=== PATIENT | female | born 1935 | race Caucasian/White ===

== ENCOUNTER 2016-10-14 18:45 | Emergency (ER) | payer MEDICARE, OTHER ==
[~2016-10-14] VITALS: Ht 170.2 cm; Wt 78.7 kg
[~2016-10-14 18:45] MED LIST: /LANS30GR PO; /MOXI40TA; /OMEP10CA OR; ACET500C OR; ALLO300T PO; AMLO10TA PO; AMLO5TAB2 PO; ASPI1TAB PO; ASPI81TA63 PO; AVANDAMET; BACT800T OR; BACT800T5 PO; CALC1CAP31 PO; CARV12.5 PO; CIPRO500 PO; COLA100C2; COMBIVENT; CORE25TA; CORE6.25 PO; DRIS50002 PO; FERR1TAB8 PO; FLAGYL250 PO; FURO20TA2 PO; FURO40TA2 PO; GINK40TA3 PO; GINK60TA4 PO; GLIP1TAB11 PO; GLIP5TAB2 PO; GLUC500T PO; GLUC5TAB PO; GLUC5TAB3 OR; IRON28TA OR; IRON325T3 PO; LASI40TA PO; LISI10TA4 PO; LISI40TA OR; LISI5TAB PO; MAALSUS OR; MAGN500T2; METF500T PO; NEXI40CA PO; POTA10CA2 PO; PRED10TA2; PREVACID30 PO; SILV50CR TOP; SIMV20TA2 PO; TRAD5TAB PO; VITA100072 PO; VITA50TA12 OR; ZOCO20TA; ZOCO20TA PO; ZYLO300T4 PO
[2016-10-14] MEDS ORDERED: ACETAMINOPHEN 325 MG TAB PO ONE (19:15)
--- NOTE | 2016-10-14 19:28 | REP ---
Clinical: Trauma. Comparison: 11/14/2011 . Findings: Age-related atrophy and microvascular ischemic changes are appreciated. The ventricles and sulci are symmetric. Joya-white differentiation is maintained. There is no evidence for acute intracranial hemorrhage, mass/mass effect, pathology or infarction. No extra-axial fluid collection. Calvarium is intact. Paranasal sinuses and mastoid air cells are clear. Atherosclerotic changes to the internal carotid arteries noted. Impression: Age related atrophy and microvascular ischemic changes. No acute intracranial hemorrhage, infarction, or mass/mass effect. Signed by Carlos Tejada MD 10/14/2016 07:20 P
[2016-10-14] MEDS ORDERED: NORCO 5/325MG TABLET (BULK FOR ED) PO ONE (19:45)
[2016-10-14 19:53] VITALS: BP 184/86
--- NOTE | 2016-10-14 20:20 | REP ---
Clinical: Trauma. Technique: Frontal view of the chest with multiple views of the right hemithorax. Findings: Frontal view of the chest demonstrates chronic stable changes without acute cardiopulmonary process. Hiatal hernia suggested. Multiple views of the right hemithorax demonstrates no obvious acute rib fracture or pathology. Impression: No rib fracture identified. Signed by Carlos Tejada MD 10/14/2016 08:10 P
== END 2016-10-14 19:53 | disposition home or self-care (01) ==
LOC: M ED 18:45
DX: S00.83XA Contusion of other part of head, initial encounter (principal); S20.229A Contusion of unspecified back wall of thorax, initial encounter; W18.09XA Striking against other object with subsequent fall, initial encounter; Y92.019 Unspecified place in single-family (private) house as the place of occurrence of the external cause; Y93.01 Activity, walking, marching and hiking; Y99.8 Other external cause status; N18.9 Chronic kidney disease, unspecified; E11.22 Type 2 diabetes mellitus with diabetic chronic kidney disease; J44.9 Chronic obstructive pulmonary disease, unspecified; I12.9 Hypertensive chronic kidney disease with stage 1 through stage 4 chronic kidney disease, or unspecified chronic kidney disease; Z99.2 Dependence on renal dialysis; Z79.82 Long term (current) use of aspirin; Z79.899 Other long term (current) drug therapy; Z88.0 Allergy status to penicillin; Z88.8 Allergy status to other drugs, medicaments and biological substances; Z91.030 Bee allergy status

== ENCOUNTER → 2017-04-26 | Outpatient (REF) | payer MEDICARE, OTHER | LOC: M LAB REF 13:21 | DX: L03.116 Cellulitis of left lower limb (principal) | CPT/HCPCS: 87186 ==

== ENCOUNTER → 2017-06-20 | Outpatient (REF) | payer MEDICARE, OTHER ==
[2017-06-21 14:54] LABS: FERRITIN 87 NG/ML (8-252); IRON (FE) 66 UG/DL (50-170); PERCENT SATURATION 23.6 % (13.2-45.0); TOTAL IRON BINDING CAPACITY 280 UG/DL (250-450)
== END ==
LOC: M LAB REF 13:44
DX: D64.9 Anemia, unspecified (principal); N18.4 Chronic kidney disease, stage 4 (severe)
CPT/HCPCS: 83550

== ENCOUNTER → 2017-06-21 | Outpatient (CLI) | payer MEDICARE, OTHER | LOC: M RAD 08:41 | DX: N18.6 End stage renal disease (principal) | CPT/HCPCS: G0365 ==

== ENCOUNTER → 2017-08-08 | Outpatient (REF) | payer MEDICARE, OTHER | LOC: M LAB REF 15:41 | DX: L97.512 Non-pressure chronic ulcer of other part of right foot with fat layer exposed (principal) | CPT/HCPCS: 87102 ==

== ENCOUNTER → 2017-08-24 | Outpatient (CLI) | payer MEDICARE, OTHER | LOC: M EKG 10:41 | DX: Z01.818 Encounter for other preprocedural examination (principal); E11.9 Type 2 diabetes mellitus without complications; J44.9 Chronic obstructive pulmonary disease, unspecified; R94.31 Abnormal electrocardiogram [ECG] [EKG] | CPT/HCPCS: 93005 ==

== ENCOUNTER 2017-08-31 10:37 | Day surgery (SDC) | payer MEDICARE, OTHER ==
[2017-08-31] MEDS ORDERED: NS 1,000 ML IV (10:45)
[2017-08-31 11:26] LABS: POTASSIUM SERUM 3.7 MEQ/L (3.5-5.1)
[2017-08-31] MEDS ORDERED: LIDOCAINE 2% INJ 100 MG/5 ML SDV (FOR ANES.) As Ordered (11:45)
[2017-08-31] MEDS ORDERED: MIDAZOLAM INJ 2 MG/2 ML VIAL (J2250) As Ordered ×2 (11:45→14:44)
[2017-08-31] MEDS ORDERED: PROPOFOL 200 MG/20 ML VIAL As Ordered ×2 (11:45→14:52)
[2017-08-31] MEDS ORDERED: fentaNYL 100 MCG/2 ML INJECTION (J3010) As Ordered (11:45)
[2017-08-31] MEDS ORDERED: ONDANSETRON 4MG/2ML VIAL (J2405) As Ordered (11:45)
[2017-08-31 12:26] LABS: BEDSIDE GLUCOSE 131 MG/DL (83-110)
[2017-08-31] MEDS: CARVedilol 6.25 MG TAB PO (12:30)
[2017-08-31] MEDS: BUPIVACAINE HCL 0.5% 10 ML VIAL As Ordered (13:35)
[2017-08-31] MEDS: LIDOCAINE 1% MDV 20ML VIAL As Ordered (13:35)
[2017-08-31] MEDS: HEPARIN SOD (PORCINE) 5000 UNITS/ML VIAL As Ordered (13:35)
[2017-08-31] MEDS ORDERED: PHENYLephrine HCL 500 MCG/5 ML (100MCG/ML) SYRINGE (J2370) As Ordered ×2 (13:51→15:15)
[2017-08-31] MEDS ORDERED: KETAMINE HCL 200 MG/20 ML VIAL As Ordered (14:44)
== END 2017-08-31 15:05 | disposition home or self-care (01) ==
LOC: M SDC 10:37
DX: E11.22 Type 2 diabetes mellitus with diabetic chronic kidney disease (principal); N18.9 Chronic kidney disease, unspecified; I12.9 Hypertensive chronic kidney disease with stage 1 through stage 4 chronic kidney disease, or unspecified chronic kidney disease; L97.529 Non-pressure chronic ulcer of other part of left foot with unspecified severity; E78.00 Pure hypercholesterolemia, unspecified; J44.9 Chronic obstructive pulmonary disease, unspecified; M79.89 Other specified soft tissue disorders; Z99.81 Dependence on supplemental oxygen
CPT/HCPCS: 36821

== ENCOUNTER 2017-09-18 09:34 | Inpatient (IN) | payer MEDICARE, OTHER ==
[2017-09-18] MEDS: NS 1,000 ML IV (11:26)
[2017-09-18 11:38] LABS: BASO % 0.3 % (0.0-1.0); EOS # 0.1 10^3/uL (0.0-0.50); EOS % 0.9 % (0.0-3.0); HEMATOCRIT 29.7 % (36.0-47.0); HEMOGLOBIN 9.7 g/dl (12.0-15.5); IMMATURE GRANULOCYTE % 0.5 % (0-3.0); LYMPH # 1.2 10^3/uL (1.5-4.5); LYMPH % 10.9 % (24.0-44.0); MEAN CORPUSCULAR HEMOGLOBIN 30.8 pg (27.0-33.0); MEAN CORPUSCULAR HGB CONC 32.7 g/dl (32.0-36.5); MEAN CORPUSCULAR VOLUME 94.3 fl (80.0-96.0); MONO # 0.6 10^3/uL (0.0-0.8); MONO % 5.3 % (0.0-5.0); NEUTROPHILS # 8.9 10^3/uL (1.8-7.7); NEUTROPHILS % 82.1 % (36.0-66.0); PLATELET COUNT, AUTOMATED 272 10^3/uL (150-450); RED BLOOD COUNT 3.15 10^6/uL (4.00-5.40); RED CELL DISTRIBUTION WIDTH 13.7 % (11.5-14.5); WHITE BLOOD COUNT 10.8 10^3/uL (4.0-10.0)
[2017-09-18 12:14] LABS: ALBUMIN 3.4 GM/DL (3.2-5.2); ALBUMIN/GLOBULIN RATIO 0.92 (1.00-1.93); ALKALINE PHOSPHATASE 51 U/L (45-117); ALT/SGPT 11 U/L (12-78); ANION GAP 8 MEQ/L (8-16); AST/SGOT 5 U/L (7-37); BILIRUBIN,DIRECT 0.2 MG/DL (0.0-0.2); BILIRUBIN,TOTAL 0.4 MG/DL (0.2-1.0); BLOOD UREA NITROGEN 37 MG/DL (7-18); CALCIUM LEVEL 8.6 MG/DL (8.8-10.2); CARBON DIOXIDE LEVEL 31 MEQ/L (21-32); CHLORIDE LEVEL 98 MEQ/L (98-107); CK-MB VALUE MASS < 1.0 NG/ML (<3.6); CPK CREATINE PHOSPHOKINASE 32 U/L (26-192); CREATININE FOR GFR 2.26 MG/DL (0.55-1.30); GLOMERULAR FILTRATION RATE 21.9 (>32); GLUCOSE, FASTING 182 MG/DL (70-100); MB/CK RELATIVE INDEX 3.12 (< OR =4); NT-PRO BNP 4765 PG/ML (<450); POTASSIUM SERUM 3.5 MEQ/L (3.5-5.1); SODIUM LEVEL 137 MEQ/L (136-145); THYROXINE (T4) 10.5 UG/DL (4.5-12.0); TOTAL PROTEIN 7.1 GM/DL (6.4-8.2); TROPONIN I < 0.02 NG/ML (< 0.10)
[2017-09-18] MEDS: FUROSEMIDE 40 MG/4 ML VIAL (J1940) IV ×3 (14:11→23:43)
[2017-09-18] MEDS ORDERED: LEVALBUTEROL 1.25 MG/0.5 ML CONCENTRATE NEB INH ×2 (15:30→16:00)
[2017-09-18] MEDS: HEPARIN SOD (PORCINE) 5000 UNITS/ML VIAL SC ×2 (15:54→20:54)
[2017-09-18] MEDS: CARVedilol 12.5 MG TAB PO ×2 (15:55→20:55)
[2017-09-18] MEDS ORDERED: DEXTROSE 50% 50 ML SYRINGE IV (16:00)
[2017-09-18] MEDS ORDERED: GLUCOSE 4 GM CHEW TABLET PO (16:00)
[2017-09-18] MEDS ORDERED: GLUCAGON FOR INJ 1 MG VIAL (J1610) SC (16:00)
[2017-09-18] MEDS: LEVALBUTEROL 1.25 MG/0.5 ML CONCENTRATE NEB NEB (16:43)
[2017-09-18] MEDS: HumaLOG INSULIN (NovoLOG) PER UNIT SC ×2 (17:30→21:06)
[2017-09-18 17:48] LABS: BEDSIDE GLUCOSE 151 MG/DL (83-110)
[2017-09-18 18:47] LABS: CK-MB VALUE MASS < 1.0 NG/ML (<3.6); CPK CREATINE PHOSPHOKINASE 41 U/L (26-192); MB/CK RELATIVE INDEX 2.43 (< OR =4); TROPONIN I < 0.02 NG/ML (< 0.10)
[2017-09-18] MEDS: LEVALBUTEROL 1.25 MG/0.5 ML CONCENTRATE NEB INH ×2 (20:24→23:53)
[2017-09-18] MEDS: SIMVASTATIN 20 MG TAB PO (20:54)
[2017-09-18] MEDS ORDERED: CARVedilol 12.5 MG TAB PO (21:00)
[2017-09-18 21:09] LABS: BEDSIDE GLUCOSE 233 MG/DL (83-110)
[2017-09-19] MEDS: LEVALBUTEROL 1.25 MG/0.5 ML CONCENTRATE NEB INH ×5 (03:49→19:56)
[2017-09-19] MEDS: HEPARIN SOD (PORCINE) 5000 UNITS/ML VIAL SC ×3 (05:13→21:49)
[2017-09-19 05:47] LABS: HEMOGLOBIN 9.8 g/dl (12.0-15.5); MEAN CORPUSCULAR HEMOGLOBIN 30.6 pg (27.0-33.0); MEAN CORPUSCULAR HGB CONC 32.7 g/dl (32.0-36.5); MEAN CORPUSCULAR VOLUME 93.8 fl (80.0-96.0); PLATELET COUNT, AUTOMATED 266 10^3/uL (150-450); RED CELL DISTRIBUTION WIDTH 13.7 % (11.5-14.5); WHITE BLOOD COUNT 10.2 10^3/uL (4.0-10.0)
[2017-09-19 06:08] LABS: ANION GAP 7 MEQ/L (8-16); BLOOD UREA NITROGEN 37 MG/DL (7-18); CALCIUM LEVEL 8.9 MG/DL (8.8-10.2); CARBON DIOXIDE LEVEL 31 MEQ/L (21-32); CHLORIDE LEVEL 100 MEQ/L (98-107); CK-MB VALUE MASS < 1.0 NG/ML (<3.6); CPK CREATINE PHOSPHOKINASE 48 U/L (26-192); CREATININE FOR GFR 2.19 MG/DL (0.55-1.30); GLOMERULAR FILTRATION RATE 22.8 (>32); GLUCOSE, FASTING 132 MG/DL (70-100); MB/CK RELATIVE INDEX 2.08 (< OR =4); POTASSIUM SERUM 3.3 MEQ/L (3.5-5.1); SODIUM LEVEL 138 MEQ/L (136-145); TROPONIN I < 0.02 NG/ML (< 0.10)
[2017-09-19] MEDS: FERROUS SULFATE 325MG TAB PO (08:09)
[2017-09-19] MEDS: HumaLOG INSULIN (NovoLOG) PER UNIT SC ×4 (08:09→21:40)
[2017-09-19] MEDS: CYANOCOBALAMIN 500 MCG TAB PO (08:10)
[2017-09-19] MEDS: ALLOPURINOL 300 MG TAB PO (08:10)
[2017-09-19] MEDS: PANTOPRAZOLE 40MG TAB (PROTONIX) PO (08:10)
[2017-09-19] MEDS: CALCITRIOL 0.25 MCG CAP (S0169) PO (08:10)
[2017-09-19] MEDS: ASPIRIN 81 MG ENTERIC TAB PO (08:12)
[2017-09-19] MEDS: CARVedilol 12.5 MG TAB PO ×2 (08:12→19:36)
[2017-09-19] MEDS ORDERED: PILL CRUSHER/CUTTER 1 EACH XX (08:15)
[2017-09-19] MEDS: POTASSIUM CHLORIDE 10 MEQ SR TABLET PO (10:42)
[2017-09-19 11:38] LABS: BEDSIDE GLUCOSE 186 MG/DL (83-110)
[2017-09-19] MEDS: FUROSEMIDE 40 MG/4 ML VIAL (J1940) IV ×2 (11:58→23:33)
[2017-09-19 16:54] LABS: BEDSIDE GLUCOSE 94 MG/DL (83-110)
[2017-09-19] MEDS: SIMVASTATIN 20 MG TAB PO (19:36)
[2017-09-19 21:23] LABS: BEDSIDE GLUCOSE 138 MG/DL (83-110)
[2017-09-20] MEDS: LEVALBUTEROL 1.25 MG/0.5 ML CONCENTRATE NEB INH ×2 (00:50→09:04)
[2017-09-20 05:20] LABS: HEMATOCRIT 28.5 % (36.0-47.0); HEMOGLOBIN 9.3 g/dl (12.0-15.5); MEAN CORPUSCULAR HEMOGLOBIN 30.7 pg (27.0-33.0); MEAN CORPUSCULAR HGB CONC 32.6 g/dl (32.0-36.5); MEAN CORPUSCULAR VOLUME 94.1 fl (80.0-96.0); PLATELET COUNT, AUTOMATED 247 10^3/uL (150-450); RED BLOOD COUNT 3.03 10^6/uL (4.00-5.40); RED CELL DISTRIBUTION WIDTH 13.8 % (11.5-14.5); WHITE BLOOD COUNT 9.9 10^3/uL (4.0-10.0)
[2017-09-20 05:37] LABS: ANION GAP 10 MEQ/L (8-16); BLOOD UREA NITROGEN 40 MG/DL (7-18); CALCIUM LEVEL 8.9 MG/DL (8.8-10.2); CARBON DIOXIDE LEVEL 28 MEQ/L (21-32); CHLORIDE LEVEL 99 MEQ/L (98-107); CREATININE FOR GFR 2.42 MG/DL (0.55-1.30); GLOMERULAR FILTRATION RATE 20.3 (>32); GLUCOSE, FASTING 138 MG/DL (70-100); POTASSIUM SERUM 3.5 MEQ/L (3.5-5.1); SODIUM LEVEL 137 MEQ/L (136-145)
[2017-09-20] MEDS: HEPARIN SOD (PORCINE) 5000 UNITS/ML VIAL SC (05:59)
[2017-09-20] MEDS: CALCITRIOL 0.25 MCG CAP (S0169) PO (07:51)
[2017-09-20] MEDS: PANTOPRAZOLE 40MG TAB (PROTONIX) PO (07:51)
[2017-09-20] MEDS: ALLOPURINOL 300 MG TAB PO (07:51)
[2017-09-20] MEDS: CYANOCOBALAMIN 500 MCG TAB PO (07:51)
[2017-09-20] MEDS: HumaLOG INSULIN (NovoLOG) PER UNIT SC (07:51)
[2017-09-20] MEDS: ASPIRIN 81 MG ENTERIC TAB PO (07:52)
[2017-09-20] MEDS: FERROUS SULFATE 325MG TAB PO (07:52)
[2017-09-20] MEDS: CARVedilol 12.5 MG TAB PO (07:52)
== END 2017-09-20 10:25 | disposition home or self-care (01) | DRG 291 ==
LOC: M ED 09:34 → M ED INP 14:25 → M PCU 17:24
DX: I13.0 Hypertensive heart and chronic kidney disease with heart failure and stage 1 through stage 4 chronic kidney disease, or unspecified chronic kidney disease (principal); I50.33 Acute on chronic diastolic (congestive) heart failure; N18.4 Chronic kidney disease, stage 4 (severe); J96.11 Chronic respiratory failure with hypoxia; N25.81 Secondary hyperparathyroidism of renal origin; N17.9 Acute kidney failure, unspecified; E11.9 Type 2 diabetes mellitus without complications; E78.4 Other hyperlipidemia; K21.9 Gastro-esophageal reflux disease without esophagitis; J44.9 Chronic obstructive pulmonary disease, unspecified; K44.9 Diaphragmatic hernia without obstruction or gangrene; Z79.899 Other long term (current) drug therapy; Z79.82 Long term (current) use of aspirin; Z88.0 Allergy status to penicillin; Z91.038 Other insect allergy status; M10.9 Gout, unspecified; E55.9 Vitamin D deficiency, unspecified; D63.1 Anemia in chronic kidney disease; E87.6 Hypokalemia

== ENCOUNTER → 2017-10-06 | Outpatient (REF) | payer MEDICARE, OTHER ==
[2017-10-06 18:36] LABS: FERRITIN 88 NG/ML (8-252); IRON (FE) 53 UG/DL (50-170); PERCENT SATURATION 19.6 % (13.2-45.0); TOTAL IRON BINDING CAPACITY 270 UG/DL (250-450)
== END ==
LOC: M LAB REF 16:50
DX: D64.9 Anemia, unspecified (principal)
CPT/HCPCS: 83550

== ENCOUNTER 2017-10-17 18:59 | Inpatient (IN) | payer MEDICARE, OTHER ==
[2017-10-17 21:49] LABS: BASO # 0.1 10^3/uL (0.0-0.2); BASO % 0.4 % (0.0-1.0); EOS # 0.3 10^3/uL (0.0-0.50); HEMATOCRIT 32.5 % (36.0-47.0); HEMOGLOBIN 10.6 g/dl (12.0-15.5); IMMATURE GRANULOCYTE % 0.4 % (0-3.0); LYMPH # 1.1 10^3/uL (1.5-4.5); LYMPH % 7.7 % (24.0-44.0); MEAN CORPUSCULAR HEMOGLOBIN 30.7 pg (27.0-33.0); MEAN CORPUSCULAR HGB CONC 32.6 g/dl (32.0-36.5); MEAN CORPUSCULAR VOLUME 94.2 fl (80.0-96.0); MONO # 0.5 10^3/uL (0.0-0.8); MONO % 3.7 % (0.0-5.0); NEUTROPHILS # 12.7 10^3/uL (1.8-7.7); NEUTROPHILS % 85.8 % (36.0-66.0); PLATELET COUNT, AUTOMATED 288 10^3/uL (150-450); RED BLOOD COUNT 3.45 10^6/uL (4.00-5.40); RED CELL DISTRIBUTION WIDTH 14.6 % (11.5-14.5); WHITE BLOOD COUNT 14.8 10^3/uL (4.0-10.0)
[2017-10-17 21:50] LABS: VENOUS BASE EXCESS 0.9 (-2.0-2.0); VENOUS HCO3 27.1 MEQ/L (23.0-27.0); VENOUS O2 SATURATION 68.4 % (60.0-80.0); VENOUS PARTIAL PRESSURE CO2 50.4 mmHg (38.0-50.0); VENOUS PARTIAL PRESSURE O2 37.3 mmHg (30.0-50.0); VENOUS PH 7.348 UNITS (7.330-7.430); VENOUS STANDARD HCO3 24.7 MEQ/L; VENOUS TOTAL CO2 28.6 MEQ/L (24.0-28.0)
[2017-10-17 22:13] LABS: LACTIC ACID SEPSIS PROTOCOL 0.9 MMOL/L (0.4-2.0)
[2017-10-17 22:15] LABS: ALBUMIN 3.7 GM/DL (3.2-5.2); ALBUMIN/GLOBULIN RATIO 0.97 (1.00-1.93); ALKALINE PHOSPHATASE 59 U/L (45-117); ALT/SGPT 18 U/L (12-78); ANION GAP 11 MEQ/L (8-16); AST/SGOT 12 U/L (7-37); BILIRUBIN,DIRECT 0.1 MG/DL (0.0-0.2); BILIRUBIN,TOTAL 0.4 MG/DL (0.2-1.0); BLOOD UREA NITROGEN 31 MG/DL (7-18); CALCIUM LEVEL 8.5 MG/DL (8.8-10.2); CARBON DIOXIDE LEVEL 28 MEQ/L (21-32); CHLORIDE LEVEL 96 MEQ/L (98-107); CPK CREATINE PHOSPHOKINASE 32 U/L (26-192); CREATININE FOR GFR 2.05 MG/DL (0.55-1.30); GLOMERULAR FILTRATION RATE 24.6 (>32); GLUCOSE, FASTING 212 MG/DL (70-100); POTASSIUM SERUM 3.6 MEQ/L (3.5-5.1); SODIUM LEVEL 135 MEQ/L (136-145); TOTAL PROTEIN 7.5 GM/DL (6.4-8.2); TROPONIN I 0.04 NG/ML (< 0.10)
[2017-10-17 22:21] LABS: CK-MB VALUE MASS < 1.0 NG/ML (<3.6); MB/CK RELATIVE INDEX 3.12 (< OR =4); NT-PRO BNP 3178 PG/ML (<450)
[2017-10-17] MEDS: FUROSEMIDE 40 MG/4 ML VIAL (J1940) IV (22:45)
[2017-10-18] MEDS ORDERED: GLUCOSE 4 GM CHEW TABLET PO (01:15)
[2017-10-18] MEDS ORDERED: GLUCAGON FOR INJ 1 MG VIAL (J1610) SC (01:15)
[2017-10-18] MEDS ORDERED: DEXTROSE 50% 50 ML SYRINGE IV (01:15)
[2017-10-18] MEDS: ASPIRIN 81 MG CHEW TABLET PO (02:54)
[2017-10-18 05:45] LABS: BEDSIDE GLUCOSE 204 MG/DL (83-110)
[2017-10-18] MEDS: HEPARIN SOD (PORCINE) 5000 UNITS/ML VIAL SQ ×3 (06:24→21:18)
[2017-10-18 06:27] LABS: NT-PRO BNP 7022 PG/ML (<450)
[2017-10-18 07:56] LABS: BASO # 0.1 10^3/uL (0.0-0.2); BASO % 0.5 % (0.0-1.0); EOS # 0.2 10^3/uL (0.0-0.50); EOS % 1.7 % (0.0-3.0); HEMATOCRIT 30.6 % (36.0-47.0); HEMOGLOBIN 10.2 g/dl (12.0-15.5); IMMATURE GRANULOCYTE % 0.4 % (0-3.0); LYMPH # 1.6 10^3/uL (1.5-4.5); LYMPH % 11.7 % (24.0-44.0); MEAN CORPUSCULAR HEMOGLOBIN 31.1 pg (27.0-33.0); MEAN CORPUSCULAR HGB CONC 33.3 g/dl (32.0-36.5); MEAN CORPUSCULAR VOLUME 93.3 fl (80.0-96.0); MONO # 0.6 10^3/uL (0.0-0.8); MONO % 4.7 % (0.0-5.0); NEUTROPHILS # 10.8 10^3/uL (1.8-7.7); PLATELET COUNT, AUTOMATED 308 10^3/uL (150-450); RED BLOOD COUNT 3.28 10^6/uL (4.00-5.40); RED CELL DISTRIBUTION WIDTH 14.6 % (11.5-14.5); WHITE BLOOD COUNT 13.3 10^3/uL (4.0-10.0)
[2017-10-18 08:08] LABS: ALBUMIN 3.3 GM/DL (3.2-5.2); ALBUMIN/GLOBULIN RATIO 0.83 (1.00-1.93); ALKALINE PHOSPHATASE 52 U/L (45-117); ALT/SGPT 15 U/L (12-78); ANION GAP 12 MEQ/L (8-16); AST/SGOT 13 U/L (7-37); BILIRUBIN,TOTAL 0.4 MG/DL (0.2-1.0); BLOOD UREA NITROGEN 30 MG/DL (7-18); CALCIUM LEVEL 8.5 MG/DL (8.8-10.2); CARBON DIOXIDE LEVEL 26 MEQ/L (21-32); CHLORIDE LEVEL 99 MEQ/L (98-107); CREATININE FOR GFR 1.98 MG/DL (0.55-1.30); GLOMERULAR FILTRATION RATE 25.6 (>32); GLUCOSE, FASTING 207 MG/DL (70-100); MAGNESIUM LEVEL 1.8 MG/DL (1.8-2.4); POTASSIUM SERUM 3.5 MEQ/L (3.5-5.1); SODIUM LEVEL 137 MEQ/L (136-145); TOTAL PROTEIN 7.3 GM/DL (6.4-8.2)
[2017-10-18] MEDS: SILVER SULFADIAZINE 1% CR 50 GM JAR TOP ×2 (09:00→21:18)
[2017-10-18] MEDS: FERROUS SULFATE 325MG TAB PO (09:36)
[2017-10-18] MEDS: OMEPRAZOLE 20 MG CAP PO (09:36)
[2017-10-18] MEDS: CYANOCOBALAMIN 500 MCG TAB PO (09:37)
[2017-10-18] MEDS: CARVedilol 12.5 MG TAB PO ×2 (09:38→21:17)
[2017-10-18] MEDS: SPIRONOLACTONE 25 MG TAB PO (09:38)
[2017-10-18] MEDS: ALLOPURINOL 300 MG TAB PO (09:38)
[2017-10-18] MEDS: CALCITRIOL 0.25 MCG CAP (S0169) PO (09:39)
[2017-10-18] MEDS: FUROSEMIDE 40 MG/4 ML VIAL (J1940) IV ×2 (09:39→21:22)
[2017-10-18] MEDS: HumaLOG INSULIN (NovoLOG) PER UNIT SC ×4 (09:40→20:41)
[2017-10-18 11:15] LABS: BEDSIDE GLUCOSE 140 MG/DL (83-110)
[2017-10-18 16:52] LABS: BEDSIDE GLUCOSE 211 MG/DL (83-110)
[2017-10-18 20:17] LABS: BEDSIDE GLUCOSE 102 MG/DL (83-110)
[2017-10-18] MEDS: SIMVASTATIN 20 MG TAB PO (21:18)
[2017-10-19] MEDS: HEPARIN SOD (PORCINE) 5000 UNITS/ML VIAL SQ (05:09)
[2017-10-19 05:52] LABS: BASO # 0.1 10^3/uL (0.0-0.2); BASO % 0.4 % (0.0-1.0); EOS # 0.3 10^3/uL (0.0-0.50); EOS % 2.6 % (0.0-3.0); HEMATOCRIT 29.6 % (36.0-47.0); HEMOGLOBIN 9.9 g/dl (12.0-15.5); IMMATURE GRANULOCYTE % 0.6 % (0-3.0); LYMPH # 1.7 10^3/uL (1.5-4.5); MEAN CORPUSCULAR HEMOGLOBIN 31.2 pg (27.0-33.0); MEAN CORPUSCULAR HGB CONC 33.4 g/dl (32.0-36.5); MEAN CORPUSCULAR VOLUME 93.4 fl (80.0-96.0); MONO # 0.6 10^3/uL (0.0-0.8); MONO % 5.6 % (0.0-5.0); NEUTROPHILS # 8.5 10^3/uL (1.8-7.7); NEUTROPHILS % 75.8 % (36.0-66.0); PLATELET COUNT, AUTOMATED 270 10^3/uL (150-450); RED BLOOD COUNT 3.17 10^6/uL (4.00-5.40); RED CELL DISTRIBUTION WIDTH 14.7 % (11.5-14.5); WHITE BLOOD COUNT 11.2 10^3/uL (4.0-10.0)
[2017-10-19 06:23] LABS: ALBUMIN 3.3 GM/DL (3.2-5.2); ALBUMIN/GLOBULIN RATIO 0.87 (1.00-1.93); ALKALINE PHOSPHATASE 46 U/L (45-117); ALT/SGPT 15 U/L (12-78); ANION GAP 12 MEQ/L (8-16); AST/SGOT 12 U/L (7-37); BILIRUBIN,TOTAL 0.4 MG/DL (0.2-1.0); BLOOD UREA NITROGEN 29 MG/DL (7-18); CALCIUM LEVEL 9.3 MG/DL (8.8-10.2); CARBON DIOXIDE LEVEL 29 MEQ/L (21-32); CHLORIDE LEVEL 96 MEQ/L (98-107); CREATININE FOR GFR 2.06 MG/DL (0.55-1.30); GLOMERULAR FILTRATION RATE 24.4 (>32); GLUCOSE, FASTING 187 MG/DL (70-100); MAGNESIUM LEVEL 2.1 MG/DL (1.8-2.4); POTASSIUM SERUM 3.3 MEQ/L (3.5-5.1); SODIUM LEVEL 137 MEQ/L (136-145); TOTAL PROTEIN 7.1 GM/DL (6.4-8.2)
[2017-10-19] MEDS: SILVER SULFADIAZINE 1% CR 50 GM JAR TOP (09:00)
[2017-10-19] MEDS: HumaLOG INSULIN (NovoLOG) PER UNIT SC (09:06)
[2017-10-19] MEDS: OMEPRAZOLE 20 MG CAP PO (09:07)
[2017-10-19] MEDS: POTASSIUM CHLORIDE 10 MEQ SR TABLET PO (09:07)
[2017-10-19] MEDS: ALLOPURINOL 300 MG TAB PO (09:07)
[2017-10-19] MEDS: FUROSEMIDE 40 MG TAB PO (09:08)
[2017-10-19] MEDS: SPIRONOLACTONE 25 MG TAB PO (09:08)
[2017-10-19] MEDS: CYANOCOBALAMIN 500 MCG TAB PO (09:08)
[2017-10-19] MEDS: FERROUS SULFATE 325MG TAB PO (09:08)
[2017-10-19] MEDS: CALCITRIOL 0.25 MCG CAP (S0169) PO (09:08)
[2017-10-19] MEDS: CARVedilol 12.5 MG TAB PO (09:09)
== END 2017-10-19 10:52 | disposition home or self-care (01) | DRG 291 ==
LOC: M ED INP 10-18 01:13 → M MSPAV 10-18 02:17 → M ED 18:59
DX: I13.0 Hypertensive heart and chronic kidney disease with heart failure and stage 1 through stage 4 chronic kidney disease, or unspecified chronic kidney disease (principal); I50.33 Acute on chronic diastolic (congestive) heart failure; N18.4 Chronic kidney disease, stage 4 (severe); J44.9 Chronic obstructive pulmonary disease, unspecified; E78.5 Hyperlipidemia, unspecified; E11.9 Type 2 diabetes mellitus without complications; I34.0 Nonrheumatic mitral (valve) insufficiency; I27.20 Pulmonary hypertension, unspecified; Z79.82 Long term (current) use of aspirin; Z79.899 Other long term (current) drug therapy; Z91.038 Other insect allergy status; Z91.040 Latex allergy status; Z88.0 Allergy status to penicillin; K21.9 Gastro-esophageal reflux disease without esophagitis; D63.8 Anemia in other chronic diseases classified elsewhere; Z87.891 Personal history of nicotine dependence

== ENCOUNTER 2017-11-25 07:48 | Inpatient (IN) | payer MEDICARE, OTHER ==
[2017-11-25 08:28] LABS: BASO # 0.1 10^3/uL (0.0-0.2); BASO % 0.5 % (0.0-1.0); EOS # 0.3 10^3/uL (0.0-0.50); HEMATOCRIT 32.2 % (36.0-47.0); HEMOGLOBIN 10.6 g/dl (12.0-15.5); IMMATURE GRANULOCYTE % 0.6 % (0-3.0); LYMPH # 1.1 10^3/uL (1.5-4.5); LYMPH % 8.1 % (24.0-44.0); MEAN CORPUSCULAR HEMOGLOBIN 30.7 pg (27.0-33.0); MEAN CORPUSCULAR HGB CONC 32.9 g/dl (32.0-36.5); MEAN CORPUSCULAR VOLUME 93.3 fl (80.0-96.0); MONO # 0.5 10^3/uL (0.0-0.8); MONO % 3.8 % (0.0-5.0); NEUTROPHILS # 11.4 10^3/uL (1.8-7.7); PLATELET COUNT, AUTOMATED 289 10^3/uL (150-450); RED BLOOD COUNT 3.45 10^6/uL (4.00-5.40); RED CELL DISTRIBUTION WIDTH 14.5 % (11.5-14.5); WHITE BLOOD COUNT 13.4 10^3/uL (4.0-10.0)
[2017-11-25 08:34] LABS: VENOUS BASE EXCESS 3.6 (-2.0-2.0); VENOUS HCO3 30.3 MEQ/L (23.0-27.0); VENOUS PARTIAL PRESSURE O2 41.8 mmHg (30.0-50.0); VENOUS PH 7.351 UNITS (7.330-7.430); VENOUS STANDARD HCO3 27.2 MEQ/L
[2017-11-25] MEDS: methylPREDNISolone INJ 125 MG/2 ML VIAL (J2930) IV ×2 (08:43→20:48)
[2017-11-25 08:44] LABS: INR 1.01; PROTHROMBIN TIME 13.4 SECONDS (12.1-14.4)
[2017-11-25] MEDS: IPRATROPIUM 0.5MG/ALBUTEROL 2.5MG INH SOL UD 3ML (DUONEB)(J7620) NEB ×2 (08:47→09:00)
[2017-11-25 08:56] LABS: LACTIC ACID SEPSIS PROTOCOL 0.9 MMOL/L (0.4-2.0)
[2017-11-25 08:58] LABS: ALBUMIN 3.6 GM/DL (3.2-5.2); ALBUMIN/GLOBULIN RATIO 1.03 (1.00-1.93); ALKALINE PHOSPHATASE 52 U/L (45-117); ALT/SGPT 19 U/L (12-78); ANION GAP 8 MEQ/L (8-16); AST/SGOT 11 U/L (7-37); BILIRUBIN,DIRECT 0.1 MG/DL (0.0-0.2); BILIRUBIN,TOTAL 0.5 MG/DL (0.2-1.0); BLOOD UREA NITROGEN 35 MG/DL (7-18); CALCIUM LEVEL 8.7 MG/DL (8.8-10.2); CARBON DIOXIDE LEVEL 30 MEQ/L (21-32); CHLORIDE LEVEL 93 MEQ/L (98-107); CPK CREATINE PHOSPHOKINASE 41 U/L (26-192); CREATININE FOR GFR 2.28 MG/DL (0.55-1.30); GLOMERULAR FILTRATION RATE 21.7 (>32); GLUCOSE, FASTING 212 MG/DL (70-100); POTASSIUM SERUM 3.9 MEQ/L (3.5-5.1); SODIUM LEVEL 131 MEQ/L (136-145); TOTAL PROTEIN 7.1 GM/DL (6.4-8.2); TROPONIN I 0.02 NG/ML (< 0.10)
[2017-11-25 09:03] LABS: CK-MB VALUE MASS 1.2 NG/ML (<3.6); MB/CK RELATIVE INDEX 2.92 (< OR =4); NT-PRO BNP 3671 PG/ML (<450)
[2017-11-25] MEDS ORDERED: SILVER SULFADIAZINE 1% CR 50 GM JAR TOP (11:45)
[2017-11-25] MEDS: FUROSEMIDE 40 MG/4 ML VIAL (J1940) IV (11:45)
[2017-11-25] MEDS: AZITHROMYCIN INJ 500 MG, VIAL MATE ADAPTER 1 EACH in D5W 250 ML IV (13:40)
[2017-11-25] MEDS: glipiZIDE XL 5 MG TABCR PO (17:22)
[2017-11-25] MEDS: FUROSEMIDE 40 MG TAB PO (17:22)
[2017-11-25] MEDS: SIMVASTATIN 20 MG TAB PO (20:48)
[2017-11-25] MEDS: CARVedilol 12.5 MG TAB PO (20:49)
[2017-11-25] MEDS: ACETAMINOPHEN TAB 650MG DOSE (2X325MG) PO (22:28)
[2017-11-26 05:51] LABS: HEMATOCRIT 33.5 % (36.0-47.0); HEMOGLOBIN 11.2 g/dl (12.0-15.5); MEAN CORPUSCULAR HGB CONC 33.4 g/dl (32.0-36.5); MEAN CORPUSCULAR VOLUME 89.8 fl (80.0-96.0); PLATELET COUNT, AUTOMATED 327 10^3/uL (150-450); RED BLOOD COUNT 3.73 10^6/uL (4.00-5.40); RED CELL DISTRIBUTION WIDTH 14.2 % (11.5-14.5); WHITE BLOOD COUNT 12.6 10^3/uL (4.0-10.0)
[2017-11-26 06:13] LABS: ANION GAP 15 MEQ/L (8-16); BLOOD UREA NITROGEN 40 MG/DL (7-18); CALCIUM LEVEL 9.1 MG/DL (8.8-10.2); CARBON DIOXIDE LEVEL 26 MEQ/L (21-32); CHLORIDE LEVEL 92 MEQ/L (98-107); CREATININE FOR GFR 2.26 MG/DL (0.55-1.30); GLOMERULAR FILTRATION RATE 21.9 (>32); GLUCOSE, FASTING 297 MG/DL (70-100); POTASSIUM SERUM 3.7 MEQ/L (3.5-5.1); SODIUM LEVEL 133 MEQ/L (136-145)
[2017-11-26] MEDS: CYANOCOBALAMIN 500 MCG TAB PO (09:52)
[2017-11-26] MEDS: CARVedilol 12.5 MG TAB PO ×2 (09:52→20:23)
[2017-11-26] MEDS: predniSONE 20 MG TAB PO (09:53)
[2017-11-26] MEDS: FERROUS SULFATE 325MG TAB PO (09:53)
[2017-11-26] MEDS: ALLOPURINOL 300 MG TAB PO (09:54)
[2017-11-26] MEDS: OMEPRAZOLE 20 MG CAP PO (09:54)
[2017-11-26] MEDS: FUROSEMIDE 40 MG TAB PO ×2 (09:54→17:36)
[2017-11-26] MEDS: glipiZIDE XL 5 MG TABCR PO ×2 (09:54→17:36)
[2017-11-26] MEDS: AZITHROMYCIN INJ 500 MG, VIAL MATE ADAPTER 1 EACH in D5W 250 ML IV (13:59)
[2017-11-26] MEDS: SIMVASTATIN 20 MG TAB PO (20:23)
[2017-11-26] MEDS: ACETAMINOPHEN TAB 650MG DOSE (2X325MG) PO (20:23)
[2017-11-27 06:27] LABS: ANION GAP 11 MEQ/L (8-16); BLOOD UREA NITROGEN 45 MG/DL (7-18); CALCIUM LEVEL 9.3 MG/DL (8.8-10.2); CARBON DIOXIDE LEVEL 28 MEQ/L (21-32); CHLORIDE LEVEL 90 MEQ/L (98-107); CREATININE FOR GFR 2.34 MG/DL (0.55-1.30); GLOMERULAR FILTRATION RATE 21.1 (>32); GLUCOSE, FASTING 239 MG/DL (70-100); SODIUM LEVEL 129 MEQ/L (136-145)
[2017-11-27 06:31] LABS: HEMATOCRIT 33.7 % (36.0-47.0); HEMOGLOBIN 11.1 g/dl (12.0-15.5); MEAN CORPUSCULAR HEMOGLOBIN 30.2 pg (27.0-33.0); MEAN CORPUSCULAR HGB CONC 32.9 g/dl (32.0-36.5); MEAN CORPUSCULAR VOLUME 91.6 fl (80.0-96.0); PLATELET COUNT, AUTOMATED 326 10^3/uL (150-450); RED BLOOD COUNT 3.68 10^6/uL (4.00-5.40); RED CELL DISTRIBUTION WIDTH 14.3 % (11.5-14.5); WHITE BLOOD COUNT 18.4 10^3/uL (4.0-10.0)
[2017-11-27] MEDS: FERROUS SULFATE 325MG TAB PO (09:17)
[2017-11-27] MEDS: CYANOCOBALAMIN 500 MCG TAB PO (09:17)
[2017-11-27] MEDS: predniSONE 20 MG TAB PO (09:18)
[2017-11-27] MEDS: FUROSEMIDE 40 MG TAB PO ×2 (09:18→17:02)
[2017-11-27] MEDS: glipiZIDE XL 5 MG TABCR PO ×2 (09:18→17:02)
[2017-11-27] MEDS: CARVedilol 12.5 MG TAB PO ×2 (09:18→20:02)
[2017-11-27] MEDS: OMEPRAZOLE 20 MG CAP PO (09:18)
[2017-11-27] MEDS: ALLOPURINOL 300 MG TAB PO (09:19)
[2017-11-27] MEDS: AZITHROMYCIN INJ 500 MG, VIAL MATE ADAPTER 1 EACH in D5W 250 ML IV (12:54)
[2017-11-27] MEDS: SIMVASTATIN 20 MG TAB PO (20:01)
[2017-11-28 05:57] LABS: HEMATOCRIT 32.3 % (36.0-47.0); MEAN CORPUSCULAR HEMOGLOBIN 30.1 pg (27.0-33.0); MEAN CORPUSCULAR HGB CONC 34.1 g/dl (32.0-36.5); MEAN CORPUSCULAR VOLUME 88.3 fl (80.0-96.0); PLATELET COUNT, AUTOMATED 332 10^3/uL (150-450); RED BLOOD COUNT 3.66 10^6/uL (4.00-5.40); WHITE BLOOD COUNT 15.5 10^3/uL (4.0-10.0)
[2017-11-28 06:15] LABS: ANION GAP 9 MEQ/L (8-16); BLOOD UREA NITROGEN 53 MG/DL (7-18); CALCIUM LEVEL 9.1 MG/DL (8.8-10.2); CARBON DIOXIDE LEVEL 30 MEQ/L (21-32); CHLORIDE LEVEL 90 MEQ/L (98-107); CREATININE FOR GFR 2.01 MG/DL (0.55-1.30); GLOMERULAR FILTRATION RATE 25.1 (>32); GLUCOSE, FASTING 193 MG/DL (70-100); POTASSIUM SERUM 3.8 MEQ/L (3.5-5.1); SODIUM LEVEL 129 MEQ/L (136-145)
[2017-11-28] MEDS: OMEPRAZOLE 20 MG CAP PO (08:51)
[2017-11-28] MEDS: predniSONE 20 MG TAB PO (08:52)
[2017-11-28] MEDS: FERROUS SULFATE 325MG TAB PO (08:52)
[2017-11-28] MEDS: CYANOCOBALAMIN 500 MCG TAB PO (08:52)
[2017-11-28] MEDS: glipiZIDE XL 5 MG TABCR PO ×2 (08:53→17:58)
[2017-11-28] MEDS: CARVedilol 12.5 MG TAB PO ×2 (08:53→21:17)
[2017-11-28] MEDS: FUROSEMIDE 40 MG TAB PO ×2 (08:53→17:59)
[2017-11-28] MEDS: ALLOPURINOL 300 MG TAB PO (08:54)
[2017-11-28] MEDS: AZITHROMYCIN INJ 500 MG, VIAL MATE ADAPTER 1 EACH in D5W 250 ML IV (13:16)
[2017-11-28] MEDS: SIMVASTATIN 20 MG TAB PO (21:16)
[2017-11-29 05:50] LABS: HEMOGLOBIN 10.8 g/dl (12.0-15.5); MEAN CORPUSCULAR HEMOGLOBIN 30.3 pg (27.0-33.0); MEAN CORPUSCULAR HGB CONC 33.8 g/dl (32.0-36.5); MEAN CORPUSCULAR VOLUME 89.6 fl (80.0-96.0); PLATELET COUNT, AUTOMATED 303 10^3/uL (150-450); RED BLOOD COUNT 3.57 10^6/uL (4.00-5.40); RED CELL DISTRIBUTION WIDTH 14.1 % (11.5-14.5); WHITE BLOOD COUNT 11.9 10^3/uL (4.0-10.0)
[2017-11-29 06:12] LABS: ANION GAP 6 MEQ/L (8-16); BLOOD UREA NITROGEN 55 MG/DL (7-18); CARBON DIOXIDE LEVEL 34 MEQ/L (21-32); CHLORIDE LEVEL 94 MEQ/L (98-107); CREATININE FOR GFR 1.91 MG/DL (0.55-1.30); GLOMERULAR FILTRATION RATE 26.6 (>32); GLUCOSE, FASTING 147 MG/DL (70-100); POTASSIUM SERUM 3.7 MEQ/L (3.5-5.1); SODIUM LEVEL 134 MEQ/L (136-145)
[2017-11-29] MEDS: glipiZIDE XL 5 MG TABCR PO (08:56)
[2017-11-29] MEDS: FERROUS SULFATE 325MG TAB PO (08:56)
[2017-11-29] MEDS: AZITHROMYCIN 250 MG TAB PO (08:56)
[2017-11-29] MEDS: ALLOPURINOL 300 MG TAB PO (08:57)
[2017-11-29] MEDS: predniSONE 20 MG TAB PO (08:57)
[2017-11-29] MEDS: CYANOCOBALAMIN 500 MCG TAB PO (08:57)
[2017-11-29] MEDS: FUROSEMIDE 40 MG TAB PO (08:57)
[2017-11-29] MEDS: CARVedilol 12.5 MG TAB PO (08:58)
[2017-11-29] MEDS: OMEPRAZOLE 20 MG CAP PO (08:58)
== END 2017-11-29 11:29 | disposition home or self-care (01) | DRG 191 ==
LOC: M ED 07:48 → M ED INP 11:35 → M MS5PR 14:15
DX: J44.1 Chronic obstructive pulmonary disease with (acute) exacerbation (principal); N18.4 Chronic kidney disease, stage 4 (severe); I50.32 Chronic diastolic (congestive) heart failure; I13.0 Hypertensive heart and chronic kidney disease with heart failure and stage 1 through stage 4 chronic kidney disease, or unspecified chronic kidney disease; J96.11 Chronic respiratory failure with hypoxia; I27.20 Pulmonary hypertension, unspecified; E11.621 Type 2 diabetes mellitus with foot ulcer; E78.5 Hyperlipidemia, unspecified; D63.1 Anemia in chronic kidney disease; Z79.899 Other long term (current) drug therapy; Z79.82 Long term (current) use of aspirin; Z88.0 Allergy status to penicillin; Z91.040 Latex allergy status; Z91.038 Other insect allergy status

== ENCOUNTER 2018-02-05 10:13 | Emergency (ER) | payer MEDICARE, OTHER ==
[2018-02-05 11:01] LABS: BASO # 0.1 10^3/uL (0.0-0.2); BASO % 0.7 % (0.0-1.0); EOS # 0.2 10^3/uL (0.0-0.50); EOS % 2.1 % (0.0-3.0); HEMATOCRIT 34.5 % (36.0-47.0); HEMOGLOBIN 10.3 g/dl (12.0-15.5); IMMATURE GRANULOCYTE % 0.5 % (0-3.0); LYMPH # 0.8 10^3/uL (1.5-4.5); LYMPH % 8.9 % (24.0-44.0); MEAN CORPUSCULAR HEMOGLOBIN 27.5 pg (27.0-33.0); MEAN CORPUSCULAR HGB CONC 29.9 g/dl (32.0-36.5); MONO # 0.4 10^3/uL (0.0-0.8); MONO % 4.5 % (0.0-5.0); NEUTROPHILS # 7.6 10^3/uL (1.8-7.7); NEUTROPHILS % 83.3 % (36.0-66.0); PLATELET COUNT, AUTOMATED 341 10^3/uL (150-450); RED BLOOD COUNT 3.75 10^6/uL (4.00-5.40); WHITE BLOOD COUNT 9.2 10^3/uL (4.0-10.0)
[2018-02-05 11:11] LABS: INR 1.14; PROTHROMBIN TIME 14.7 SECONDS (12.1-14.4)
[2018-02-05 11:12] LABS: PARTIAL THROMBOPLASTIN TIME 28.7 SECONDS (25.4-37.6)
[2018-02-05 11:19] LABS: ANION GAP 9 MEQ/L (8-16); BLOOD UREA NITROGEN 27 MG/DL (7-18); CALCIUM LEVEL 9.1 MG/DL (8.8-10.2); CARBON DIOXIDE LEVEL 31 MEQ/L (21-32); CHLORIDE LEVEL 94 MEQ/L (98-107); CK-MB VALUE MASS < 1.0 NG/ML (<3.6); CPK CREATINE PHOSPHOKINASE 19 U/L (26-192); CREATININE FOR GFR 2.21 MG/DL (0.55-1.30); FREE T4 1.42 NG/DL (0.76-1.46); GLOMERULAR FILTRATION RATE 22.5 (>32); GLUCOSE, FASTING 374 MG/DL (70-100); MAGNESIUM LEVEL 1.9 MG/DL (1.8-2.4); MB/CK RELATIVE INDEX 5.26 (< OR =4); POTASSIUM SERUM 3.8 MEQ/L (3.5-5.1); SODIUM LEVEL 134 MEQ/L (136-145); TROPONIN I < 0.02 NG/ML (< 0.10)
[2018-02-05] MEDS: SILVER SULFADIAZINE 1% CR 50 GM JAR TOP (13:20)
[2018-02-05] MEDS: NS 500 ML IV (13:20)
[2018-02-05 13:23] LABS: C REACTIVE PROTEIN QUANTITATIV 2.96 MG/DL (0.00-0.30)
[2018-02-05 13:42] LABS: KETONE, URINE AUTO RFX NEGATIVE (NEGATIVE); LEUKOCYTE ESTERASE UR AUTO RFX NEGATIVE (NEGATIVE); NITRITE, URINE AUTO RFX NEGATIVE (NEGATIVE); RBC, URINE AUTO RFX 2 /HPF (0-3); SPECIFIC GRAVITY UR AUTO RFX 1.008 (1.002-1.035); SQUAM EPITHELIAL CELL UR AURFX 3 /HPF (0-6); WBC, URINE AUTO RFX 0 /HPF (0-3)
[2018-02-05 15:22] LABS: BEDSIDE GLUCOSE 205 MG/DL (83-110)
[2018-02-09 14:09] LABS: BEDSIDE GLUCOSE 342 MG/DL (83-110)
== END 2018-02-05 16:35 | disposition home or self-care (01) ==
LOC: M ED 10:13
DX: E86.0 Dehydration (principal); N18.4 Chronic kidney disease, stage 4 (severe); R53.1 Weakness; R60.0 Localized edema; I50.9 Heart failure, unspecified; E78.5 Hyperlipidemia, unspecified; I27.20 Pulmonary hypertension, unspecified; E11.9 Type 2 diabetes mellitus without complications; Z88.0 Allergy status to penicillin; Z79.899 Other long term (current) drug therapy; Z79.82 Long term (current) use of aspirin; Z91.040 Latex allergy status; Z91.030 Bee allergy status
CPT/HCPCS: 71046

== ENCOUNTER 2018-02-21 08:43 | Emergency (ER) | payer MEDICARE, OTHER ==
[2018-02-21 09:37] LABS: BASO # 0.1 10^3/uL (0.0-0.2); BASO % 0.6 % (0.0-1.0); EOS # 0.1 10^3/uL (0.0-0.50); EOS % 1.2 % (0.0-3.0); HEMATOCRIT 30.3 % (36.0-47.0); HEMOGLOBIN 9.6 g/dl (12.0-15.5); IMMATURE GRANULOCYTE % 0.3 % (0-3.0); LYMPH % 10.9 % (24.0-44.0); MEAN CORPUSCULAR HEMOGLOBIN 28.2 pg (27.0-33.0); MEAN CORPUSCULAR HGB CONC 31.7 g/dl (32.0-36.5); MEAN CORPUSCULAR VOLUME 88.9 fl (80.0-96.0); MONO # 0.5 10^3/uL (0.0-0.8); MONO % 5.1 % (0.0-5.0); NEUTROPHILS # 7.7 10^3/uL (1.8-7.7); NEUTROPHILS % 81.9 % (36.0-66.0); PLATELET COUNT, AUTOMATED 331 10^3/uL (150-450); RED BLOOD COUNT 3.41 10^6/uL (4.00-5.40); RED CELL DISTRIBUTION WIDTH 16.3 % (11.5-14.5); WHITE BLOOD COUNT 9.4 10^3/uL (4.0-10.0)
[2018-02-21 09:57] LABS: MAGNESIUM LEVEL 2.1 MG/DL (1.8-2.4)
[2018-02-21 09:57] LABS: PHOSPHORUS LEVEL 3.6 MG/DL (2.5-4.9)
[2018-02-21 10:06] LABS: ALBUMIN 3.2 GM/DL (3.2-5.2); ALBUMIN/GLOBULIN RATIO 0.94 (1.00-1.93); ALKALINE PHOSPHATASE 54 U/L (45-117); ALT/SGPT 11 U/L (12-78); ANION GAP 12 MEQ/L (8-16); AST/SGOT 11 U/L (7-37); BILIRUBIN,DIRECT 0.3 MG/DL (0.0-0.2); BILIRUBIN,TOTAL 0.7 MG/DL (0.2-1.0); BLOOD UREA NITROGEN 30 MG/DL (7-18); CALCIUM LEVEL 9.3 MG/DL (8.8-10.2); CARBON DIOXIDE LEVEL 29 MEQ/L (21-32); CHLORIDE LEVEL 95 MEQ/L (98-107); CK-MB VALUE MASS < 1.0 NG/ML (<3.6); CPK CREATINE PHOSPHOKINASE 25 U/L (26-192); CREATININE FOR GFR 2.13 MG/DL (0.55-1.30); GLOMERULAR FILTRATION RATE 23.4 (>32); GLUCOSE, FASTING 191 MG/DL (70-100); POTASSIUM SERUM 4.2 MEQ/L (3.5-5.1); SODIUM LEVEL 136 MEQ/L (136-145); TOTAL PROTEIN 6.6 GM/DL (6.4-8.2); TROPONIN I < 0.02 NG/ML (< 0.10)
== END 2018-02-21 12:27 | disposition home or self-care (01) ==
LOC: M ED 08:43
DX: R53.1 Weakness (principal); I50.9 Heart failure, unspecified; I10 Essential (primary) hypertension; E78.5 Hyperlipidemia, unspecified; J44.9 Chronic obstructive pulmonary disease, unspecified; I27.20 Pulmonary hypertension, unspecified; Z79.82 Long term (current) use of aspirin; Z79.84 Long term (current) use of oral hypoglycemic drugs; Z79.899 Other long term (current) drug therapy; Z91.040 Latex allergy status; Z91.030 Bee allergy status; Z88.0 Allergy status to penicillin
CPT/HCPCS: 93005

== ENCOUNTER 2018-03-10 08:48 | Emergency (ER) | payer MEDICARE, OTHER ==
[2018-03-10 09:38] LABS: BASO # 0.1 10^3/uL (0.0-0.2); BASO % 0.8 % (0.0-1.0); EOS # 0.1 10^3/uL (0.0-0.50); HEMATOCRIT 31.8 % (36.0-47.0); HEMOGLOBIN 9.8 g/dl (12.0-15.5); IMMATURE GRANULOCYTE % 0.4 % (0-3.0); LYMPH # 0.8 10^3/uL (1.5-4.5); MEAN CORPUSCULAR HEMOGLOBIN 27.3 pg (27.0-33.0); MEAN CORPUSCULAR HGB CONC 30.8 g/dl (32.0-36.5); MEAN CORPUSCULAR VOLUME 88.6 fl (80.0-96.0); MONO # 0.4 10^3/uL (0.0-0.8); MONO % 4.4 % (0.0-5.0); NEUTROPHILS # 7.6 10^3/uL (1.8-7.7); NEUTROPHILS % 84.4 % (36.0-66.0); PLATELET COUNT, AUTOMATED 383 10^3/uL (150-450); RED BLOOD COUNT 3.59 10^6/uL (4.00-5.40); RED CELL DISTRIBUTION WIDTH 16.2 % (11.5-14.5)
[2018-03-10 10:01] LABS: ANION GAP 9 MEQ/L (8-16); BLOOD UREA NITROGEN 30 MG/DL (7-18); CALCIUM LEVEL 8.7 MG/DL (8.8-10.2); CARBON DIOXIDE LEVEL 30 MEQ/L (21-32); CHLORIDE LEVEL 98 MEQ/L (98-107); CK-MB VALUE MASS < 1.0 NG/ML (<3.6); CPK CREATINE PHOSPHOKINASE 26 U/L (26-192); CREATININE FOR GFR 2.19 MG/DL (0.55-1.30); GLOMERULAR FILTRATION RATE 22.7 (>32); GLUCOSE, FASTING 291 MG/DL (70-100); MB/CK RELATIVE INDEX 3.85 (< OR =4); NT-PRO BNP 16322 PG/ML (<450); POTASSIUM SERUM 3.9 MEQ/L (3.5-5.1); SODIUM LEVEL 137 MEQ/L (136-145); TROPONIN I < 0.02 NG/ML (< 0.10)
== END 2018-03-10 14:52 | disposition home or self-care (01) ==
LOC: M ED 08:48
DX: R42 Dizziness and giddiness (principal); N18.4 Chronic kidney disease, stage 4 (severe); I50.9 Heart failure, unspecified; I11.0 Hypertensive heart disease with heart failure; E11.9 Type 2 diabetes mellitus without complications; J44.9 Chronic obstructive pulmonary disease, unspecified; E78.5 Hyperlipidemia, unspecified; Z79.899 Other long term (current) drug therapy; Z79.890 Hormone replacement therapy; Z79.82 Long term (current) use of aspirin; Z88.0 Allergy status to penicillin; Z91.030 Bee allergy status; Z91.040 Latex allergy status
CPT/HCPCS: 70551

== ENCOUNTER → 2018-03-15 | Outpatient (REF) | payer MEDICARE, OTHER | LOC: M LAB REF 14:38 | DX: L03.116 Cellulitis of left lower limb (principal) | CPT/HCPCS: 87077 ==

== ENCOUNTER 2018-04-28 17:40 | Emergency (ER) | payer MEDICARE, OTHER ==
[~2018-04-28] VITALS: Ht 170.2 cm; Wt 64.5 kg
[~2018-04-28 17:40] MED LIST changes: -AMLO5TAB2 PO; +AMLO5TAB6 PO; +ASPI81CH PO; +CARV25TA PO; -DRIS50002 PO; +DRIS50003 PO; +LEVO75TA4 PO; +OMEP20TA PO; +PIOG1TAB36 PO; +PRED10TA2 PO; -ZYLO300T4 PO; +ZYLO300T6 PO
[2018-04-28] MEDS ORDERED: ADENOSINE 6MG/2ML INJECTION (J0153) As Ordered ONE (18:04)
[2018-04-28] MEDS ORDERED: FERR325T3 PO (18:04)
[2018-04-28] MEDS ORDERED: NS 1,000 ML IV ONE (18:15)
[2018-04-28] MEDS ORDERED: ASPIRIN 81 MG CHEW TABLET PO ONE (18:15)
[2018-04-28] MEDS ORDERED: ADENOSINE 6MG/2ML INJECTION (J0153) IV STA ×2 (18:18)
[2018-04-28 18:20] LABS: BASO # 0.1 10^3/uL (0.0-0.2); BASO % 0.9 % (0.0-1.0); EOS # 0.2 10^3/uL (0.0-0.50); EOS % 1.6 % (0.0-3.0); HEMATOCRIT 38.8 % (36.0-47.0); HEMOGLOBIN 11.8 g/dl (12.0-15.5); LYMPH # 2.4 10^3/uL (1.5-4.5); LYMPH % 24.4 % (24.0-44.0); MEAN CORPUSCULAR HEMOGLOBIN 27.6 pg (27.0-33.0); MEAN CORPUSCULAR HGB CONC 30.4 g/dl (32.0-36.5); MEAN CORPUSCULAR VOLUME 90.9 fl (80.0-96.0); MONO # 0.6 10^3/uL (0.0-0.8); MONO % 5.7 % (0.0-5.0); NEUTROPHILS # 6.5 10^3/uL (1.8-7.7); PLATELET COUNT, AUTOMATED 289 10^3/uL (150-450); RED BLOOD COUNT 4.27 10^6/uL (4.00-5.40); WHITE BLOOD COUNT 9.6 10^3/uL (4.0-10.0)
[2018-04-28] MEDS ORDERED: METOPROLOL 5 MG/5 ML VIAL As Ordered ONE (18:20)
[2018-04-28] MEDS: METOPROLOL 5 MG/5 ML VIAL IV SCH ×3 (18:22→18:53)
[2018-04-28 18:24] LABS: INR 1.05; PROTHROMBIN TIME 13.8 SECONDS (12.1-14.4)
[2018-04-28] MEDS ORDERED: LORazepam 2 MG/ML VIAL (J2060) IV STA (18:25)
[2018-04-28 18:33] LABS: ALBUMIN 3.8 GM/DL (3.2-5.2); ALT/SGPT 14 U/L (12-78); BILIRUBIN,DIRECT 0.2 MG/DL (0.0-0.2); BILIRUBIN,TOTAL 0.5 MG/DL (0.2-1.0); BLOOD UREA NITROGEN 30 MG/DL (7-18); CALCIUM LEVEL 9.2 MG/DL (8.8-10.2); CARBON DIOXIDE LEVEL 30 MEQ/L (21-32); CHLORIDE LEVEL 97 MEQ/L (98-107); CK-MB VALUE MASS < 1.0 NG/ML (<3.6); CPK CREATINE PHOSPHOKINASE 34 U/L (26-192); CREATININE FOR GFR 2.28 MG/DL (0.55-1.30); GLOMERULAR FILTRATION RATE 21.7 (>32); GLUCOSE, FASTING 256 MG/DL (70-100); MB/CK RELATIVE INDEX 2.94 (< OR =4); SODIUM LEVEL 136 MEQ/L (136-145); TOTAL PROTEIN 7.1 GM/DL (6.4-8.2); TROPONIN I 0.02 NG/ML (< 0.10)
[2018-04-28 18:53] VITALS: BP 118/58
[2018-04-28 20:00] VITALS: BP 121/58
--- NOTE | 2018-04-28 20:01 | REP ---
Portable chest x-ray: Single view. History: Chest pain. Comparison study: March 10, 2018. Findings: EKG monitoring electrodes overlie the chest. Cardiomegaly is observed. Pulmonary vasculature is cephalized. No pleural effusion is seen. Interstitial markings are increased consistent with pulmonary edema. Some component of interstitial fibrosis may be present as well. Impression: Cardiomegaly, vascular congestion, interstitial edema pattern with possibly with some interstitial fibrosis. Electronically Signed by Danny Corral MD 04/28/2018 07:52 P
--- NOTE | 2018-04-29 07:21 | ED PDOC ---
Post-Departure Follow-Up RADIOLOGY REPORT FAXED TO Jayashree Loaiza MD Apr 29, 2018 07:21
--- NOTE | 2018-04-29 08:24 | ECGEPIP ---
Stationary ECG Study 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
--- NOTE | 2018-05-02 07:24 | ECGEPIP ---
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 Rate increased from 03-10-18 tracing Electronically Signed On 05-02-2018 7:24:45 EST by Shahid Diaz
== END 2018-04-28 20:13 | disposition home or self-care (01) ==
LOC: M ED 17:40
DX: I47.1 Supraventricular tachycardia (principal); I10 Essential (primary) hypertension; E11.9 Type 2 diabetes mellitus without complications; E07.9 Disorder of thyroid, unspecified; F03.90 Unspecified dementia, unspecified severity, without behavioral disturbance, psychotic disturbance, mood disturbance, and anxiety; Z87.891 Personal history of nicotine dependence; Z88.0 Allergy status to penicillin; Z91.040 Latex allergy status; Z91.030 Bee allergy status; Z79.899 Other long term (current) drug therapy; Z79.82 Long term (current) use of aspirin
CPT/HCPCS: 71045; 80048; 80076; 82550; 82553; 84484; 85025; 85610; 93005; 93041; 94760; 96374; 96375; 99291; J0153; J2060

== ENCOUNTER 2018-05-01 16:18 | Emergency (ER) | payer MEDICARE, OTHER ==
[~2018-05-01] VITALS: Ht 162.6 cm; Wt 64.5 kg
[~2018-05-01 16:18] MED LIST changes: +FERR325T3 PO
[2018-05-01 16:56] LABS: BASO # 0.1 10^3/uL (0.0-0.2); BASO % 0.8 % (0.0-1.0); EOS # 0.1 10^3/uL (0.0-0.50); HEMATOCRIT 37.5 % (36.0-47.0); HEMOGLOBIN 11.5 g/dl (12.0-15.5); LYMPH % 22.3 % (24.0-44.0); MEAN CORPUSCULAR HEMOGLOBIN 27.4 pg (27.0-33.0); MEAN CORPUSCULAR HGB CONC 30.7 g/dl (32.0-36.5); MEAN CORPUSCULAR VOLUME 89.3 fl (80.0-96.0); MONO # 0.5 10^3/uL (0.0-0.8); MONO % 5.6 % (0.0-5.0); NEUTROPHILS # 6.1 10^3/uL (1.8-7.7); NEUTROPHILS % 70.1 % (36.0-66.0); PLATELET COUNT, AUTOMATED 243 10^3/uL (150-450); WHITE BLOOD COUNT 8.8 10^3/uL (4.0-10.0)
[2018-05-01] MEDS ORDERED: SILVER SULFADIAZINE 1% CR 50 GM JAR TOP ONE (17:00)
[2018-05-01 17:05] LABS: INR 1.09; PROTHROMBIN TIME 14.2 SECONDS (12.1-14.4)
[2018-05-01 17:06] LABS: PARTIAL THROMBOPLASTIN TIME 28.7 SECONDS (25.4-37.6)
[2018-05-01 17:18] LABS: ALBUMIN 3.8 GM/DL (3.2-5.2); BILIRUBIN,DIRECT 0.2 MG/DL (0.0-0.2); BILIRUBIN,TOTAL 0.6 MG/DL (0.2-1.0); CALCIUM LEVEL 9.4 MG/DL (8.8-10.2); CREATININE FOR GFR 2.07 MG/DL (0.55-1.30); FREE T4 1.31 NG/DL (0.76-1.46); GLOMERULAR FILTRATION RATE 24.2 (>32); MB/CK RELATIVE INDEX 2.24 (< OR =4); POTASSIUM SERUM 4.1 MEQ/L (3.5-5.1); THYROID STIMULATING HORMONE 4.54 uIU/ML (0.358-3.740); TOTAL PROTEIN 7.1 GM/DL (6.4-8.2); TROPONIN I 0.02 NG/ML (< 0.10)
--- NOTE | 2018-05-01 17:28 | REP ---
Chest one-view HISTORY: Chest pain Comparison: 04/28/2018 A diffuse increase in interstitial markings is present in the lungs consistent with edema. The cardiac silhouette is enlarged. The pulmonary vasculature is prominent. The pulmonary vasculature is normal in appearance. Impression: 1. Interstitial edema. 2. Cardiomegaly. Electronically Signed by Antonio Mckeon MD 05/01/2018 05:19 P
[2018-05-01 19:01] VITALS: BP 164/68
--- NOTE | 2018-05-01 20:18 | ECGEPIP ---
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
== END 2018-05-01 19:05 | disposition home or self-care (01) ==
LOC: M ED 16:18
DX: R00.2 Palpitations (principal); R42 Dizziness and giddiness; L97.429 Non-pressure chronic ulcer of left heel and midfoot with unspecified severity; I50.9 Heart failure, unspecified; I25.10 Atherosclerotic heart disease of native coronary artery without angina pectoris; E11.622 Type 2 diabetes mellitus with other skin ulcer; G30.9 Alzheimer's disease, unspecified; K21.9 Gastro-esophageal reflux disease without esophagitis; K57.92 Diverticulitis of intestine, part unspecified, without perforation or abscess without bleeding; Z88.0 Allergy status to penicillin; Z91.030 Bee allergy status; Z91.040 Latex allergy status; Z79.899 Other long term (current) drug therapy; Z79.82 Long term (current) use of aspirin

== ENCOUNTER 2018-05-11 19:03 | Inpatient (IN) | payer MEDICARE, OTHER ==
[~2018-05-11] VITALS: Ht 162.6 cm; Wt 64.6 kg
[2018-05-11] MEDS: HumaLOG INSULIN (NovoLOG) PER UNIT SC SCH (01:30)
[2018-05-11] MEDS: SIMVASTATIN 20 MG TAB PO SCH (03:00)
[2018-05-11] MEDS: CARVedilol 12.5 MG TAB PO SCH (03:00)
[2018-05-11 20:10] LABS: BASO # 0.1 10^3/uL (0.0-0.2); BASO % 0.5 % (0.0-1.0); EOS % 0.4 % (0.0-3.0); HEMATOCRIT 36.7 % (36.0-47.0); HEMOGLOBIN 11.5 g/dl (12.0-15.5); LYMPH # 1.2 10^3/uL (1.5-4.5); LYMPH % 12.3 % (24.0-44.0); MEAN CORPUSCULAR HEMOGLOBIN 28.2 pg (27.0-33.0); MEAN CORPUSCULAR HGB CONC 31.3 g/dl (32.0-36.5); MONO # 0.5 10^3/uL (0.0-0.8); MONO % 5.5 % (0.0-5.0); NEUTROPHILS # 7.9 10^3/uL (1.8-7.7); NEUTROPHILS % 80.9 % (36.0-66.0); PLATELET COUNT, AUTOMATED 221 10^3/uL (150-450); RED BLOOD COUNT 4.08 10^6/uL (4.00-5.40); WHITE BLOOD COUNT 9.7 10^3/uL (4.0-10.0)
[2018-05-11 20:44] LABS: BLOOD UREA NITROGEN 28 MG/DL (7-18); CALCIUM LEVEL 9.1 MG/DL (8.8-10.2); CARBON DIOXIDE LEVEL 27 MEQ/L (21-32); CHLORIDE LEVEL 99 MEQ/L (98-107); CK-MB VALUE MASS < 1.0 NG/ML (<3.6); CPK CREATINE PHOSPHOKINASE 32 U/L (26-192); CREATININE FOR GFR 2.01 MG/DL (0.55-1.30); GLOMERULAR FILTRATION RATE 25.1 (>32); GLUCOSE, FASTING 216 MG/DL (70-100); MB/CK RELATIVE INDEX 3.12 (< OR =4); POTASSIUM SERUM 4.5 MEQ/L (3.5-5.1); SODIUM LEVEL 136 MEQ/L (136-145); TROPONIN I < 0.02 NG/ML (< 0.10)
[2018-05-11] MEDS: FERROUS SULFATE 325MG TAB PO SCH (21:00)
[2018-05-11] MEDS ORDERED: LevoFLOXacin IV 500 MG in APPROPRIATE DILUENT 1 EA IV ONE (22:45)
--- NOTE | 2018-05-11 22:47 | REPVR ---
EXAM: CT Chest Without Contrast EXAM DATE/TIME: 05/11/2018 10:06 PM CLINICAL HISTORY: 83 years old, female; Signs and symptoms; Other: Syncope; Additional info: Syncope, HX of chf TECHNIQUE: Axial computed tomography images of the chest without intravenous contrast. All CT scans at this facility use at least one of these dose optimization techniques: automated exposure control; mA and/or kV adjustment per patient size (includes targeted exams where dose is matched to clinical indication); or iterative reconstruction. Coronal and sagittal reformatted images were created and reviewed. MIP reconstructed images were created and reviewed. COMPARISON: CT Chest without contrast 09/18/2017 12:20 PM FINDINGS: Lungs: Minimal bullous change with mild interstitial prominence and scattered areas of fibro-atelectatic change, greatest in the right lower lobe. Pleural space: Minimal right pleural effusion and trace left pleural effusion. Heart: Coronary artery calcifications are present. The left atrium measures 4.3 cm in its AP dimension. Mediastinum: Minimal hiatal hernia. Aorta: Normal. No aortic aneurysm. Lymph nodes: Numerous small mediastinal nodes which are top normal. Calcified left hilar and mediastinal nodes with calcified granuloma in the left upper lobe. Bones/joints: Unremarkable. No acute fracture. Soft tissues: Unremarkable. Liver: Minimal hepatic calcifications. Spleen: Splenic calcifications. IMPRESSION: 1. Minimal right pleural effusion and trace left pleural effusion, increased since 09/18/2017. 2. Minimal bullous change with mild interstitial prominence and scattered areas of fibro-atelectatic change, greatest in the right lower lobe and is slightly increased since prior study. 3. 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 4. Minimal hiatal hernia. Electronically signed by: Waylon Yousif On 05/11/2018 22:46:35 PM
--- NOTE | 2018-05-11 22:49 | REPVR ---
EXAM: CT Head Without Contrast EXAM DATE/TIME: 05/11/2018 8:08 PM CLINICAL HISTORY: 83 years old, female; Signs and symptoms; Syncope and collapse TECHNIQUE: Axial computed tomography images of the head/brain without contrast. All CT scans at this facility use at least one of these dose optimization techniques: automated exposure control; mA and/or kV adjustment per patient size (includes targeted exams where dose is matched to clinical indication); or iterative reconstruction. COMPARISON: CT Head without contrast 03/10/2018 10:04 AM FINDINGS: Brain: There is moderate patchy low attenuation of deep white matter with areas of old subcortical deep white matter infarct or gliosis. There is mild prominence of the peripheral sulci. Ventricles: There is mild prominence of the central ventricular system. Bones/joints: Normal. No acute fracture. Sinuses: Normal as visualized. No acute sinusitis. Mastoid air cells: Normal as visualized. No mastoid effusion. Soft tissues: Normal. IMPRESSION: 1. There has been little change from 03/10/2018. No acute interval intracranial process is identified. 2. Moderate chronic ischemic white matter change and mild atrophy. Electronically signed by: Waylon Yousif On 05/11/2018 22:49:42 PM
[2018-05-11] MEDS ORDERED: ACETAMINOPHEN TAB 650MG DOSE (2X325MG) PO PRN (23:45)
[2018-05-11] MEDS ORDERED: LASI20TA3 PO (23:48)
[2018-05-11] MEDS ORDERED: SILV50CR TOP (23:50)
[2018-05-11] MEDS ORDERED: LABETALOL HCL 100 MG/20 ML VIAL IV STA (23:51)
[2018-05-12] VITALS (7 sets, daily range): BP systolic 140–192; BP diastolic 68–91
[2018-05-12] MEDS ORDERED: DEXTROSE 50% 50 ML SYRINGE IV PRN (00:15)
[2018-05-12] MEDS ORDERED: GLUCAGON FOR INJ 1 MG VIAL (J1610) SC PRN (00:15)
[2018-05-12] MEDS ORDERED: GLUCOSE 4 GM CHEW TABLET PO PRN (00:15)
[2018-05-12] MEDS ORDERED: PILL CRUSHER/CUTTER 1 EACH XX PRN (00:15)
--- NOTE | 2018-05-12 00:38 | HPEPDOC ---
[facility] Medical History & Physical Date of Admission May 11, 2018 Other Provider Dictating/admitting: Herberth Del Real M.D. Attending Physician: SIERRA LEVIN MD History and Physical CHIEF COMPLAINT: Generalized weakness x couple of months, brief period of syncope today. HISTORY OF PRESENT ILLNESS: Patient is an 83-year-old woman with medical history significant for COPD on 2 L home oxygen, chronic diastolic heart failure, pulmonary hypertension, CK D4. Anemia of chronic disease, diabetes and dy slipidemia. Patient is also noted with mild dementia. She lives with her son and was accompanied by her son to the emergency room. History from patient herself and the contribution from her son. Patient has been generally unwell for several months now. However, son reports that her illness, comes off and on. There appears when she is fine appears when she's sickly but during all this time, she had remained unconcerned until the episode today. Son reports that she was short of breath today and sometime in the evening while seated in the couch, she passed out for less than 1 minute. On account of that he activated EMS and patient was brought in to the emergency room. Patient denies any nausea, vomiting, fever, chills. She denies any palpitations, no chest pains. She does report occasional cough, nonproductive and occasional shortness of breath. She denies any change in her bowel or urinary habits. No undue lower extremity swellings or pains. No recent long distance travel. She was evaluated in the emergency room with chest x-ray and CT chest, both consistent with pneumonia. PAST MEDICAL HISTORY: Per HPI PAST SURGICAL HISTORY: 1. AV fistula placement. SOCIAL HISTORY: As with her son currently. Former smoker. Denies alcohol, denies illicit drug use. FAMILY HISTORY: No significant ischemic heart disease in the family. ALLERGIES: Please see below. REVIEW OF SYSTEMS: 12 point review of systems negative other than that described in the body of HPI. HOME MEDICATIONS: Please see below. PHYSICAL EXAMINATION: VITAL SIGNS: Temperature 98, pulse 93, respiratory rate 19, blood pressure 193/86, pulse oximetry 95% on 2L O2. GENERAL APPEARANCE: Elderly woman, lying calmly in bed, not in any apparent distress. She is not pale, anicteric and afebrile HEENT: Atraumatic. Neck: Supple. LUNGS: Air entry slightly reduced on the right, but clear to auscultation bilaterally. CARDIOVASCULAR: S1 and 2 heard, no murmurs, rubs or gallops. ABDOMEN: Obese, soft, not tender, not distended. Bowel sounds normoactive. MUSCULOSKELETAL: Apparently within normal limits. EXTREMITIES: +2 pedal edema, 2+ bilateral pedal pulses noted. NEUROLOGICAL: Awake, alert, oriented 3. PSYCHIATRIC: Normal affect LABORATORY DATA: See below. IMAGING: Chest x-ray: Right middle to lower infiltrates. CT chest: 1. There has been little change from 03/10/2018. No acute interval intracranial process is identified. 2. Moderate chronic ischemic white matter change and mild atrophy. Chest CT noncontrast: 1. Minimal right pleural effusion and trace left pleural effusion, increased since 09/18/2017. 2. Minimal bullous change with mild interstitial prominence and scattered areas of fibro-atelectatic change, greatest in the right lower lobe and is slightly increased since prior study. 3. 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 4. Minimal hiatal hernia. EKG: Normal sinus rhythm with occasional PVCs. CT brain, noncontrast: MICROBIOLOGY: Please see below. DIAGNOSES: 1. Hypertensive urgency 2. Syncope. 3. Pneumonia . PLAN: 1. I will admit patient to PCU under care of Dr. Levin 2. Hypertensive urgency, likely secondary to the fact that patient yet to take her BP medications tonight. I will treat with IV labetalol 10 mg and patient can resume by mouth medications. We'll continue cardiac monitoring and vitals in the PCU. 3. Syncope. Patient will be monitored in the PCU. Will order echocardiogram for the morning tomorrow. 4. Pneumonia. Patient will continue Levaquin 250 mg every 48 hours. Follow blood cultures. Follow temperature curve. 5. COPD stable: Currently, patient does not appear short of breath but we'll have DuoNeb nebulizations when necessary shortness of breath. No indication for steroids at this time. We will continue with 2 L O2 supplementation. 6. CKD4, at baseline. 7. DM. She will continue with sliding scale insulin and ADA diet. 8. GI prophylaxis. Pantoprazole. 9. DVT prophylaxis, TEDs. 10. Further management to be per patient's clinical course. Vital Signs Vital Signs Date Time Temp Pulse Resp B/P (MAP) Pulse Ox O2 Delivery O2 Flow Rate FiO2 1/26/19 00:09 92 190/81 05/11/18 23:18 91 05/11/18 19:16 97.2 20 Nasal Cannula 2.0 Laboratory Data Labs 24H Laboratory Tests 2 05/11/18 20:02: Immature Granulocyte % (Auto) 0.4, White Blood Count 9.7, Red Blood Count 4.08, Hemoglobin 11.5L, Hematocrit 36.7, Mean Corpuscular Volume 90.0, Mean Corpuscular Hemoglobin 28.2, Mean Corpuscular Hemoglobin Concent 31.3L, Red Cell Distribution Width 17.2H, Platelet Count 221, Neutrophils (%) (Auto) 80.9H, L ymphocytes (%) (Auto) 12.3L, Monocytes (%) (Auto) 5.5H, Eosinophils (%) (Auto) 0.4, Basophils (%) (Auto) 0.5, Neutrophils # (Auto) 7.9H, Lymphocytes # (Auto) 1.2L, Monocytes # (Auto) 0.5, Eosinophils # (Auto) 0.0, Basophils # (Auto) 0.1, Nucleated Red Blood Cells % (auto) 0.0, Anion Gap 10, Glomerular Filtration Rate 25.1L, Blood Urea Nitrogen 28H, Creatinine 2.01H, Sodium Level 136, Potassium Level 4.5, Chloride Level 99, Carbon Dioxide Level 27, Calcium Level 9.1, Total Creatine Kinase 32, Creatine Kinase MB < 1.0, Creatine Kinase MB Relative Index 3.12, Troponin I < 0.02, Thyroid Stimulating Hormone (TSH) 5.630H 05/11/18 23:54: CBC/BMP Laboratory Tests 05/11/18 20:02 Red Blood Count 4.08, Mean Corpuscular Volume 90.0, Mean Corpuscular Hemoglobin 28.2, Mean Corpuscular Hemoglobin Concent 31.3 L, Red Cell Distribution Width 17.2 H, Neutrophils (%) (Auto) 80.9 H, Lymphocytes (%) (Auto) 12.3 L, Monocytes (%) (Auto) 5.5 H, Eosinophils (%) (Auto) 0.4, Basophils (%) (Auto) 0.5, Neutrophils # (Auto) 7.9 H, Lymphocytes # (Auto) 1.2 L, Monocytes # (Auto) 0.5, Eosinophils # (Auto) 0.0, Basophils # (Auto) 0.1, Calcium Level 9.1, Total Creatine Kinase 32 Microbiology Microbiology 05/11/18 Blood Culture, Received Pending 05/11/18 Blood Culture, Received Pending Home Medications Scheduled (Aspirin) 81 Mg Chw, 81 MG PO DAILY Allopurinol (Zyloprim) 300 Mg Tab, 150 MG PO DAILY Calcitriol (Calcitriol) 0.25 Mcg Cap, 0.25 MCG PO DAILY Carvedilol (Carvedilol) 25 Mg Tab, 25 MG PO BID Cyanocobalamin (Vitamin B12) 1,000 Mcg Tab, 1,000 MCG PO DAILY Ferrous Sulfate (Ferrous Sulfate) 325 Mg Tab, 325 MG PO BID Furosemide (Lasix) 20 Mg Tab, 20 MG PO DAILY Glipizide (Glipizide Xl) 10 Mg Tab, 10 MG PO BID Linagliptin Base (Tradjenta) 5 Mg Tab, 5 MG PO DAILY Omeprazole (Omeprazole) 20 Mg Tab, 20 MG PO DAILY Silver Sulfadiazine (Ssd) 1 % Cre, 1 APLCT TOP DAILY APPLIES TO LEFT FOOT. Simvastatin (Simvastatin) 20 Mg Tab, 20 MG PO QHS Vitamin D (Drisdol) 50,000 Unit Cap, 50,000 UNIT PO QWEEK FRIDAYS Allergies Coded Allergies: Penicillins (Verified Allergy, Mild, RASH, 08/21/17) Penicillins Cross Reactors (Verified Allergy, Mild, RASH, 08/21/17) Bee Venom (Verified Allergy, Unknown, 08/21/17) Latex (Verified Allergy, Unknown, rash on arms, 10/18/17) HERBERTH DEL REAL MD May 12, 2018 00:38
--- NOTE | 2018-05-12 04:03 | REP ---
Clinical: Syncope/near-syncopal episode. Comparison: 05/01/2018. Findings: Mediastinum and cardiac silhouette are stable with mild cardiomegaly again suggested. Lung bhagat demonstrate diffuse chronic interstitial changes. Superimposed right-sided infiltrates are identified. No obvious effusion or pneumothorax. Skeletal structures demonstrate stable osteopenia and degenerative change. Impression: Chronic changes with superimposed right lower lobe infiltrates. Electronically Signed by Carlos Tejada MD 05/11/2018 08:35 P
[2018-05-12 05:42] LABS: BASO # 0.1 10^3/uL (0.0-0.2); BASO % 0.7 % (0.0-1.0); EOS # 0.1 10^3/uL (0.0-0.50); EOS % 0.5 % (0.0-3.0); HEMATOCRIT 36.3 % (36.0-47.0); HEMOGLOBIN 11.4 g/dl (12.0-15.5); LYMPH # 1.8 10^3/uL (1.5-4.5); LYMPH % 17.9 % (24.0-44.0); MEAN CORPUSCULAR HEMOGLOBIN 27.7 pg (27.0-33.0); MEAN CORPUSCULAR HGB CONC 31.4 g/dl (32.0-36.5); MEAN CORPUSCULAR VOLUME 88.1 fl (80.0-96.0); MONO # 0.7 10^3/uL (0.0-0.8); MONO % 7.2 % (0.0-5.0); NEUTROPHILS # 7.4 10^3/uL (1.8-7.7); NEUTROPHILS % 73.3 % (36.0-66.0); PLATELET COUNT, AUTOMATED 242 10^3/uL (150-450); RED BLOOD COUNT 4.12 10^6/uL (4.00-5.40); WHITE BLOOD COUNT 10.1 10^3/uL (4.0-10.0)
[2018-05-12 06:10] LABS: CALCIUM LEVEL 9.5 MG/DL (8.8-10.2); CREATININE FOR GFR 1.86 MG/DL (0.55-1.30); GLOMERULAR FILTRATION RATE 27.4 (>32); POTASSIUM SERUM 4.2 MEQ/L (3.5-5.1)
[2018-05-12] MEDS ORDERED: FUROSEMIDE 40 MG TAB PO SCH (09:00)
[2018-05-12] MEDS: CYANOCOBALAMIN 500 MCG TAB PO SCH (09:24)
[2018-05-12] MEDS: CARVedilol 12.5 MG TAB PO SCH ×2 (09:25→22:33)
[2018-05-12] MEDS: FUROSEMIDE 20 MG TAB PO SCH (09:26)
[2018-05-12] MEDS: PANTOPRAZOLE 40MG TAB (PROTONIX) PO SCH (09:26)
[2018-05-12] MEDS: FERROUS SULFATE 325MG TAB PO SCH ×2 (09:26→22:32)
[2018-05-12] MEDS: ASPIRIN 81 MG ENTERIC TAB PO SCH (09:26)
[2018-05-12] MEDS: ALLOPURINOL 300 MG TAB PO SCH (09:27)
[2018-05-12] MEDS: HumaLOG INSULIN (NovoLOG) PER UNIT SC SCH ×4 (09:27→21:00)
--- NOTE | 2018-05-12 13:21 | ECHO ---
DATE OF PROCEDURE: 05/12/2018 AGE: 83 GENDER: Female. HEIGHT: 64 inches. WEIGHT: 170 pounds. BODY SURFACE AREA: 1.83 meters squared INPATIENT: U, room 3222. REFERRING PHYSICIAN: Alla Del Real MD INDICATION: Syncope. MEASUREMENTS: 2D MEASUREMENTS: RV - 4.2 cm LV - 4.1 cm Septum 1.2 cm Posterior wall 1.2 cm Aortic root 3.4 cm LA - 3.9 cm LVEF 60-65% DOPPLER MEASUREMENTS: AV - 0.98 m/s LVOT - 0.75 m/s LVOT diameter - 2.0 cm MV-E 110, A 79, E/E ratio 1.4 Early mitral deceleration time 130 ms E prime 4 A prime 6 E/E primate ratio 27.5 PV - 0.75 m/s Pulmonary artery acceleration time 95 ms RVSP 38 mmHg IVC - 1.8 cm COMMENTS: Normal sinus rhythm without intraventricular conduction disturbance. Occasional to frequent isolated PACs. Technically difficult study due to the patient's body habitus, but diagnostically useful information was still obtained. M mode and 2 dimensional echocardiography was performed with pulsed, continuous wave, color flow and tissue Doppler studies. Normal left ventricular chamber diameter with borderline concentric hypertrophy. Normal wall motion. Borderline left atrial enlargement with impairment of LV diastolic function and currently elevated mean left atrial pressure. At least mildly dilated right heart chambers with normal right ventricular free wall motion and Doppler evidence of at least mild pulmonary hypertension. Normal IVC size and collapse against an elevated central venous pressure at this time. Aortic valvular sclerosis without functional valvular abnormality. Mild degenerative changes of the mitral valvular apparatus with mild and possibly moderate insufficiency. Normal aortic root size. No apparent intracardiac mass or pericardial effusion. Comparing today's study with that of September 20, 2017, there did not appear to be a significant change.
[2018-05-12] MEDS ORDERED: IPRATROPIUM 0.5MG/ALBUTEROL 2.5MG INH SOL UD 3ML (DUONEB)(J7620) NEB PRN (15:30)
--- NOTE | 2018-05-12 15:34 | IPNPDOC ---
Subjective Date Seen The patient was seen on 05/12/18. Subjective Chief Complaint/HPI Patient seen and examined at the bedside. Reports that her respiratory status is improved this morning. Does not offer any acute complaints at this time. Physical therapy ordered for functional optimization. Objective Physical Examination General Exam: Positive: Alert, Cooperative, No Acute Distress ENT Exam: Positive: Atraumatic, Mucous membr. moist/pink Neck Exam: Negative: JVD Chest Exam: Positive: Diminished Heart Exam: Positive: Rate Normal, Normal S1, Normal S2 Abdomen Exam: Positive: Soft; Negative: Tenderness Extremity Exam: Positive: Edema (RLE with 2+ pitting edema > LLE which is chronic according to patient/son), Other (Chronic foot ulcers noted, right heal noted to have 1" x 1" chronic wound, slight clear/yellowish drainage noted, which the patient states is chronic. No superficial or surrounding erythema or tenderness to palpation.); Negative: Tenderness Psych Exam: Positive: Oriented x 3 Assessment /Plan Plan/VTE VTE Prophylaxis Ordered?: Yes Plan SOB, Weakness 2/2 Community Acquired Pneumonia CXR and CT Chest noted Sputum, Blood cultures pending Cont Levaquin, renally dosed Respiratory status improved PT ordered for functional optimization We will continue to monitor the patient Syncopal Episode likely 2/2 Above EKG with no acute changes 2D ECHO notable for diastolic dysfunction, preserved EF, no significant valvular abnormalities to explain syncopal episode Orthostatic Vitals BID Cont to monitor on Telemetry History of Chronic hypoxic respiratory failure, COPD Patient on 2 L of oxygen at baseline No active wheezing noted on auscultation Continue albuterol prn Chronic kidney disease stage IV Serum creatinine appears at baseline Chronic diastolic congestive heart failure, compensated Continue Lasix History of gout Continue allopurinol GERD Continue Protonix History of diabetes mellitus Continue insulin sliding scale Iron deficiency anemia Hemoglobin stable Continue iron supplementation Dyslipidemia Continue statin Chronic Foot Ulcers No active infectious process appreciated on exam Nursing Wound Care ordered DVT Prophylaxis SCDs/TEDs Dispo--pending clinical improvement VS, I&O, 24H, Fishbone Vital Signs/I&O Vital Signs Date Time Temp Pulse Resp B/P (MAP) Pulse Ox O2 Delivery O2 Flow Rate FiO2 05/12/18 12:00 2.0 96 05/12/18 09:25 72 150/70 05/12/18 08:00 99.0 20 95 Nasal Cannula I&O- Last 24 Hours up to 6 AM 05/12/18 06:00 Intake Total 120 ml Output Total 200 ml Balance -80 ml Laboratory Data 24H LABS Laboratory Tests 2 05/11/18 20:02: Immature Granulocyte % (Auto) 0.4, White Blood Count 9.7, Red Blood Count 4.08, Hemoglobin 11.5L, Hematocrit 36.7, Mean Corpuscular Volume 90.0, Mean Corpuscular Hemoglobin 28.2, Mean Corpuscular Hemoglobin Concent 31.3L, Red Cell Distribution Width 17.2H, Platelet Count 221, Neutrophils (%) (Auto) 80.9H, Lymphocytes (%) (Auto) 12.3L, Monocytes (%) (Auto) 5.5H, Eosinophils (%) (Auto) 0.4, Basophils (%) (Auto) 0.5, Neutrophils # (Auto) 7.9H, Lymphocytes # (Auto) 1.2L, Monocytes # (Auto) 0.5, Eosinophils # (Auto) 0.0, Basophils # (Auto) 0.1, Nucleated Red Blood Cells % (auto) 0.0, Anion Gap 10, Glomerular Filtration Rate 25.1L, Blood Urea Nitrogen 28H, Creatinine 2.01H, Sodium Level 136, Potassium Level 4.5, Chloride Level 99, Carbon Dioxide Level 27, Calcium Level 9.1, Total Creatine Kinase 32, Creatine Kinase MB < 1.0, Creatine Kinase MB Relative Index 3.12, Troponin I < 0.02, Thyroid Stimulating Hormone (TSH) 5.630H 05/11/18 23:54: Lactic Acid Level 1.3 05/12/18 01:50: Bedside Glucose (Misc Panel) 178H 05/12/18 05:18: Immature Granulocyte % (Auto) 0.4, White Blood Count 10.1H, Red Blood Count 4.12, Hemoglobin 11.4L, Hematocrit 36.3, Mean Corpuscular Volume 88.1, Mean Corpuscular Hemoglobin 27.7, Mean Corpuscular Hemoglobin Concent 31.4L, Red Cell Distribution Width 17.0H, Platelet Count 242, Neutrophils (%) (Auto) 73.3H, Lymphocytes (%) (Auto) 17.9L, Monocytes (%) (Auto) 7.2H, Eosinophils (%) (Auto) 0.5, Basophils (%) (Auto) 0.7, Neutrophils # (Auto) 7.4, Lymphocytes # (Auto) 1.8, Monocytes # (Auto) 0.7, Eosinophils # (Auto) 0.1, Basophils # (Auto) 0.1, Nucleated Red Blood Cells % (auto) 0.0, Anion Gap 9, Glomerular Filtration Rate 27.4L, Blood Urea Nitrogen 27H, Creatinine 1.86H, Sodium Level 137, Potassium Level 4.2, Chloride Level 100, Carbon Dioxide Level 28, Calcium Level 9.5 05/12/18 05:52: Bedside Glucose (Misc Panel) 155H 05/12/18 12:12: Bedside Glucose (Misc Panel) 143H CBC/BMP Laboratory Tests 05/11/18 20:02 Red Blood Count 4.08, Mean Corpuscular Volume 90.0, Mean Corpuscular Hemoglobin 28.2, Mean Corpuscular Hemoglobin Concent 31.3 L, Red Cell Distribution Width 17.2 H, Neutrophils (%) (Auto) 80.9 H, Lymphocytes (%) (Auto) 12.3 L, Monocytes (%) (Auto) 5.5 H, Eosinophils (%) (Auto) 0.4, Basophils (%) (Auto) 0.5, Neut rophils # (Auto) 7.9 H, Lymphocytes # (Auto) 1.2 L, Monocytes # (Auto) 0.5, Eosinophils # (Auto) 0.0, Basophils # (Auto) 0.1, Calcium Level 9.1, Total Creatine Kinase 32 05/12/18 05:18 Red Blood Count 4.12, Mean Corpuscular Volume 88.1, Mean Corpuscular Hemoglobin 27.7, Mean Corpuscular Hemoglobin Concent 31.4 L, Red Cell Distribution Width 17.0 H, Neutrophils (%) (Auto) 73.3 H, Lymphocytes (%) (Auto) 17.9 L, Monocytes (%) (Auto) 7.2 H, Eosinophils (%) (Auto) 0.5, Basophils (%) (Auto) 0.7, Neutrophils # (Auto) 7.4, Lymphocytes # (Auto) 1.8, Monocytes # (Auto) 0.7, Eosinophils # (Auto) 0.1, Basophils # (Auto) 0.1, Calcium Level 9.5 Microbiology Microbiology 05/11/18 Blood Culture, Received Pending 05/11/18 Blood Culture, Received Pending SIERRA LEVIN MD May 12, 2018 15:34
[2018-05-12] MEDS: SIMVASTATIN 20 MG TAB PO SCH (22:32)
[2018-05-13 04:00] VITALS: BP 159/67
[2018-05-13 08:00] VITALS: BP 160/77
[2018-05-13] MEDS: ALLOPURINOL 300 MG TAB PO SCH (08:37)
[2018-05-13] MEDS: FERROUS SULFATE 325MG TAB PO SCH ×2 (08:37→20:34)
[2018-05-13] MEDS: PANTOPRAZOLE 40MG TAB (PROTONIX) PO SCH (08:37)
[2018-05-13] MEDS: FUROSEMIDE 20 MG TAB PO SCH (08:38)
[2018-05-13] MEDS: CYANOCOBALAMIN 500 MCG TAB PO SCH (08:38)
[2018-05-13] MEDS: CARVedilol 12.5 MG TAB PO SCH ×2 (08:38→20:34)
[2018-05-13] MEDS: ASPIRIN 81 MG ENTERIC TAB PO SCH (08:38)
[2018-05-13] MEDS: LevoFLOXacin IV 250 MG in APPROPRIATE DILUENT 1 EA IV SCH (08:39)
[2018-05-13] MEDS: HumaLOG INSULIN (NovoLOG) PER UNIT SC SCH ×4 (08:39→20:06)
--- NOTE | 2018-05-13 09:09 | ECGEPIP ---
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
[2018-05-13 09:12] LABS: HEMATOCRIT 37.3 % (36.0-47.0); HEMOGLOBIN 11.8 g/dl (12.0-15.5); MEAN CORPUSCULAR HGB CONC 31.6 g/dl (32.0-36.5); MEAN CORPUSCULAR VOLUME 88.4 fl (80.0-96.0); PLATELET COUNT, AUTOMATED 257 10^3/uL (150-450); RED BLOOD COUNT 4.22 10^6/uL (4.00-5.40); WHITE BLOOD COUNT 8.9 10^3/uL (4.0-10.0)
[2018-05-13 09:35] LABS: CALCIUM LEVEL 9.3 MG/DL (8.8-10.2); CREATININE FOR GFR 1.84 MG/DL (0.55-1.30); GLOMERULAR FILTRATION RATE 27.8 (>32); POTASSIUM SERUM 4.2 MEQ/L (3.5-5.1)
[2018-05-13] MEDS: amLODIPine 5 MG TAB PO SCH (11:48)
[2018-05-13 12:00] VITALS: BP 136/63
--- NOTE | 2018-05-13 12:20 | IPNPDOC ---
Subjective Date Seen The patient was seen on 05/13/18. Subjective Chief Complaint/HPI Patient seen and examined at the bedside. Reports improvement of her respiratory status. States that she was able to work with physical therapy yesterday. Objective Physical Examination General Exam: Positive: Alert, Cooperative, No Acute Distress ENT Exam: Positive: Atraumatic, Mucous membr. moist/pink Neck Exam: Negative: JVD Chest Exam: Positive: Diminished Heart Exam: Positive: Rate Normal, Normal S1, Normal S2 Abdomen Exam: Positive: Soft; Negative: Tenderness Extremity Exam: Positive: Edema (RLE with 2+ pitting edema > LLE which is chronic according to patient/son), Other (Chronic foot ulcers noted, right heal noted to have 1" x 1" chronic wound, slight clear/yellowish drainage noted, which the patient states is chronic. No superficial or surrounding erythema or tenderness to palpation.); Negative: Tenderness Psych Exam: Positive: Oriented x 3 Assessment /Plan Plan/VTE VTE Prophylaxis Ordered?: Yes Plan SOB, Weakness 2/2 Community Acquired Pneumonia CXR and CT Chest noted Sputum, Blood cultures unrevealing thus far Cont Levaquin, renally dosed Respiratory status improved PT on board for functional optimization We will continue to monitor the patient Syncopal Episode likely 2/2 Above EKG with no acute changes 2D ECHO notable for diastolic dysfunction, preserved EF, no significant valvular abnormalities to explain syncopal episode Cont to monitor on Telemetry History of Chronic hypoxic respiratory failure, COPD Patient on 2 L of oxygen at baseline No active wheezing noted on auscultation Continue albuterol prn Chronic kidney disease stage IV Serum creatinine appears at baseline Chronic diastolic congestive heart failure, compensated Continue Lasix History of gout Continue allopurinol GERD Continue Protonix History of diabetes mellitus Continue insulin sliding scale Iron deficiency anemia Hemoglobin stable Continue iron supplementation Dyslipidemia Continue statin Chronic Foot Ulcers No active infectious process appreciated on exam Nursing Wound Care ordered DVT Prophylaxis SCDs/TEDs Dispo--pending clinical improvement VS, I&O, 24H, Fishbone Vital Signs/I&O Vital Signs Date Time Temp Pulse Resp B/P (MAP) Pulse Ox O2 Delivery O2 Flow Rate FiO2 05/13/18 11:48 77 159/67 05/13/18 08:00 99.2 20 97 Nasal Cannula 2.0 05/12/18 16:00 96 I&O- Last 24 Hours up to 6 AM 05/13/18 06:00 Intake Total 1060 ml Output Total 929 ml Balance 131 ml Laboratory Data 24H LABS Laboratory Tests 2 05/12/18 16:38: Bedside Glucose (Misc Panel) 131H 05/12/18 22:27: Bedside Glucose (Misc Panel) 144H 05/13/18 07:57: Bedside Glucose (Misc Panel) 151H 05/13/18 08:54: Nucleated Red Blood Cells % (auto) 0.0, Anion Gap 10, Glomerular Filtration Rate 27.8L, Blood Urea Nitrogen 30H, Creatinine 1.84H, Sodium Level 135L, Potassium Level 4.2, Chloride Level 99, Carbon Dioxide Level 26, Calcium Level 9.3 CBC/BMP Laboratory Tests 05/13/18 08:54 Red Blood Count 4.22, Mean Corpuscular Volume 88.4, Mean Corpuscular Hemoglobin 28.0, Mean Corpuscular Hemoglobin Concent 31.6 L, Red Cell Distribution Width 17.1 H, Calcium Level 9.3 Microbiology Microbiology 05/11/18 Blood Culture - Preliminary, Resulted No growth after 24 hours . All specim... 05/11/18 Blood Culture - Preliminary, Resulted No growth after 24 hours . All specim... 05/13/18 Respiratory Virus Panel (PCR) ([facility]) - Final, Complete SIERRA LEVIN MD May 13, 2018 12:20
[2018-05-13 16:00] VITALS: BP 139/63
[2018-05-13 20:00] VITALS: BP 158/60
[2018-05-13] MEDS: SIMVASTATIN 20 MG TAB PO SCH (20:34)
[2018-05-14] VITALS: BP 134/63
[2018-05-14 04:00] VITALS: BP 140/67
[2018-05-14 05:59] LABS: HEMATOCRIT 32.6 % (36.0-47.0); HEMOGLOBIN 10.2 g/dl (12.0-15.5); MEAN CORPUSCULAR HEMOGLOBIN 27.9 pg (27.0-33.0); MEAN CORPUSCULAR HGB CONC 31.3 g/dl (32.0-36.5); MEAN CORPUSCULAR VOLUME 89.1 fl (80.0-96.0); PLATELET COUNT, AUTOMATED 209 10^3/uL (150-450); RED BLOOD COUNT 3.66 10^6/uL (4.00-5.40); WHITE BLOOD COUNT 6.6 10^3/uL (4.0-10.0)
[2018-05-14 06:23] LABS: CALCIUM LEVEL 8.7 MG/DL (8.8-10.2); CREATININE FOR GFR 1.68 MG/DL (0.55-1.30); GLOMERULAR FILTRATION RATE 30.8 (>32); POTASSIUM SERUM 3.6 MEQ/L (3.5-5.1)
[2018-05-14 08:00] VITALS: BP 141/66
[2018-05-14] MEDS: CARVedilol 12.5 MG TAB PO SCH ×2 (08:37→20:43)
[2018-05-14] MEDS: FERROUS SULFATE 325MG TAB PO SCH ×2 (08:37→20:43)
[2018-05-14] MEDS: ASPIRIN 81 MG ENTERIC TAB PO SCH (08:37)
[2018-05-14] MEDS: PANTOPRAZOLE 40MG TAB (PROTONIX) PO SCH (08:37)
[2018-05-14] MEDS: CYANOCOBALAMIN 500 MCG TAB PO SCH (08:38)
[2018-05-14] MEDS: amLODIPine 5 MG TAB PO SCH (08:38)
[2018-05-14] MEDS: ALLOPURINOL 300 MG TAB PO SCH (08:38)
[2018-05-14] MEDS: FUROSEMIDE 20 MG TAB PO SCH (08:39)
[2018-05-14] MEDS: HumaLOG INSULIN (NovoLOG) PER UNIT SC SCH ×4 (08:40→20:15)
--- NOTE | 2018-05-14 10:24 | IPNPDOC ---
Subjective Date Seen The patient was seen on 05/14/18. Subjective Chief Complaint/HPI Patient seen and examined at bedside. She reports that her respiratory status continues to improve. She is scheduled to work with physical therapy today. No acute overnight events noted. Objective Physical Examination General Exam: Positive: Alert, Cooperative, No Acute Distress ENT Exam: Positive: Atraumatic, Mucous membr. moist/pink Neck Exam: Negative: JVD Chest Exam: Positive: Diminished Heart Exam: Positive: Rate Normal, Normal S1, Normal S2 Abdomen Exam: Positive: Soft; Negative: Tenderness Extremity Exam: Positive: Edema (RLE with 2+ pitting edema > LLE which is chronic according to patient/son), Other (Chronic foot ulcers noted, right heal noted to have 1" x 1" chronic wound, slight clear/yellowish drainage noted, which the patient states is chronic. No superficial or surrounding erythema or tenderness to palpation.); Negative: Tenderness Psych Exam: Positive: Oriented x 3 Assessment /Plan Plan/VTE VTE Prophylaxis Ordered?: Yes Plan SOB, Weakness 2/2 Community Acquired Pneumonia CXR and CT Chest noted Sputum, Blood cultures unrevealing thus far Cont Levaquin, renally dosed Respiratory status improved PT on board for functional optimization We will continue to monitor the patient Syncopal Episode likely 2/2 Above EKG with no acute changes 2D ECHO notable for diastolic dysfunction, preserved EF, no significant valvular abnormalities to explain syncopal episode Cont to monitor on Telemetry History of Chronic hypoxic respiratory failure, COPD Patient on 2 L of oxygen at baseline No active wheezing noted on auscultation Continue albuterol prn Chronic kidney disease stage IV Serum creatinine appears at baseline Chronic diastolic congestive heart failure, compensated Continue Lasix History of gout Continue allopurinol GERD Continue Protonix History of diabetes mellitus Continue insulin sliding scale Iron deficiency anemia Hemoglobin stable Continue iron supplementation Dyslipidemia Continue statin Chronic Foot Ulcers No active infectious process appreciated on exam Nursing Wound Care ordered DVT Prophylaxis SCDs/TEDs Dispo--pending clinical improvement, PT clearance. VS, I&O, 24H, Fishbone Vital Signs/I&O Vital Signs Date Time Temp Pulse Resp B/P (MAP) Pulse Ox O2 Delivery O2 Flow Rate FiO2 05/14/18 08:38 84 141/66 05/14/18 08:00 98.7 18 96 Nasal Cannula 2.0 05/12/18 16:00 96 I&O- Last 24 Hours up to 6 AM 05/14/18 06:00 Intake Total 1375 ml Output Total 1125 ml Balance 250 ml Laboratory Data 24H LABS Laboratory Tests 2 05/13/18 12:13: Bedside Glucose (Misc Panel) 121H 05/13/18 16:50: Bedside Glucose (Misc Panel) 114H 05/13/18 19:53: Bedside Glucose (Misc Panel) 69L 05/14/18 05:36: Nucleated Red Blood Cells % (auto) 0.0, Anion Gap 7L, Glomerular Filtration Rate 30.8L, Blood Urea Nitrogen 30H, Creatinine 1.68H, Sodium Level 134L, Potassium Level 3.6, Chloride Level 100, Carbon Dioxide Level 27, Calcium Level 8.7L CBC/BMP Laboratory Tests 05/14/18 05:36 Red Blood Count 3.66 L, Mean Corpuscular Volume 89.1, Mean Corpuscular Hemoglobin 27.9, Mean Corpuscular Hemoglobin Concent 31.3 L, Red Cell Distribution Width 16.8 H, Calcium Level 8.7 L Microbiology Microbiology 05/11/18 Blood Culture - Preliminary, Resulted No Growth after 48 hours. All Specime... 05/11/18 Blood Culture - Preliminary, Resulted No Growth after 48 hours. All Specime... 05/13/18 Respiratory Virus Panel (PCR) ([facility]) - Final, Complete SIERRA LEVIN MD May 14, 2018 10:24
[2018-05-14 12:00] VITALS: BP 135/65
[2018-05-14 20:00] VITALS: BP 140/70
[2018-05-14] MEDS: HEPARIN SOD (PORCINE) 5000 UNITS/ML VIAL SQ SCH (20:42)
[2018-05-14] MEDS: SIMVASTATIN 20 MG TAB PO SCH (20:43)
[2018-05-15] VITALS: BP 149/67
[2018-05-15 04:00] VITALS: BP 148/81
[2018-05-15 05:36] LABS: HEMOGLOBIN 10.4 g/dl (12.0-15.5); MEAN CORPUSCULAR HEMOGLOBIN 28.3 pg (27.0-33.0); MEAN CORPUSCULAR HGB CONC 31.5 g/dl (32.0-36.5); MEAN CORPUSCULAR VOLUME 89.9 fl (80.0-96.0); PLATELET COUNT, AUTOMATED 220 10^3/uL (150-450); RED BLOOD COUNT 3.67 10^6/uL (4.00-5.40); WHITE BLOOD COUNT 7.1 10^3/uL (4.0-10.0)
[2018-05-15 05:59] LABS: CALCIUM LEVEL 8.8 MG/DL (8.8-10.2); CREATININE FOR GFR 1.79 MG/DL (0.55-1.30); GLOMERULAR FILTRATION RATE 28.7 (>32); POTASSIUM SERUM 3.5 MEQ/L (3.5-5.1)
[2018-05-15 08:00] VITALS: BP 160/82
[2018-05-15] MEDS: HumaLOG INSULIN (NovoLOG) PER UNIT SC SCH ×2 (08:37→12:54)
[2018-05-15] MEDS: FERROUS SULFATE 325MG TAB PO SCH (08:38)
[2018-05-15] MEDS: PANTOPRAZOLE 40MG TAB (PROTONIX) PO SCH (08:38)
[2018-05-15 08:39] VITALS: BP 160/80
[2018-05-15] MEDS: CARVedilol 12.5 MG TAB PO SCH (08:39)
[2018-05-15] MEDS: amLODIPine 5 MG TAB PO SCH (08:39)
[2018-05-15] MEDS: HEPARIN SOD (PORCINE) 5000 UNITS/ML VIAL SQ SCH (08:40)
[2018-05-15] MEDS: ASPIRIN 81 MG ENTERIC TAB PO SCH (08:40)
[2018-05-15] MEDS: CYANOCOBALAMIN 500 MCG TAB PO SCH (08:40)
[2018-05-15] MEDS: ALLOPURINOL 300 MG TAB PO SCH (08:40)
[2018-05-15] MEDS: FUROSEMIDE 20 MG TAB PO SCH (08:40)
[2018-05-15] MEDS: LevoFLOXacin IV 250 MG in APPROPRIATE DILUENT 1 EA IV SCH (08:41)
[2018-05-15] MEDS ORDERED: AMLO10TA5 PO (09:38)
--- NOTE | 2018-05-15 20:37 | DSES ---
DATE OF ADMISSION: 05/12/2018 DATE OF DISCHARGE: 05/15/2018 PRIMARY CARE PROVIDER: Torey Mejias. CONSULTANTS: None. DISCHARGE DIAGNOSES: 1. Community acquired pneumonia. 2. Syncope secondary to community acquire pneumonia. 3. Chronic obstructive pulmonary disease (COPD). 4. Chronic kidney disease stage 4. 5. Chronic diastolic congestive heart failure. 6. History of gout. 7. GERD. 8. Diabetes. 9. Anemia. 10. Dyslipidemia. 11. Chronic foot ulcers. 12. Hypertension urgency. HOSPITALIZATION COURSE: The patient is an 83-year-old female who came to [facility] emergency room on 05/12/2018 with complaints of generalized weakness and syncope episode. Patient was admitted under hospitalists service. Initially patient was found to have hypertensive urgency. Intravenous (IV) blood pressure medication was given to the patient. Patient was found to have pneumonia. Patient was started on epimeric antibiotics. Echocardiogram ordered and results were reviewed. Patient's antibiotic treatment. Breathing continued to improve. On 05/15/2018 patient had returned to her functional baseline. Patient finished a course of antibiotics, dose based on her renal function. Patient determined medically stable for discharge with recommendation to followup with her primary care provider in 1 week. Referral to wound care clinic set up for the patient on 05/16/2018. VITAL SIGNS ON DAY OF DISCHARGE: Temperature 97.1, pulse 78, respirations 18, blood pressure 160/82, pulse ox 95% with 2 liters nasal cannula. LABORATORY DATA ON DAY OF DISCHARGE: WBC 7.1, hemoglobin 10.4, hematocrit 33, platelet count 220, sodium 138, potassium 3.5, chloride 103, carbon dioxide 27, BUN 28, creatinine 1.7, GFR 28.7, fasting glucose 134, calcium 8.8. MICROBIOLOGY: Blood cultures from 05/11/2018 show no growth after 72 hours times two set. Respiratory panel is negative. IMAGING STUDIES: CT of the head without contrast demonstrates no acute interval intracranial processes identified. Moderate chronic ischemic white matter changes and mild atrophy. CT of the chest without contrast demonstrated minimal right pleural effusion. Minimal bullus change with mild interstitial prominence and scattered fibro atelectatic change, greatest in the right lower lobe and slightly increased since the prior study. 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 Minimal hiatal hernia. DISCHARGE MEDICATION: Amlodipine 10 mg by mouth daily, allopurinol 150 mg by mouth daily, aspirin 81 mg by mouth daily, calcitriol 0.25 mcg by mouth daily, carvedilol 25 mg by mouth daily, vitamin B12 1,000 mcg by mouth daily, ferrous sulfate 325 mg by mouth twice a day, Lasix 20 mg by mouth daily, trajenta 5 mg by mouth daily, omeprazole 20 mg by mouth daily, simvastatin 20 mg by mouth at bedtime, vitamin D 50,000 units by mouth weekly. DISCHARGE INSTRUCTIONS: Discontinue line discharge home with services. Activity as tolerated. Consistent carbohydrate diet as tolerated. Patient should followup with her primary care provider Dr. Mejias in 1 week. Patient should followup with the wound care clinic on 05/16/2018. DISCHARGE TIME: Greater than 30 minutes. DISCHARGE CONDITION: Fair.
== END 2018-05-15 13:59 | disposition home health service (06) | DRG 194 ==
LOC: M ED 19:03 → M ED INP 23:32 → OBSVTOIN 05-12 00:12 → M PCU 05-12 01:17
PROVIDERS: ADMIT Hospitalist; ATTEND Internal Medicine
DX: J18.9 Pneumonia, unspecified organism (principal); N18.4 Chronic kidney disease, stage 4 (severe); I13.0 Hypertensive heart and chronic kidney disease with heart failure and stage 1 through stage 4 chronic kidney disease, or unspecified chronic kidney disease; I50.32 Chronic diastolic (congestive) heart failure; J96.11 Chronic respiratory failure with hypoxia; I16.0 Hypertensive urgency; E78.5 Hyperlipidemia, unspecified; M10.9 Gout, unspecified; J44.9 Chronic obstructive pulmonary disease, unspecified; K21.9 Gastro-esophageal reflux disease without esophagitis; D64.9 Anemia, unspecified; I27.20 Pulmonary hypertension, unspecified; E11.621 Type 2 diabetes mellitus with foot ulcer; R55 Syncope and collapse; Z79.899 Other long term (current) drug therapy; Z88.0 Allergy status to penicillin; Z91.040 Latex allergy status; Z91.038 Other insect allergy status; Z87.891 Personal history of nicotine dependence; K44.9 Diaphragmatic hernia without obstruction or gangrene

== ENCOUNTER 2018-05-28 08:37 | Inpatient (IN) | payer MEDICARE, OTHER ==
[~2018-05-28] VITALS: Ht 170.2 cm; Wt 61.4 kg
[~2018-05-28 08:37] MED LIST changes: +AMLO10TA5 PO; +LASI20TA3 PO
[2018-05-28 09:23] LABS: ABG BASE EXCESS -0.2 (-2.0-2.0); ABG HCO3 23.8 MEQ/L (22.0-26.0); ABG O2 SATURATION 86.9 % (95.0-99.0); ABG PARTIAL PRESSURE CO2 36.9 mmHg (35.0-45.0); ABG PARTIAL PRESSURE O2 52.7 mmHg (75.0-100.0); ABG STANDARD HCO3 24.1 MEQ/L (22.0-26.0); ABG pH (ARTERIAL) 7.428 UNITS (7.350-7.450)
[2018-05-28] MEDS ORDERED: ACETAMINOPHEN 325 MG TAB PO ONE (09:30)
[2018-05-28 09:31] LABS: BASO # 0.1 10^3/uL (0.0-0.2); BASO % 0.6 % (0.0-1.0); EOS # 0.1 10^3/uL (0.0-0.50); EOS % 0.9 % (0.0-3.0); HEMATOCRIT 37.8 % (36.0-47.0); HEMOGLOBIN 11.8 g/dl (12.0-15.5); LYMPH % 7.8 % (24.0-44.0); MEAN CORPUSCULAR HEMOGLOBIN 28.6 pg (27.0-33.0); MEAN CORPUSCULAR HGB CONC 31.2 g/dl (32.0-36.5); MEAN CORPUSCULAR VOLUME 91.7 fl (80.0-96.0); MONO # 0.7 10^3/uL (0.0-0.8); MONO % 5.3 % (0.0-5.0); NEUTROPHILS % 84.9 % (36.0-66.0); PLATELET COUNT, AUTOMATED 302 10^3/uL (150-450); RED BLOOD COUNT 4.12 10^6/uL (4.00-5.40); WHITE BLOOD COUNT 12.9 10^3/uL (4.0-10.0)
[2018-05-28] MEDS ORDERED: AMIO200T PO (09:39)
[2018-05-28] MEDS ORDERED: ASPI1TAB PO (09:39)
[2018-05-28] MEDS ORDERED: AMLO10TA5 PO (09:39)
[2018-05-28] MEDS: IPRATROPIUM 0.5MG/ALBUTEROL 2.5MG INH SOL UD 3ML (DUONEB)(J7620) NEB SCH ×4 (09:46→21:28)
--- NOTE | 2018-05-28 09:51 | REP ---
Portable chest, 09:30 a.m., single AP view, the patient upright: Comparison is 05/11/2018. There are chronic interstitial coarsening is again identified, unchanged. Chronic cardiomegaly is again identified, unchanged. Acute right lower lobe infiltrate is again identified, unchanged. Impression: No interval change. Electronically Signed by Dev Pinedo MD 05/28/2018 09:43 A
[2018-05-28 09:52] LABS: INR 1.06; PROTHROMBIN TIME 13.9 SECONDS (12.1-14.4)
[2018-05-28 09:56] LABS: INFLUENZA A AMPLIFICATION NEGATIVE (NEGATIVE); INFLUENZA B AMPLIFICATION NEGATIVE (NEGATIVE)
[2018-05-28 10:04] LABS: ALBUMIN 3.9 GM/DL (3.2-5.2); ALT/SGPT 12 U/L (12-78); BILIRUBIN,DIRECT 0.2 MG/DL (0.0-0.2); BILIRUBIN,TOTAL 0.6 MG/DL (0.2-1.0); BLOOD UREA NITROGEN 44 MG/DL (7-18); CALCIUM LEVEL 9.7 MG/DL (8.8-10.2); CARBON DIOXIDE LEVEL 28 MEQ/L (21-32); CHLORIDE LEVEL 103 MEQ/L (98-107); CK-MB VALUE MASS < 1.0 NG/ML (<3.6); CPK CREATINE PHOSPHOKINASE 20 U/L (26-192); CREATININE FOR GFR 2.38 MG/DL (0.55-1.30); GLOMERULAR FILTRATION RATE 20.6 (>32); GLUCOSE, FASTING 220 MG/DL (70-100); NT-PRO BNP 8226 PG/ML (<450); POTASSIUM SERUM 4.5 MEQ/L (3.5-5.1); SODIUM LEVEL 139 MEQ/L (136-145); TOTAL PROTEIN 7.2 GM/DL (6.4-8.2); TROPONIN I < 0.02 NG/ML (< 0.10)
[2018-05-28] MEDS ORDERED: methylPREDNISolone INJ 125 MG/2 ML VIAL (J2930) IV ONE (10:45)
[2018-05-28] MEDS ORDERED: FUROSEMIDE 20 MG/2 ML VIAL (J1940) IV ONE (11:45)
[2018-05-28] MEDS ORDERED: MOXIFLOXACIN HCL 400 MG in APPROPRIATE DILUENT 1 EA IV ONE (12:00)
--- NOTE | 2018-05-28 12:41 | REP ---
Bilateral lower extremity Duplex Doppler venous ultrasound: Real time compression and duplex Doppler interrogation of the bilateral lower extremity deep venous system is performed. Bilaterally, the common femoral, superficial femoral and popliteal veins are fully compressible with transducer pressure and demonstrate normal spontaneous and phasic flow, without evidence of deep venous thrombosis. Impression: No evidence of deep venous thrombosis of the bilateral lower extremity femoral popliteal venous system. Electronically Signed by Dev Joya MD 05/28/2018 12:32 P
[2018-05-28] MEDS ORDERED: IPRATROPIUM 0.5MG/ALBUTEROL 2.5MG INH SOL UD 3ML (DUONEB)(J7620) NEB PRN (12:45)
[2018-05-28] MEDS ORDERED: ONDANSETRON 4MG/2ML VIAL (J2405) IV PRN (12:45)
[2018-05-28 15:50] VITALS: BP 143/63
--- NOTE | 2018-05-28 16:07 | HPEPDOC ---
[facility] - [place] Medical History & Physical Date of Admission May 28, 2018 History and Physical PRIMARY CARE PROVIDER: Dr. Mejias ATTENDING: Dr. Andrew Cristina CHIEF COMPLAINT: Shortness of breath and cough HISTORY OF PRESENT ILLNESS: This is a 83-year-old female past medical history of COPD on 2 L home O2, chronic diastolic heart failure, pulmonary hypertension, CKD 3-4, anemia of chronic disease, history of tuberculosis as a child who presents with shortness of breath and cough. Patient's states she's been short of breath and coughing over the past few days. No fevers or chills. No nausea or vomiting. No abdominal pain. In the ED, patient was given nebs, steroids, started on antibiotics. PAST MEDICAL HISTORY: As per HPI PAST SURGICAL HISTORY: AV fistula SOCIAL HISTORY: Noncontributory FAMILY HISTORY: Noncontributory ALLERGIES: Please see below. REVIEW OF SYSTEMS: HEENT: Denies sore throat/headache CARDIOVASCULAR: Denies chest pain/palpitations RESPIRATORY: Denies shortness of breath/cough GASTROINTESTINAL: denies nausea/vomiting GENITOURINARY: Denies dysuria/urinary urgency. MUSCULOSKELETAL: Denies myalgias/arthralgias NEUROLOGICAL: Denies any focal weakness HOME MEDICATIONS: Please see below. PHYSICAL EXAMINATION: Vitals: (see below) General: No acute distress, laying comfortably in bed. HEENT: Moist mucous membranes. Neck: No JVD or lymphadenopathy Cardiac: RRR, No murmurs Pulm: Coarse crackles at the bases b/l. No wheezing, rhonchi Abd: NT/ND + BS Ext: 1+ pitting edema bilateral lower extremities. Chronic wound right foot and bandage that's clean and dry. Distal pulses intact. LABORATORY DATA: See below. IMAGING: CXR with right lower lobe infiltrate. CT chest with contrast pending ASSESSMENT/PLAN: 1. COPD exacerbation secondary to ?HCAP Right lower lobe pneumonia. Given vancomycin/moxifloxacin in the ED. Requiring 4 L O2, baseline 2 at home. Started on guaifenesin. Blood culture/sputum cultures pending. Continue nebs. Given history of tuberculosis, infectious disease consulted. 2. Acute kidney injury and chronic kidney disease. Hold diuretics for now. Urine lites and renal ultrasound. 3. Diabetes mellitus- hold by mouth meds. Sliding scale insulin. 4. Hypertension controlled continue current meds 5. GERD on PPI 6. Chronic foot ulcers no active infection at this time. Continue to follow up outpatient with Dr. Moreno. 7. Decompensated Diastolic HF DVT Prophy: SCDs Overall prognosis guarded. Update: CT Chest Impression: Bilateral pleural effusions. The right pleural effusion is larger. Both pleural effusions have increased in size from the comparison study. There is atelectasis in the lower lobe of the right lung adjacent to the right pleural effusion. Diffuse interstitial coarsening compatible with fibrosis. Multiple bulla throughout the lung bhagat bilaterally. Discussed with Dr. Cam - D/c Abx. Reeder. Will continue to monitor renal function. Nephro consult. Vital Signs Vital Signs Date Time Temp Pulse Resp B/P (MAP) Pulse Ox O2 Delivery O2 Flow Rate FiO2 05/28/18 15:15 80 121/58 (79) 79 05/28/18 09:05 Nasal Cannula 2.0 05/28/18 08:39 95.7 20 Laboratory Data Labs 24H Laboratory Tests 2 05/28/18 09:10: Blood Gas Bicarbonate Standard 24.1, Arterial Blood pH 7.428, Arterial Blood Partial Pressure CO2 36.9, Arterial Blood Partial Pressure O2 52.7L, Arterial Blood Total CO2 25.0, Arterial Blood HCO3 23.8, Arterial Blood Base Excess -0.2, Arterial Blood Oxygen Saturation 86.9L 05/28/18 09:13: Immature Granulocyte % (Auto) 0.5, White Blood Count 12.9H, Red Blood Count 4.12, Hemoglobin 11.8L, Hematocrit 37.8, Mean Corpuscular Volume 91.7, Mean Corpuscular Hemoglobin 28.6, Mean Corpuscular Hemoglobin Concent 31.2L, Red Cell Distribution Width 17.2H, Platelet Count 302, Neutrophils (%) (Auto) 84.9H, Lymphocytes (%) (Auto) 7.8L, Monocytes (%) (Auto) 5.3H, Eosinophils (%) (Auto) 0.9, Basophils (%) (Auto) 0.6, Neutrophils # (Auto) 11.0H, Lymphocytes # (Auto) 1.0L, Monocytes # (Auto) 0.7, Eosinophils # (Auto) 0.1, Basophils # (Auto) 0.1, Nucleated Red Blood Cells % (auto) 0.0, Prothrombin Time 13.9, Prothromb Time International Ratio 1.06, Anion Gap 8, Glomerular Filtration Rate 20.6L, Lactic Acid Level 1.2, Calcium Level 9.7, Aspartate Amino Transf (AST/SGOT) 9, Alanine Aminotransferase (ALT/SGPT) 12, Alkaline Phosphatase 43L, Total Bilirubin 0.6, Direct Bilirubin 0.2, Total Creatine Kinase 20L, Creatine Kinase MB < 1.0, Creatine Kinase MB Relative Index 5.00H, Troponin I < 0.02, [id number]-[id number]-B-Type Natriuretic Peptide 8226H, Total Protein 7.2, Albumin 3.9, Albumin/Globulin Ratio 1.18, Thyroid Stimulating Hormone (TSH) 11.000H, Influenza Type A (RT-PCR) NEGATIVE, Influenza Type B (RT-PCR) NEGATIVE CBC/BMP Laboratory Tests 05/28/18 09:13 Red Blood Count 4.12, Mean Corpuscular Volume 91.7, Mean Corpuscular Hemoglobin 28.6, Mean Corpuscular Hemoglobin Concent 31.2 L, Red Cell Distribution Width 17.2 H, Neutrophils (%) (Auto) 84.9 H, Lymphocytes (%) (Auto) 7.8 L, Monocytes (%) (Auto) 5.3 H, Eosinophils (%) (Auto) 0.9, Basophils (%) (Auto) 0.6, Neutrophils # (Auto) 11.0 H, Lymphocytes # (Auto) 1.0 L, Monocytes # (Auto) 0.7, Eosinophils # (Auto) 0.1, Basophils # (Auto) 0.1 Microbiology Microbiology 05/28/18 Blood Culture, Received Pending 05/28/18 Blood Culture, Received Pending 05/28/18 Respiratory Virus Panel (PCR) ([facility]) - Final, Complete Home Medications Scheduled Allopurinol (Zyloprim) 300 Mg Tab, 150 MG PO DAILY Amiodarone HCl (Amiodarone HCl) 200 Mg Tab, 200 MG PO BID Amlodipine Besylate (Amlodipine Besylate) 10 Mg Tab, 10 MG PO DAILY Aspirin (Aspirin 81) 81 Mg Tab, 81 MG PO DAILY Calcitriol (Calcitriol) 0.25 Mcg Cap, 0.25 MCG PO DAILY Carvedilol (Carvedilol) 25 Mg Tab, 25 MG PO BID Cyanocobalamin (Vitamin B12) 1,000 Mcg Tab, 1,000 MCG PO DAILY Ferrous Sulfate (Ferrous Sulfate) 325 Mg Tab, 325 MG PO BID Glipizide (Glipizide Xl) 10 Mg Tab, 10 MG PO BID Linagliptin Base (Tradjenta) 5 Mg Tab, 5 MG PO DAILY Omeprazole (Omeprazole) 20 Mg Tab, 20 MG PO DAILY Simvastatin (Simvastatin) 20 Mg Tab, 20 MG PO QHS Torsemide (Torsemide) 10 Mg Tab, 30 MG PO BID@09,17 Vitamin D (Drisdol) 50,000 Unit Cap, 50,000 UNIT PO QWEEK FRIDAYS Allergies Coded Allergies: Penicillins (Verified Allergy, Mild, RASH, 08/21/17) Penicillins Cross Reactors (Verified Allergy, Mild, RASH, 08/21/17) Bee Venom (Verified Allergy, Unknown, 08/21/17) Latex (Verified Allergy, Unknown, rash on arms, 10/18/17) ANDREW CRISTINA MD May 28, 2018 16:07
--- NOTE | 2018-05-28 16:11 | REP ---
CT of the chest without IV contrast: Comparison is 2018. There are bilateral pleural effusions, both of which are slightly larger than the comparison study. There is atelectasis in the right lower lobe adjacent to the right pleural effusion. There is interstitial coarsening throughout the lung bhagat bilaterally, unchanged, compatible with fibrosis. There are multiple bulla throughout the lung bhagat bilaterally, unchanged. There are multiple normal-sized mediastinal lymph nodes, similar to the prior study. In the absence of IV contrast the study is insensitive for hilar lymph node enlargement. There are granulomas calcifications in the right hilus and in the paratracheal mediastinum, unchanged. The unenhanced thoracic aorta is unremarkable. Cardiac size is normal. There is no pericardial effusion. Impression: Bilateral pleural effusions. The right pleural effusion is larger. Both pleural effusions have increased in size from the comparison study. There is atelectasis in the lower lobe of the right lung adjacent to the right pleural effusion. Diffuse interstitial coarsening compatible with fibrosis. Multiple bulla throughout the lung bhagat bilaterally. Electronically Signed by Dev Pinedo MD 05/28/2018 04:02 P
[2018-05-28] MEDS ORDERED: VANCOMYCIN HCL 1,000 MG, VIAL MATE ADAPTER 1 EACH in D5W 250 ML IV SCH (16:15)
[2018-05-28] MEDS: guaiFENesin ER 600 MG TAB PO SCH ×2 (16:33→20:38)
[2018-05-28] MEDS: ACETAMINOPHEN TAB 650MG DOSE (2X325MG) PO PRN ×2 (16:50→20:38)
[2018-05-28] MEDS ORDERED: FUROSEMIDE 40 MG/4 ML VIAL (J1940) IV ONE (17:00)
[2018-05-28] MEDS ORDERED: VANCOMYCIN HCL 750 MG, VIAL MATE ADAPTER 1 EACH in D5W 250 ML IV ONE (17:00)
[2018-05-28 17:04] LABS: C REACTIVE PROTEIN QUANTITATIV 0.66 MG/DL (0.00-0.30)
[2018-05-28] MEDS ORDERED: DEXTROSE 50% 50 ML SYRINGE IV PRN (17:15)
[2018-05-28] MEDS ORDERED: GLUCAGON FOR INJ 1 MG VIAL (J1610) SC PRN (17:15)
[2018-05-28] MEDS ORDERED: GLUCOSE 4 GM CHEW TABLET PO PRN (17:15)
[2018-05-28] MEDS: DICLOFENAC EPOLAMINE 1.3 % PATCH TOP SCH (17:56)
[2018-05-28] MEDS ORDERED: VANCOMYCIN HCL 500 MG in D5W MINI-BAG PLUS 100 ML IV ONE (18:00)
--- NOTE | 2018-05-28 18:06 | REP ---
Left hip two views: There are no comparisons. There is demineralization. The joint spaces preserved. There is no femoral head deformity. There is no fracture or dislocation. There are no calcifications or foreign bodies. Impression: Demineralization, otherwise negative left hip. Electronically Signed by Dev Pinedo MD 05/28/2018 05:57 P
--- NOTE | 2018-05-28 18:48 | REP ---
Renal ultrasound for A K I: The right kidney measures 9.2 x 5.4 x 4.6 cm. Right kidney is in the low normal size range. The left kidney measures 7.3 x 3.6 x 3.4 cm. Left kidney is atrophic size. There is bilateral renal cortical echogenicity compatible with medical renal disease. There is no hydronephrosis. There are no renal calculi. There are no solid renal masses. There are multiple left renal cysts, the largest at the mid pole measuring up to 1.5 cm. There are no right renal cysts. Bladder: The bladder is mildly distended containing 96 ml of fluid and cannot be further assessed. Impression: Multiple left renal cysts. Bilateral renal cortical echogenicity compatible with medical renal disease. Left kidney is atrophic size. Electronically Signed by Dev Pinedo MD 05/28/2018 06:40 P
[2018-05-28] MEDS: HumaLOG INSULIN (NovoLOG) PER UNIT SC SCH ×2 (18:53→20:47)
[2018-05-28 20:00] VITALS: BP 135/72
[2018-05-28 20:01] LABS: CREATININE,RANDOM URINE 62.4 MG/DL; SODIUM,RANDOM URINE 64 MEQ/L
[2018-05-28 20:07] LABS: APPEARANCE, URINE HAZY (CLEAR); BACTERIA, URINE AUTO NEGATIVE (NEGATIVE); BILIRUBIN, URINE AUTO NEGATIVE (NEGATIVE); BLOOD, URINE BLOOD NEGATIVE (NEGATIVE); COLOR, URINE YELLOW (YELLOW); GLUCOSE, URINE (UA) AUTO NEGATIVE (NEGATIVE); KETONE, URINE AUTO NEGATIVE (NEGATIVE); LEUKOCYTE ESTERASE, URINE AUTO NEGATIVE (NEGATIVE); MUCUS, URINE SMALL (NEGATIVE); NITRITE, URINE AUTO NEGATIVE (NEGATIVE); PROTEIN, URINE AUTO 1+ mg/dL (NEGATIVE); RBC, URINE AUTO 2 /HPF (0-3); SPECIFIC GRAVITY URINE AUTO 1.011 (1.002-1.035); SQUAMOUS EPITHELIAL CELL UR AU 6 /HPF (0-6); UROBILINOGEN, URINE AUTO 0.2 mg/dL (0.0-2.0); WBC, URINE AUTO 2 /HPF (0-3)
[2018-05-29] VITALS (7 sets, daily range): BP systolic 110–157; BP diastolic 56–72
[2018-05-29] MEDS: IPRATROPIUM 0.5MG/ALBUTEROL 2.5MG INH SOL UD 3ML (DUONEB)(J7620) NEB SCH ×7 (00:42→23:35)
[2018-05-29] MEDS: DICLOFENAC EPOLAMINE 1.3 % PATCH TOP SCH ×2 (04:40→17:32)
[2018-05-29 08:32] LABS: HEMATOCRIT 36.9 % (36.0-47.0); HEMOGLOBIN 11.8 g/dl (12.0-15.5); MEAN CORPUSCULAR HEMOGLOBIN 28.3 pg (27.0-33.0); MEAN CORPUSCULAR VOLUME 88.5 fl (80.0-96.0); PLATELET COUNT, AUTOMATED 346 10^3/uL (150-450); RED BLOOD COUNT 4.17 10^6/uL (4.00-5.40); WHITE BLOOD COUNT 10.3 10^3/uL (4.0-10.0)
[2018-05-29 08:38] LABS: C REACTIVE PROTEIN QUANTITATIV 1.15 MG/DL (0.00-0.30); CALCIUM LEVEL 9.5 MG/DL (8.8-10.2); CREATININE FOR GFR 2.68 MG/DL (0.55-1.30); MAGNESIUM LEVEL 2.2 MG/DL (1.8-2.4); POTASSIUM SERUM 4.4 MEQ/L (3.5-5.1)
[2018-05-29 08:41] LABS: CK-MB VALUE MASS < 1.0 NG/ML (<3.6); CPK CREATINE PHOSPHOKINASE 30 U/L (26-192); FREE THYROXINE INDEX 4.7 % (1.3-4.8); MB/CK RELATIVE INDEX 3.33 (< OR =4); T UPTAKE 38 % (30-39); THYROXINE (T4) 12.3 UG/DL (4.5-12.0); TROPONIN I < 0.02 NG/ML (< 0.10)
[2018-05-29] MEDS ORDERED: FUROSEMIDE 40 MG/4 ML VIAL (J1940) IV SCH (09:00)
[2018-05-29] MEDS: CYANOCOBALAMIN 500 MCG TAB PO SCH (09:54)
[2018-05-29] MEDS: FERROUS SULFATE 325MG TAB PO SCH ×2 (09:54→20:33)
[2018-05-29] MEDS: ASPIRIN 81 MG ENTERIC TAB PO SCH (09:54)
[2018-05-29] MEDS: HumaLOG INSULIN (NovoLOG) PER UNIT SC SCH ×4 (09:54→20:33)
[2018-05-29] MEDS: guaiFENesin ER 600 MG TAB PO SCH ×2 (09:54→20:33)
[2018-05-29] MEDS: CARVedilol 12.5 MG TAB PO SCH ×2 (09:55→20:33)
[2018-05-29] MEDS: ALLOPURINOL 300 MG TAB PO SCH (09:56)
[2018-05-29] MEDS: amLODIPine 10 MG TAB PO SCH (09:56)
[2018-05-29] MEDS: OMEPRAZOLE 20 MG CAP PO SCH (09:56)
[2018-05-29] MEDS ORDERED: PILL CRUSHER/CUTTER 1 EACH XX PRN (10:15)
[2018-05-29] MEDS ORDERED: MOXIFLOXACIN HCL 400 MG in APPROPRIATE DILUENT 1 EA IV SCH (12:00)
--- NOTE | 2018-05-29 12:38 | NUR ---
Pt seen this date for bedside swallow evaluation to r/o aspiration. Pt presented wnl for oral and pharyngeal phase of swallow. No overt s/s of aspiration/penetration observed with any consistency trialed. Recommend: Regular solids and thin liquids. Upright position for all meals/snacks/meds Addendum: 05/29/18 at 1239 by ALICIA GERARD [facility] Amended: Links added.
[2018-05-29] MEDS: AMIODARONE 200 MG TAB (PACERONE) PO SCH ×2 (12:50→20:33)
--- NOTE | 2018-05-29 17:27 | CR ---
DATE OF CONSULTATION: 05/28/2018 Asked to consult by Dr. Cristina regarding pulmonary infiltrate with increasing shortness of breath. HISTORY OF PRESENT ILLNESS: Mrs. Ruiz is an 83-year-old female with a history of diastolic heart failure, chronic kidney disease, pulmonary hypertension, chronic obstructive pulmonary disease (COPD) oxygen dependent on 2 liters nasal cannula. The patient was admitted on 05/11/2018, discharged on 05/15/2018 with similar complaints, increasing shortness of breath and cough. She was treated with levofloxacin over a 5 day period, some diuresis and was discharged home. The patient continued with chronic shortness of breath. She had a decreased dose of Lasix from her baseline to 20 mg and her amlodipine was at 10 mg. According to her son, this has caused increasing edema in lower extremities. The patient has a rare cough and if she does have a cough it is usually nonproductive. She does not have a fever but feels chilly all the time. No night sweats. No weight loss. PAST MEDICAL HISTORY: Is significant for chronic kidney disease stage III, creatinine baseline of 2.4, diastolic heart failure, pulmonary hypertension, anemia of chronic disease, diabetes with diabetic neuropathy and Charcot arthropathy of the left foot followed up with Dr. Moreno, hypertension, dyslipidemia, COPD and gastroesophageal reflux disease. PAST SURGICAL HISTORY: Arteriovenous (AV) fistula repair. Bronchoscopy done by Dr. Hurst in April 2008. SOCIAL HISTORY: She quit smoking. Denies alcohol or drug use. Lives with her and has a son who is at the bedside as well. ALLERGIES: Bee venom, LATEX, PENICILLIN and PENICILLIN CROSS REACTORS. MEDICATIONS: - furosemide 40 mg IV daily - insulin sliding scale - vancomycin 750 mg IV daily - Tylenol as needed - Zofran as needed - moxifloxacin 400 mg IV daily - albuterol/Atrovent nebulizers every 4 hours as needed - guaifenesin 600 mg by mouth twice a day LABORATORY DATA: White count was 12.5, hemoglobin 11.8, hematocrit 37.8, platelets 302, 85% neutrophils, 7% lymphocytes, 5% monocytes. Sodium 139, potassium 4.5, chloride 103, bicarbonate 28, BUN 44, creatinine 2.38, glucose 220. Lactic acid 1.2, calcium 9.7, bilirubin 0.6, AST 9, ALT 12, CPK 20, troponin less than 0.02, CRP 0.66, BNP 8926. Blood cultures two sets were ordered and are pending. Respiratory panel is negative. Blood cultures done on 05/07/2018 were negative. Chest x-ray done on 05/28/2018 shows chronic cardiomegaly unchanged, acute right lower lobe infiltrate is again identified with chronic interstitial markings. Chest CT shows interstitial coarsening throughout the lung bhagat bilaterally compatible with fibrosis. Multiple bullae throughout both lung bhagat unchanged. Multiple normal-sized mediastinal lymph nodes. Bilateral pleural effusion with right pleural effusion being larger than previous CT. Atelectasis in the lower lobes of the right lung adjacent to the pleural effusion. PHYSICAL EXAMINATION: Elderly female in moderate discomfort complaining mostly of hip pain. Temperature is 98.3, pulse 74, respirations 19, blood pressure 143/63, oxygen saturation 90% on 4 liters nasal cannula. Heart: Normal S1, S2 with a systolic ejection murmur 2/6 left sternal border. Lungs: Very poor air entry bilaterally. Few crackles at the bases. Abdomen: Soft, nontender. No hepatosplenomegaly. Extremities: +2 pitting edema bilaterally, left more than right. Left foot also has a Charcot arthropathy deformity with a diabetic foot ulcer on the plantar aspect of the foot measuring about 3 x 3 cm with maceration and bloody discharge. Echocardiogram read by Dr. Rios 05/11/2018, showed diastolic dysfunction, ejection fraction of 60-65%, difficult study, mildly dilated right heart chambers with at least mild pulmonary hypertension. IMPRESSION: This is an 83-year-old female who was admitted 2 weeks ago treated with levofloxacin and diuresis readmitted 2 weeks later with symptoms of increasing shortness of breath, increasing lower extremity edema, nothing suggestive of infectious process. She has a normal lactic acid, borderline C-reactive protein (CRP) at 0.6, white count is slightly elevated. The patient barely has a cough and if she does have one it is mostly nonproductive. Her symptoms are more suggestive of congestive heart failure with diastolic dysfunction, increasing lower extremity edema. PLAN: Discontinue IV vancomycin and IV moxifloxacin. Suggest diuresis, IV Lasix, suggest consultation with cardiology, this is her second admission with similar symptoms. Chest CT was reviewed, has increasing bilateral pleural effusion, again suggests chronic heart failure. Case has been discussed with Dr. Cristina. As far as the Charcot arthropathy, would continue with dressing changes per Dr. Moreno's recommendation with Hydrofera Blue on the left foot. Compression stockings both lower extremities. At this point I would not recommend any antibiotics.
[2018-05-29] MEDS: FUROSEMIDE 100 MG/10 ML VIAL (J1940) IV SCH (17:30)
--- NOTE | 2018-05-29 18:44 | ECGEPIP ---
Stationary ECG Study [facility] - ED Test Date: 2018-05-28 Pat Name: MERI BONNER Department: Room: - Gender: F Rn Integrated: : 1935 Requested By: Jayashree Cardoza Order Number: [id number] Reading MD: Jayashree Cardoza Measurements Intervals [place] Rate: 65 P: 104 OK: 195 QRS: 158 QRSD: 76 T: 136 QT: 417 QTc: 435 Interpretive Statements SINUS RHYTHM BASELINE ARTIFACT LIMITS INTERPRETATION LOW QRS VOLTAGE IN EXTREMITY LEADS LEFT POSTERIOR FASCICULAR BLOCK NSTTW ABNORMALITY DELAYED R PROGRESSION DECREASED RATE 05/11/18 Electronically Signed On 05-29-2018 18:43:53 EST by Jayashree Cardoza
[2018-05-29] MEDS: SIMVASTATIN 20 MG TAB PO SCH (20:33)
[2018-05-29] MEDS: HEPARIN SOD (PORCINE) 5000 UNITS/ML VIAL SQ SCH (20:51)
--- NOTE | 2018-05-29 22:24 | IPN ---
DATE: 05/29/2018 Patient seen and examined. Reported respiration much improved. Denies new chest pain, pressure or discomfort. Denies any fever or chills. VITAL SIGNS: Temperature 98.7, pulse 79, respirations 20, blood pressure 110/56, pulse oximetry 94% on 4 liters nasal cannula. LABORATORY: WBC 10.3, hemoglobin and hematocrit 11.8/36.9, platelets 346. Chemistry: Sodium 137, potassium 4.4, chloride 103, bicarbonate 26, BUN 50, creatinine 2.68. Cardiac enzymes negative times two. PHYSICAL EXAMINATION: GENERAL: Patient frail. In no acute distress. HEENT: Normocephalic, atraumatic. Moist mucous membranes. NECK: Supple. CARDIAC: Regular. S1, S2. PULMONARY: Diminished breath sounds bilateral bases. Bilateral crackles. ABDOMEN: Soft, nontender. EXTREMITIES: 1+ bilateral lower extremity edema. Chronic wound right foot. Charcot foot. Bandages clean, dry and intact. ASSESSMENT AND PLAN: This is an 83-year-old female patient with underlying medical history of COPD, on 2 liters oxygen at home, chronic diastolic congestive heart failure with pulmonary artery hypertension, chronic kidney disease (CKD), stage III, anemia of chronic disease, history of tuberculosis as a child and history of smoking presented with shortness of breath. PROBLEMS: 1. Shortness of breath secondary to acute on chronic congestive heart failure with diastolic dysfunction and right heart failure with secondary pulmonary hypertension and underlying lung disease. Continue diuresis. CT scan appreciated. 2. Right lower lobe lesion. Case discussed with Dr. Klein and Dr. Cam. Unlikely to be infectious according to infectious disease, Dr. Cam. As per Dr. Klein, likely compressive atelectasis. Given severe emphysema and advanced age would recommend against biopsy at this point according to Dr. Klein. Recommend continuation of dialysis given bilateral pleural effusion. 3. History of COPD. Currently does not have any wheeze. Continue EzPAP, diuresis, nebulizer treatment as needed. 4. Diabetes mellitus. Holding oral medication. Insulin as ordered. 5. Dyslipidemia. Continue statin. 6. Hypertension. Continue Norvasc, Coreg, Lasix. 7. GERD. Continue proton pump inhibitor (PPI). 8. Chronic right foot ulcer. Follows with Dr. Moreno as outpatient. Physical therapy (PT) and wound care has been ordered. 9. Anemia of chronic disease. Monitor hemoglobin and hematocrit. 10. CKD. Nephrology consulted. Continue diuresis. Monitor kidney function. 11. Coronary arterial disease. Continue aspirin, beta tonja, statin. 12. Deep venous thrombosis (DVT) prophylaxis. Heparin subcutaneous. DISPOSITION: Patient with advanced lung disease. Poor intermediate prognosis. Will monitor closely.
[2018-05-30] MEDS: FUROSEMIDE 100 MG/10 ML VIAL (J1940) IV SCH ×2 (00:36→09:11)
[2018-05-30] MEDS: IPRATROPIUM 0.5MG/ALBUTEROL 2.5MG INH SOL UD 3ML (DUONEB)(J7620) NEB SCH ×5 (04:36→20:05)
[2018-05-30 04:45] VITALS: BP_SYST 130; BP_SYST 132; BP_DIAS 58
[2018-05-30] MEDS: DICLOFENAC EPOLAMINE 1.3 % PATCH TOP SCH ×2 (05:51→18:05)
[2018-05-30 06:19] LABS: HEMATOCRIT 33.2 % (36.0-47.0); HEMOGLOBIN 10.5 g/dl (12.0-15.5); MEAN CORPUSCULAR HEMOGLOBIN 28.4 pg (27.0-33.0); MEAN CORPUSCULAR HGB CONC 31.6 g/dl (32.0-36.5); MEAN CORPUSCULAR VOLUME 89.7 fl (80.0-96.0); PLATELET COUNT, AUTOMATED 275 10^3/uL (150-450)
[2018-05-30 06:45] LABS: C REACTIVE PROTEIN QUANTITATIV 0.55 MG/DL (0.00-0.30); CALCIUM LEVEL 8.9 MG/DL (8.8-10.2); CREATININE FOR GFR 2.69 MG/DL (0.55-1.30); GLOMERULAR FILTRATION RATE 17.9 (>32); MAGNESIUM LEVEL 2.1 MG/DL (1.8-2.4); POTASSIUM SERUM 4.2 MEQ/L (3.5-5.1)
[2018-05-30] MEDS: HumaLOG INSULIN (NovoLOG) PER UNIT SC SCH ×4 (07:49→21:00)
[2018-05-30 08:00] VITALS: BP 141/61
[2018-05-30] MEDS: AMIODARONE 200 MG TAB (PACERONE) PO SCH ×2 (09:07→21:29)
[2018-05-30] MEDS: FERROUS SULFATE 325MG TAB PO SCH ×2 (09:07→21:28)
[2018-05-30] MEDS: CYANOCOBALAMIN 500 MCG TAB PO SCH (09:07)
[2018-05-30] MEDS: CARVedilol 12.5 MG TAB PO SCH ×2 (09:08→21:28)
[2018-05-30] MEDS: guaiFENesin ER 600 MG TAB PO SCH ×2 (09:09→22:10)
[2018-05-30] MEDS: amLODIPine 10 MG TAB PO SCH (09:09)
[2018-05-30] MEDS: ALLOPURINOL 300 MG TAB PO SCH (09:09)
[2018-05-30] MEDS: OMEPRAZOLE 20 MG CAP PO SCH (09:09)
[2018-05-30] MEDS: ASPIRIN 81 MG ENTERIC TAB PO SCH (09:10)
[2018-05-30] MEDS: HEPARIN SOD (PORCINE) 5000 UNITS/ML VIAL SQ SCH ×2 (09:11→21:29)
[2018-05-30] MEDS ORDERED: DOXYCYCLINE HYCLATE 100 MG TAB PO ONE (11:00)
[2018-05-30 12:00] VITALS: BP 137/64
[2018-05-30 16:00] VITALS: BP 126/59
[2018-05-30] MEDS: ACETAMINOPHEN TAB 650MG DOSE (2X325MG) PO PRN (16:00)
--- NOTE | 2018-05-30 16:13 | IPN ---
DATE: 05/29/2017 Mrs. Ruiz feels better today. She has been seen by nephrology who increased her Lasix 60 mg every 8 hours. Yesterday she only received 40 mg intravenous (IV) and had output of only negative balance of 320. The patient states her shortness of breath has improved. She does not have a cough or fever. LABORATORY DATA: White count is 10.3, hemoglobin 11.8, hematocrit 36.9, platelets 346. Sodium 137, potassium 4.4, chloride 103, bicarbonate 26, BUN 50, creatinine 2.68, glucose 245, calcium 9.5, magnesium 2.2, CRP 0.66-1.15. Blood cultures: No growth after 24 hours. Respiratory panel is negative. Hip x-ray showed demineralization of the left hip. Chest CT showed bilateral pleural effusion with multiple bullae and diffuse interstitial coarsening, consistent with fibrosis. IMPRESSION: 1. Respiratory failure in a patient with congestive heart failure and chronic obstructive pulmonary disease (COPD). Clinically, the patient does not have any evidence of infectious process at this time. Antibiotics were discontinued yesterday. She also has chronic kidney disease. 2. History of tuberculosis as a child with no evidence of recurrence. The patient does not have any systemic symptoms of cough, fever, chills, or night sweats. PLAN: Infectious disease signing off. I would not recommend antibiotics at this time. Agree with aggressive diuresis per nephrology. Thank you for the consultation.
[2018-05-30] MEDS ORDERED: FUROSEMIDE 100 MG/10 ML VIAL (J1940) IV SCH (17:00)
--- NOTE | 2018-05-30 18:42 | REP ---
MRI LEFT FOOT: TECHNIQUE: Multiple sequences were obtained in the axial, coronal and sagittal planes. Study is limited due to patient motion. Also due to low GFR, we are unable to administer contrast to evaluate for soft tissue infection and osteomyelitis. There is mild marrow edema in the anterior calcaneus, in the inferior talus, diffusely throughout all of the tarsal bones and also involving the proximal aspect of all metatarsals. Diffuse arthritic changes are seen at the intertarsal and tarsal/metatarsal joints. There is lateral displacement and erosive change of the 1st and 2nd metatarsals. The findings are consistent with Charcot foot. There is mild fluid surrounding the medial cuneiform bone. There is a greater degree of edema in the medial cuneiform bone. I could not exclude a small abscess in the soft tissues with associated osteomyelitis of the medial cuneiform. There is diffuse edema and probable cellulitis of the foot. No other fluid collection is seen. IMPRESSION: Limited exam due to patient motion and inability to give contrast. There is diffuse edema and probably cellulitis of the foot. There is diffuse edema involving tarsal and metatarsal bones. The findings are consistent with Charcot foot. There is mild fluid surrounding the medial cuneiform bone which could represent a small abscess. There does appear to be a greater degree of marrow edema involving the medial cuneiform bone. I could not exclude osteomyelitis of that bone. Electronically Signed by Dev Joya MD 05/30/2018 08:21 P
[2018-05-30 20:00] VITALS: BP 146/65
--- NOTE | 2018-05-30 21:27 | IPNPDOC ---
Text Note Date of Service The patient was seen on 05/30/18. NOTE Patient seen and examined. Reported respiration much improved. Denies new chest pain, pressure or discomfort. Denies any fever or chills. PHYSICAL EXAMINATION: GENERAL: Patient frail. In no acute distress. HEENT: Normocephalic, atraumatic. Moist mucous membranes. NECK: Supple. CARDIAC: Regular. S1, S2. PULMONARY: Diminished breath sounds bilateral bases. Bilateral crackles. ABDOMEN: Soft, nontender. EXTREMITIES: 1+ bilateral lower extremity edema. Chronic wound right foot. Charcot foot purulent drainage. ASSESSMENT AND PLAN: This is an 83-year-old female patient with underlying medical history of COPD, on 2 liters oxygen at home, chronic diastolic congestive heart failure with pulmonary artery hypertension, chronic kidney disease (CKD), stage III, anemia of chronic disease, history of tuberculosis as a child and history of smoking presented with shortness of breath. PROBLEMS: 1. Shortness of breath secondary to acute on chronic congestive heart failure with diastolic dysfunction and right heart failure with secondary pulmonary hypertension and underlying lung disease. Continue diuresis. CT scan appreciated. 2. Right lower lobe lesion. Case discussed with Dr. Klein and Dr. Cam. Unlikely to be infectious according to infectious disease, Dr. Cam. As per Dr. Klein, likely compressive atelectasis. Given severe emphysema and advanced age would recommend against biopsy at this point according to Dr. Klein. Recommend continuation of diuresis given bilateral pleural effusion. 3. History of COPD. Currently does not have any wheeze. Continue EzPAP, di uresis, nebulizer treatment as needed. 4. Diabetes mellitus. Holding oral medication. Insulin as ordered. 5. Dyslipidemia. Continue statin. 6. Hypertension. Continue Norvasc, Coreg, Lasix. 7. GERD. Continue proton pump inhibitor (PPI). 8. Chronic right foot ulcer. Follows with Dr. Fountain as outpatient. Physical therapy (PT) and wound care has been ordered., MRI as per Dr fountain, consult Dr Paiz in am. f/u ESR, CRP 9. Anemia of chronic disease. Monitor hemoglobin and hematocrit. 10. CKD. Nephrology consulted. Continue diuresis. Monitor kidney function. 11. Coronary arterial disease. Continue aspirin, beta tonja, statin. 12. Deep venous thrombosis (DVT) prophylaxis. Heparin subcutaneous. DISPOSITION: Patient with advanced lung disease. Poor care home prognosis. Will monitor closely. VS,Fishbone, I+O VS, Fishbone, I+O Laboratory Tests 05/30/18 05:53 Red Blood Count 3.70 L, Mean Corpuscular Volume 89.7, Mean Corpuscular Hemoglobin 28.4, Mean Corpuscular Hemoglobin Concent 31.6 L, Red Cell Distribution Width 17.4 H, Calcium Level 8.9 Vital Signs Date Time Temp Pulse Resp B/P (MAP) Pulse Ox O2 Delivery O2 Flow Rate FiO2 05/30/18 20:00 98.8 84 20 146/65 (92) 92 4.0 05/28/18 09:05 Nasal Cannula I&O- Last 24 Hours up to 6 AM 05/30/18 06:00 Intake Total 1500 ml Output Total 1600 ml Balance -100 ml RICH LEDBETTER MD May 30, 2018 21:27
--- NOTE | 2018-05-30 21:28 | CR ---
DATE OF CONSULTATION: 05/30/2018 REQUESTING PHYSICIAN: Edvin Cristina MD REASON FOR CONSULTATION: Exacerbation of diastolic congestive heart failure in this patient with underlying chronic kidney disease (CKD), stage IV, not yet on dialysis. HISTORY OF PRESENT ILLNESS: Keke Ruiz is an 83-year-old female known to me from the office who is a poor historian. Her son supplements the history. She has a past medical history of COPD, home oxygen dependent, chronically on 2 liters nasal cannula, diastolic congestive heart failure, right heart dysfunction, chronic kidney disease (CKD) stage IV, baseline creatinine about 2.0 to 2.4, anemia of chronic disease, recent unintentional weight loss of about 20 pounds, history of gout, secondary hyperparathyroidism, non-insulin dependent diabetes mellitus, dyslipidemia, gastroesophageal reflux disease (GERD), chronic right foot ulcer, coronary artery disease, diabetic neuropathy, pulmonary hypertension. Patient states that she was having progressive shortness of breath at home which prompted her to come into the emergency room. Her son tells me she was recently admitted in April with similar complaints and also reports that her diuretics have been significantly cut down in the outpatient setting and that she was having increase in peripheral edema at home. PAST MEDICAL HISTORY: As mentioned above. PAST SURGICAL HISTORY: AV fistula. Bronchoscopy. SOCIAL HISTORY: She is an ex-smoker. Denies alcohol or drug use. Lives with son. ALLERGIES: BEE VENOM. LATEX. PENICILLIN. HOME MEDICATIONS: Reviewed and include: - Lasix 20 mg by mouth daily which was cut down from her prior home dose of Lasix 40 mg by mouth twice a day - allopurinol 150 mg by mouth daily - amlodipine 10 mg by mouth daily - aspirin 81 mg by mouth daily - calcitriol 0.25 mcg by mouth daily - carvedilol 25 mg by mouth twice a day - ferrous sulfate 325 mg by mouth twice a day - glipizide 10 mg by mouth twice a day - Tradjenta 5 mg by mouth daily - omeprazole 20 mg by mouth daily - simvastatin 20 mg by mouth at bedtime - Drisdol 50,000 units by mouth every weekly FAMILY HISTORY: No family history of end-stage renal disease requiring dialysis. REVIEW OF SYSTEMS: CONSTITUTIONAL: She reports unintentional weight loss over the fall and the winter, but recently has had weight gain in the setting of fluid retention. She denies fevers or chills. EYES: She denies visual changes or blurring. ENT: She denies rhinorrhea, epistaxis or dysphagia. CARDIAC: She has history of diastolic congestive heart failure. She denies chest pain, palpitations. RESPIRATORY: She has a history of COPD and chronic oxygen dependence. She reports increased dyspnea on exertion. She denies productive cough. GASTROESOPHAGEAL: She denies nausea, vomiting or diarrhea. GENITOURINARY (): She reports some decreased urination since her diuretic was cut down. She denies dysuria. MUSCULOSKELETAL: She reports chronic left foot wound managed by Dr. Moreno. She denies any new myalgias or arthralgias. ENDOCRINE: She reports history of secondary hyperparathyroidism and history of diabetes. HEMATOLOGIC: She denies easy bleeding or bruising. NEUROLOGICAL: She denies seizure or syncope. VITAL SIGNS: Temperature 98.7, pulse 79, respiratory rate 20, blood pressure 110/56, saturating 94% on 4 liters nasal cannula. Intake and output yesterday was not fully recorded. GENERAL: The patient is seen lying in bed, elderly female. No acute distress. HEAD AND NECK: Extraocular muscles are intact. Tongue is moist. Neck is supple. Diminished breath sounds at the bilateral bases with bilateral crackles. Nasal cannula in placed. ABDOMEN: Soft and nontender, positive bowel sounds. EXTREMITIES: Show 1 to 2 + pitting edema bilaterally below the knee. There is a chronic wound present on the left foot with dressing. The left lower extremity is more swollen than the right. The upper extremity shows a patent fistula with thrill and bruit. NEUROLOGICAL: She is a poor historian but she is pleasantly confused and at baseline mentation. LABS: White count 10.3, hemoglobin 11.8, platelet 346. Sodium 137, potassium 4.4, bicarbonate 26, BUN 50, creatinine 2.6. BNP 8200. IMAGING: CT chest May 28 shows bilateral pleural effusions, right greater than left and atelectasis in the lower lobe of the right and background of interstitial coarsening compatible with fibrosis with multiple bulla through the lung bhagat bilaterally. Renal ultrasound May 28 shows atrophic left kidney and bilateral increased renal cortical echogenicity. INPATIENT MEDICATIONS: I have increased her Lasix to 60 mg IV every 8 hourly. I am cutting her amlodipine down to 5 mg by mouth daily. She continues on Mucinex 600 mg by mouth twice a day, Tylenol as needed, allopurinol 150 mg by mouth daily, amiodarone 200 mg by mouth twice a day, aspirin 81 mg by mouth daily, carvedilol 25 mg by mouth twice a day, vitamin B12 1000 mcg by mouth daily, DuoNebs around the clock, ferrous sulfate 325 mg by mouth twice a day, heparin 5000 units subcutaneous every 12, insulin, Prilosec 20 mg by mouth daily and simvastatin 20 mg by mouth at bedtime. PROBLEMS: 1. Acute on chronic congestive heart failure with diastolic dysfunction and with underlying right heart failure with pulmonary hypertension and underlying lung disease. Patient is grossly volume overloaded. Her son manages her medications and reports that her Lasix which was previously 40 mg by mouth twice daily has been cut down to 20 mg once daily over the past month or so and she has been having increasing peripheral edema and progressive shortness of breath with the same. CT imaging shows bilateral pleural effusions. She has chronic edema in her left foot related to her foot wound, however, the edema in the right lower extremity is new and significant. I am increasing her Lasix to 60 mg IV every 8 hourly for goal net negative 1 to 2 liters in 24 hours. She is fluid restricted to 1500 mL daily. 2. CKD stage IV. Baseline creatinine is around 2 to 2.4. She has known atrophy of the left kidney and she also has a history of diabetic nephropathy. Her renal function is only mildly worse than usual baseline. She has a patent fistula present. I discussed with her that we may need to consider starting dialysis if we cannot optimize her volume status with use of diuretics. We will give a trial of aggressive diuretics first with around the clock Lasix and she how she fares. 3. Hypertension. Patient previously has a history of leg edema with amlodipine. I am cutting the dose down to 5 mg daily. She is not suitable for joey inhibitor or angiotensin receptor tonja. She continues on her home beta tonja and I expect blood pressures should improve with diuresis and correction of her volume status. 4. COPD with home oxygen dependence. Patient is usually on 2 liters nasal cannula. Currently requiring 4 liters nasal cannula due to the concomitant exacerbation of congestive heart failure. She continues on the usual nebulizer treatments for COPD and she is being aggressively diuresed now for the CHF. 5. Anemia of chronic kidney disease. Hemoglobin is at target and no intervention is needed at present.
[2018-05-30] MEDS: SIMVASTATIN 20 MG TAB PO SCH (21:29)
[2018-05-30] MEDS: CHLOROTHIAZIDE 500 MG VIAL (J1205) IV SCH (22:08)
[2018-05-30 23:59] VITALS: BP 141/61
[2018-05-31] VITALS (7 sets, daily range): BP systolic 116–135; BP diastolic 56–74
[2018-05-31] MEDS: IPRATROPIUM 0.5MG/ALBUTEROL 2.5MG INH SOL UD 3ML (DUONEB)(J7620) NEB SCH ×6 (00:04→23:54)
[2018-05-31] MEDS: FUROSEMIDE 100 MG/10 ML VIAL (J1940) IV SCH ×4 (00:53→21:01)
[2018-05-31 06:04] LABS: HEMATOCRIT 34.5 % (36.0-47.0); HEMOGLOBIN 11.3 g/dl (12.0-15.5); MEAN CORPUSCULAR HEMOGLOBIN 28.3 pg (27.0-33.0); MEAN CORPUSCULAR HGB CONC 32.8 g/dl (32.0-36.5); MEAN CORPUSCULAR VOLUME 86.5 fl (80.0-96.0); PLATELET COUNT, AUTOMATED 273 10^3/uL (150-450); RED BLOOD COUNT 3.99 10^6/uL (4.00-5.40)
[2018-05-31] MEDS: DICLOFENAC EPOLAMINE 1.3 % PATCH TOP SCH ×2 (06:34→18:10)
[2018-05-31 06:37] LABS: ALBUMIN 3.6 GM/DL (3.2-5.2); C REACTIVE PROTEIN QUANTITATIV 0.32 MG/DL (0.00-0.30); CREATININE FOR GFR 2.77 MG/DL (0.55-1.30); GLOMERULAR FILTRATION RATE 17.3 (>32); MAGNESIUM LEVEL 2.1 MG/DL (1.8-2.4); PHOSPHORUS LEVEL 4.1 MG/DL (2.5-4.9); POTASSIUM SERUM 3.8 MEQ/L (3.5-5.1)
[2018-05-31] MEDS ORDERED: amLODIPine 5 MG TAB PO SCH (09:00)
[2018-05-31] MEDS: HumaLOG INSULIN (NovoLOG) PER UNIT SC SCH ×4 (10:02→20:57)
[2018-05-31] MEDS: CHLOROTHIAZIDE 500 MG VIAL (J1205) IV SCH (10:03)
[2018-05-31] MEDS: CARVedilol 12.5 MG TAB PO SCH ×2 (10:09→20:55)
[2018-05-31] MEDS: OMEPRAZOLE 20 MG CAP PO SCH (10:10)
[2018-05-31] MEDS: CYANOCOBALAMIN 500 MCG TAB PO SCH (10:11)
[2018-05-31] MEDS: FERROUS SULFATE 325MG TAB PO SCH ×2 (10:11→20:56)
[2018-05-31] MEDS: ASPIRIN 81 MG ENTERIC TAB PO SCH (10:11)
[2018-05-31] MEDS: guaiFENesin ER 600 MG TAB PO SCH ×2 (10:12→20:56)
[2018-05-31] MEDS: AMIODARONE 200 MG TAB (PACERONE) PO SCH ×2 (10:12→20:56)
[2018-05-31] MEDS: HEPARIN SOD (PORCINE) 5000 UNITS/ML VIAL SQ SCH ×2 (10:18→20:56)
[2018-05-31] MEDS: ALLOPURINOL 300 MG TAB PO SCH (10:18)
[2018-05-31] MEDS ORDERED: CHLOROTHIAZIDE 500 MG VIAL (J1205) IV SCH (12:00)
[2018-05-31] MEDS ORDERED: SLF 3 ML SYR IV PRN (13:00)
--- NOTE | 2018-05-31 14:39 | REP ---
Left foot four views: There are fractures with resorptive changes at T -M T articulations the great toe, second digit and third digits. On the lateral view there is cephalad subluxation of the metatarsal bases. There is circumferential soft tissue edema . There are no lytic, blastic or destructive skeletal changes. Electronically Signed by Dev Pinedo MD 05/31/2018 02:30 P
[2018-05-31] MEDS: SLF 3 ML SYR IV SCH ×2 (14:41→21:01)
--- NOTE | 2018-05-31 20:30 | IPNPDOC ---
Text Note Date of Service The patient was seen on 05/31/18. NOTE Patient seen and examined. Reported respiration much improved. Denies chest pain, pressure or discomfort. Denies any fever or chills. PHYSICAL EXAMINATION: GENERAL: Patient frail. In no acute distress. HEENT: Normocephalic, atraumatic. Moist mucous membranes. NECK: Supple. CARDIAC: Regular. S1, S2. PULMONARY: Diminished breath sounds bilateral bases. Bilateral crackles. ABDOMEN: Soft, nontender. EXTREMITIES: 1+ bilateral lower extremity edema. Chronic wound right foot. Charcot foot purulent drainage. ASSESSMENT AND PLAN: This is an 83-year-old female patient with underlying medical history of COPD, on 2 liters oxygen at home, chronic diastolic congestive heart failure with pulmonary artery hypertension, chronic kidney disease (CKD), stage III, anemia of chronic disease, history of tuberculosis as a child and history of smoking presented with shortness of breath. PROBLEMS: 1. Shortness of breath secondary to acute on chronic congestive heart failure with diastolic dysfunction and right heart failure with secondary pulmonary hypertension and underlying lung disease. Continue diuresis. CT scan appreciated. 2. Right lower lobe lesion. Case discussed with Dr. Klein and Dr. Cam. Unlikely to be infectious according to infectious disease, Dr. Cam. As per Dr. Klein, likely compressive atelectasis. Given severe emphysema and advanced age would recommend against biopsy at this point according to Dr. Klein. Recommend continuation of diuresis given bilateral pleural effusion. 3. History of COPD. Currently does not have any wheeze. Continue EzPAP, diures is, nebulizer treatment as needed. 4. Diabetes mellitus. Holding oral medication. Insulin as ordered. 5. Dyslipidemia. Continue statin. 6. Hypertension. Continue Norvasc, Coreg, Lasix. 7. GERD. Continue proton pump inhibitor (PPI). 8. Chronic right foot ulcer. Follows with Dr. Fountain as outpatient. Physical therapy (PT) and wound care has been ordered., MRI as per Dr fountain, consult Dr Paiz . f/u ESR, CRP, f./u culture, wound care 9. Anemia of chronic disease. Monitor hemoglobin and hematocrit. 10. CKD. Nephrology consulted. Continue diuresis. Monitor kidney function. 11. Coronary arterial disease. Continue aspirin, beta tonja, statin. 12. Tick exposure, doxy x1, need outpatient f/u 13. Deep venous thrombosis (DVT) prophylaxis. Heparin subcutaneous. DISPOSITION: Patient with advanced lung disease. Poor fdc prognosis. Will monitor closely. Full code as per patient VS,Diego, I+O VS, Diego, I+O Laboratory Tests 05/31/18 05:42 Red Blood Count 3.99 L, Mean Corpuscular Volume 86.5, Mean Corpuscular Hemogl obin 28.3, Mean Corpuscular Hemoglobin Concent 32.8, Red Cell Distribution Width 17.2 H, Anion Gap 10 Vital Signs Date Time Temp Pulse Resp B/P (MAP) Pulse Ox O2 Delivery O2 Flow Rate FiO2 05/31/18 20:06 2.0 05/31/18 16:00 98.5 86 18 126/74 (91) 96 05/28/18 09:05 Nasal Cannula I&O- Last 24 Hours up to 6 AM 05/31/18 06:00 Intake Total 860 ml Output Total 2825 ml Balance -1965 ml RICH LEDBETTER MD May 31, 2018 20:29
--- NOTE | 2018-05-31 20:48 | IPN ---
DATE: 05/31/2018 SUBJECTIVE: Keke is seen and examined this morning sitting out of the bed to the chair. Her family is present at the bedside. She reports her breathing continues to improve, is not short of breath at rest. Has been working with physical therapy. Remains a poor historian and pleasantly confused. Her son notes that her breathing is much easier as compared to admission. Her supplemental oxygen is being weaned. Temperature 98.5, pulse 86, respiratory rate 18, blood pressure 126/74, saturating 96% on 2 liters nasal cannula. Intake yesterday was 860, urine output yesterday was 2024, net negative yesterday 1160, thus far today urine output has been an additional 3.6 liters. Weight in the bed scale today is 63.5 kg which is decreased from prior. General: Patient is seen sitting out of bed to the chair, awake and alert, poor short-term memory and poor recall, no acute distress, elderly female. Extraocular muscles are intact. Tongue is moist. Nasal cannula is in place. Jugular venous distention is improved from prior. Cardiac: Regular S1, S2. Lungs: Diminished breath sounds at the bases, improvement in her crackles. Abdomen: Soft and nontender, positive bowel sounds. Extremities: 1+ edema bilaterally, more prominent in the left as compared to the right. The left foot is in dressing. LABORATORY DATA: White count 10.0, hemoglobin 11.3, platelets 273, sodium 136, potassium 3.8, BUN 71, creatinine 2.7, phosphorous 4.1, magnesium 2.1, BNP 11,000. INPATIENT MEDICATIONS: She received Diuril 250 mg times two doses. Her Lasix is cut to 60 mg IV every 8 hours. Her amlodipine is being discontinued. Her remainder of medications are unchanged from prior. PROBLEMS: 1. Acute on chronic diastolic congestive heart failure with also underlying right heart failure with pulmonary hypertension and underlying lung disease. Her daily weights are downtrending. She is in net negative fluid balance. She is being diuresed with combination Lasix pushes and IV Diuril for sequential nephron blockade. She is back to her usual baseline supplemental oxygen requirement of 2 liters nasal cannula. I will continue the IV Lasix for another day. I am discontinuing her Diuril. She continues on oral fluid restriction of 1500 mL daily. Her son reports that amlodipine previously also caused her to have peripheral edema and I am stopping that as well. 2. Chronic kidney disease (CKD) stage IV. Baseline creatinine is around 2 to 2.4. She has known atrophy of the left kidney and also has a history of diabetic nephropathy presently with a mild acute kidney injury (RUTHY) related to decompensated heart failure and aggressive diuresis. She has a patent fistula but there is no urgent indication for hemodialysis at this time. Her volume status is improving with combination diuretics and there are no uremic signs or symptoms. Her electrolytes are acceptable. 3. Hypertension. Blood pressures are acceptable at this time. I am stopping the amlodipine due to family reporting a prior history of peripheral edema with amlodipine. She is not suitable for angiotensin converting enzyme (RAI) inhibitor or angiotensin receptor tonja. She continues on her home beta tonja, Coreg 25 mg by mouth twice a day. At present, blood pressure is improving because of the aggressive diuresis and correction of volume status and once she is optimized for discharge, if necessary I will place her on hydrochlorothiazide along with Lasix, that will help with blood pressure control and control of her volume status and overall is a better fit for her as opposed to amlodipine. 4. Chronic right foot ulcer. Follows with Dr. Moreno as an outpatient. MRI noted. Primary team is consulting podiatry.
[2018-05-31] MEDS: SIMVASTATIN 20 MG TAB PO SCH (20:56)
[2018-06-01] MEDS: IPRATROPIUM 0.5MG/ALBUTEROL 2.5MG INH SOL UD 3ML (DUONEB)(J7620) NEB SCH ×6 (03:20→23:43)
[2018-06-01 04:11] LABS: HEMATOCRIT 34.6 % (36.0-47.0); HEMOGLOBIN 11.3 g/dl (12.0-15.5); MEAN CORPUSCULAR HEMOGLOBIN 28.9 pg (27.0-33.0); MEAN CORPUSCULAR HGB CONC 32.7 g/dl (32.0-36.5); MEAN CORPUSCULAR VOLUME 88.5 fl (80.0-96.0); PLATELET COUNT, AUTOMATED 265 10^3/uL (150-450); RED BLOOD COUNT 3.91 10^6/uL (4.00-5.40); WHITE BLOOD COUNT 9.8 10^3/uL (4.0-10.0)
[2018-06-01] MEDS: DICLOFENAC EPOLAMINE 1.3 % PATCH TOP SCH ×2 (04:14→18:30)
[2018-06-01 04:33] LABS: BLOOD UREA NITROGEN 71 MG/DL (7-18); C REACTIVE PROTEIN QUANTITATIV < 0.30 MG/DL (0.00-0.30); CALCIUM LEVEL 9.1 MG/DL (8.8-10.2); CARBON DIOXIDE LEVEL 30 MEQ/L (21-32); CHLORIDE LEVEL 94 MEQ/L (98-107); GLOMERULAR FILTRATION RATE 17.1 (>32); GLUCOSE, FASTING 209 MG/DL (70-100); MAGNESIUM LEVEL 2.1 MG/DL (1.8-2.4); POTASSIUM SERUM 3.3 MEQ/L (3.5-5.1); SODIUM LEVEL 134 MEQ/L (136-145)
[2018-06-01 04:45] VITALS: BP 111/53
[2018-06-01] MEDS: SLF 3 ML SYR IV SCH ×3 (05:23→22:00)
[2018-06-01 08:00] VITALS: BP 131/62
[2018-06-01] MEDS ORDERED: POTASSIUM CHLORIDE 10 MEQ SR TABLET PO ONE ×2 (08:00→12:00)
[2018-06-01] MEDS: CARVedilol 12.5 MG TAB PO SCH ×2 (08:15→20:50)
[2018-06-01] MEDS: HumaLOG INSULIN (NovoLOG) PER UNIT SC SCH ×4 (08:15→21:00)
[2018-06-01] MEDS: OMEPRAZOLE 20 MG CAP PO SCH (08:15)
[2018-06-01] MEDS: AMIODARONE 200 MG TAB (PACERONE) PO SCH ×2 (08:16→20:48)
[2018-06-01] MEDS: CYANOCOBALAMIN 500 MCG TAB PO SCH (08:16)
[2018-06-01] MEDS: ASPIRIN 81 MG ENTERIC TAB PO SCH (08:16)
[2018-06-01] MEDS: ALLOPURINOL 300 MG TAB PO SCH (08:16)
[2018-06-01] MEDS: HEPARIN SOD (PORCINE) 5000 UNITS/ML VIAL SQ SCH ×2 (08:17→20:50)
[2018-06-01] MEDS: guaiFENesin ER 600 MG TAB PO SCH ×2 (08:17→20:48)
[2018-06-01] MEDS: FERROUS SULFATE 325MG TAB PO SCH ×2 (08:17→20:48)
[2018-06-01] MEDS ORDERED: POTASSIUM CHLORIDE 10% LIQ 20 MEQ/15 ML UDC PO ONE (10:00)
[2018-06-01 12:00] VITALS: BP 112/52
[2018-06-01] MEDS: TORSEMIDE 10 MG TABLET PO SCH ×2 (13:03→18:28)
--- NOTE | 2018-06-01 14:45 | IPN ---
DATE: 05/30/2018 SUBJECTIVE: Keke is seen and examined this morning at the bedside and then I again saw her later walking around the hallways and working with physical therapy (PT). She is telling me that she feels symptomatically better as compared to when she came in; however, we have really failed to diurese her with Lasix alone. I am adding Diuril as well to her medications. She denies any new complaints. She continues to require 4 liters of supplemental oxygen. VITAL SIGNS: Temperature 96.9, pulse 69, respiratory rate 20, blood pressure 137/64, saturating 95% on 3 liters nasal cannula. Intake yesterday was 1500, urine output yesterday was 1200, net positive 300. Weight in the bed scale today is 65.4 kg. General: Patient is seen sitting out of bed to the chair, and then she is seen later walking around the hallways with physical therapy (PT). Elderly female. No acute distress. Extraocular muscles are intact and icteric sclerae. Nasal cannula in place. Cardiac: S1, S2. Regular rate and rhythm. Lungs: Diminished breath sounds at the bases with crackles. Abdomen: Soft and nontender. Extremities: Bilateral pitting edema below the knee. It is more so on the left than the right where she has a chronic foot wound as well with dressings. The left upper extremity shows a patent fistula with thrill and bruit. NEUROLOGIC: She has poor short term recall and is a poor historian, but is cooperative with physical examination, interactive and conversational. LABORATORY DATA: White count 12.0, hemoglobin 10.5, platelets 275. Sodium 137, potassium 4.2, bicarbonate 27, BUN 64, creatinine 2.6, BNP [id number]. IMAGING: MRI of the left foot shows Charcot foot with diffuse edema, possible cellulitis, possible osteomyelitis. INPATIENT MEDICATIONS: The patient's Lasix is being increased to 80 mg every 8 hours and she is also started on Diuril 250 mg IV twice a day. The remainder of medications are unchanged from prior. PROBLEMS: 1. Decompensated diastolic congestive heart failure with right heart failure with concomitant right heart dysfunction with pulmonary hypertension and underlying lung disease. The patient has not satisfactorily diuresed. Increasing Lasix to 80 mg every 8 hours and also starting Diuril 250 mg IV twice a day for sequential nephron blockade. Continue fluid restriction. Goal net negative 1 to 2 liters daily. She is symptomatically improving; however, was walking with physical therapy (PT) and her oxygen requirements are slowly being weaned. 2. Chronic kidney disease stage IV. It is secondary to known atrophy of the left kidney and also with diabetic nephropathy underlying. Renal function is slightly worse than her usual baseline. She has a patent fistula present. If she does not satisfactorily diurese with combination of IV diuretics then we may have to initiate hemodialysis on this admission and I have discussed the same with her and her son. At present, I will see how she does on combination Lasix and Diuril. 2. History of hypertension. Continue Coreg and diuretics. Decrease amlodipine as her son reports she has a history of leg edema with amlodipine in the past. Blood pressure should improve as her volume status improves as well. 3. Chronic left foot ulcer. Charcot foot. MRI noted. As per the primary team. 4. History of chronic obstructive pulmonary disease (COPD) and home oxygen dependence. Currently requiring more than her usual 2 liters of supplemental oxygen and it is due to the concomitant congestive heart failure (CHF) exacerbation.
[2018-06-01 16:00] VITALS: BP 127/50
--- NOTE | 2018-06-01 18:54 | IPNPDOC ---
Text Note Date of Service The patient was seen on 06/01/18. NOTE Patient seen and examined. Reported respiration much improved. Denies chest pain, pressure or discomfort. Denies any fever or chills. PHYSICAL EXAMINATION: GENERAL: Patient frail. In no acute distress. HEENT: Normocephalic, atraumatic. Moist mucous membranes. NECK: Supple. CARDIAC: Regular. S1, S2. PULMONARY: Diminished breath sounds bilateral bases. Bilateral crackles. ABDOMEN: Soft, nontender. EXTREMITIES: 1+ right lower extremity edema. Chronic wound right foot. Charcot foot purulent drainage. ASSESSMENT AND PLAN: This is an 83-year-old female patient with underlying medical history of COPD, on 2 liters oxygen at home, chronic diastolic congestive heart failure with pulmonary artery hypertension, chronic kidney disease (CKD), stage III, anemia of chronic disease, history of tuberculosis as a child and history of smoking presented with shortness of breath. PROBLEMS: 1. Shortness of breath secondary to acute on chronic congestive heart failure with diastolic dysfunction and right heart failure with secondary pulmonary hypertension and underlying lung disease. Continue diuresis. CT scan appreciated. switched to oral diuretics 2. Right lower lobe lesion. Case discussed with Dr. Klein and Dr. Cam. Unlikely to be infectious according to infectious disease, Dr. Cam. As per Dr. Klein, likely compressive atelectasis. Given severe emphysema and advanced age would recommend against biopsy at this point according to Dr. Klein. Recommend continuation of diuresis, ez pap, f/u pulmonary as outpatient 3. History of COPD. Currently does not have any wheeze. Continue EzPAP, diuresis, nebulizer treatment as needed. 4. Diabetes mellitus. Holding oral medication. Insulin as ordered. 5. Dyslipidemia. Continue statin. 6. Hypertension. Continue Norvasc, Coreg, Lasix. 7. GERD. Continue proton pump inhibitor (PPI). 8. Chronic right foot ulcer. Follows with Dr. Fountain as outpatient. Physical therapy (PT) and wound care has been ordered., MRI as per Dr fountain, consult Dr Paiz . f/u ESR and CRP neg, f./u culture, wound care, Dr Paiz on consult 9. Anemia of chronic disease. Monitor hemoglobin and hematocrit. 10. CKD. Nephrology consulted. Continue diuresis. Monitor kidney function. 11. Coronary arterial disease. Continue aspirin, beta tonja, statin. 12. Tick exposure, doxy x1, need outpatient f/u 13. Deep venous thrombosis (DVT) prophylaxis. Heparin subcutaneous. DISPOSITION: Patient with advanced lung disease. Poor senior living prognosis. Will monitor closely. Full code as per patient, dc in 24 hr VS,Fishbone, I+O VS, Fishbone, I+O Laboratory Tests 06/01/18 03:48 Red Blood Count 3.91 L, Mean Corpuscular Volume 88.5, Mean Corpuscular Hemoglobin 28.9, Mean Corpuscular Hemoglobin Concent 32.7, Red Cell Distribution Width 16.9 H, Calcium Level 9.1 Vital Signs Date Time Temp Pulse Resp B/P (MAP) Pulse Ox O2 Delivery O2 Flow Rate FiO2 06/01/18 16:00 2.0 06/01/18 16:00 98.9 71 20 127/50 (75) 99 05/28/18 09:05 Nasal Cannula I&O- Last 24 Hours up to 6 AM 06/01/18 06:00 Intake Total 960 ml Output Total 4250 ml Balance -3290 ml RICH LEDBETTER MD Jun 01, 2018 18:54
[2018-06-01 20:00] VITALS: BP 131/63
[2018-06-01] MEDS: SIMVASTATIN 20 MG TAB PO SCH (20:48)
[2018-06-01 23:59] VITALS: BP 137/64
[2018-06-02 04:00] VITALS: BP 133/60
[2018-06-02] MEDS: IPRATROPIUM 0.5MG/ALBUTEROL 2.5MG INH SOL UD 3ML (DUONEB)(J7620) NEB SCH ×2 (04:26→07:46)
[2018-06-02] MEDS: DICLOFENAC EPOLAMINE 1.3 % PATCH TOP SCH (04:57)
[2018-06-02] MEDS: SLF 3 ML SYR IV SCH (05:00)
[2018-06-02 05:32] LABS: HEMATOCRIT 36.5 % (36.0-47.0); HEMOGLOBIN 11.7 g/dl (12.0-15.5); MEAN CORPUSCULAR HEMOGLOBIN 28.2 pg (27.0-33.0); MEAN CORPUSCULAR HGB CONC 32.1 g/dl (32.0-36.5); PLATELET COUNT, AUTOMATED 259 10^3/uL (150-450); RED BLOOD COUNT 4.15 10^6/uL (4.00-5.40); WHITE BLOOD COUNT 9.2 10^3/uL (4.0-10.0)
[2018-06-02 05:50] LABS: C REACTIVE PROTEIN QUANTITATIV 0.35 MG/DL (0.00-0.30); CALCIUM LEVEL 9.2 MG/DL (8.8-10.2); CREATININE FOR GFR 2.72 MG/DL (0.55-1.30); GLOMERULAR FILTRATION RATE 17.7 (>32); MAGNESIUM LEVEL 1.9 MG/DL (1.8-2.4); POTASSIUM SERUM 3.8 MEQ/L (3.5-5.1)
--- NOTE | 2018-06-02 07:00 | CR ---
DATE OF CONSULTATION: 05/31/2018 REASON FOR CONSULTATION: Left foot ulcer with drainage. Keke Ruiz is a pleasant 83-year-old female who was admitted to the hospital on 05/28/2018 due to shortness of breath. She has a history of chronic ulceration to her left foot, for which she seems Dr. Moreno on an outpatient basis. She is unable to provide much information regarding this. She is unsure how long it has been present. The patient is not a reliable narrator in regards to the foot. She states it is not causing her much pain. PAST MEDICAL HISTORY: Significant for: Diastolic heart failure. Chronic kidney disease. Pulmonary hypertension. Chronic obstructive pulmonary disease (COPD) with home oxygen dependence of 2 liters nasal cannula. History of Charcot foot and left foot chronic ulceration. History of diabetes with neuropathy. Hypertension. Gastroesophageal reflux disease (GERD). PAST SURGICAL HISTORY: Includes: Atrioventricular (AV) fistula repair. SOCIAL HISTORY: Former smoker. ALLERGIES: Include: 1. Bee venom. 2. LATEX. 3. PENICILLINS. REVIEW OF SYSTEMS: Unobtainable. FAMILY HISTORY: Noncontributory. VITALS: Vitals are reviewed. She has been afebrile for the last several days. LABORATORIES: Labs are reviewed. Most recent white blood cell count is 10, ESR is 17, CRP is 0.32, creatinine is 2.77. IMAGING STUDIES: Imaging studies reviewed, MRI and foot examined. On the foot x-ray, there is are erosive changes at the 1st, 2nd and 3rd metatarsal cuneiform joints consistent with Charcot neuroarthropathy with lateral deviation of the metatarsals at this site. There is plantar prominence of the medial cuneiform on the plantar aspect of the foot with some erosive changes. No soft tissue gas. Generalized edema is noted. Foot exam is compared to previous study in 2016 in which the erosive changes were not nearly as prominent although early signs of joint disease were noticeable. MRI report and images are reviewed of the left foot. Erosive changes again consistent with Charcot of the mid tarsus. There is a small fluid collection noted inferior to the medial cuneiform. General edema again is noted. No signs of equivocal osteomyelitis are noted. LOWER EXTREMITY EXAMINATION: On the left side there is moderate edema to both feet, worse on the left. Pedal pulses are nonpalpable. There is good distal perfusion to the toes. There is an ulceration under the left plantar medial foot. There is maceration underneath. There is no significant erythema, malodor or purulence. There is some serous appearing fluid under the wound. The wound does probe deep, approximately 3 centimeters. 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 PLAN: A wound culture and gram stain were taken of this foot wound. At this point would not immediately place her on antibiotics. Will wait for the results. The fluid appears to be serous which would be consistent with the joint disease which is consistent with her imaging findings. Ideally, the patient would be non-weightbearing, however she will likely be unable to be compliant with this. The patient is not a good surgical candidate for any sort of Charcot foot reconstruction or even for exostectomy of prominent bone. At this time, continue current wound care dressings. Will follow.
[2018-06-02] MEDS: HumaLOG INSULIN (NovoLOG) PER UNIT SC SCH (07:42)
[2018-06-02 08:00] VITALS: BP 143/65
[2018-06-02] MEDS: TORSEMIDE 10 MG TABLET PO SCH (08:37)
[2018-06-02] MEDS: FERROUS SULFATE 325MG TAB PO SCH (08:37)
[2018-06-02] MEDS: ASPIRIN 81 MG ENTERIC TAB PO SCH (08:37)
[2018-06-02] MEDS: AMIODARONE 200 MG TAB (PACERONE) PO SCH (08:37)
[2018-06-02] MEDS: HEPARIN SOD (PORCINE) 5000 UNITS/ML VIAL SQ SCH (08:38)
[2018-06-02] MEDS: OMEPRAZOLE 20 MG CAP PO SCH (08:38)
[2018-06-02] MEDS: ALLOPURINOL 300 MG TAB PO SCH (08:38)
[2018-06-02] MEDS: guaiFENesin ER 600 MG TAB PO SCH (08:38)
[2018-06-02] MEDS: CYANOCOBALAMIN 500 MCG TAB PO SCH (08:38)
[2018-06-02 08:43] VITALS: BP 143/65
[2018-06-02] MEDS: CARVedilol 12.5 MG TAB PO SCH (08:43)
[2018-06-02] MEDS ORDERED: TORS10TA3 PO (09:17)
--- NOTE | 2018-06-02 18:36 | DSES ---
DATE OF ADMISSION: 05/28/2018 DATE OF DISCHARGE: 06/02/2018 PRIMARY CARE PROVIDER: Dr. Andrew Mejias. INFECTIOUS DISEASE: Dr. Susanna Cam FOUNDER AND PRESIDENT: Dr. Ole Fortune DIRECTOR PRODUCT SAFETY: Dr. Joni Paiz LOOM SETTER: Dr. Moreno DISCHARGE DIAGNOSES: 1. Shortness of breath secondary to acute on chronic congestive heart failure with diastolic dysfunction, right heart failure secondary to pulmonary artery hypertension due to underlying lung disease. 2. Right lower lobe lesions. 3. History of chronic obstructive pulmonary disease/emphysema. 4. Diabetes mellitus. 5. Dyslipidemia. 6. Hypertension. 7. Gastroesophageal reflux disease. 8. Chronic right foot ulcer with Charcot foot. 9. Chronic kidney disease. 10. Coronary artery disease. 11. Tick exposure. HISTORY OF PRESENT ILLNESS: This is an 83-year-old female patient with underlying medical history of chronic obstructive pulmonary disease (COPD), on 2 liters oxygen at home, chronic diastolic congestive heart failure, pulmonary artery hypertension, chronic kidney disease (CKD), stage III, anemia of chronic disease, history of tuberculosis as a child, presented with shortness of breath and cough. Patient stated that she has been having shortness of breath and cough for the past few days. No fevers or chills. No nausea, vomiting, abdominal pain. Patient was given nebulizer, steroids, and started on antibiotics in the emergency room. HOSPITAL COURSE: Patient admitted to the hospital. Infectious disease was consulted. CT of the chest was appreciated. It was determined patient does not have pneumonia. Furthermore, right lower lobe pulmonary lesion was discovered. Case was discussed with bingo clerk, Dr. Klein who believed given patient's severe lung disease and advanced age, patient would not be a candidate for any treatment, even if the lesion is cancer. Recommend conservative treatment. Subsequently, finding was discussed with family. Family is aware and agrees with Dr. Klein's recommendation and would not want to pursue additional diagnosis, including biopsy, which will place the patient at risk for pneumothorax. As per Dr. Klein, the finding is most likely atelectasis; therefore, EZPAP is ordered. Diuresis has also been ordered. Nephrology was consulted as well to assist with further diuresis, given patient with advanced CKD, stage III. Wound care is also ordered. MRI was done. Dr. Paiz was consulted for further wound care recommendations. Erythrocyte sedimentation rate (ESR), C-reactive protein (CRP) have been negative; therefore, no antibiotics were started. For the patient's right foot wound, further wound care as per Dr. Paiz. Further, on admission, on patient's thigh one old tick was found by nursing staff, unknown time. One dose of doxycycline was given, and finding has also been related to the family, recommending outpatient followup. Currently, patient's diuretic has been switched to oral, on oral torsemide. Comfortable, back to baseline respirations. Passed physical therapy. Recommending decreasing weightbearing on patient's right foot to prevent worsening of ulcer and recommend ambulating with walker. Patient passed physical therapy. Tolerating oral. Ready to be discharged for further care as outpatient. VITAL SIGNS: Temperature 99.3, pulse 74, respirations 18, blood pressure 143/65, pulse oximetry 100% on 2 liters. LABORATORY DATA: WBC 9.2, hemoglobin and hematocrit 11.7/36.5, platelets 259. Chemistry: Sodium 134, potassium 3.8, chloride 97, bicarbonate 29, BUN 70, creatinine 2.72, C-reactive protein 0.35. PHYSICAL EXAMINATION: GENERAL: Patient alert, comfortable in no acute distress. HEENT: Normocephalic, atraumatic. Moist mucous membranes. NECK: Supple. CARDIAC: Regular, S1, S2. PULMONARY: Bilaterally clear. No crackles, wheezes, or rhonchi. ABDOMEN: Soft, nontender. EXTREMITIES: Right lower extremity with 1+ edema. Chronic right foot wound with Charcot foot. Purulent drainage is much reduced. DISCHARGE MEDICATIONS: - torsemide 30 mg by mouth twice a day - allopurinol 150 mg by mouth daily - amiodarone 200 mg by mouth twice a day - Norvasc 10 mg by mouth daily - aspirin 81 mg by mouth daily - calcitriol 0.25 mcg by mouth daily - Coreg 25 mg by mouth twice a day - vitamin B12 at 1000 mcg by mouth daily - ferrous sulfate 325 mg by mouth twice a day - glipizide 10 mg by mouth twice a day - Tradjenta 5 mg by mouth daily - omeprazole 20 mg by mouth daily - Zocor 20 mg by mouth at bedtime - vitamin D 50,000 units by mouth daily DISCHARGE INSTRUCTIONS: Activity as tolerated. Reduce weightbearing on the left foot. Encourage walker. Consistent-carbohydrate diet. Wound care as per feller machine operator. Please see Dr. Moreno for further wound care in 5 days for appointment. Please see Dr. Mejias in [address] Ole Fortune in 5 days. Check basic metabolic panel with primary care provider or operating system programmer in 5 days. Fall precautions. Daily weight. Please call primary operating system programmer if weight gain or weight loss greater than 3 pounds. Return to the hospital if symptoms worsen. Need further followup for potential Lyme disease exposure by primary care provider. Furthermore, consider further workup for right lower lobe pulmonary lesion at the discretion of primary care provider and patient family. Return to the hospital if symptoms worsen.
--- NOTE | 2018-06-05 19:49 | IPN ---
DATE OF SERVICE: 06/01/2018 SUBJECTIVE: The patient is seen and examined this morning at the bedside. She reports her breathing feels back to her usual baseline. She has diuresed significantly over the past 48 hours. Her urine output yesterday was more than 4 liters. Her daily weights have down trended as she has been working with physical therapy and ambulating up and down the halls. There are no new complaints reported. She is pending to see podiatry. VITAL SIGNS: Temperature 98.4, pulse 80, respiratory rate 18, blood pressure 137/64, saturating 96% on 2 liters nasal cannula. Intake yesterday was 960, urine output yesterday was 4.3 liters, net negative 3.4 liters. Weight in the bed scale today is 61.1 kg. General: Patient is seen sitting in bed, an elderly female in no acute distress, poor short-term memory. Extraocular muscles are intact. Tongue is moist. Nasal cannula is in place. Neck is supple. Cardiac: Regular S1, S2. Lungs: Showed diminished breath sounds and prolonged expiration bilaterally. She is back on her usual 2 liters nasal cannula. Abdomen: Soft and nontender. Extremities: The extremities show chronic pitting edema in the right lower extremity where her chronic right foot wound is. Her left lower extremity edema has resolved. 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 Her right foot wound is not examined. Neurologic: She is a poor historian, poor short-term memory but cooperative with physical examination and interactive and answers simple questions appropriately. LABORATORY DATA: White count 9.8, hemoglobin 11.3, platelets 265, sodium 134, potassium 3.3, bicarbonate 30, BUN 71, creatinine 2.8, magnesium 2.1. INPATIENT MEDICATIONS: I have discontinued her intravenous (IV) Lasix and her Diuril and she is now on: - torsemide 30 mg by mouth twice daily PROBLEMS: ATE: 05/31/2018 SUBJECTIVE: Keke is seen and examined this morning sitting out of the bed to the chair. Her family is present at the bedside. She reports her breathing continues to improve, is not short of breath at rest. Has been working with physical therapy. Remains a poor historian and pleasantly confused. Her son notes that her breathing is much easier as compared to admission. Her supplemental oxygen is being weaned. Temperature 98.5, pulse 86, respiratory rate 18, blood pressure 126/74, saturating 96% on 2 liters nasal cannula. Intake yesterday was 860, urine output yesterday was 2024, net negative yesterday 1160, thus far today urine output has been an additional 3.6 liters. Weight in the bed scale today is 63.5 kg which is decreased from prior. General: Patient is seen sitting out of bed to the chair, awake and alert, poor short-term memory and poor recall, no acute distress, elderly female. Extraocular muscles are intact. Tongue is moist. Nasal cannula is in place. Jugular venous distention is improved from prior. Cardiac: Regular S1, S2. Lungs: Diminished breath sounds at the bases, improvement in her crackles. Abdomen: Soft and nontender, positive bowel sounds. Extremities: 1+ edema bilaterally, more prominent in the left as compared to the right. The left foot is in dressing. LABORATORY DATA: White count 10.0, hemoglobin 11.3, platelets 273, sodium 136, potassium 3.8, BUN 71, creatinine 2.7, phosphorous 4.1, magnesium 2.1, BNP 11,000. INPATIENT MEDICATIONS: She received Diuril 250 mg times two doses. Her Lasix is cut to 60 mg IV every 8 hours. Her amlodipine is being discontinued. Her remainder of medications are unchanged from prior. PROBLEMS: 1. Decompensated diastolic congestive heart failure with concomitant right heart dysfunction/pulmonary hypertension/underlying lung disease. She has been satisfactorily diuresed. Her daily weights have down-trended. She is back on her chronic 2 liters nasal cannula. Her edema has resolved (the right lower extremity edema is chronic and related to her right foot wound). She continues on fluid restriction. She is switched over to an oral diuretic torsemide 30 mg by mouth twice a day and when she is ready for discharge this can be changed to once daily dosing. She is symptomatically improved and has been working with physical therapy. 2. Chronic kidney disease (CKD) stage IV secondary to known atrophy of the left kidney and also with diabetic nephropathy. Renal function is slightly worse than her usual baseline in the setting of decompensated congestive heart failure with subsequent diuresis. There is no urgent need to initiate hemodialysis. There are no uremic signs or symptoms. She will follow up closely in the nephrology office. 3. Hypertension. Blood pressures are acceptable. I have discontinued her off of the amlodipine because son reports it previously caused peripheral edema as well. Continue with carvedilol and diuretics. 4. Chronic left foot ulcer, Charcot foot. MRI noted. Podiatry consult pending. 5. History of chronic obstructive pulmonary disease (COPD) with home oxygen dependence. No sign of any exacerbation at present and she is now back on her usual home oxygen requirement.
== END 2018-06-02 12:00 | disposition home health service (06) | DRG 291 ==
LOC: M ED 08:37 → M ED INP 12:34 → M PCU 15:42
PROVIDERS: ADMIT Internal Medicine; ATTEND Hospitalist
DX: I13.0 Hypertensive heart and chronic kidney disease with heart failure and stage 1 through stage 4 chronic kidney disease, or unspecified chronic kidney disease (principal); I50.33 Acute on chronic diastolic (congestive) heart failure; N18.4 Chronic kidney disease, stage 4 (severe); N17.9 Acute kidney failure, unspecified; J44.1 Chronic obstructive pulmonary disease with (acute) exacerbation; E11.610 Type 2 diabetes mellitus with diabetic neuropathic arthropathy; I27.20 Pulmonary hypertension, unspecified; I25.10 Atherosclerotic heart disease of native coronary artery without angina pectoris; K21.9 Gastro-esophageal reflux disease without esophagitis; R91.8 Other nonspecific abnormal finding of lung field; E78.5 Hyperlipidemia, unspecified; D63.1 Anemia in chronic kidney disease; Z79.899 Other long term (current) drug therapy; Z79.82 Long term (current) use of aspirin; Z88.0 Allergy status to penicillin; Z91.040 Latex allergy status; Z91.038 Other insect allergy status; Z87.891 Personal history of nicotine dependence; Z99.81 Dependence on supplemental oxygen

== ENCOUNTER → 2018-06-20 | Outpatient (REF) | payer MEDICARE, OTHER ==
[~2018-06-20] MED LIST changes: +AMIO200T PO; +MAG-400T7 PO; +MAGN400T5 PO; +TORS10TA3 PO; +[UNRECOGNIZED DRUG - CODE] TOP
== END ==
LOC: M LAB REF 16:33
DX: E11.621 Type 2 diabetes mellitus with foot ulcer (principal); L97.522 Non-pressure chronic ulcer of other part of left foot with fat layer exposed; E11.610 Type 2 diabetes mellitus with diabetic neuropathic arthropathy

== ENCOUNTER 2018-06-23 18:27 | Inpatient (IN) | payer MEDICARE, OTHER ==
[~2018-06-23] VITALS: Ht 170.2 cm; Wt 64.4 kg
[~2018-06-23 18:27] MED LIST changes: -MAG-400T7 PO; -MAGN400T5 PO; -[UNRECOGNIZED DRUG - CODE] TOP
[2018-06-23 19:01] LABS: BASO # 0.1 10^3/uL (0.0-0.2); BASO % 0.5 % (0.0-1.0); EOS # 0.5 10^3/uL (0.0-0.50); EOS % 3.4 % (0.0-3.0); HEMATOCRIT 35.2 % (36.0-47.0); HEMOGLOBIN 11.3 g/dl (12.0-15.5); MEAN CORPUSCULAR HEMOGLOBIN 29.3 pg (27.0-33.0); MEAN CORPUSCULAR HGB CONC 32.1 g/dl (32.0-36.5); MEAN CORPUSCULAR VOLUME 91.2 fl (80.0-96.0); NEUTROPHILS # 11.1 10^3/uL (1.8-7.7); NEUTROPHILS % 81.6 % (36.0-66.0); PLATELET COUNT, AUTOMATED 342 10^3/uL (150-450); RED BLOOD COUNT 3.86 10^6/uL (4.00-5.40); WHITE BLOOD COUNT 13.6 10^3/uL (4.0-10.0)
[2018-06-23 19:31] LABS: ALBUMIN 3.5 GM/DL (3.2-5.2); ALT/SGPT 17 U/L (12-78); BILIRUBIN,DIRECT 0.2 MG/DL (0.0-0.2); BILIRUBIN,TOTAL 0.5 MG/DL (0.2-1.0); BLOOD UREA NITROGEN 47 MG/DL (7-18); CARBON DIOXIDE LEVEL 30 MEQ/L (21-32); CHLORIDE LEVEL 98 MEQ/L (98-107); CK-MB VALUE MASS < 1.0 NG/ML (<3.6); CPK CREATINE PHOSPHOKINASE 23 U/L (26-192); CREATININE FOR GFR 2.58 MG/DL (0.55-1.30); FREE T4 1.47 NG/DL (0.76-1.46); GLOMERULAR FILTRATION RATE 18.8 (>32); GLUCOSE, FASTING 203 MG/DL (70-100); LIPASE 43 U/L (73-393); MB/CK RELATIVE INDEX 4.35 (< OR =4); NT-PRO BNP 5900 PG/ML (<450); POTASSIUM SERUM 3.8 MEQ/L (3.5-5.1); SODIUM LEVEL 137 MEQ/L (136-145); TOTAL PROTEIN 7.4 GM/DL (6.4-8.2); TROPONIN I < 0.02 NG/ML (< 0.10)
[2018-06-23] MEDS ORDERED: fentaNYL 100 MCG/2 ML INJECTION (J3010) IV ONE (19:45)
[2018-06-23 20:21] LABS: VENOUS BASE EXCESS 3.4 (-2.0-2.0); VENOUS HCO3 28.3 MEQ/L (23.0-27.0); VENOUS O2 SATURATION 78.1 % (60.0-80.0); VENOUS PARTIAL PRESSURE CO2 44.3 mmHg (38.0-50.0); VENOUS PARTIAL PRESSURE O2 42.9 mmHg (30.0-50.0); VENOUS PH 7.424 UNITS (7.330-7.430); VENOUS STANDARD HCO3 27.1 MEQ/L; VENOUS TOTAL CO2 29.7 MEQ/L (24.0-28.0)
--- NOTE | 2018-06-23 20:22 | REPVR ---
EXAM: CT Head Without Contrast EXAM DATE/TIME: 06/23/2018 7:39 PM CLINICAL HISTORY: 83 years old, female; Injury or trauma; Fall; Additional info: Dizziness, fall, SOB, back pain, ckd TECHNIQUE: Axial computed tomography images of the head/brain without contrast. All CT scans at this facility use at least one of these dose optimization techniques: automated exposure control; mA and/or kV adjustment per patient size (includes targeted exams where dose is matched to clinical indication); or iterative reconstruction. COMPARISON: CT Head without contrast 05/11/2018 7:59 PM FINDINGS: Brain: There is mild to moderate parenchymal volume loss. White matter changes are demonstrated in the subcortical, centrum semiovale and periventricular white matter consistent with small vessel white matter angiopathic gliosis. Ventricles: The degree of ventricular dilatation is normal for age. No pathologic enlargement demonstrated. Bones/joints: Unremarkable. No acute fracture. Sinuses: Visualized sinuses are unremarkable. No acute sinusitis. Mastoid air cells: Visualized mastoid air cells are unremarkable. No mastoid effusion. Soft tissues: Unremarkable. Vasculature: Atherosclerotic calcifications in intracranial carotid arteries and both vertebral arteries. IMPRESSION: There is mild to moderate parenchymal volume loss. White matter changes are demonstrated in the subcortical, centrum semiovale and periventricular white matter consistent with small vessel white matter angiopathic gliosis. Electronically signed by: Braxton Darling On 06/23/2018 20:22:09 PM
--- NOTE | 2018-06-23 20:28 | REPVR ---
EXAM: CT Chest Without Contrast EXAM DATE/TIME: 06/23/2018 7:39 PM CLINICAL HISTORY: 83 years old, female; Pain; Other: Back; Additional info: Dizziness, fall, SOB, back pain, ckd TECHNIQUE: Axial computed tomography images of the chest without intravenous contrast. All CT scans at this facility use at least one of these dose optimization techniques: automated exposure control; mA and/or kV adjustment per patient size (includes targeted exams where dose is matched to clinical indication); or iterative reconstruction. Coronal and sagittal reformatted images were created and reviewed. COMPARISON: CT Chest without contrast 05/28/2018 3:24 PM FINDINGS: Lungs: Moderate centrilobular emphysema most pronounced in the mid and upper lung zones. Bibasilar geographic ground glass opacities may represent foci of mosaic perfusion. Bibasilar septal thickening may represent acute interstitial edema versus chronic interstitial fibrotic changes. Parenchymal banding right lower lobe likely fibrotic and/or atelectatic. Pleural space: Bilateral apical pleural-parenchymal scarring. Small bilateral pleural effusions. Heart: Normal. No cardiomegaly. No pericardial effusion. Mediastinum: Small sliding hiatal hernia. Aorta: The aorta demonstrates moderate atherosclerotic calcification. Lymph nodes: Multiple mediastinal lymph nodes measure up to 11 millimeters adjacent to the anterior aortic arch, 14 millimeters in the retrocaval pretracheal area, and 18 millimeters in the subcarinal region. Bones/joints: The spine demonstrates mild degenerative changes. Osteoporosis. Soft tissues: Unremarkable. IMPRESSION: 1. Moderate centrilobular emphysema most pronounced in the mid and upper lung zones. 2. Small bilateral pleural effusions. 3. Bibasilar geographic ground glass opacities may represent foci of mosaic perfusion. 4. Multiple mediastinal lymph nodes. These are likely postinflammatory. 5. Small sliding hiatal hernia. Electronically signed by: Braxton Darling On 06/23/2018 20:27:57 PM
--- NOTE | 2018-06-23 20:32 | REPVR ---
EXAM: CT Abdomen and Pelvis Without Contrast EXAM DATE/TIME: 06/23/2018 7:39 PM CLINICAL HISTORY: 83 years old, female; Pain; Other: Back; Additional info: Dizziness, fall, SOB, back pain, ckd TECHNIQUE: Axial computed tomography images of the abdomen and pelvis without contrast. All CT scans at this facility use at least one of these dose optimization techniques: automated exposure control; mA and/or kV adjustment per patient size (includes targeted exams where dose is matched to clinical indication); or iterative reconstruction. Coronal and sagittal reformatted images were created and reviewed. COMPARISON: No relevant prior studies available. FINDINGS: Lower thorax: Small sliding hiatal hernia. ABDOMEN: Liver: Scattered calcified hepatic granuloma. Gallbladder and bile ducts: Hydropic gallbladder with increased density consistent with sludge. Pancreas: Normal. No ductal dilation. Spleen: The spleen demonstrates punctate calcifications, consistent with remote granulomatous organism exposure. Adrenals: There is bilateral adrenal hyperplasia. Kidneys and ureters: Left renal atrophy. 10 millimeter left renal cyst. Stomach and bowel: Moderate diverticulosis is present in the distal colon. No diverticulitis. There is increased feces throughout the colon consistent with constipation. Appendix: No evidence of appendicitis. PELVIS: Bladder: Pelvic floor prolapse. Reproductive: Unremarkable as visualized. ABDOMEN and PELVIS: Intraperitoneal space: Small amount of free fluid in the cul-de-sac. Bones/joints: Diffuse decrease in bone mineralization consistent with osteoporosis or osteopenia. Moderate to severe central spinal stenosis at L2-3, L3-4 and L4-5. Levoconvex scoliosis. Soft tissues: There is soft tissue edema demonstrated in the abdominal wall, flanks and buttock regions consistent with anasarca. Vasculature: The aorta demonstrates moderate atherosclerotic calcification. Lymph nodes: Normal. No enlarged lymph nodes. IMPRESSION: 1. There is bilateral adrenal hyperplasia. 2. Hydropic gallbladder with increased density consistent with sludge. 3. Moderate diverticulosis is present in the distal colon. No diverticulitis. 4. There is increased feces throughout the colon consistent with constipation. 5. Anasarca. Electronically signed by: Braxton Darling On 06/23/2018 20:32:32 PM
[2018-06-23 20:33] LABS: INR 1.2; PROTHROMBIN TIME 15.4 SECONDS (12.1-14.4)
[2018-06-23 20:34] LABS: PARTIAL THROMBOPLASTIN TIME 33.6 SECONDS (25.4-37.6)
[2018-06-23] MEDS ORDERED: MAG-400T7 PO (20:43)
[2018-06-23 20:50] LABS: INFLUENZA A AMPLIFICATION NEGATIVE (NEGATIVE); INFLUENZA B AMPLIFICATION NEGATIVE (NEGATIVE)
[2018-06-23] MEDS: HumaLOG INSULIN (NovoLOG) PER UNIT SC SCH (21:00)
[2018-06-23] MEDS ORDERED: methylPREDNISolone INJ 125 MG/2 ML VIAL (J2930) IV ONE (21:15)
[2018-06-23] MEDS ORDERED: IPRATROPIUM 0.5MG/ALBUTEROL 2.5MG INH SOL UD 3ML (DUONEB)(J7620) NEB ONE (21:15)
[2018-06-23] MEDS ORDERED: GLUCAGON FOR INJ 1 MG VIAL (J1610) SC PRN (22:00)
[2018-06-23] MEDS ORDERED: PERCOCET 5MG/325MG TAB PO PRN (22:00)
[2018-06-23] MEDS ORDERED: GLUCOSE 4 GM CHEW TABLET PO PRN (22:00)
[2018-06-23] MEDS ORDERED: DEXTROSE 50% 50 ML SYRINGE IV PRN (22:00)
[2018-06-23] MEDS ORDERED: ACETAMINOPHEN TAB 650MG DOSE (2X325MG) PO PRN (22:00)
[2018-06-23] MEDS ORDERED: MAGN400T5 PO (22:11)
[2018-06-23] MEDS ORDERED: TORS10TA3 PO (22:11)
[2018-06-23] MEDS ORDERED: [UNRECOGNIZED DRUG - CODE] TOP (22:15)
[2018-06-24] MEDS: HEPARIN SOD (PORCINE) 5000 UNITS/ML VIAL SC SCH ×3 (06:40→21:22)
[2018-06-24 07:23] LABS: HEMATOCRIT 31.4 % (36.0-47.0); HEMOGLOBIN 10.2 g/dl (12.0-15.5); MEAN CORPUSCULAR HEMOGLOBIN 29.5 pg (27.0-33.0); MEAN CORPUSCULAR HGB CONC 32.5 g/dl (32.0-36.5); MEAN CORPUSCULAR VOLUME 90.8 fl (80.0-96.0); PLATELET COUNT, AUTOMATED 278 10^3/uL (150-450); RED BLOOD COUNT 3.46 10^6/uL (4.00-5.40); WHITE BLOOD COUNT 9.9 10^3/uL (4.0-10.0)
[2018-06-24 07:46] LABS: CALCIUM LEVEL 8.5 MG/DL (8.8-10.2); CREATININE FOR GFR 2.5 MG/DL (0.55-1.30); GLOMERULAR FILTRATION RATE 19.5 (>32); POTASSIUM SERUM 3.8 MEQ/L (3.5-5.1)
--- NOTE | 2018-06-24 08:16 | REP ---
PA and lateral chest: Comparison to 01/16/2018 and 05/28/2018. There is hyperinflation and there is chronic mild interstitial coarsening and these findings are consistent with chronic lung disease. Superimposed upon chronic lung disease. There is an infiltrate inferiorly in the right lung. Cardiac size is enlarged, unchanged. The ailin, mediastinum, skeletal structures are unremarkable. Impression: Infiltrate inferiorly in the right lung superimposed upon chronic lung disease. Cardiomegaly. Electronically Signed by Dev Pinedo MD 06/24/2018 08:07 A
[2018-06-24] MEDS: IPRATROPIUM 0.5MG/ALBUTEROL 2.5MG INH SOL UD 3ML (DUONEB)(J7620) NEB SCH ×5 (08:27→20:05)
[2018-06-24] MEDS: predniSONE 10 MG TAB PO SCH (09:10)
[2018-06-24] MEDS: DOXYCYCLINE HYCLATE 100 MG TAB PO SCH ×2 (09:11→20:54)
[2018-06-24] MEDS: HumaLOG INSULIN (NovoLOG) PER UNIT SC SCH ×4 (09:11→20:54)
[2018-06-24] MEDS: PANTOPRAZOLE 40MG TAB (PROTONIX) PO SCH (09:11)
[2018-06-24] MEDS: SENOKOT S TAB PO SCH ×2 (09:11→20:54)
--- NOTE | 2018-06-24 12:20 | HPE ---
DATE OF ADMISSION: 06/23/2018 PRIMARY CARE PROVIDER: Dr. Mejias. EMERGENCY DEPARTMENT CLINICIAN: Dr. Hurst. CHIEF COMPLAINT: Shortness of breath, dizziness and fell at home. HISTORY OF PRESENT ILLNESS: The patient is an 83-year-old white female with multiple chronic medical conditions listed below came to the emergency room for management of above complaints. The history is provided by herself as well as her son who is with her in the emergency room. The patient herself is a poor historian. Per the son, the patient complains of not feeling good, felt some dizziness all day today and also she stated she had some worsening shortness of breath. There have been no fevers, no chills. No chest pain. Then she fell at home. She did not syncope episode. Family decided to bring her here for further evaluation. In the emergency room, her workup is not significant. She was treated for chronic obstructive pulmonary disease (COPD) as well as worsening back pain and meanwhile, medicine service called for admission. REVIEW OF SYSTEMS: Denies fever. No chills. No headache or blurred vision. Positive for dizzy. No chest pain. Shortness of breath and cough. No abdominal pain. No diarrhea. No nausea. No vomiting. All other systems reviewed by negative. PAST MEDICAL HISTORY: 1. Chronic obstructive pulmonary disease (COPD) on 2 liters of oxygen supplement. 2. Diastolic congestive heart failure. 3. Chronic kidney disease stage IV. 4. Type 2 diabetes. 5. Hypertension. 6. Dyslipidemia. PAST SURGICAL HISTORY: 1. Back surgery. ALLERGIES: PENICILLIN. SOCIAL HISTORY: She is an ex-smoker. She used to smoke 1-1/2 packs a day for about 30 years. Quit 20 years ago. No alcohol abuse. No illicit drug abuse. She is living at a home with and a son and she is FULL CODE. FAMILY HISTORY: Both parents , had history of heart attack. One of her sisters from cancer. MEDICATIONS: - albuterol 300 mg daily - amiodarone 200 mg twice daily - amlodipine 10 mg by mouth daily - aspirin 81 mg by mouth daily - Coreg 25 mg by mouth twice daily - ferrous sulfate 325 mg by mouth daily - vitamin B12 1000 mcg by mouth daily - glipizide 10 mg by mouth twice daily - omeprazole 20 mg by mouth daily - simvastatin 20 mg by mouth daily at bedtime - torsemide 30 mg by mouth daily - Tradjenta 5 mg by mouth daily - calcitriol 0.25 mcg by mouth daily PHYSICAL EXAMINATION: Temperature 99.2, heart rate 101, respiratory rate 20, blood pressure 140/63, oxygen saturation is 93% on 3 liters oxygen. General: She is awake, alert, oriented times three. She is in moderate respiratory distress. HEENT: Atraumatic, pupils equal, round, and reactive to light. No jaundice. Extraocular muscles intact. Ear, nose, throat normal. Mouth: Mucous moist. Neck: No jugular venous distention or bruits. Lungs: Diminished breath sounds. Mild wheezing but no crackles. Heart: S1, S2, regular, mild tachycardia. No murmur. Abdomen: Bowel sounds positive, nontender. Lower extremity: She has +1-2 edema bilateral lower extremities. She also has chronic wound on her left foot which was wrapped. Skin: No rash. Neurologic: Nonfocal. Psychological: No acute psychosis. DIAGNOSTIC LABS INCLUDE: WBC 13.6, hemoglobin and hematocrit 9.3/35, platelets 342. Sodium 137, potassium 3.8. Chloride 98, bicarbonate 30, BUN 47, creatinine 2.51. Chest x-ray, chest CT, abdomen CT reviewed. IMPRESSION: 1. Chronic respiratory failure. 2. Chronic obstructive pulmonary disease (COPD) exacerbation which is mild. 3. Acute on chronic back pain. 4. Diastolic congestive heart failure. 5. Chronic kidney disease stage IV. 6. Type 2 diabetes. 7. Hypertension. 8. Dyslipidemia. PLAN: Patient will be admitted to medical/surgical floor. I will treat her with oral prednisone, doxycycline as well as nebulizer for mild chronic obstructive pulmonary disease (COPD) exacerbation. Will give her supportive care including pain management for her worsening back pain. Physical therapy evaluation. Otherwise her other medications are chronic and I will continue her home medications. ZAK
[2018-06-24 15:00] VITALS: BP 139/64
[2018-06-24] MEDS ORDERED: SLF 3 ML SYR IV PRN (15:15)
[2018-06-24 20:00] VITALS: BP 131/58
[2018-06-24] MEDS: SLF 3 ML SYR IV SCH (20:55)
--- NOTE | 2018-06-24 20:58 | ECGEPIP ---
Stationary ECG Study [facility] - ED Test Date: 2018-06-23 Pat Name: MERI BONNER Department: Room: [place] [address] Gender: F Services Advisor: gt : [id number] Requested By: DALIA Hernandez Order Number: [id number] Reading MD: Jayashree Cardoza Measurements Intervals Hugo Rate: 92 P: 73 VA: 211 QRS: -90 QRSD: 91 T: 71 QT: 373 QTc: 463 Interpretive Statements SINUS RHYTHM WITH FIRST DEGREE AV BLOCK INDETERMINATE AXIS LEFT ANTERIOR FASCICULAR BLOCK ANTEROSEPTAL MYOCARDIAL INFARCTION, OF INDETERMINATE AGE BASELINE ARTIFACT LIMITS INTEPRETATION INCREASED RATE 05/28/18 Electronically Signed On 06-24-2018 20:58:13 EDT by Jayashree Cardoza
[2018-06-25 04:45] VITALS: BP 155/65
[2018-06-25] MEDS: HEPARIN SOD (PORCINE) 5000 UNITS/ML VIAL SC SCH ×3 (05:50→22:36)
[2018-06-25] MEDS: SLF 3 ML SYR IV SCH ×3 (05:50→22:00)
[2018-06-25 08:00] VITALS: BP 122/58
[2018-06-25] MEDS: predniSONE 10 MG TAB PO SCH (08:07)
[2018-06-25] MEDS: SENOKOT S TAB PO SCH ×2 (08:07→22:36)
[2018-06-25] MEDS: PANTOPRAZOLE 40MG TAB (PROTONIX) PO SCH (08:07)
[2018-06-25] MEDS: DOXYCYCLINE HYCLATE 100 MG TAB PO SCH ×2 (08:07→22:36)
[2018-06-25] MEDS: HumaLOG INSULIN (NovoLOG) PER UNIT SC SCH ×4 (08:11→22:35)
[2018-06-25] MEDS ORDERED: LEVALBUTEROL 1.25 MG/0.5 ML CONCENTRATE NEB INH PRN (08:30)
[2018-06-25] MEDS: LEVALBUTEROL 1.25 MG/0.5 ML CONCENTRATE NEB INH SCH ×4 (09:10→23:57)
[2018-06-25 13:10] VITALS: BP 133/64
[2018-06-25] MEDS: methylPREDNISolone INJ 125 MG/2 ML VIAL (J2930) IV SCH ×2 (13:58→22:35)
--- NOTE | 2018-06-25 20:10 | IPNPDOC ---
Date Seen The patient was seen on 06/25/18. Progress Note SUBJECTIVE: Pt seen and examined at the bedside. Chart has been reviewed Her shortness of breath is much improved. She is anxious to go home soon. no cough, fever, or chills overnight. no c/o chest pain,pressure,tightness, or dizziness. no lightheadedness. PHYSICAL EXAMINATION: VITALS: PLS SEE BELOW GENERAL: AAOX1 person only which is baseline perthe . no use of accessory respiratory muscles. HEENT: Atraumatic, pupils equal, round, and reactive to light. No jaundice. Extraocular muscles intact. Ear, nose, throat normal. Mouth: Mucous moist. Neck: No jugular venous distention or bruits. Lungs: AEBE. Diminished breath sounds. Mild wheezing but no crackles. Heart: S1, S2, RRR no murmurs noted Abdomen: Bowel sounds positive, nontender. Lower extremity: She has +1-2 edema bilateral lower extremities. She also has chronic wound on her left foot which was wrapped. LABORATORY DATA, IMAGING STUDIES, AND MICROBIOLOGY: PLS SEE BELOW. ASSESSMENT AND PLAN: The patient is an 83-year-old white female with multiple chronic medical conditions listed below came to the emergency room for management of above complaints. The history is provided by herself as well as her son who is with her in the emergency room. The patient herself is a poor historian. Per the son, the patient complains of not feeling good, felt some dizziness all day today and also she stated she had some worsening shortness of breath. There have been no fevers, no chills. No chest pain. Then she fell at home. She did not syncope episode. Family decided to bring her here for further evaluation. In the emergency room, her workup is not significant. She was treated for chronic obstructive pulmonary disease (COPD) as well as worsening back pain and meanwhile, medicine service called for admission. Chronic obstructive pulmonary disease (COPD) exacerbation / Chronic hypoxic respiratory failure on home oxygen keep o2 sat 88-92% improved on iv solumedrol,nebs, and supplemental oxygen. rapid steroid taper as outpt Acute on chronic back pain. physical therapy. Diastolic congestive heart failure., euvolemic compensated Chronic kidney disease stage IV. at baseline creatinine. avoid nephrotoxins Type 2 diabetes. consistent carbs diet. insulin slide scale Hypertension. resume home meds Dyslipidemia. resume home meds disposition: pending clnical improvement. VS, I&O, 24H, Fishbone Vital Signs/I&O Vital Signs Date Time Temp Pulse Resp B/P (MAP) Pulse Ox O2 Delivery O2 Flow Rate FiO2 06/25/18 13:10 98.3 92 18 133/64 (87) 92 2.0 06/24/18 14:45 Nasal Cannula I&O- Last 24 Hours up to 6 AM 06/25/18 06:00 Intake Total 0 ml Output Total 900 ml Balance -900 ml Laboratory Data 24H LABS Laboratory Tests 2 06/24/18 20:37: Bedside Glucose (Misc Panel) 200H 06/25/18 08:10: Bedside Glucose (Misc Panel) 224H 06/25/18 11:31: Bedside Glucose (Misc Panel) 212H 06/25/18 16:27: Bedside Glucose (Misc Panel) 238H MERI TELLO MD Jun 25, 2018 20:10
[2018-06-25 22:00] VITALS: BP 135/64
[2018-06-26] MEDS: LEVALBUTEROL 1.25 MG/0.5 ML CONCENTRATE NEB INH SCH ×6 (04:00→23:42)
[2018-06-26] MEDS: SLF 3 ML SYR IV SCH ×3 (05:46→22:21)
[2018-06-26] MEDS: HEPARIN SOD (PORCINE) 5000 UNITS/ML VIAL SC SCH ×3 (05:46→22:20)
[2018-06-26] MEDS: methylPREDNISolone INJ 125 MG/2 ML VIAL (J2930) IV SCH (05:46)
[2018-06-26 06:00] VITALS: BP 124/58
[2018-06-26] MEDS: SENOKOT S TAB PO SCH ×2 (09:34→22:21)
[2018-06-26] MEDS: PANTOPRAZOLE 40MG TAB (PROTONIX) PO SCH (09:34)
[2018-06-26] MEDS: DOXYCYCLINE HYCLATE 100 MG TAB PO SCH ×2 (09:34→22:22)
[2018-06-26] MEDS: HumaLOG INSULIN (NovoLOG) PER UNIT SC SCH ×4 (09:34→22:22)
[2018-06-26 14:00] VITALS: BP 151/69
--- NOTE | 2018-06-26 14:10 | IPNPDOC ---
Text Note Date of Service The patient was seen on 06/26/18. NOTE Subjective: Patient was seen and examined at the bedside. Currently she notes that her breathing is doing better. She still expresses a mild cough without any expectoration. She denies any chest pain or palpitations. Patient denies any abdominal pain, constipation, diarrhea or discomfort with urination. Objective: Vitals (See below) General: Lying in bed, no acute distress, comfortable, Awake / Alert, HEENT: NC, AT CVS: RRR, +S1S2 Lungs: Fair air entry b/l, no appreciable wheezing, rhonchi, or rales Abdomen: Soft, ND, NT, +BSx4 Extremities: - Edema, - Calf tenderness Assessment and plan: Shortness of breath - likely 2/2 Acute COPD exacerbation with chronic hypoxia - Presented to the ER with complaints of shortness of breath associated with wheezing - Baseline patient uses 2 L of oxygen via nasal cannula - Physical does not reveal any significant wheezing - Lab work unremarkable - CT chest 06/23: 1. Moderate centrilobular emphysema most pronounced in the mid and upper lung zones. 2. Small bilateral pleural effusions. 3. Bibasilar geographic ground glass opacities may represent foci of mosaic perfusion. 4. Multiple mediastinal lymph nodes. These are likely postinflammatory. 5. Small sliding hiatal hernia. - Will reduce dose of Solu-Medrol - c/w inhaled therapy as ordered Acute on chronic back pain - c/w PT s/p Leukocytosis - likely 2/2 reactive etiology - No fevers / chills - hemodynamically stable - Will hold off on antibiotics Normocytic anemia - Hg appears to be at baseline Diastolic CHF; compensated - no evidence of fluid overload - Will resume Torsemide CKD4 - Cr appears to be at baseline NIDDM2 - c/w ISS DLP - Will resume Simvastatin Arrhythmia unspecified - possible paroxysmal a. fib? - Has been on Amiodarone as an outpatient; will resume - Will resume ASA 81 GERD - Will resume omeprazole DVT prophylaxis - c/w Heparin disposition: pending clnical improvement. VS,Fishbone, I+O VS, Fishbone, I+O Vital Signs Date Time Temp Pulse Resp B/P (MAP) Pulse Ox O2 Delivery O2 Flow Rate FiO2 06/26/18 09:00 2.0 06/26/18 06:00 98.6 82 19 124/58 (80 95 06/24/18 14:45 Nasal Cannula I&O- Last 24 Hours up to 6 AM 06/26/18 06:00 Intake Total 2130 ml Output Total 725 ml Balance 1405 ml KULWINDER CANTU MD Jun 26, 2018 14:10
[2018-06-26] MEDS: amLODIPine 10 MG TAB PO SCH (15:02)
[2018-06-26] MEDS: ASPIRIN 81 MG ENTERIC TAB PO SCH (15:02)
[2018-06-26] MEDS: OMEPRAZOLE 20 MG CAP PO SCH (15:02)
[2018-06-26] MEDS: methylPREDNISolone INJ 40 MG/1 ML VIAL (J2920) IV SCH ×2 (15:03→22:18)
[2018-06-26] MEDS: CYANOCOBALAMIN 500 MCG TAB PO SCH (15:03)
[2018-06-26] MEDS: TORSEMIDE 10 MG TABLET PO SCH ×2 (16:19→22:19)
[2018-06-26] MEDS ORDERED: SENOKOT S TAB PO SCH (21:00)
[2018-06-26 22:00] VITALS: BP 121/60
[2018-06-26] MEDS: CARVedilol 12.5 MG TAB PO SCH (22:19)
[2018-06-26] MEDS: FERROUS SULFATE 325MG TAB PO SCH (22:21)
[2018-06-26] MEDS: AMIODARONE 200 MG TAB (PACERONE) PO SCH (22:21)
[2018-06-26] MEDS: SIMVASTATIN 20 MG TAB PO SCH (22:22)
[2018-06-27] MEDS: LEVALBUTEROL 1.25 MG/0.5 ML CONCENTRATE NEB INH SCH ×5 (04:00→21:58)
[2018-06-27] MEDS: methylPREDNISolone INJ 40 MG/1 ML VIAL (J2920) IV SCH ×2 (05:50→14:15)
[2018-06-27] MEDS: SLF 3 ML SYR IV SCH ×3 (05:51→20:25)
[2018-06-27] MEDS: HEPARIN SOD (PORCINE) 5000 UNITS/ML VIAL SC SCH ×3 (05:51→20:25)
[2018-06-27 06:00] VITALS: BP 139/66
[2018-06-27 08:28] LABS: BASO % 0.1 % (0.0-1.0); HEMATOCRIT 30.5 % (36.0-47.0); HEMOGLOBIN 9.9 g/dl (12.0-15.5); LYMPH # 0.6 10^3/uL (1.5-4.5); LYMPH % 5.9 % (24.0-44.0); MEAN CORPUSCULAR HEMOGLOBIN 28.8 pg (27.0-33.0); MEAN CORPUSCULAR HGB CONC 32.5 g/dl (32.0-36.5); MEAN CORPUSCULAR VOLUME 88.7 fl (80.0-96.0); MONO # 0.2 10^3/uL (0.0-0.8); MONO % 1.7 % (0.0-5.0); NEUTROPHILS # 8.8 10^3/uL (1.8-7.7); NEUTROPHILS % 91.7 % (36.0-66.0); PLATELET COUNT, AUTOMATED 292 10^3/uL (150-450); RED BLOOD COUNT 3.44 10^6/uL (4.00-5.40); WHITE BLOOD COUNT 9.6 10^3/uL (4.0-10.0)
[2018-06-27] MEDS: HumaLOG INSULIN (NovoLOG) PER UNIT SC SCH ×4 (08:34→20:26)
[2018-06-27] MEDS: CYANOCOBALAMIN 500 MCG TAB PO SCH (08:36)
[2018-06-27] MEDS: DOXYCYCLINE HYCLATE 100 MG TAB PO SCH ×2 (08:37→20:27)
[2018-06-27] MEDS: ASPIRIN 81 MG ENTERIC TAB PO SCH (08:37)
[2018-06-27] MEDS: CARVedilol 12.5 MG TAB PO SCH ×2 (08:38→20:27)
[2018-06-27] MEDS: amLODIPine 10 MG TAB PO SCH (08:38)
[2018-06-27] MEDS: OMEPRAZOLE 20 MG CAP PO SCH (08:39)
[2018-06-27] MEDS: SENOKOT S TAB PO SCH ×2 (08:39→20:27)
[2018-06-27] MEDS: PANTOPRAZOLE 40MG TAB (PROTONIX) PO SCH (08:39)
[2018-06-27] MEDS: FERROUS SULFATE 325MG TAB PO SCH ×2 (08:39→20:27)
[2018-06-27] MEDS: AMIODARONE 200 MG TAB (PACERONE) PO SCH ×2 (08:39→20:27)
[2018-06-27 08:46] LABS: CALCIUM LEVEL 8.8 MG/DL (8.8-10.2); CREATININE FOR GFR 2.61 MG/DL (0.55-1.30); GLOMERULAR FILTRATION RATE 18.5 (>32); POTASSIUM SERUM 4.1 MEQ/L (3.5-5.1)
[2018-06-27] MEDS: TORSEMIDE 10 MG TABLET PO SCH ×3 (10:00→20:25)
[2018-06-27 14:00] VITALS: BP 119/55
--- NOTE | 2018-06-27 15:57 | IPNPDOC ---
Text Note Date of Service The patient was seen on 06/27/18. NOTE Subjective: Patient was seen and examined at the bedside. Patient notes his breathing is doing better. Denies any chest pain or palpitations. Denies nausea, vomiting, aspiration, or diarrhea. Denies discomfort with urination. Objective: Vitals (See below) General: Lying in bed, no acute distress, comfortable, Awake / Alert, HEENT: NC, AT CVS: RRR, +S1S2 Lungs: Fair air entry b/l, again upon auscultation there does not appear to be any rhonchi, rales or wheezing Abdomen: Soft, ND, NT Extremities: No evidence of edema, - Calf tenderness Assessment and plan: Shortness of breath - likely 2/2 Acute COPD exacerbation with chronic hypoxia - Presented to the ER with complaints of shortness of breath associated with wheezing - Baseline patient uses 2 L of oxygen via nasal cannula - Physical does not reveal any significant wheezing - Lab work unremarkable - CT chest 06/23: 1. Moderate centrilobular emphysema most pronounced in the mid and upper lung zones. 2. Small bilateral pleural effusions. 3. Bibasilar geographic ground glass opacities may represent foci of mosaic perfusion. 4. Multiple mediastinal lymph nodes. These are likely postinflammatory. 5. Small sliding hiatal hernia. - Will reduce dose of solumedrol again today - c/w inhaled therapy as ordered Acute on chronic back pain - c/w PT s/p Leukocytosis - likely 2/2 reactive etiology - No fevers / chills - Hemodynamically stable - Will hold off on antibiotics Normocytic anemia - Hg appears to be at baseline Diastolic CHF; compensated - no evidence of fluid overload - c/w Torsemide CKD4 - Cr appears to be at baseline NIDDM2 - c/w ISS DLP - c/w Simvastatin Arrhythmia unspecified - possible paroxysmal a. fib? - c/w Amiodarone - c/w ASA 81 GERD - c/w omeprazole DVT prophylaxis - c/w Heparin VS,Fishbone, I+O VS, Fishbone, I+O Laboratory Tests 06/27/18 07:41 Red Blood Count 3.44 L, Mean Corpuscular Volume 88.7, Mean Corpuscular Hemoglobin 28.8, Mean Corpuscular Hemoglobin Concent 32.5, Red Cell Distribution Width 15.2 H, Neutrophils (%) (Auto) 91.7 H, Lymphocytes (%) (Auto) 5.9 L, Monocytes (%) (Auto) 1.7, Eosinophils (%) (Auto) 0.0, Basophils (%) (Auto) 0.1, Neutrophils # (Auto) 8.8 H, Lymphocytes # (Auto) 0.6 L, Monocytes # (Auto) 0.2, Eosinophils # (Auto) 0.0, Basophils # (Auto) 0.0, Calcium Level 8.8 Vital Signs Date Time Temp Pulse Resp B/P (MAP) Pulse Ox O2 Delivery O2 Flow Rate FiO2 06/27/18 14:00 97.7 67 18 119/55 (76) 96 2.0 06/24/18 14:45 Nasal Cannula I&O- Last 24 Hours up to 6 AM 06/27/18 06:00 Intake Total 630 ml Output Total 500 ml Balance 130 ml KULWINDER CANTU MD Jun 27, 2018 15:57
[2018-06-27] MEDS: SIMVASTATIN 20 MG TAB PO SCH (20:27)
[2018-06-27 22:00] VITALS: BP 118/58
[2018-06-28] MEDS ORDERED: methylPREDNISolone INJ 40 MG/1 ML VIAL (J2920) IV SCH (02:00)
[2018-06-28 06:00] VITALS: BP 138/65
[2018-06-28] MEDS: HEPARIN SOD (PORCINE) 5000 UNITS/ML VIAL SC SCH ×3 (06:00→21:31)
[2018-06-28] MEDS: SLF 3 ML SYR IV SCH ×3 (06:00→21:32)
[2018-06-28 06:24] LABS: HEMATOCRIT 31.2 % (36.0-47.0); HEMOGLOBIN 10.3 g/dl (12.0-15.5); MEAN CORPUSCULAR HEMOGLOBIN 29.3 pg (27.0-33.0); MEAN CORPUSCULAR VOLUME 88.6 fl (80.0-96.0); PLATELET COUNT, AUTOMATED 283 10^3/uL (150-450); RED BLOOD COUNT 3.52 10^6/uL (4.00-5.40)
[2018-06-28 06:51] LABS: CALCIUM LEVEL 8.6 MG/DL (8.8-10.2); CREATININE FOR GFR 2.8 MG/DL (0.55-1.30); GLOMERULAR FILTRATION RATE 17.1 (>32); MAGNESIUM LEVEL 1.9 MG/DL (1.8-2.4); POTASSIUM SERUM 4.2 MEQ/L (3.5-5.1)
[2018-06-28] MEDS: LEVALBUTEROL 1.25 MG/0.5 ML CONCENTRATE NEB INH SCH ×6 (07:33→23:55)
[2018-06-28] MEDS: ASPIRIN 81 MG ENTERIC TAB PO SCH (07:56)
[2018-06-28] MEDS: OMEPRAZOLE 20 MG CAP PO SCH (07:56)
[2018-06-28] MEDS: SENOKOT S TAB PO SCH ×2 (07:56→21:00)
[2018-06-28] MEDS: HumaLOG INSULIN (NovoLOG) PER UNIT SC SCH ×4 (07:56→21:00)
[2018-06-28] MEDS: AMIODARONE 200 MG TAB (PACERONE) PO SCH ×2 (07:56→21:00)
[2018-06-28] MEDS: DOXYCYCLINE HYCLATE 100 MG TAB PO SCH ×2 (07:56→21:00)
[2018-06-28] MEDS: PANTOPRAZOLE 40MG TAB (PROTONIX) PO SCH (07:57)
[2018-06-28] MEDS: CYANOCOBALAMIN 500 MCG TAB PO SCH (07:57)
[2018-06-28] MEDS: amLODIPine 10 MG TAB PO SCH (07:57)
[2018-06-28] MEDS: FERROUS SULFATE 325MG TAB PO SCH ×2 (07:57→21:00)
[2018-06-28] MEDS: CARVedilol 12.5 MG TAB PO SCH ×2 (07:58→21:00)
[2018-06-28 08:30] VITALS: BP 122/51
[2018-06-28] MEDS ORDERED: predniSONE 20 MG TAB PO SCH ×2 (09:00→21:00)
--- NOTE | 2018-06-28 12:39 | IPNPDOC ---
Text Note Date of Service The patient was seen on 06/28/18. NOTE Subjective: Patient was seen and examined at the bedside. Patient reports that her breathing is doing better. She denies chest pain, SOB, palpitations. Denies any nausea, vomiting. Denies any abdominal pain, constipation, diarrhea or discomfort with urination. Objective: Vitals (See below) General: Lying in bed, no acute distress, comfortable, Awake / Alert, HEENT: NC, AT CVS: RRR, +S1S2 Lungs: Fair air entry b/l, auscultation. He did not appear to be rhonchi, rales or wheezing Abdomen: Soft, without distention or tenderness Extremities: No evidence of lower extremity edema, - Calf tenderness Assessment and plan: Shortness of breath - likely 2/2 Acute COPD exacerbation with chronic hypoxia - Presented to the ER with complaints of shortness of breath associated with wheezing - Baseline patient uses 2 L of oxygen via nasal cannula - Physical does not reveal any significant wheezing - Lab work unremarkable - CT chest 06/23: 1. Moderate centrilobular emphysema most pronounced in the mid and upper lung zones. 2. Small bilateral pleural effusions. 3. Bibasilar geographic ground glass opacities may represent foci of mosaic perfusion. 4. Multiple mediastinal lymph nodes. These are likely postinflammatory. 5. Small sliding hiatal hernia. - Will start prednisone; DC solumedrol - c/w inhaled therapy as ordered Acute on chronic back pain - c/w PT s/p Leukocytosis - likely 2/2 reactive etiology - No fevers / chills - Hemodynamically stable - Will hold off on antibiotics Normocytic anemia - Hg appears to be at baseline Diastolic CHF; compensated - no evidence of fluid overload - Hold Torsemide (re: elevation in Cr) Elevation of Cr on CKD4 - Baseline Cr of 2-2.4 - Cr to have trended upward - Will hold diuretics for now NIDDM2 - c/w ISS DLP - c/w Simvastatin Arrhythmia unspecified - possible paroxysmal a. fib? - c/w Amiodarone from outpatient - c/w ASA 81 from outpatient GERD - c/w omeprazole DVT prophylaxis - c/w Heparin VS,Fishbone, I+O VS, Fishbone, I+O Laboratory Tests 06/28/18 05:54 Red Blood Count 3.52 L, Mean Corpuscular Volume 88.6, Mean Corpuscular Hemoglobin 29.3, Mean Corpuscular Hemoglobin Concent 33.0, Red Cell Distribution Width 14.9 H, Calcium Level 8.6 L Vital Signs Date Time Temp Pulse Resp B/P (MAP) Pulse Ox O2 Delivery O2 Flow Rate FiO2 06/28/18 08:30 2.0 06/28/18 08:30 97.8 64 22 122/51 (74) 95 06/24/18 14:45 Nasal Cannula I&O- Last 24 Hours up to 6 AM 06/28/18 06:00 Intake Total 780 ml Output Total 900 ml Balance -120 ml KULWINDER CANTU MD Jun 28, 2018 12:39
[2018-06-28] MEDS: predniSONE 20 MG TAB PO SCH (13:57)
[2018-06-28 14:29] VITALS: BP 108/54
[2018-06-28] MEDS: SIMVASTATIN 20 MG TAB PO SCH (21:00)
[2018-06-28 22:00] VITALS: BP 122/62
[2018-06-29] MEDS: LEVALBUTEROL 1.25 MG/0.5 ML CONCENTRATE NEB INH SCH ×2 (03:55→08:49)
[2018-06-29] MEDS: SLF 3 ML SYR IV SCH (05:28)
[2018-06-29] MEDS: HEPARIN SOD (PORCINE) 5000 UNITS/ML VIAL SC SCH (05:28)
[2018-06-29 06:00] VITALS: BP 118/56
[2018-06-29 06:07] LABS: HEMATOCRIT 29.9 % (36.0-47.0); HEMOGLOBIN 9.7 g/dl (12.0-15.5); MEAN CORPUSCULAR HEMOGLOBIN 28.8 pg (27.0-33.0); MEAN CORPUSCULAR HGB CONC 32.4 g/dl (32.0-36.5); MEAN CORPUSCULAR VOLUME 88.7 fl (80.0-96.0); PLATELET COUNT, AUTOMATED 266 10^3/uL (150-450); RED BLOOD COUNT 3.37 10^6/uL (4.00-5.40); WHITE BLOOD COUNT 10.3 10^3/uL (4.0-10.0)
[2018-06-29 06:39] LABS: CALCIUM LEVEL 8.3 MG/DL (8.8-10.2); CREATININE FOR GFR 2.63 MG/DL (0.55-1.30); GLOMERULAR FILTRATION RATE 18.4 (>32); MAGNESIUM LEVEL 1.8 MG/DL (1.8-2.4)
[2018-06-29] MEDS: ASPIRIN 81 MG ENTERIC TAB PO SCH (08:06)
[2018-06-29] MEDS: HumaLOG INSULIN (NovoLOG) PER UNIT SC SCH (08:06)
[2018-06-29 08:07] VITALS: BP 118/56
[2018-06-29] MEDS: FERROUS SULFATE 325MG TAB PO SCH (08:07)
[2018-06-29] MEDS: DOXYCYCLINE HYCLATE 100 MG TAB PO SCH (08:07)
[2018-06-29] MEDS: amLODIPine 10 MG TAB PO SCH (08:07)
[2018-06-29] MEDS: predniSONE 20 MG TAB PO SCH (08:07)
[2018-06-29] MEDS: AMIODARONE 200 MG TAB (PACERONE) PO SCH (08:08)
[2018-06-29] MEDS: PANTOPRAZOLE 40MG TAB (PROTONIX) PO SCH (08:08)
[2018-06-29] MEDS: SENOKOT S TAB PO SCH (08:08)
[2018-06-29] MEDS: CARVedilol 12.5 MG TAB PO SCH (08:09)
[2018-06-29] MEDS: OMEPRAZOLE 20 MG CAP PO SCH (08:09)
[2018-06-29] MEDS: CYANOCOBALAMIN 500 MCG TAB PO SCH (08:09)
[2018-06-29] MEDS ORDERED: TORSEMIDE 20 MG TAB PO SCH (09:00)
[2018-06-29] MEDS ORDERED: PRED10TA2 PO (11:05)
--- NOTE | 2018-06-29 14:03 | DS.PDOC ---
Discharge Summary General Date of Admission Jun 23, 2018 at 21:48 Date of Discharge 06/29/2018 Discharge Summary PROCEDURES PERFORMED DURING STAY: [None]. ADMITTING DIAGNOSES / DISCHARGE DIAGNOSES: Shortness of breath - likely 2/2 Acute COPD exacerbation with chronic hypoxia Acute on chronic back pain s/p Leukocytosis - likely 2/2 reactive etiology Normocytic anemia Diastolic CHF; compensated Elevation of Cr on CKD4 NIDDM2 DLP Arrhythmia unspecified - possible paroxysmal a. fib? GERD DVT prophylaxis COMPLICATIONS/CHIEF COMPLAINT: Shortness of breath HISTORY OF PRESENT ILLNESS: Patient is an 83-year-old female with a past medical history of COPD on 2 L O2, Diastolic CHF, HTN, DM2, DLP, CKD3, ?Arrhythmia who presented to the ER with complaints of shortness of breath. Patient was suspected to have a COPD exacerbation was admitted to the hospitalist service for further evaluation and treatment. HOSPITAL COURSE: Shortness of breath - likely 2/2 Acute COPD exacerbation with chronic hypoxia - Clinically has had full resolution of symptoms - Baseline patient uses 2 L of oxygen via nasal cannula - Physical does not reveal any significant wheezing - Lab work unremarkable - CT chest 06/23: 1. Moderate centrilobular emphysema most pronounced in the mid and upper lung zones. 2. Small bilateral pleural effusions. 3. Bibasilar geographic ground glass opacities may represent foci of mosaic perfusion. 4. Multiple mediastinal lymph nodes. These are likely postinflammatory. 5. Small sl iding hiatal hernia. - c/w Prednisone taper upon discharge, s/p Solumedrol - c/w inhaled therapy as ordered Acute on chronic back pain - c/w PT s/p Leukocytosis - likely 2/2 reactive etiology - No fevers / chills - Hemodynamically stable - Will hold off on antibiotics Normocytic anemia - Hg appears to be at baseline Diastolic CHF; compensated - no evidence of fluid overload - Resume Torsemide CKD4 - Baseline Cr of 2.2-2.6 - Will resume diuresis at outpatient dose NIDDM2 - c/w ISS DLP - c/w Simvastatin Arrhythmia unspecified - possible paroxysmal a. fib? - c/w Amiodarone from outpatient - c/w ASA 81 from outpatient GERD - c/w omeprazole DVT prophylaxis - c/w Heparin DISCHARGE MEDICATIONS: Please see below. ALLERGIES: Please see below. PHYSICAL EXAMINATION ON DISCHARGE: Vitals (See below) General: Lying in bed, no acute distress, comfortable, Awake / Alert HEENT: NC, AT CVS: RRR, +S1S2 Lungs: Fair air entry b/l, does not appear to be any wheezing, rhonchi or rales on auscultation Abdomen: Soft, remains nondistended without tenderness Extremities: Lower extremities do not reveal any evidence of edema, - Calf tenderness LABORATORY DATA: Please see below. ACTIVITY: [As tolerated]. DISCHARGE PLAN: Follow up with Dr. Mejias within 7 days Remain compliant with treatment plan and medications Return to the ER if you experience any problems DISPOSITION: Home, Self-Care. DISCHARGE CONDITION: [Stable]. TIME SPENT ON DISCHARGE: Greater than [35] minutes. Vital Signs/I&Os Vital Signs Date Time Temp Pulse Resp B/P (MAP) Pulse Ox O2 Delivery O2 Flow Rate FiO2 06/29/18 08:07 67 118/56 06/29/18 08:00 2.0 06/29/18 06:00 97.5 16 93 06/24/18 14:45 Nasal Cannula I&O- Last 24 Hours up to 6 AM 06/29/18 06:00 Intake Total 1500 ml Output Total 1400 ml Balance 100 ml Laboratory Data Labs 24H Laboratory Tests 2 06/28/18 16:42: Bedside Glucose (Misc Panel) 251H 06/29/18 05:31: Nucleated Red Blood Cells % (auto) 0.0, Anion Gap 8, Glomerular Filtration Rate 18.4L, Blood Urea Nitrogen 91H, Creatinine 2.63H, Sodium Level 133L, Potassium Level 4.0, Chloride Level 98, Carbon Dioxide Level 27, Calcium Level 8.3L, Magnesium Level 1.8 06/29/18 11:23: Bedside Glucose (Misc Panel) 274H CBC/BMP Laboratory Tests 06/29/18 05:31 Red Blood Count 3.37 L, Mean Corpuscular Volume 88.7, Mean Corpuscular Hemoglobin 28.8, Mean Corpuscular Hemoglobin Concent 32.4, Red Cell Distribution Width 14.8 H, Calcium Level 8.3 L FSBS Laboratory Tests Test 06/28/18 16:42 06/29/18 11:23 Range/Units Bedside Glucose (Misc Panel) 251 274 83-110 MG/DL Discharge Medications Scheduled (Hydrofera Blue Foam Dress) 1 Pad Pad, 1 PAD TOP DAILY, (Reported) Amiodarone HCl (Amiodarone HCl) 200 Mg Tab, 200 MG PO BID, (Reported) Amlodipine Besylate (Amlodipine Besylate) 10 Mg Tab, 10 MG PO DAILY, (Reported) Aspirin (Aspirin 81) 81 Mg Tab, 81 MG PO DAILY, (Reported) Calcitriol (Calcitriol) 0.25 Mcg Cap, 0.25 MCG PO DAILY, (Reported) Carvedilol (Carvedilol) 25 Mg Tab, 25 MG PO BID, (Reported) Cyanocobalamin (Vitamin B12) 1,000 Mcg Tab, 1,000 MCG PO DAILY, (Reported) Ferrous Sulfate (Ferrous Sulfate) 325 Mg Tab, 325 MG PO BID, (Reported) Glipizide (Glipizide Xl) 10 Mg Tab, 10 MG PO BID, (Reported) Linagliptin Base (Tradjenta) 5 Mg Tab, 5 MG PO DAILY, (Reported) Magnesium Oxide (Magnesium Oxide 400) 400 Mg Tab, 400 MG PO 3XW, (Reported) TAKES MONDAY, MONDAY AND MONDAY Omeprazole (Omeprazole) 20 Mg Tab, 20 MG PO DAILY, (Reported) Prednisone (Prednisone) 10 Mg Tab, 10 MG PO TAPER Take 4 tabs daily x 3 days, then 3 tabs daily x 3 days, then 2 tabs daily x 3 days, then 1 tab daily x 3 days and stop Simvastatin (Simvastatin) 20 Mg Tab, 20 MG PO QHS, (Reported) Torsemide (Torsemide) 10 Mg Tab, 30 MG PO TID, (Reported) Vitamin D (Drisdol) 50,000 Unit Cap, 50,000 UNIT PO 1XWK, (Reported) TAKES ON FRIDAYS Allergies Coded Allergies: Penicillins (Verified Allergy, Mild, RASH, 08/21/17) Penicillins Cross Reactors (Verified Allergy, Mild, RASH, 08/21/17) Bee Venom (Verified Allergy, Unknown, 08/21/17) KULWINDER CANTU MD Jun 29, 2018 14:03
== END 2018-06-29 11:45 | disposition home health service (06) | DRG 190 ==
LOC: M ED 18:27 → M ED INP 21:48 → M PCU 06-24 14:57 → M MSPAV 06-25 13:05
PROVIDERS: ADMIT Hospitalist; ATTEND Internal Medicine
DX: J44.1 Chronic obstructive pulmonary disease with (acute) exacerbation (principal); J96.90 Respiratory failure, unspecified, unspecified whether with hypoxia or hypercapnia; I50.32 Chronic diastolic (congestive) heart failure; N18.4 Chronic kidney disease, stage 4 (severe); I13.0 Hypertensive heart and chronic kidney disease with heart failure and stage 1 through stage 4 chronic kidney disease, or unspecified chronic kidney disease; M54.5 Low back pain; I48.0 Paroxysmal atrial fibrillation; D72.829 Elevated white blood cell count, unspecified; D64.9 Anemia, unspecified; K21.9 Gastro-esophageal reflux disease without esophagitis; Z79.899 Other long term (current) drug therapy; Z79.82 Long term (current) use of aspirin; Z88.0 Allergy status to penicillin; Z91.038 Other insect allergy status; E78.5 Hyperlipidemia, unspecified; Z87.891 Personal history of nicotine dependence

== ENCOUNTER 2018-07-18 13:39 | Inpatient (IN) | payer MEDICARE, OTHER ==
[~2018-07-18] VITALS: Ht 170.2 cm; Wt 62.0 kg
[~2018-07-18 13:39] MED LIST changes: -/MOXI40TA; -ASPI1TAB PO; -ASPI81CH PO; +ASPI81CH49 PO; +ASPI81TA26 PO; +AVEL1TAB2; +MAG-400T7 PO; +MAGN400T5 PO; +VITA100018 PO; -VITA100072 PO; +[UNRECOGNIZED DRUG - CODE] TOP
[2018-07-18 14:51] LABS: INFLUENZA A AMPLIFICATION NEGATIVE (NEGATIVE); INFLUENZA B AMPLIFICATION NEGATIVE (NEGATIVE)
--- NOTE | 2018-07-18 14:52 | REP ---
CHEST X-RAY: Two views. HISTORY: Dizziness. COMPARISON CHEST X-RAY: June 23, 2018. FINDINGS: The lungs are hyperinflated as before. Moderate cardiomegaly is observed unchanged. There is slight blunting of the pleural angles bilaterally. There is diffuse interstitial lung disease pattern noted improved when compared with the May 28, 2018 study consistent with somewhat improved interstitial edema air. There may be some component of interstitial fibrosis as well. There is linear plate-like atelectasis in the right perihilar region today. No new infiltrate is seen. IMPRESSION: CHF interstitial edema pattern and slight blunting of the pleural angles. Interstitial edema pattern is less pronounced than previous. There is evidence of chronic interstitial fibrosis as well. Electronically Signed by Danny Corral MD 07/18/2018 02:58 P
[2018-07-18 15:04] LABS: ALBUMIN 2.6 GM/DL (3.2-5.2); ALT/SGPT 23 U/L (12-78); BILIRUBIN,DIRECT 0.2 MG/DL (0.0-0.2); BILIRUBIN,TOTAL 0.5 MG/DL (0.2-1.0); BLOOD UREA NITROGEN 28 MG/DL (7-18); CALCIUM LEVEL 8.4 MG/DL (8.8-10.2); CARBON DIOXIDE LEVEL 32 MEQ/L (21-32); CHLORIDE LEVEL 97 MEQ/L (98-107); CK-MB VALUE MASS < 1.0 NG/ML (<3.6); CPK CREATINE PHOSPHOKINASE 26 U/L (26-192); CREATININE FOR GFR 2.29 MG/DL (0.55-1.30); GLOMERULAR FILTRATION RATE 21.6 (>32); GLUCOSE, FASTING 166 MG/DL (70-100); MAGNESIUM LEVEL 1.9 MG/DL (1.8-2.4); MB/CK RELATIVE INDEX 3.85 (< OR =4); PHOSPHORUS LEVEL 2.9 MG/DL (2.5-4.9); POTASSIUM SERUM 4.2 MEQ/L (3.5-5.1); SODIUM LEVEL 136 MEQ/L (136-145); TOTAL PROTEIN 5.9 GM/DL (6.4-8.2); TROPONIN I 0.02 NG/ML (< 0.10)
[2018-07-18 15:12] LABS: BASO % 0.4 % (0.0-1.0); EOS # 0.2 10^3/uL (0.0-0.50); EOS % 2.9 % (0.0-3.0); HEMATOCRIT 30.5 % (36.0-47.0); HEMOGLOBIN 9.8 g/dl (12.0-15.5); LYMPH # 0.9 10^3/uL (1.5-4.5); LYMPH % 11.8 % (24.0-44.0); MEAN CORPUSCULAR HEMOGLOBIN 29.8 pg (27.0-33.0); MEAN CORPUSCULAR HGB CONC 32.1 g/dl (32.0-36.5); MEAN CORPUSCULAR VOLUME 92.7 fl (80.0-96.0); MONO # 0.8 10^3/uL (0.0-0.8); MONO % 11.4 % (0.0-5.0); NEUTROPHILS # 5.3 10^3/uL (1.8-7.7); NEUTROPHILS % 72.9 % (36.0-66.0); PLATELET COUNT, AUTOMATED 223 10^3/uL (150-450); RED BLOOD COUNT 3.29 10^6/uL (4.00-5.40); WHITE BLOOD COUNT 7.2 10^3/uL (4.0-10.0)
[2018-07-18 15:33] VITALS: O2SAT 83
[2018-07-18] MEDS ORDERED: FUROSEMIDE 40 MG/4 ML VIAL (J1940) IV ONE (15:45)
[2018-07-18] MEDS ORDERED: ZYLO300T6 PO (16:01)
[2018-07-18] MEDS ORDERED: PILL CRUSHER/CUTTER 1 EACH XX PRN (16:30)
[2018-07-18 18:00] VITALS: BP 145/69
[2018-07-18] MEDS: CHLOROTHIAZIDE 500 MG VIAL (J1205) IV SCH (18:22)
--- NOTE | 2018-07-18 18:24 | HPE ---
DATE OF ADMISSION: 07/18/2018 PRIMARY CARE PROVIDER: Dr. Torey Mejias PERINATOLOGY PHYSICIAN: Dr. Fortune [employer]: Dr. Rao Rios ATTENDING PHYSICIAN: Hospitalist service. Keke Ruiz is admitted with congestive heart failure. She has had several hospitalizations this year. Most recently 06/23 to 06/29/2018 for congestive heart failure with preserved ejection fraction as well as presumed chronic obstructive pulmonary disease (COPD) exacerbation. She has stage IV chronic kidney disease and is followed by crowning inspector. Previously she had to have nephrology consultation for her heart failure. She has Charcot joint of her left foot, has a chronic ulcer that she sees Dr. Moreno at wound management service on a weekly basis. Due to see him tomorrow. PAST MEDICAL HISTORY: She has COPD, is on chronic supplemental oxygen at 2 liters nasal cannula. She has a history of congestive heart failure with preserved ejection fraction as well as some right-sided heart failure. History of gout. Secondary hyperparathyroidism from her stage IV chronic kidney disease. Type 2 diabetes, hyperlipidemia, gastroesophageal reflux disease (GERD), coronary artery disease, diabetic neuropathy. PAST SURGICAL HISTORY: AV fistula and bronchoscopy. She has been short of breath for several days. It got progressively worse. She has dyspnea on exertion. She came to the emergency room with some hypoxia which resolved. So far they have treated her with a relatively low dose of furosemide without any benefit which is expected. Her collections representative is Dr. Rios. Her most recent echocardiogram was from 04/2018, ejection fraction is 60 to 65%, impaired left ventricle (LV) diastolic function, dilated right-sided chambers, at least mild pulmonary hypertension, moderate mitral insufficiency suggested. SOCIAL HISTORY: She is an ex-smoker. Quit 20 years ago rather. No alcohol use. Lives at home with her and son. Code status is FULL CODE. She reaffirmed this today. FAMILY HISTORY: Noncontributory at her age, but for what its worth, both parents of cardiac events. MEDICATIONS: - allopurinol 150 mg daily - amlodipine 10 mg daily - calcitriol 0.25 mcg daily - omeprazole 20 mg daily - carvedilol 25 mg twice a day - glipizide XL 10 mg twice a day - simvastatin 20 mg daily - Drisdol 50,000 units weekly on Monday - amiodarone 200 mg twice a day - aspirin 81 mg daily - B12 1000 mcg daily - iron twice daily - Tradjenta 5 mg daily - torsemide 30 mg three times a day (three 10 mg tablets twice daily) - MagOx 400 mg twice a day - Hydrofera blue foam dressing to her foot daily ALLERGIES: PENICILLIN. BEE STINGS. PHYSICAL EXAMINATION: VITAL SIGNS: Per flow sheet. General appearance: Elderly. Sitting in bed. Is quite vague with her answers. Does not know the name of her crowning inspector or her collections representative. Suspect some mild dementia. HEENT: Unremarkable. She has some jugular venous distention (JVD) present. Bilateral soft carotid bruits. Lungs: Decreased breath sounds throughout both bases. Heart: Regular rhythm with 1/6 holosystolic murmur at the apex. Abdomen: Soft, is slightly distended. Nontender. Extremities: 1+ peripheral edema. She has compression stockings on and her left foot is dressed. Has a deformity. I did not undress it. Labs White count 7.2, hemoglobin 9.8, glucose 223. Sodium 136, potassium 4.2, BUN 28, creatinine 2.2. Glucose 166. She had a flu screen done. It was unremarkable. Chest x-ray showed congestive heart failure. IMPRESSION: 1. Congestive heart failure. Patient will be admitted to PCU bed. She is FULL CODE. She reaffirmed this. She has only received a low dose of furosemide so far. Will increase furosemide to 80 mg every 8 hours. Will give Diuril 250 mg IV daily. Nephrology has been consulted. Continue beta tonja, carvedilol 25 mg twice a day. 2. Stage IV chronic kidney disease. Case discussed with Dr. Fortune who will see the patient in consultation. 3. Suspected dementia. This could be worked up as an outpatient. 4. History of coronary artery disease. Continue her aspirin and beta tonja therapy. 5. Suspected past history of atrial arhythmia. She is on amiodarone. I do not have documentation as to why she is on this. Maybe tomorrow we could reach [facility] and get their records about this. I do not have a cardiologic consultation in [facility]. 6. Hypertension. Continue current amlodipine and carvedilol. 7. Anemia from chronic kidney disease. Continue her iron with erythropoietin stimulating agents per nephrology. 8. Gout. Continue allopurinol 150 mg daily. 9. Hyperlipidemia. Continue simvastatin 20 mg daily. Hospitalist will assume her care in the morning.
[2018-07-18] MEDS: FERROUS SULFATE 325MG TAB PO SCH (21:18)
[2018-07-18] MEDS: SIMVASTATIN 20 MG TAB PO SCH (21:18)
[2018-07-18] MEDS: AMIODARONE 200 MG TAB (PACERONE) PO SCH (21:18)
[2018-07-18] MEDS: FUROSEMIDE 100 MG/10 ML VIAL (J1940) IV SCH (21:18)
[2018-07-18] MEDS: HEPARIN SOD (PORCINE) 5000 UNITS/ML VIAL SQ SCH (21:18)
[2018-07-18] MEDS: CARVedilol 12.5 MG TAB PO SCH (21:19)
[2018-07-18 22:00] VITALS: BP 132/80
[2018-07-19] VITALS (9 sets, daily range): BP systolic 100–146; BP diastolic 38–86
[2018-07-19] MEDS: FUROSEMIDE 100 MG/10 ML VIAL (J1940) IV SCH ×3 (04:07→20:15)
[2018-07-19 06:56] LABS: HEMATOCRIT 28.1 % (36.0-47.0); HEMOGLOBIN 9.2 g/dl (12.0-15.5); MEAN CORPUSCULAR HEMOGLOBIN 29.9 pg (27.0-33.0); MEAN CORPUSCULAR HGB CONC 32.7 g/dl (32.0-36.5); MEAN CORPUSCULAR VOLUME 91.2 fl (80.0-96.0); PLATELET COUNT, AUTOMATED 191 10^3/uL (150-450); RED BLOOD COUNT 3.08 10^6/uL (4.00-5.40)
[2018-07-19 07:25] LABS: CALCIUM LEVEL 8.9 MG/DL (8.8-10.2); CREATININE FOR GFR 2.5 MG/DL (0.55-1.30); GLOMERULAR FILTRATION RATE 19.5 (>32); POTASSIUM SERUM 3.4 MEQ/L (3.5-5.1)
[2018-07-19] MEDS: DIAPER RELIEF PASTE (DESITIN) 60GM TOP SCH (09:00)
[2018-07-19] MEDS ORDERED: amLODIPine 10 MG TAB PO SCH (09:00)
[2018-07-19] MEDS ORDERED: FLUBLOK(EGG FREE)(QUAD)INFLUENZA VACC 0.5ML SYRINGE (90682)18YRS&OLDER IM ONE (09:00)
[2018-07-19] MEDS: CARVedilol 12.5 MG TAB PO SCH ×2 (09:00→21:12)
[2018-07-19] MEDS: CHLOROTHIAZIDE 500 MG VIAL (J1205) IV SCH (09:00)
[2018-07-19] MEDS: ASPIRIN 81 MG ENTERIC TAB PO SCH (09:10)
[2018-07-19] MEDS: HEPARIN SOD (PORCINE) 5000 UNITS/ML VIAL SQ SCH ×2 (09:10→20:16)
[2018-07-19] MEDS: CYANOCOBALAMIN 500 MCG TAB PO SCH (09:10)
[2018-07-19] MEDS: FERROUS SULFATE 325MG TAB PO SCH ×2 (09:10→20:16)
[2018-07-19] MEDS: OMEPRAZOLE 20 MG CAP PO SCH (09:10)
--- NOTE | 2018-07-19 09:20 | ECGEPIP ---
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
[2018-07-19] MEDS: AMIODARONE 200 MG TAB (PACERONE) PO SCH ×2 (10:57→20:16)
[2018-07-19] MEDS: ALLOPURINOL 300 MG TAB PO SCH (10:57)
[2018-07-19] MEDS: SIMVASTATIN 20 MG TAB PO SCH (20:16)
--- NOTE | 2018-07-19 20:59 | CR ---
DATE OF CONSULTATION: 07/19/2018 NEPHROLOGY CONSULTATION FOR: Marek Collier MD REASON FOR CONSULTATION: Acute renal failure superimposed on chronic kidney disease in this lady with congestive heart failure. HISTORY OF PRESENT ILLNESS: Mrs. Ruiz is an 83-year-old female with multiple chronic medical problems, including a history of type 2 diabetes, hypertension, chronic obstructive pulmonary disease (COPD), diastolic congestive heart failure, hypercholesterolemia, gout, coronary artery disease, stage IV of chronic kidney disease, anemia and secondary hyperparathyroidism. She was admitted to [facility] [place] in the late afternoon yesterday with worsening and progressive shortness of breath. She was found to be in decompensated congestive heart failure and is being diuresed. A nephrology consulted was requested by Dr. Collier, and the patient is seen this morning. PAST MEDICAL AND SURGICAL HISTORY: Significant for: 1. Type 2 diabetes. 2. Hypertension. 3. Coronary artery disease. 4. Diastolic congestive heart failure. 5. Stage IV of chronic kidney disease. 6. Secondary hyperparathyroidism. 7. Anemia. 8. COPD. 9. Gastroesophageal reflux disease. 10. History of diabetic neuropathy. 11. Hyperlipidemia. 12. History of chronic degenerative arthritis. 13. Charcot joint left foot. Past surgical history is significant for an arteriovenous (AV) fistula creation and history of bronchoscopy. MEDICATIONS: Home medications include allopurinol 150 mg daily, amlodipine 10 mg daily, calcitriol 0.25 mcg daily, omeprazole 20 mg daily, carvedilol 25 mg twice a day, glipizide XL 10 mg twice a day, simvastatin 20 mg daily, vitamin D 50,000 units once a week, amiodarone 200 mg daily, aspirin 81 mg daily, ferrous sulfate 325 mg twice a day, Tradjenta 5 mg daily, torsemide 30 mg three times a day, magnesium oxide 400 mg twice a day. ALLERGIES: She has allergy to PENICILLIN. PERSONAL AND SOCIAL HISTORY: The patient lives with her son. She does not smoke or drink. There is no history of drug use. She quit smoking about 20 years ago. FAMILY HISTORY: Family history is noncontributory, and there is no family history for end-stage renal disease. REVIEW OF SYSTEMS: She denies any fever or chills. She has gained some weight and reports progressively increased edema and shortness of breath. Ears, nose and throat are unremarkable. Cardiovascular system: Negative for chest pain but has progressive dyspnea. Respiratory system is negative for cough or hemoptysis. Gastrointestinal (GI) system is significant for gastroesophageal reflux disease. She denies any abdominal pain, diarrhea or vomiting. Genitourinary () system is negative for dysuria or hematuria. Endocrine system is significant for secondary hyperparathyroidism in addition to type 2 diabetes. Psychosocial system: Negative for depression or anxiety. Neurological system: Negative for seizures or stroke. Hematological system: Significant for anemia of chronic kidney disease. Musculoskeletal system: Significant for chronic edema, gout and Charcot foot. PHYSICAL EXAMINATION: Temperature 98.8 degrees Fahrenheit, heart rate 72 per minute and respiratory rate 18 per minute. Blood pressure 115/42 mmHg and oxygen saturation 95% on 2 liters oxygen. Head is atraumatic. Neck veins are quite prominently elevated. She has no oral thrush or ulcers. There is no audible carotid bruit and no palpable thyroid enlargement. Heart: Sounds are regular with systolic murmur grade 1/6. There is no pericardial friction rub. Lungs: Have bilateral basilar rales. Abdomen: Soft and nontender. Bowel sounds are normal. Extremities: Have 2+ to 3+ edema bilaterally. Her feet are disproportionately more swollen, particularly her left foot. Neurologically she is awake, alert and at her baseline mentation. LABORATORY DATA: Last evening her sodium was 136, potassium 4.2, CO2 32, BUN 28 and creatinine 2.29. Glucose 166 and calcium 8.4. Total protein 5.9 and albumin 2.6. Today her sodium is 135, potassium 3.4, BUN 31 and creatinine 2.5. WBC count is 6.0, hemoglobin 9.2 and hematocrit 28.1. She had a chest x-ray done in the emergency room which showed interstitial edema with slight blunting of pleural angles. PROBLEM #1: Acute renal failure superimposed on chronic kidney disease. The patient is known to have stage IV of chronic kidney disease at baseline. Slight worsening of kidney function is most likely related to congestive heart failure. She had a similar episode in the past and kidney function has improved with diuresis. At this point she does not have any uremic symptoms and renal function will be monitored on a daily basis. PROBLEM #2: Acute on chronic diastolic congestive heart failure. Her volume status is decompensated. I agree with diuresis with intravenous Lasix, and we will see how she responds. We can also consider switching her to Lasix drip if intermittent Lasix does not work very well. I agree with holding hydrochlorothiazide in view of hypokalemia. PROBLEM #3: Hypokalemia. This is related to diuresis, and I am adding potassium chloride 20 mEq three times a day. Electrolytes will be checked again tomorrow morning. PROBLEM #4: Hypertension. Her amlodipine is currently on hold and blood pressure is somewhat already low. I will stop her amlodipine completely as there is high risk for significant lower extremity edema with high-dose amlodipine, particularly in the setting of stage IV of chronic kidney disease. Her blood pressure is low at this point and does not need amlodipine anyway. We will make adjustments in her medications as needed. PROBLEM #5: Anemia. She does have chronic anemia with chronic kidney disease. She has been on iron supplement. Her iron studies will be checked and once her volume status improves, then we will consider giving her Aranesp. PROBLEM #6: Secondary hyperparathyroidism. She remains on calcitriol 0.25 mcg daily and will continue with the same. We will check her PTH level. Thank you for involving me in the care of Mrs. Ruiz. I will follow her along with you.
[2018-07-19] MEDS: POTASSIUM CHLORIDE 10 MEQ SR TABLET PO SCH (21:12)
--- NOTE | 2018-07-19 21:57 | IPN ---
DATE: 07/19/2018 SUBJECTIVE: The patient tells me she is feeling much better. She denies any significant complaints. Otherwise, at this time, she tells me her shortness of breath has improved. She denies fevers or chills. OBJECTIVE: VITAL SIGNS: Temperature 98.8, pulse 72, respiratory rate 18, blood pressure 115/42, oxygen saturation 95% on 2 liters, not at her baseline. GENERAL: She is a frail, elderly female lying flat in bed. She does not appear to be in any acute distress. There does appear to be some elevation in her central venous pressure (CVP). CARDIOVASCULAR EXAM: S1, S2, regular. RESPIRATORY EXAM: Diminished at the bases with scattered rales. ABDOMINAL EXAM: Obese. EXTREMITIES: There is 2+ edema bilaterally. LABORATORY STUDIES: WBC 6.0, hemoglobin 9.2, platelet count 191. Chemistry panel: Sodium 135, potassium 3.4, chloride 95, bicarbonate 31, BUN 31, creatinine 2.5. She did have an elevated TSH of 11.3. She did have a chest x-ray at the time of her admission that revealed congestive heart failure (CHF) pattern. ASSESSMENT AND PLAN: This is an 83-year-old female admitted with decompensated congestive heart failure. Looking back in her records, we do have an echocardiogram from April of 2018. At that time, she was known to have borderline concentric hypertrophy, borderline left atrial enlargement, dilation of the right heart chambers. My suspicion is for decompensated diastolic congestive heart failure in the setting of chronic kidney disease. She has been started on aggressive IV diuresis and is improving. For now, we will continue with this and monitor her renal function closely. Dr. Collier documented that he had spoken with Dr. Fortune, sachin f/u Nephro recs. The patient's home torsemide will be held. Patient is on a fluid restriction. Will monitor daily weights and intake and output. Patient will be continued on her beta tonja. Chronic kidney disease as outlined above. Nephrology consult will be placed. History of coronary artery disease. The patient is on aspirin and beta tonja therapy, as well as a statin. History of an irregular heart rhythm, and the patient is on amiodarone chronically as an outpatient; this will be continued. Gout. The patient will be continued on allopurinol. Iron deficiency anemia. She is continued on supplementation. Gastroesophageal reflux disease. She is continued on omeprazole. Deep vein thrombosis (DVT) prophylaxis. The patient is on heparin. DISPOSITION: Pending her clinical improvement and resolution of her oxygen requirement. I will order the patient for physical therapy (PT), occupational therapy (OT). The patient's family is present during the exam; questions were answered to their satisfaction. ZAK
[2018-07-20] VITALS (8 sets, daily range): BP systolic 100–133; BP diastolic 42–74
[2018-07-20] MEDS: FUROSEMIDE 100 MG/10 ML VIAL (J1940) IV SCH ×3 (04:07→19:41)
[2018-07-20 06:42] LABS: HEMATOCRIT 28.5 % (36.0-47.0); HEMOGLOBIN 9.3 g/dl (12.0-15.5); MEAN CORPUSCULAR HEMOGLOBIN 29.7 pg (27.0-33.0); MEAN CORPUSCULAR HGB CONC 32.6 g/dl (32.0-36.5); MEAN CORPUSCULAR VOLUME 91.1 fl (80.0-96.0); PLATELET COUNT, AUTOMATED 215 10^3/uL (150-450); RED BLOOD COUNT 3.13 10^6/uL (4.00-5.40); WHITE BLOOD COUNT 5.7 10^3/uL (4.0-10.0)
[2018-07-20 07:03] LABS: CREATININE FOR GFR 2.71 MG/DL (0.55-1.30); GLOMERULAR FILTRATION RATE 17.8 (>32); PERCENT SATURATION 11.6 % (13.2-45.0); POTASSIUM SERUM 3.6 MEQ/L (3.5-5.1)
[2018-07-20] MEDS: CARVedilol 12.5 MG TAB PO SCH ×2 (09:10→21:25)
[2018-07-20] MEDS: FERROUS SULFATE 325MG TAB PO SCH ×2 (09:11→21:26)
[2018-07-20] MEDS: ASPIRIN 81 MG ENTERIC TAB PO SCH (09:11)
[2018-07-20] MEDS: OMEPRAZOLE 20 MG CAP PO SCH (09:12)
[2018-07-20] MEDS: POTASSIUM CHLORIDE 10 MEQ SR TABLET PO SCH ×3 (09:12→21:26)
[2018-07-20] MEDS: AMIODARONE 200 MG TAB (PACERONE) PO SCH ×2 (09:12→21:26)
[2018-07-20] MEDS: CYANOCOBALAMIN 500 MCG TAB PO SCH (09:12)
[2018-07-20] MEDS: ALLOPURINOL 300 MG TAB PO SCH (09:13)
[2018-07-20] MEDS: HEPARIN SOD (PORCINE) 5000 UNITS/ML VIAL SQ SCH ×2 (09:14→21:25)
[2018-07-20] MEDS ORDERED: CARVedilol 12.5 MG TAB As Ordered ONE (09:59)
[2018-07-20] MEDS: CHLOROTHIAZIDE 500 MG VIAL (J1205) IV SCH (10:56)
--- NOTE | 2018-07-20 17:13 | IPNPDOC ---
Date Seen The patient was seen on 07/20/18. Progress Note SUBJECTIVE: The patient tells me she is feeling much better. Her breathing is back to normal She denies any significant complaints. OBJECTIVE: VITAL SIGNS: Please see below GENERAL: She is a frail, elderly female sitting up in a chair she does not appear to be in any acute distress HEENT: There does appear to be some elevation in her central venous pressure (CVP). Cranial nerves grossly intact CARDIOVASCULAR EXAM: S1, S2, regular. RESPIRATORY EXAM: Diminished at the bases with scattered rales. ABDOMINAL EXAM: Obese. EXTREMITIES: There is trace edema bilaterally. LABORATORY STUDIES: Please see below. She did have a chest x-ray at the time of her admission that revealed congestive heart failure (CHF) pattern. ASSESSMENT AND PLAN: This is an 83-year-old female admitted with decompensated congestive heart failure. She is significantly improved at this time. Looking back in her records, we do have an echocardiogram from April of 2018. At that time, she was known to have borderline concentric hypertrophy, borderline left atrial enlargement, dilation of the right heart chambers. My suspicion is for decompensated diastolic congestive heart failure in the setting of chronic kidney disease. She is continued on aggressive IV diuresis and is improving. For now, we will continue with this and monitor her renal function closely. Nephrology help greatly appreciated. Patient is on a fluid restriction. Will monitor daily weights and intake and output. Patient will be continued on her beta tonja. Chronic kidney disease as outlined above. Nephrology consult will be placed. Appears to be worsening with diuresis but clinically the patient is improving History of coronary artery disease. The patient is on aspirin and beta tonja therapy, as well as a statin. History of an irregular heart rhythm, and the patient is on amiodarone chronically as an outpatient; this will be continued. Gout. The patient will be continued on allopurinol. Iron deficiency anemia. She is continued on supplementation. Gastroesophageal reflux disease. She is continued on omeprazole. Deep vein thrombosis (DVT) prophylaxis. The patient is on heparin. DISPOSITION: Pending OT and monitoring of her renal function VS, I&O, 24H, Fishbone Vital Signs/I&O Vital Signs Date Time Temp Pulse Resp B/P (MAP) Pulse Ox O2 Delivery O2 Flow Rate FiO2 07/20/18 14:00 98.3 62 18 100/49 (66) 97 2.0 07/18/18 17:15 Nasal Cannula I&O- Last 24 Hours up to 6 AM 07/20/18 06:00 Intake Total 1360 ml Output Total 1200 ml Balance 160 ml Laboratory Data 24H LABS Laboratory Tests 2 07/20/18 06:15: Nucleated Red Blood Cells % (auto) 0.0, Anion Gap 6L, Glomerular Filtration Rate 17.8L, Blood Urea Nitrogen 32H, Creatinine 2.71H, Sodium Level 133L, Potassium Level 3.6, Chloride Level 94L, Carbon Dioxide Level 33H, Calcium Level 9.0, Iron Level 23L, Total Iron Binding Capacity 199L, Transferrin % Saturation 11.6L CBC/BMP Laboratory Tests 07/20/18 06:15 Red Blood Count 3.13 L, Mean Corpuscular Volume 91.1, Mean Corpuscular Hemoglobin 29.7, Mean Corpuscular Hemoglobin Concent 32.6, Red Cell Distribution Width 14.6 H, Calcium Level 9.0 JUAN F LANDRY MD Jul 20, 2018 17:13
--- NOTE | 2018-07-20 17:18 | IPN ---
DATE: 07/20/2018 Mrs. Ruiz is seen this morning on her bedside. She is sitting in the chair and her family is present in the room. The patient reports feeling better compared to yesterday. She denies any nausea or vomiting. She still has some leg edema and dyspnea on exertion. PHYSICAL EXAMINATION: Temperature 98 degrees Fahrenheit, heart rate 68 per minute and respiratory rate 18 per minute. Blood pressure 109/42 mmHg and oxygen saturation 97% on two liters of oxygen. Intake and output records from yesterday show a total intake 1240 and output 1750 mL. Head is atraumatic. Neck veins are mildly distended even sitting upright. She has no oral thrush or ulcers. Heart sounds are regular and without a pericardial friction rub. Lungs with slightly diminished breath sounds and few basilar rales bilaterally. Abdomen is soft and nontender. Extremities have at least 2+ edema. Her left foot is quite swollen and painful due to Charcot joint. Neurologically, she is at her baseline mentation. LABORATORY DATA: Today's laboratories show WBC count 5.7, hemoglobin 9.3 and hematocrit 28.5. Platelets 215. Sodium 133, potassium 3.6, CO2 of 33, BUN 32 and creatinine 2.71. Iron level is 23 and saturation 11.6. PROBLEMS: 1. Acute on chronic congestive heart failure. Volume status is slightly improved. She remains on IV Lasix and will continue the same. At this point, she is still responding to diuretics and there is no emergent indication for dialysis. 2. Acute renal failure superimposed on chronic kidney disease. The patient has advanced chronic kidney disease at baseline. She has a left arm fistula in place which is not quite ready for use. Her kidney function is slowly worsening while we are trying to diurese her. There is no emergent indication for dialysis as yet. 3. Hypokalemia. Potassium level has improved and she remains on potassium supplement. Electrolytes will be checked again tomorrow morning. 4. Anemia. Her anemia is stable and does not need any urgent intervention. She has iron deficiency and we can give her intravenous iron once her condition is optimized.
[2018-07-20] MEDS: SIMVASTATIN 20 MG TAB PO SCH (21:26)
[2018-07-21] MEDS: FUROSEMIDE 100 MG/10 ML VIAL (J1940) IV SCH (04:19)
[2018-07-21 06:00] VITALS: BP 121/44
[2018-07-21 06:51] LABS: HEMATOCRIT 26.9 % (36.0-47.0); HEMOGLOBIN 8.8 g/dl (12.0-15.5); MEAN CORPUSCULAR HEMOGLOBIN 29.9 pg (27.0-33.0); MEAN CORPUSCULAR HGB CONC 32.7 g/dl (32.0-36.5); MEAN CORPUSCULAR VOLUME 91.5 fl (80.0-96.0); PLATELET COUNT, AUTOMATED 212 10^3/uL (150-450); RED BLOOD COUNT 2.94 10^6/uL (4.00-5.40); WHITE BLOOD COUNT 4.8 10^3/uL (4.0-10.0)
[2018-07-21 07:13] LABS: CALCIUM LEVEL 8.7 MG/DL (8.8-10.2); CREATININE FOR GFR 3.01 MG/DL (0.55-1.30); GLOMERULAR FILTRATION RATE 15.7 (>32)
[2018-07-21] MEDS ORDERED: ACETAMINOPHEN TAB 650MG DOSE (2X325MG) PO PRN (08:30)
[2018-07-21] MEDS: FERROUS SULFATE 325MG TAB PO SCH ×2 (09:59→21:15)
[2018-07-21] MEDS: ASPIRIN 81 MG ENTERIC TAB PO SCH (09:59)
[2018-07-21] MEDS: POTASSIUM CHLORIDE 10 MEQ SR TABLET PO SCH ×2 (09:59→21:14)
[2018-07-21] MEDS: OMEPRAZOLE 20 MG CAP PO SCH (09:59)
[2018-07-21] MEDS: CYANOCOBALAMIN 500 MCG TAB PO SCH (09:59)
[2018-07-21] MEDS: AMIODARONE 200 MG TAB (PACERONE) PO SCH ×2 (09:59→21:15)
[2018-07-21] MEDS: HEPARIN SOD (PORCINE) 5000 UNITS/ML VIAL SQ SCH ×2 (09:59→21:14)
[2018-07-21] MEDS: ALLOPURINOL 300 MG TAB PO SCH (09:59)
[2018-07-21] MEDS: CARVedilol 12.5 MG TAB PO SCH ×2 (10:00→21:15)
[2018-07-21] MEDS: DIAPER RELIEF PASTE (DESITIN) 60GM TOP SCH (10:00)
[2018-07-21 11:06] LABS: HEMOGLOBIN A1c 8.5 %
--- NOTE | 2018-07-21 11:14 | IPNPDOC ---
Date Seen The patient was seen on 07/21/18. Progress Note SUBJECTIVE: The patient tells me she is feeling well and getting back to normal. OBJECTIVE: VITAL SIGNS: Please see below GENERAL: She is a frail, elderly female laying in bed she does not a ppear to be in any acute distress HEENT: There does appear to be some elevation in her central venous pressure (CVP). Cranial nerves grossly intact CARDIOVASCULAR EXAM: S1, S2, regular. RESPIRATORY EXAM: Diminished at the bases but good air movement ABDOMINAL EXAM: Obese. EXTREMITIES: There is trace edema bilaterally L>R, immature Lt arm fistula LABORATORY STUDIES: Please see below. She did have a chest x-ray at the time of her admission that revealed congestive heart failure (CHF) pattern. ASSESSMENT AND PLAN: This is an 83-year-old female admitted with decompensated congestive heart failure. 1. Decompensated Congestive Heart Failure: She is significantly improved at this time. Looking back in her records, we do have an echocardiogram from April of 2018. At that time, she was known to have borderline concentric hypertrophy, borderline left atrial enlargement, dilation of the right heart chambers. My suspicion is for decompensated diastolic congestive heart failure in the setting of chronic kidney disease. Nephrology help greatly appreciated. Patient is on a fluid restriction undergoing IV diuresis, will attempt to wean O2. Will monitor daily weights and intake and output. Patient will be continued on her beta tonja. 2. Chronic kidney disease as outlined above. Nephrology consult will be placed. Appears to be worsening with diuresis but clinically the patient is improving. She has an immature fistula and may progress to needing HD in the near future, doing well otherwise at this time. 3. History of coronary artery disease. The patient is on aspirin and beta tonja therapy, as well as a statin. 4. History of an irregular heart rhythm, and the patient is on amiodarone chronically as an outpatient; this will be continued. 5. Gout. The patient will be continued on allopurinol. 6. Iron deficiency anemia and CKD. She is continued on supplementation. Nephrology help appreciated 7. Gastroesophageal reflux disease. She is continued on omeprazole. 8. Deep vein thrombosis (DVT) prophylaxis. The patient is on heparin. DISPOSITION: Pending OT and monitoring of her renal function VS, I&O, 24H, Fishbone Vital Signs/I&O Vital Signs Date Time Temp Pulse Resp B/P (MAP) Pulse Ox O2 Delivery O2 Flow Rate FiO2 07/21/18 10:00 70 125/50 07/21/18 06:00 97.9 20 96 2.0 07/18/18 17:15 Nasal Cannula I&O- Last 24 Hours up to 6 AM 07/21/18 06:00 Intake Total 1440 ml Output Total 1600 ml Balance -160 ml Laboratory Data 24H LABS Laboratory Tests 2 07/20/18 17:42: Urine Color YELLOW, Urine Appearance CLEAR, Urine pH 6.0, Urine Specific [place] 1.004, Urine Protein NEGATIVE, Urine Glucose (UA) NEGATIVE, Urine Ketones NEGATIVE, Urine Blood NEGATIVE, Urine Nitrite NEGATIVE, Urine Bilirubin NEGATIVE, Urine Urobilinogen 0.2, Urine Leukocyte Esterase TRACEH, Urine WBC (Auto) 4H, Urine RBC (Auto) 2, Urine Hyaline Casts (Auto) 0, Urine Bacteria (Auto) 1+H, Urine Squamous Epithelial Cells 2, Urine Mucus (Auto) SMALL, Urine Sperm (Auto) 07/21/18 06:18: Nucleated Red Blood Cells % (auto) 0.0, Anion Gap 7L, Glomerular Filtration Rate 15.7L, Blood Urea Nitrogen 41H, Creatinine 3.01H, Sodium Level 133L, Potassium Level 4.0, Chloride Level 93L, Carbon Dioxide Level 33H, Calcium Level 8.7L 07/21/18 10:09: Estimated Mean Plasma Glucose 197H, Hemoglobin A1c 8.5 CBC/BMP Laboratory Tests 07/21/18 06:18 Red Blood Count 2.94 L, Mean Corpuscular Volume 91.5, Mean Corpuscular Hemoglobin 29.9, Mean Corpuscular Hemoglobin Concent 32.7, Red Cell Distribution Width 14.4, Calcium Level 8.7 L Microbiology Microbiology 07/20/18 Urine Culture, Received Pending JUAN F LANDRY MD Jul 21, 2018 11:14
[2018-07-21] MEDS ORDERED: IRON SUCROSE 100MG 5ML VIAL (J1756 PER 1MG) IV SCH (12:15)
[2018-07-21 14:00] VITALS: BP 110/54
[2018-07-21] MEDS ORDERED: IRON SUCROSE 25 MG in NS 50 ML IV ONE (14:00)
[2018-07-21] MEDS ORDERED: IRON SUCROSE 200 MG in NS 100 ML OVER 1 HR IV SCH (15:30)
[2018-07-21] MEDS: SIMVASTATIN 20 MG TAB PO SCH (21:15)
[2018-07-21 22:00] VITALS: BP 118/56
[2018-07-22] MEDS ORDERED: FUROSEMIDE 100 MG/10 ML VIAL (J1940) IV SCH
[2018-07-22 06:00] VITALS: BP 125/58
[2018-07-22 06:55] LABS: HEMATOCRIT 25.3 % (36.0-47.0); HEMOGLOBIN 8.1 g/dl (12.0-15.5); MEAN CORPUSCULAR HEMOGLOBIN 29.3 pg (27.0-33.0); MEAN CORPUSCULAR VOLUME 91.7 fl (80.0-96.0); PLATELET COUNT, AUTOMATED 241 10^3/uL (150-450); RED BLOOD COUNT 2.76 10^6/uL (4.00-5.40); WHITE BLOOD COUNT 4.8 10^3/uL (4.0-10.0)
[2018-07-22 07:12] LABS: CALCIUM LEVEL 8.2 MG/DL (8.8-10.2); CREATININE FOR GFR 3.05 MG/DL (0.55-1.30); GLOMERULAR FILTRATION RATE 15.5 (>32); POTASSIUM SERUM 4.3 MEQ/L (3.5-5.1)
--- NOTE | 2018-07-22 07:18 | IPN ---
DATE: 07/21/2018 SUBJECTIVE: Patient was seen and examined at the bedside today morning. She is afebrile, hemodynamically stable. She reports that her shortness of breath is getting better. She has good urine output, however, with the high dose of diuretics her renal function is getting worse. Creatinine has bumped up to 3 today. She denies any active complaints at this point. OBJECTIVE: VITAL SIGNS: Temperature is 97.9 degrees Fahrenheit, blood pressure 125/50, pulse is 70, respiratory rate of 20, saturating 96% on nasal cannula, 2 liters. Intake and output: Urine output recorded as 1.1 liter yesterday, 700 mL so far today since overnight. Weight on the bed scale is not available. PHYSICAL EXAMINATION: GENERAL: The patient is awake, alert and oriented times three. Sitting up in the bed. No apparent distress. HEAD/NECK: Extraocular muscles intact. Pupils equally round and reactive to light. Mucous membranes are moist. Jugular venous distention (JVD) is mildly dilated. CARDIOVASCULAR: S1, S2, regular rate. No edema of the lower extremities. RESPIRATORY: Mildly decreased breath sounds at the bases, otherwise no rales or rhonchi. ABDOMEN: Soft. Positive bowel sounds. Nontender. No organomegaly. MUSCULOSKELETAL: Patient has clubbing of fingernails. There is no cyanosis of the extremities. CENTRAL NERVOUS SYSTEM: No focal deficit. Power is 5/5 in all extremities. LAB REVIEW: CBC showed a WBC of 4.8, hemoglobin 8.8, platelets are 212. Urinalysis done yesterday showed no proteinuria. No hematuria. BMP done today showed sodium 133, potassium 4, chloride 93, bicarbonate 33, BUN 41, creatinine is 3. CURRENT INPATIENT MEDICATIONS: Patient's medications are all reviewed by me. I have started the patient on IV Venofer 200 mg every 48 hourly. I have decreased the furosemide dose to 60 mg IV every 12 hourly. Potassium dose has been decreased to 20 mEq by mouth twice a day. No other change in the medications today as compared with yesterday. ASSESSMENT AND PLAN: 1. Acute kidney injury superimposed on chronic kidney disease, stage IV. Acute kidney injury (RUTHY) secondary to aggressive diuresis. Patient is in negative fluid balance for the last 3 days. I have decreased the Lasix dose to 60 mg IV twice a day with holding parameters. Patient has left upper arm arteriovenous (AV) fistula which is not ready for use. There is no urgent need of dialysis at this point since electrolytes are within the acceptable range and acid base level is acceptable. 2. Acute decompensated diastolic congestive heart failure. Patient's latest echocardiogram shows left ventricle (LV) ejection fraction of around 60 to 65%. She came in with congestive heart failure (CHF) exacerbation. She is being diuresed as mentioned above. Lasix dose has been decreased. Once her volume status is optimal, I will switch her to oral diuretics. I have decreased the potassium dose as well because Lasix dose has been decreased. Continue current dose of Coreg 25 mg by mouth twice a day. 3. Iron deficiency anemia. I have started the patient on IV Venofer injections, 200 mg every 48 hourly.
[2018-07-22] MEDS: AMIODARONE 200 MG TAB (PACERONE) PO SCH ×2 (08:27→21:22)
[2018-07-22] MEDS: CYANOCOBALAMIN 500 MCG TAB PO SCH (08:27)
[2018-07-22] MEDS: HEPARIN SOD (PORCINE) 5000 UNITS/ML VIAL SQ SCH ×2 (08:27→21:17)
[2018-07-22] MEDS: OMEPRAZOLE 20 MG CAP PO SCH (08:28)
[2018-07-22] MEDS: FERROUS SULFATE 325MG TAB PO SCH ×2 (08:28→21:22)
[2018-07-22] MEDS: POTASSIUM CHLORIDE 10 MEQ SR TABLET PO SCH ×2 (08:28→21:22)
[2018-07-22] MEDS: ALLOPURINOL 300 MG TAB PO SCH (08:28)
[2018-07-22] MEDS: ASPIRIN 81 MG ENTERIC TAB PO SCH (08:28)
[2018-07-22] MEDS: CARVedilol 12.5 MG TAB PO SCH ×2 (08:29→21:20)
[2018-07-22] MEDS ORDERED: DARBEPOETIN 100 MCG/0.5 ML *NON-DIALYSIS* SYRINGE (J0881) SQ SCH (09:00)
[2018-07-22] MEDS: TORSEMIDE 20 MG TAB PO SCH ×2 (13:25→17:56)
[2018-07-22 14:00] VITALS: BP 124/56
--- NOTE | 2018-07-22 15:53 | IPNPDOC ---
Date Seen The patient was seen on 07/22/18. Progress Note SUBJECTIVE: The patient tells me she is feeling well and getting back to normal.that her breathing is back to normal, this is as much oxygen as she always uses. VITAL SIGNS: Please see below GENERAL: She is a frail, elderly female laying in bed she does not appear to be in any acute distress HEENT: There does appear to be some elevation in her central venous pressure (CVP). Cranial nerves grossly intact CARDIOVASCULAR EXAM: S1, S2, regular. RESPIRATORY EXAM: Diminished at the bases but good air movement ABDOMINAL EXAM: Obese. BS+ EXTREMITIES: There is trace edema bilaterally L>R, immature Lt arm fistula LABORATORY STUDIES: Please see below. She did have a chest x-ray at the time of her admission that revealed congestive heart failure (CHF) pattern. ASSESSMENT AND PLAN: This is an 83-year-old female admitted with decompensated congestive heart failure. 1. Decompensated Congestive Heart Failure: She is significantly improved at this time, she is approaching euvolemia I agree with switching her diuretics to by mouth. Looking back in her records, we do have an My suspicion is for decompensated diastolic congestive heart failure in the setting of chronic kidney disease. Nephrology help greatly appreciated. Patient is on a fluid restriction she is at her baseline respiratory status 2. Chronic kidney disease as outlined above. Renal function stable as we have tapered down her diuresis but does appear to be some concerns regarding her fistula and a vascular surgery consultation has been placed she may be progressing to dialysis in the near future at this time there is no urgent need for dialysis 3. History of coronary artery disease. The patient is on aspirin and beta tonja therapy, as well as a statin. 4. History of an irregular heart rhythm, and the patient is on amiodarone chronically as an outpatient; this will be continued. 5. Gout. The patient will be continued on allopurinol. 6. Iron deficiency anemia and CKD. She is continued on supplementation. Nephrology help appreciated 7. Gastroesophageal reflux disease. She is continued on omeprazole. 8. Deep vein thrombosis (DVT) prophylaxis. The patient is on heparin. 9. Diabetes mellitus: I'll start her finger 6 sliding scale she does have an elevated hemoglobin A1c DISPOSITION: Pending OT and evaluation of her fistula possibly home within the next 24-48 hours VS, I&O, 24H, Fishbone Vital Signs/I&O Vital Signs Date Time Temp Pulse Resp B/P (MAP) Pulse Ox O2 Delivery O2 Flow Rate FiO2 07/22/18 12:00 2.0 07/22/18 08:29 67 125/58 07/22/18 06:00 98.8 18 96 07/18/18 17:15 Nasal Cannula I&O- Last 24 Hours up to 6 AM 07/22/18 06:00 Intake Total 810 ml Output Total 1475 ml Balance -665 ml Laboratory Data 24H LABS Laboratory Tests 2 07/22/18 05:56: Nucleated Red Blood Cells % (auto) 0.0, Anion Gap 9, Glomerular Filtration Rate 15.5L, Blood Urea Nitrogen 43H, Creatinine 3.05H, Sodium Level 135L, Potassium Level 4.3, Chloride Level 95L, Carbon Dioxide Level 31, Calcium Level 8.2L CBC/BMP Laboratory Tests 07/22/18 05:56 Red Blood Count 2.76 L, Mean Corpuscular Volume 91.7, Mean Corpuscular Hemoglobin 29.3, Mean Corpuscular Hemoglobin Concent 32.0, Red Cell Distribution Width 14.7 H, Calcium Level 8.2 L Microbiology Microbiology 07/20/18 Urine Culture - Final, Complete Strep Agalactiae Group B JUAN F LANDRY MD Jul 22, 2018 15:53
[2018-07-22] MEDS ORDERED: GLUCAGON FOR INJ 1 MG VIAL (J1610) SC PRN (16:00)
[2018-07-22] MEDS ORDERED: DEXTROSE 50% 50 ML SYRINGE IV PRN (16:00)
[2018-07-22] MEDS ORDERED: GLUCOSE 4 GM CHEW TABLET PO PRN (16:00)
[2018-07-22] MEDS: HumaLOG INSULIN (NovoLOG) PER UNIT SC SCH (17:58)
--- NOTE | 2018-07-22 18:44 | IPN ---
DATE: 07/22/2018 SUBJECTIVE: Patient was seen and examined at the bedside today morning. She reports her shortness of breath is better. She denies any active complaints. She continues to be on IV diuretics. Renal function is stable. Creatinine is fluctuating at around 3. Her son was also present at the bedside. Patient denies any nausea or vomiting. She does report mild persistent lower extremity edema. OBJECTIVE: VITAL SIGNS: Temperature is 98.8 degrees Fahrenheit, blood pressure 125/58, pulse 67, respiratory rate of 18, saturating 96% on nasal cannula at 2 liters. Intake and output: Urine output recorded is 2.1 liters yesterday, 50 mL so far today since overnight. Weight in the bed scale is not available. PHYSICAL EXAMINATION: GENERAL: Patient is awake, alert, oriented times three, sitting up in the bed, no apparent distress. HEAD and NECK EXAM: Extraocular muscles intact. Pupils equally round and reactive to light. Patient is wearing nasal cannula. Neck is supple. There is mildly elevated jugular venous distention (JVD). CARDIOVASCULAR: S1, S2, regular rate. Trace edema of the bilateral lower extremities. RESPIRATORY: Mildly decreased breath sounds at the bases, otherwise no active rales or rhonchi. ABDOMEN: Soft, positive bowel sounds, nontender. No organomegaly. MUSCULOSKELETAL: He has clubbing of the fingernails, otherwise no cyanosis of the extremities. CENTRAL NERVOUS SYSTEM ([employer]): No focal deficit. Power is 5/5 in bilateral upper extremities. LABORATORY REVIEW: CBC showed WBC 4.8, hemoglobin 8.1, platelets 241. BMP showed sodium 135, potassium 4.3, chloride 95, bicarbonate 31, BUN 43, creatinine 3.05, calcium is 8.2. CURRENT INPATIENT MEDICATIONS: Patient's medications were all reviewed by me. Patient continues to be on IV Venofer injections every 48 hours. I have stopped the IV furosemide and I have started the patient on torsemide 40 mg by mouth twice a day. She continues to be on potassium chloride 20 mEq by mouth twice a day. ASSESSMENT AND PLAN: 1. Acute renal failure superimposed on chronic kidney disease stage IV. Patient's creatinine has been fluctuating at 3. Her calculated creatinine clearance for her age and weight is around 13. I have discussed with patient and her son at the bedside given her recurrent admissions and congestive heart failure (CHF) and multiple symptoms, it would be better to start this patient on hemodialysis. She has a left upper arm arteriovenous (AV) fistula which is not mature and ready for use. I have requested vascular surgery to reevaluate the fistula and see if she needs a fistulogram and if he can make it ready for use. There is no urgent need to start the hemodialysis right at this moment, however I would advise that this patient should start hemodialysis sooner than later. Patient will discuss this with her family and let me know over the next 24 hours. 2. Acute decompensated diastolic congestive heart failure. Patient's volume status is significantly better. I cut down the diuretic dose yesterday, now I am switching her diuretics to oral torsemide 40 mg by mouth twice a day. Continue current dose of Coreg and potassium chloride. Given her recurrent congestive heart failure (CHF) which is most likely because of impaired kidney function, I recommend starting the dialysis earlier. 3. Iron deficiency anemia. Patient is getting IV Venofer infusions. Hemoglobin is 8.1. I am also starting her on Aranesp injections. 4. Chronic gout secondary to chronic kidney disease. Continue current dose of allopurinol 150 mg by mouth daily.
[2018-07-22] MEDS ORDERED: HumaLOG INSULIN (NovoLOG) PER UNIT SC SCH (21:00)
[2018-07-22] MEDS: SIMVASTATIN 20 MG TAB PO SCH (21:22)
[2018-07-22 22:00] VITALS: BP 121/62
[2018-07-23 02:00] VITALS: BP 118/66
[2018-07-23 06:00] VITALS: BP 105/47
[2018-07-23] MEDS ORDERED: cefTRIAXone SOD 1 GM in D5W MINI-BAG PLUS 50 ML IV SCH (06:00)
[2018-07-23 06:17] LABS: HEMATOCRIT 27.6 % (36.0-47.0); HEMOGLOBIN 8.9 g/dl (12.0-15.5); MEAN CORPUSCULAR HEMOGLOBIN 29.4 pg (27.0-33.0); MEAN CORPUSCULAR HGB CONC 32.2 g/dl (32.0-36.5); MEAN CORPUSCULAR VOLUME 91.1 fl (80.0-96.0); PLATELET COUNT, AUTOMATED 277 10^3/uL (150-450); RED BLOOD COUNT 3.03 10^6/uL (4.00-5.40); WHITE BLOOD COUNT 5.7 10^3/uL (4.0-10.0)
[2018-07-23 06:43] LABS: CALCIUM LEVEL 8.4 MG/DL (8.8-10.2); CREATININE FOR GFR 2.94 MG/DL (0.55-1.30); GLOMERULAR FILTRATION RATE 16.2 (>32); POTASSIUM SERUM 4.3 MEQ/L (3.5-5.1)
[2018-07-23] MEDS: ALLOPURINOL 300 MG TAB PO SCH (08:23)
[2018-07-23] MEDS: CYANOCOBALAMIN 500 MCG TAB PO SCH (08:23)
[2018-07-23] MEDS: ASPIRIN 81 MG ENTERIC TAB PO SCH (08:23)
[2018-07-23] MEDS: TORSEMIDE 20 MG TAB PO SCH (08:24)
[2018-07-23 08:25] VITALS: BP 105/47
[2018-07-23] MEDS: FERROUS SULFATE 325MG TAB PO SCH (08:25)
[2018-07-23] MEDS: CARVedilol 12.5 MG TAB PO SCH (08:25)
[2018-07-23] MEDS: OMEPRAZOLE 20 MG CAP PO SCH (08:25)
[2018-07-23] MEDS: POTASSIUM CHLORIDE 10 MEQ SR TABLET PO SCH (08:25)
[2018-07-23] MEDS: AMIODARONE 200 MG TAB (PACERONE) PO SCH (08:25)
[2018-07-23] MEDS: HEPARIN SOD (PORCINE) 5000 UNITS/ML VIAL SQ SCH (08:26)
[2018-07-23] MEDS: HumaLOG INSULIN (NovoLOG) PER UNIT SC SCH (08:26)
[2018-07-23] MEDS: DIAPER RELIEF PASTE (DESITIN) 60GM TOP SCH (08:27)
--- NOTE | 2018-07-23 09:13 | CR.PDOC ---
General Date of Consultation: Jul 23, 2018 Consultation Vascular Surgery: Dr Rose. CONSULTATION REPORT FOR: Dr Schaeffer REASON FOR CONSULTATION: Senia HINDS AVF. HPI: 83year oldF admitted with congestive heart failure with several hospitaliza tions this year. Most recently 06/23 to 06/29/2018 for congestive heart failure and COPD exacerbation. She has stage IV chronic kidney disease and is followed by parts salesman for CKD4. During admission there has been concerns regarding her LUE fistula therefore vascular surgery consultation was placed as the pt may be progressing to dialysis in the near future. No acute medical complaints today. The pt is OOB to chair. Denies any fevers, chills, weakness, fatigue, Headache, Chest Pain, Shortness of breath, cough, palpitations, abdominal pain, N/V/D or changes in bowel or bladder habits. PAST MEDICAL HISTORY: COPD, is on chronic supplemental oxygen at 2 liters nasal cannula. History of congestive heart failure. Her packaging clerk is Dr. Rios. Her most recent echocardiogram was from 04/2018, ejection fraction is 60 to 65%, impaired left ventricle (LV) diastolic function, dilated right-sided chambers, at least mild pulmonary hypertension, moderate mitral insufficiency suggested. History of gout. Secondary hyperparathyroidism stage IV chronic kidney disease. Type 2 diabetes, hyperlipidemia, gastroesophageal reflux disease (GERD), coronary artery disease, diabetic neuropathy. PAST SURGICAL HISTORY: AV fistula LUE bronchoscopy. SOCIAL HISTORY: She is an ex-smoker. Quit 20 years ago. No alcohol use. Lives at home with her and son. Code status is FULL CODE. FAMILY HISTORY: Both parents of cardiac events. ROS: As noted in HPI, otherwise 11pt ROS of systems reviewed and unremarkable. PE: GEN: 83yoF, appears stated age. Thin appearing. Alert and oriented x 3. HEENT: Normocephalic, atraumatic. Sclera are nonicteric. Conjunctiva without injection. No facial asymmetry. Moist mucous membranes. CHEST: Regular rate and rhythm, +S1, +S2 LUNGS: Clear to auscultation bilaterally. No wheezes, rales, or rhonchi. Breathing appears symmetric and easy. ABD: Round, soft, non-tender, non-distended. +Bowel sounds throughout. SKIN: Edmund, dry, warm.No rashes. Ext: There is AV fistula noted LUE with holosystolic thrill. NEURO: Alert and oriented x 3. No focal deficits appreciated. A&P: 83year oldF admitted with congestive heart failure with several hospitalizations this year. Most recently 06/23 to 06/29/2018 for congestive heart failure and COPD exacerbation. She has stage IV chronic kidney disease and is followed by parts salesman for CKD4. During admission there has been concerns regarding her LUE fistula therefore vascular surgery consultation was placed as the pt may be progressing to dialysis in the near future. 1. LUE AVF. The pt is reviewed and examined as per Dr Rose. Plan is for Fistulogram later today in preparation for HD likely in the near future. NPO after lunch. Relayed to Dr Brunner. 2. CKD4. Nephrology managing. 3. CHF. PO Torsemide as per Nephrology. 4. Fe def anemia. IV Aranesp/Venofer as per Nephrology. 5. HLD. Zocor. 6. CAD. ASA/Coeg/Statin. 7. H/O irreg rhythm. Pt on Amiodarone. Thank you for your consultation. We will continue to follow along with you. Vital Signs/I&O Vital Signs Date Time Temp Pulse Resp B/P (MAP) Pulse Ox O2 Delivery O2 Flow Rate FiO2 07/23/18 08:25 80 105/47 07/23/18 06:00 97.6 20 96 2.0 07/18/18 17:15 Nasal Cannula I&O- Last 24 Hours up to 6 AM 07/23/18 06:00 Intake Total 1500 ml Output Total 850 ml Balance 650 ml Laboratory Data Labs 24H Laboratory Tests 2 07/22/18 16:49: Bedside Glucose (Misc Panel) 207H 07/22/18 22:13: Bedside Glucose (Misc Panel) 145H 07/23/18 05:30: Nucleated Red Blood Cells % (auto) 0.0, Anion Gap 8, Glomerular Filtration Rate 16.2L, Blood Urea Nitrogen 44H, Creatinine 2.94H, Sodium Level 134L, Potassium Level 4.3, Chloride Level 95L, Carbon Dioxide Level 31, Calcium Level 8.4L CBC/BMP Laboratory Tests 07/23/18 05:30 Red Blood Count 3.03 L, Mean Corpuscular Volume 91.1, Mean Corpuscular Hemoglobin 29.4, Mean Corpuscular Hemoglobin Concent 32.2, Red Cell Distribution Width 14.5, Calcium Level 8.4 L Microbiology Microbiology 07/20/18 Urine Culture - Final, Complete Strep Agalactiae Group B Allergies Coded Allergies: bee venom protein (honey bee) (Verified Allergy, Severe, 07/18/18) Penicillins (Verified Allergy, Intermediate, 07/18/18) Home Medications Scheduled (Hydrofera Blue Foam Dress) 1 Pad Pad, 1 PAD TOP DAILY, (Reported) APPLY TO FOOT Allopurinol (Zyloprim) 300 Mg Tab, 150 MG PO DAILY, (Reported) Amiodarone HCl (Amiodarone HCl) 200 Mg Tab, 200 MG PO BID, (Reported) Amlodipine Besylate (Amlodipine Besylate) 10 Mg Tab, 10 MG PO DAILY, (Reported) Aspirin (Aspirin 81) 81 Mg Tab, 81 MG PO DAILY, (Reported) Calcitriol (Calcitriol) 0.25 Mcg Cap, 0.25 MCG PO DAILY, (Reported) Carvedilol (Carvedilol) 25 Mg Tab, 25 MG PO BID, (Reported) Cyanocobalamin (Vitamin B12) 1,000 Mcg Tab, 1,000 MCG PO DAILY, (Reported) Ferrous Sulfate (Ferrous Sulfate) 325 Mg Tab, 325 MG PO BID, (Reported) Glipizide (Glipizide Xl) 10 Mg Tab, 10 MG PO BID, (Reported) Linagliptin Base (Tradjenta) 5 Mg Tab, 5 MG PO DAILY, (Reported) Magnesium Oxide (Magnesium Oxide 400) 400 Mg Tab, 400 MG PO 3XW, (Reported) TAKES MONDAY, MONDAY AND MONDAY Omeprazole (Omeprazole) 20 Mg Tab, 20 MG PO DAILY, (Reported) Simvastatin (Simvastatin) 20 Mg Tab, 20 MG PO QHS, (Reported) Torsemide (Torsemide) 10 Mg Tab, 30 MG PO BID, (Reported) TAKES AT 0900/1700 Vitamin D (Drisdol) 50,000 Unit Cap, 50,000 UNIT PO 1XWK, (Reported) TAKES ON FRIDAYS Nirali Pierce Jul 23, 2018 09:13
[2018-07-23] MEDS ORDERED: BUPIVACAINE HCL 0.5% 10 ML VIAL As Ordered ONE (10:09)
[2018-07-23] MEDS ORDERED: LIDOCAINE 2% MDV 20 ML VIAL As Ordered ONE (10:10)
[2018-07-23] MEDS ORDERED: ISOVUE-300 61% 100ML VIAL (Q9967) As Ordered ONE (10:10)
[2018-07-23] MEDS ORDERED: MIDAZOLAM INJ 2 MG/2 ML VIAL (J2250) As Ordered ONE (10:34)
[2018-07-23] MEDS ORDERED: fentaNYL 100 MCG/2 ML INJECTION (J3010) As Ordered ONE (10:34)
[2018-07-23 11:15] LABS: HEPATITIS B CORE ANTIBODY IGM NEGATIVE (NEGATIVE); HEPATITIS B SURFACE ANTIBODY NEGATIVE (POSITIVE); HEPATITIS B SURFACE ANTIGEN NEGATIVE (NEGATIVE); HEPATITIS C VIRUS ABY INDEX 0.1 INDEX (<0.8); PTH INTACT 58.7 PG/ML (18.5-88.0)
[2018-07-23] MEDS ORDERED: KLOR10TA76 PO (11:34)
[2018-07-23] MEDS ORDERED: TORS20TA2 PO (11:34)
--- NOTE | 2018-07-23 12:37 | IPN ---
DATE OF SERVICE: 07/23/2018 SUBJECTIVE: The patient feels better. She denies any shortness of breath. There is no significant improvement in renal function. Creatinine has been fluctuating close to 3. The patient was discussed with the vascular surgery yesterday. She has left upper arm AV fistula, which has not matured. She is going for angiogram of the left upper arm AV fistula today. OBJECTIVE: VITAL SIGNS: Temperature is 97.6 degrees Fahrenheit, blood pressure 105/47, pulse is 80, respiratory rate of 20, saturating 96% on 2 liters via nasal cannula. INTAKE AND OUTPUT: Urine output recorded is 800 mL yesterday, 120 mL so far today since overnight. Weight in the bed scale is not available. PHYSICAL EXAMINATION: GENERAL: The patient is awake, alert, oriented times three, sitting up in the bed, no apparent distress. HEAD AND NECK EXAMINATION: Extraocular muscles intact. Pupils equally round and reactive to light. She is wearing nasal cannula. Jugular venous distention (JVD) is mildly elevated. CARDIOVASCULAR: S1, S2, regular rate. Trace edema of the bilateral lower extremities. RESPIRATORY: Mildly decreased breath sounds at the bases, otherwise no active rales or rhonchi. ABDOMEN: Soft, positive bowel sounds, nontender. No organomegaly. MUSCULOSKELETAL: She has clubbing of the fingernails. She has trace edema on the bilateral lower extremities, which is tender to palpation. CENTRAL NERVOUS SYSTEM (ROLL CHANGER): No focal deficit. Power is 5/5 in bilateral upper extremities. LABORATORY REVIEW: Complete blood count (CBC) showed a WBC of 5.7, hemoglobin 8.9, platelets are 277. Basic metabolic profile (BMP) showed sodium 134, potassium 4.3, chloride 95, bicarbonate 31, BUN 44, creatinine is 2.9, calcium is 8.4. CURRENT INPATIENT MEDICATIONS: The patient's medications were all reviewed by me. She was given a dose of Rocephin, which has been stopped now. She was started on torsemide 40 mg by mouth twice a day. No other change in medications today as compared with yesterday. ASSESSMENT AND PLAN: 1. Acute renal failure superimposed on chronic kidney disease stage IV. The patient's calculated creatinine clearance is around 13-14. I advised the patient to start hemodialysis. However, her left upper arm AV fistula is not mature yet. She is going for fistulogram today. I discussed with the son again, and they have not yet decided about the renal replacement therapy. If the patient refuses to start dialysis during this admission, then she will be followed up as outpatient. 2. Acute decompensated diastolic congestive heart failure. It is secondary to progressively worsening renal function. She was on torsemide 30 mg by mouth twice a day at home. I have increased the dose to 40 mg by mouth twice a day. Continue current dose of potassium chloride, as well. It will be more and more difficult to optimize the volume status of this patient since she is not responding very well to higher dose of diuretic, and she needs to initiate hemodialysis. 3. Iron-deficiency anemia. The patient got the intravenous (IV) Venofer injection. Hemoglobin is improving. I am going to hold off on starting Aranesp at this point. 4. Chronic gout secondary to chronic kidney disease. Continue current dose of allopurinol 150 mg by mouth daily. 5. Malfunctioning of the left upper arm AV fistula. The patient's fistula is almost a year old, and it has not matured so far. She is going for a fistulogram with vascular surgery today. DONALDOD
--- NOTE | 2018-07-23 15:00 | DSES ---
DATE OF ADMISSION: 07/18/2018 DATE OF DISCHARGE: 07/23/2018 DISCHARGE DIAGNOSIS: Decompensated congestive heart failure. SECONDARY DIAGNOSES: Malfunctioning fistula. Chronic kidney disease. Coronary artery disease. Irregular heart rhythm. Gout. Iron-deficiency anemia. Gastroesophageal reflux disease. Diabetes mellitus. HOSPITAL COURSE: The patient is an 83-year-old female who was admitted with decompensated heart failure related to her renal disease. She was actively diuresed with intravenous (IV) diuretics and did improve quite well. Renal function did worsen while she was undergoing diuresis. There has been suspicion that she may be progressing to hemodialysis and, as such, she has already had a fistula in place. It was not mature and, as such, she did have a fistulogram on the day of discharge. Subjectively, today the patient tells me she is breathing back to normal. She chronically uses 2 liters at her baseline. She has no complaints at this time and is eager to go home. She has been cleared by physical therapy and occupational therapy. OBJECTIVE: VITAL SIGNS: Temperature 97.6, pulse 80, respiratory 20, blood pressure 105/47, oxygen saturation 96% on 2 liters. GENERAL: She is a very pleasant, frail, elderly female lying on her right side. She does not appear to be in any acute distress. HEENT: Cranial nerves III-XII are grossly intact. She is wearing bifocal lenses. She is wearing nasal cannula. No elevation of her central venous pressure (CVP). CARDIOVASCULAR EXAM: S1, S2, regular. RESPIRATORY EXAM: Is clear. ABDOMINAL EXAM: Is benign. EXTREMITIES: No clubbing, cyanosis, or significant edema. LABORATORY STUDIES: WBC 5.7, hemoglobin 8.9, platelet count 277. Chemistry panel: Sodium 134, potassium 4.3, chloride 95, bicarbonate 31, BUN 44, creatinine 2.9. UA was fairly unremarkable. She did have a urine culture that was less than 100,000 colony forming units of group B streptococcus. ASSESSMENT AND PLAN: This is an 83-year-old female with decompensated congestive heart failure secondary to renal disease, significantly improved, and she is euvolemic following diuresis. She has been transitioned to higher by mouth diuretic dose. Nephrology's help is greatly appreciated. Her blood pressure is well controlled with carvedilol and torsemide. She is on amlodipine. Irregular heart rhythm. She is to continue on her home amiodarone. Chronic kidney disease. She is on calcitriol. Her renal function did worsen while she was here undergoing diuresis. She was seen by nephrology. Her diuretics were tapered up. She did have a fistulogram. She will followup with nephrology and vascular surgery outpatient as needed. Iron-deficiency anemia and anemia of chronic kidney disease. She is on ferrous sulfate. Nephrology help is greatly appreciated. Diabetes. She was on sliding scale while hospitalized. She will resume her oral agents and she will resume her home regimen upon discharge. Gastroesophageal reflux disease. She is to continue on omeprazole. B12 and vitamin D deficiencies. Continue supplementation. History of gout. She is continued on allopurinol. History of coronary artery disease. She is continued on aspirin and beta tonja, and a statin. No active issue during this hospitalization. DISPOSITION: She is at her baseline respiratory status. She is to followup with her primary care provider (PCP) within 7 days, nephrology within 2 weeks. Her activity is as tolerated. Her diet is as prior to admission. She is to return to the emergency room (ER) if symptoms worsen. MEDICATIONS AT THE TIME OF DISCHARGE: - potassium chloride 20 mEq twice a day - torsemide 40 mg twice a day - allopurinol 150 mg daily - amiodarone 200 mg twice a day - amlodipine 10 mg daily - aspirin 81 mg daily - calcitriol 0.25 mcg daily - carvedilol 25 mg twice a day - vitamin B12 1000 mcg daily - vitamin D2 50,000 units once a week - glipizide extended release 10 mg twice a day - Tradjenta 5 mg daily - magnesium oxide 400 mg three times a week, Monday, Monday, Monday - omeprazole 20 daily - simvastatin 20 mg nightly 45 minutes spent organizing disposition and safe discharge.
--- NOTE | 2018-08-22 07:46 | REPIR ---
DATE OF PROCEDURE: 07/23/2018 ATTENDING SURGEON: Dr. Shanti Rose EASEMENT WORKER: Olga Hay and Rufina Mcgovern PREOPERATIVE DIAGNOSES: Chronic renal insufficiency nearing end-stage renal disease, dysfunctional left brachiocephalic arteriovenous fistula. POSTOPERATIVE DIAGNOSES: Chronic renal insufficiency nearing end-stage renal disease, dysfunctional left brachiocephalic arteriovenous fistula. PROCEDURE: Left brachiocephalic arteriovenous fistulogram, left retrograde brachial artery angiogram, left cephalic vein angioplasty with 3 x 200, 4 x 100, and 5 x 100 mm balloons. INDICATION: The patient is a 83-year-old female with chronic renal insufficiency who underwent creation of a left brachiocephalic arteriovenous fistula which is non-maturing. The patient will undergo a fistulogram with possible angioplasty stent and/or atherectomy. Risks, benefits and alternative options were discussed with the patient. ANESTHESIA: Local with 10 mL of 2% lidocaine mixed with 0.5% Marcaine. FLUORO TIME: 3.1 minutes. CONTRAST: 2 mL of Isovue-300. HEPARIN: None. COMPLICATIONS: None. DRAINS: None. SPECIMEN: None. IMPLANTS: None. PROCEDURE: The patient was taken to the angiography suite, placed supine on the angiography room table and the left brachiocephalic arteriovenous fistula was cannulated. A fistulogram showed stenosis in the cephalic vein along its course. The cephalic vein was then angioplasty with a 3 x 200, 4 x 100, and 5 x 100 balloons with a completion fistulogram showing resolution of the stenoses with good flow through the fistula. Catheters and wires removed. The sheath was removed and a 2-0 Prolene suture was placed at the puncture site for hemostasis. Dressings were then applied. The patient tolerated procedure well. All instrument, sponge, needle counts were correct at the end the case. There were no complications. Dr. Rose was present for and directed the entire case. The patient was transferred to the holding area and subsequently discharged in stable condition.
== END 2018-07-23 13:35 | disposition home health service (06) | DRG 252 ==
LOC: M ED 13:39 → M ED INP 16:17 → M MS5PR 17:29
PROVIDERS: ADMIT Family Medicine; ATTEND Internal Medicine
PROC: 057F3ZZ Dilation of Left Cephalic Vein, Percutaneous Approach (ICD-10-PCS; principal; 2018-07-23)
PROC: B51W1ZZ Fluoroscopy of Dialysis Shunt/Fistula using Low Osmolar Contrast (ICD-10-PCS; 2018-07-23)
DX: I13.0 Hypertensive heart and chronic kidney disease with heart failure and stage 1 through stage 4 chronic kidney disease, or unspecified chronic kidney disease (principal); I50.31 Acute diastolic (congestive) heart failure; N18.4 Chronic kidney disease, stage 4 (severe); N17.9 Acute kidney failure, unspecified; N25.81 Secondary hyperparathyroidism of renal origin; T85.858A Stenosis due to other internal prosthetic devices, implants and grafts, initial encounter; E11.40 Type 2 diabetes mellitus with diabetic neuropathy, unspecified; K21.9 Gastro-esophageal reflux disease without esophagitis; D50.9 Iron deficiency anemia, unspecified; M10.30 Gout due to renal impairment, unspecified site; I25.10 Atherosclerotic heart disease of native coronary artery without angina pectoris; D63.1 Anemia in chronic kidney disease; E55.9 Vitamin D deficiency, unspecified; E53.8 Deficiency of other specified B group vitamins; Z79.899 Other long term (current) drug therapy; Z79.82 Long term (current) use of aspirin; E78.5 Hyperlipidemia, unspecified; Z87.891 Personal history of nicotine dependence; J44.9 Chronic obstructive pulmonary disease, unspecified; M19.90 Unspecified osteoarthritis, unspecified site; Z88.0 Allergy status to penicillin; E87.6 Hypokalemia; I27.20 Pulmonary hypertension, unspecified; I34.0 Nonrheumatic mitral (valve) insufficiency; Y84.8 Other medical procedures as the cause of abnormal reaction of the patient, or of later complication, without mention of misadventure at the time of the procedure

== ENCOUNTER → 2018-08-03 | Outpatient (CLI) | payer MEDICARE, OTHER ==
[~2018-08-03] MED LIST changes: +BUPIVACAINE HCL 0.5% 10 ML VIAL As Ordered ONE; +ISOVUE-300 61% 100ML VIAL (Q9967) As Ordered ONE; +KLOR10TA76 PO; +LIDOCAINE 2% MDV 20 ML VIAL As Ordered ONE; +MIDAZOLAM INJ 2 MG/2 ML VIAL (J2250) As Ordered ONE; +TORS20TA2 PO; +fentaNYL 100 MCG/2 ML INJECTION (J3010) As Ordered ONE
--- NOTE | 2018-08-22 08:49 | REPIR ---
DATE OR PROCEDURE: 08/03/2018 PREOPERATIVE DIAGNOSES: Chronic renal insufficiency nearing end-stage renal disease, CHF, dysfunctional left brachiocephalic arteriovenous fistula. POSTOPERATIVE DIAGNOSES: Chronic renal insufficiency nearing end-stage renal disease, CHF, dysfunctional left brachiocephalic arteriovenous fistula. PROCEDURE: Left brachiocephalic arteriovenous fistulogram, left cephalic vein angioplasty with 4 x 200 balloon. SURGEON: Dr. Shanti Rose. FATBACK TRIMMER: Teer Villatoro and Rufina Mcgovern. ANESTHESIA: Local with 1 mL of 2% lidocaine mixed with 0.5% Marcaine. FLUORO TIME: 1.5 minutes. CONTRAST: 0.5 mL HEPARIN: None. COMPLICATIONS: None. DRAINS: None. SPECIMEN: None. IMPLANTS: None. INDICATION: The patient is 83-year-old female with a left brachiocephalic arteriovenous fistulas which is non-maturing who requires future access for hemodialysis. The patient will undergo fistulogram with possible angioplasty, stent and/or atherectomy. Risks, benefits and alternative options were discussed with the patient. DESCRIPTION OF PROCEDURE: The patient was taken to the angiography suite, placed supine on the angiography table and the left upper extremity was prepped and draped in a standard surgical fashion. The fistula was cannulated and fistulogram performed showing the cephalic vein to be small with multiple areas of narrowing along its course. Cephalic vein was then angioplasty with 4 x 200 balloon with a completion fistulogram showing resolution of the stenoses and improved flow through the fistula. Catheters and wires were removed. The sheath was removed and manual compression applied at the puncture site for hemostasis. Dressings were then applied. The patient tolerated procedure well. All instrument, sponge, needle counts were correct at the end of the case. There were no complications. Dr. Rose was present for and directed the entire case. The patient was transferred to the holding area subsequent discharged in stable condition.
== END | disposition home or self-care (01) ==
LOC: M IRPRO 09:19
PROVIDERS: ATTEND Surgery Vascular Surgery
DX: T82.898A Other specified complication of vascular prosthetic devices, implants and grafts, initial encounter (principal); N18.9 Chronic kidney disease, unspecified; I50.9 Heart failure, unspecified
CPT/HCPCS: 36902; C1725; C1769; C1894; Q9967

== ENCOUNTER → 2018-09-17 | Outpatient (CLI) | payer MEDICARE, OTHER ==
[~2018-09-17] MED LIST changes: -BUPIVACAINE HCL 0.5% 10 ML VIAL As Ordered ONE; -ISOVUE-300 61% 100ML VIAL (Q9967) As Ordered ONE; -LIDOCAINE 2% MDV 20 ML VIAL As Ordered ONE; -MIDAZOLAM INJ 2 MG/2 ML VIAL (J2250) As Ordered ONE; -fentaNYL 100 MCG/2 ML INJECTION (J3010) As Ordered ONE
[2018-09-17 12:01] LABS: BASO # 0.1 10^3/uL (0.0-0.2); BASO % 0.7 % (0.0-1.0); EOS # 0.1 10^3/uL (0.0-0.50); EOS % 1.9 % (0.0-3.0); HEMATOCRIT 33.7 % (36.0-47.0); HEMOGLOBIN 10.3 g/dl (12.0-15.5); LYMPH # 0.9 10^3/uL (1.5-4.5); LYMPH % 12.4 % (24.0-44.0); MEAN CORPUSCULAR HEMOGLOBIN 29.4 pg (27.0-33.0); MEAN CORPUSCULAR HGB CONC 30.6 g/dl (32.0-36.5); MEAN CORPUSCULAR VOLUME 96.3 fl (80.0-96.0); MONO # 0.7 10^3/uL (0.0-0.8); MONO % 10.6 % (0.0-5.0); NEUTROPHILS # 5.1 10^3/uL (1.8-7.7); NEUTROPHILS % 74.1 % (36.0-66.0); PLATELET COUNT, AUTOMATED 227 10^3/uL (150-450); WHITE BLOOD COUNT 6.9 10^3/uL (4.0-10.0)
[2018-09-17 12:54] LABS: ALBUMIN 3.2 GM/DL (3.2-5.2); BILIRUBIN,TOTAL 0.4 MG/DL (0.2-1.0); CREATININE FOR GFR 2.94 MG/DL (0.55-1.30); GLOMERULAR FILTRATION RATE 16.2 (>32); POTASSIUM SERUM 4.1 MEQ/L (3.5-5.1); THYROID STIMULATING HORMONE 28.5 uIU/ML (0.358-3.740); TOTAL PROTEIN 6.7 GM/DL (6.4-8.2)
== END ==
LOC: M LRY 09:24
PROVIDERS: ATTEND Internal Medicine Cardiovascular Disease
DX: I47.1 Supraventricular tachycardia (principal); I50.32 Chronic diastolic (congestive) heart failure; I34.0 Nonrheumatic mitral (valve) insufficiency; I11.0 Hypertensive heart disease with heart failure

== ENCOUNTER 2018-09-25 09:36 | Observation (INO) | payer MEDICARE, OTHER ==
[~2018-09-25] VITALS: Ht 170.2 cm; Wt 56.8 kg
[2018-09-25] MEDS ORDERED: CARV12.5 PO (10:01)
--- NOTE | 2018-09-25 11:01 | REP ---
Chest two views HISTORY: Cough Comparison: 07/18/2018 The lungs are hyperinflated. An increase in interstitial markings is present in the lungs consistent with chronic interstitial change enter density is present in the right lower lobe consistent with scar. The cardiac silhouette is enlarged. The pulmonary vasculature is normal in appearance. The bony structure is intact. IMPRESSION: 1. Chronic interstitial change. 2. Right lower lobe scarring. 3. Cardiomegaly. Electronically Signed by Antonio Mckeon MD 09/25/2018 10:52 A
[2018-09-25 11:17] LABS: BASO # 0.1 10^3/uL (0.0-0.2); BASO % 0.7 % (0.0-1.0); EOS # 0.2 10^3/uL (0.0-0.50); EOS % 1.8 % (0.0-3.0); HEMATOCRIT 31.2 % (36.0-47.0); HEMOGLOBIN 9.7 g/dl (12.0-15.5); LYMPH # 1.1 10^3/uL (1.5-4.5); LYMPH % 12.8 % (24.0-44.0); MEAN CORPUSCULAR HEMOGLOBIN 28.9 pg (27.0-33.0); MEAN CORPUSCULAR HGB CONC 31.1 g/dl (32.0-36.5); MEAN CORPUSCULAR VOLUME 92.9 fl (80.0-96.0); MONO # 0.5 10^3/uL (0.0-0.8); MONO % 5.9 % (0.0-5.0); NEUTROPHILS # 6.6 10^3/uL (1.8-7.7); NEUTROPHILS % 78.4 % (36.0-66.0); PLATELET COUNT, AUTOMATED 228 10^3/uL (150-450); RED BLOOD COUNT 3.36 10^6/uL (4.00-5.40); WHITE BLOOD COUNT 8.4 10^3/uL (4.0-10.0)
[2018-09-25 11:54] LABS: ALBUMIN 2.9 GM/DL (3.2-5.2); ALT/SGPT 59 U/L (12-78); BILIRUBIN,DIRECT 0.1 MG/DL (0.0-0.2); BILIRUBIN,TOTAL 0.3 MG/DL (0.2-1.0); BLOOD UREA NITROGEN 43 MG/DL (7-18); CALCIUM LEVEL 8.2 MG/DL (8.8-10.2); CARBON DIOXIDE LEVEL 31 MEQ/L (21-32); CHLORIDE LEVEL 98 MEQ/L (98-107); CK-MB VALUE MASS < 1.0 NG/ML (<3.6); CPK CREATINE PHOSPHOKINASE 28 U/L (26-192); CREATININE FOR GFR 3.35 MG/DL (0.55-1.30); GLOMERULAR FILTRATION RATE 13.9 (>32); GLUCOSE, FASTING 200 MG/DL (70-100); MAGNESIUM LEVEL 3.3 MG/DL (1.8-2.4); MB/CK RELATIVE INDEX 3.57 (< OR =4); NT-PRO BNP 2914 PG/ML (<450); POTASSIUM SERUM 4.7 MEQ/L (3.5-5.1); SODIUM LEVEL 136 MEQ/L (136-145); TOTAL PROTEIN 6.5 GM/DL (6.4-8.2); TROPONIN I 0.02 NG/ML (< 0.10)
[2018-09-25] MEDS ORDERED: NS 1,000 ML IV SCH (12:30)
[2018-09-25] MEDS ORDERED: TORS20TA2 PO (12:59)
[2018-09-25] MEDS ORDERED: MAG-400T7 PO (12:59)
[2018-09-25] MEDS ORDERED: K-TA10TA PO (13:01)
[2018-09-25] MEDS ORDERED: FERR325T3 PO (13:03)
[2018-09-25] MEDS: LEVOTHYROXINE 100 MCG (0.1MG) VIAL IV SCH (14:11)
[2018-09-25] MEDS ORDERED: PILL CUTTER 1 EACH XX PRN (14:15)
--- NOTE | 2018-09-25 14:38 | HPEPDOC ---
General Date of Admission 09/25/18 Date of Service: Sep 25, 2018 Chief Complaint The patient is a 83-year-old female admitted with a reason for visit of Weakness. Source: Patient Severity: Moderate History of Present Illness 83-year-old female with a past medical history of COPD on chronic supplementation of 2 L nasal cannula oxygen at home, history of heart failure with preserved ejection fraction, history of gout, secondary hyperparathyroidism from stage IV chronic kidney disease, DM 2, DLP, GERD, CAD and diabetic neuropathy who presents to the emergency department with the complaint of generalized weakness and fatigue. The patient is not a great historian so her son who is at bedside provides much history. For the past few days the patient h as just been very tired and states that she does not feel like herself. She denies any chest pain, shortness of breath, cough, fevers, nausea vomiting, diarrhea, constipation, headache or blurred vision, abdominal pain, pain with urination, night sweats or chills. She lives at home with her son and . There has been no recent travel. She does admit that she's had a cold for the past 3 days consisting of clear nasal discharge some sinus pressure and a cough secondary to postnasal drip. She has no other complaints. She has had numerous hospital admissions, most recently for CHF exacerbation in July 2018. Home Medications Scheduled Allopurinol (Zyloprim) 300 Mg Tab, 150 MG PO DAILY, (Reported) Amiodarone HCl (Amiodarone HCl) 200 Mg Tab, 200 MG PO BID, (Reported) Aspirin (Aspirin EC) 81 Mg Tab, 81 MG PO DAILY, (Reported) Calcitriol (Calcitriol) 0.25 Mcg Cap, 0.25 MCG PO DAILY, (Reported) Carvedilol (Carvedilol) 12.5 Mg Tablet, 12.5 MG PO BID, (Reported) Cyanocobalamin (Vitamin B-12) (Vitamin B-12) 1,000 Mcg Tab, 1,000 MCG PO DAILY, (Reported) Ergocalciferol (Vitamin D2) (Drisdol) 50,000 Unit Cap, 50,000 UNIT PO 1XWK, (Reported) TAKES ON FRIDAYS Ferrous Sulfate (Ferrous Sulfate) 325 Mg Tablet.dr, 325 MG PO BID, (Reported) Glipizide (Glipizide Xl) 10 Mg Tab, 10 MG PO BID, (Reported) Linagliptin (Tradjenta) 5 Mg Tab, 5 MG PO DAILY, (Reported) Magnesium Oxide (Magnesium Oxide) 400 Mg Tablet, 400 MG PO 3XW, (Reported) MONDAY,MONDAY,MONDAY Omeprazole (Omeprazole) 20 Mg Tab, 20 MG PO DAILY, (Reported) Potassium Chloride (K-Tab ER) 10 Meq Tablet.er, 20 MEQ PO DAILY, (Reported) PT IS TAKING KCL 20MEQ DAILY- WILL VERIFY WITH FAMILY. PT NOT 100% SURE OF DOSE Simvastatin (Simvastatin) 20 Mg Tab, 20 MG PO QHS, (Reported) Torsemide (Torsemide) 20 Mg Tablet, 40 MG PO BID, (Reported) Allergies Coded Allergies: bee venom protein (honey bee) (Verified Allergy, Severe, 07/18/18) Penicillins (Verified Allergy, Intermediate, 07/18/18) Past Medical History Medical History As per HPI Surgical History AV fistula, numerous back surgeries, bronchoscopy Family History Significant Family History: No pertinent family hx Reviewed and is non-contributory to her current hospitalization Social History * Smoker: former Smoker Alcohol: Denies Drugs: denies (she used to smoke about 20 years ago. There is been no alcohol use and no drug use.) lives at home with her son and her . A-FIB/CHADSVASC A-FIB History Current/History of A-Fib/PAF?: No Review of Systems Constitutional: Reports: Malaise, Weakness, Fatigue, Lethargy; Denies: Chills, Fever, Weight Loss Pulmonary: Denies: Dyspnea, Cough Cardiovascular: Reports: Edema (chronic edema of left lower extremity, history of Charcot joint); Denies: Chest Pain, Palpitations, Orthopnea, Lt Headedness Gastrointestinal: Denies: Nausea, Vomiting, Abdominal Pain, Diarrhea, Constipation, Melena, Hematochezia Genitourinary: Denies: Dysuria Neurological: Reports: Weakness; Denies: Change in speech, Confusion Psych: Reports: Memory Issues Physical Examination General Exam: Positive: Alert, Cooperative, No Acute Distress Eye Exam: Positive: Conjunctiva & lids normal Chest Exam: Positive: Normal air movement, Diminished; Negative: Rales, Rhonchi, Wheezing Heart Exam: Positive: Bradycardic, Normal S1, Normal S2, Murmurs (systolic likely ) Abdomen Exam: Positive: Normal bowel sounds, Soft; Negative: Tenderness, Hepatospenomegaly Extremity Exam: Positive: Edema (+2 left lower extremity, chronic), Other (left lower extremity is wrapped, I did not undress this.); Negative: Cyanosis, Tenderness Skin Exam: Negative: Pruritus Neuro Exam: Positive: Normal Speech Psych Exam: Positive: Mental status NL; Negative: Memory Intact, Oriented x 3 Vital Signs Vital Signs Date Time Temp Pulse Resp B/P (MAP) Pulse Ox O2 Delivery O2 Flow Rate FiO2 09/25/18 13:30 65 152/67 (95) 100 09/25/18 11:15 Nasal Cannula 2.0 09/25/18 09:37 98.0 18 Laboratory Data Labs 24H Laboratory Tests 2 09/25/18 11:05: Immature Granulocyte % (Auto) 0.4, White Blood Count 8.4, Red Blood Count 3.36L, Hemoglobin 9.7L, Hematocrit 31.2L, Mean Corpuscular Volume 92.9, Mean Corpuscular Hemoglobin 28.9, Mean Corpuscular Hemoglobin Concent 31.1L, Red Cell Distribution Width 15.6H, Platelet Count 228, Neutrophils (%) (Auto) 78.4H, Lymphocytes (%) (Auto) 12.8L, Monocytes (%) (Auto) 5.9H, Eosinophils (%) (Auto) 1.8, Basophils (%) (Auto) 0.7, Neutrophils # (Auto) 6.6, Lymphocytes # (Auto) 1.1L, Monocytes # (Auto) 0.5, Eosinophils # (Auto) 0.2, Basophils # (Auto) 0.1, Nucleated Red Blood Cells % (auto) 0.0, Anion Gap 7L, Glomerular Filtration Rate 13.9L, Calcium Level 8.2L, Magnesium Level 3.3H, Aspartate Amino Transf (AST/SGOT) 53H, Alanine Aminotransferase (ALT/SGPT) 59, Alkaline Phosphatase 58, Total Bilirubin 0.3, Direct Bilirubin 0.1, Total Creatine Kinase 28, Creatine Kinase MB < 1.0, Creatine Kinase MB Relative Index 3.57, Troponin I 0.02, BG-Qth-T-Type Natriuretic Peptide 2914H, Total Protein 6.5, Albumin 2.9L, Albumin/Globulin Ratio 0.81L, Thyroid Stimulating Hormone (TSH) 29.000H CBC/BMP Laboratory Tests 09/25/18 11:05 Red Blood Count 3.36 L, Mean Corpuscular Volume 92.9, Mean Corpuscular Hemoglobin 28.9, Mean Corpuscular Hemoglobin Concent 31.1 L, Red Cell Distribution Width 15.6 H, Neutrophils (%) (Auto) 78.4 H, Lymphocytes (%) (Auto) 12.8 L, Monocytes (%) (Auto) 5.9 H, Eosinophils (%) (Auto) 1.8, Basophils (%) (Auto) 0.7, Neutrophils # (Auto) 6.6, Lymphocytes # (Auto) 1.1 L, Monocytes # (Auto) 0.5, Eosinophils # (Auto) 0.2, Basophils # (Auto) 0.1 Assessment/Plan This is a 83-year-old female who is being admitted to the hospital after she presented with a complaint of generalized fatigue and weakness. 1. Generalized fatigue and weakness -Her TSH is noted to be 29 on this admission, has been elevated in the past but this seems to be her highest value yet -She is on amiodarone at home, we will continue this as the half-life of the drug in the body is about 3 months and she likely requires this for arrhythmogenic control, have begun IV Synthroid 75 mcg daily -She was also noted on admitting EKG to have sinus bradycardia, this does appear new from prior EKGs, her echocardiogram from April 2018 showed a left ventricular ejection fraction 60-65% with impaired left ventricular diastolic dysfunction dilated right-sided chambers, mild pulmonary hypertension and m oderate mitral insufficiency, we will repeat echocardiogram today to evaluate for further structural disease -Her blood pressure is acceptable, she appears to be euvolemic, hold on IVF at this time. -She is afebrile and without a white count, infectious etiology is not suspected. -Her BNP is elevated, however not nearly as high as has been in the past, this is also difficult to evaluate in light of her chronic kidney disease. As mentioned above she appears euvolemic on physical examination, we will not continue home torsemide at this time, we'll monitor her fluid status closely. -Checking antithyroid antibodies as she may require lifelong T4 supplementation if she has an autoimmune component to her thyroid dysfunction -Cortisol pending for evaluation of panhypopituitarism 2. Acute kidney injury on stage IV chronic kidney disease and secondary hyperparathyroidism -Her creatinine does seem minimally elevated from her baseline creatinine -She apparently does have AV fistula in place -We are holding home torsemide for the time being -Continue home calcitriol -Have discontinued fluids that were started in ER 3. Heart failure with preserved ejection fraction -HFpEF- -She appears euvolemic on physical examination, holding home torsemide for today in light of acute kidney injury -Her oxygenation status is acceptable, she is on 2 L oxygen nasal cannula which is her home dose 4. History of coronary artery disease -Her Coreg and aspirin are continued with holding parameters 5. Hypertension -Stable continue with home meds 6. Gout -Continue home allopurinol 7. Hyperlipidemia -Continue her home statin 8. Chronic dementia -Stable 9. History of past atrial arrhythmia As discussed above we are continuing amiodarone in light of amiodarone-induced hypothyroidism. She'll be monitored on telemetry. [facility] see [facility] and essentially we could request records from them. 10 DM2 -d/c home meds, c/w SS with hypoglycemic protocol in house 11. Chronic swelling left LE -hx of diabetic ulcer and charcot foot., will obtain u/s to r/o DVT but this appears chronic and son states it does not look more swollen than baseline DVT px -heparin sq in light of kidney dysfunction Plan / VTE VTE Prophylaxis Ordered?: Yes GME ATTESTATION GME ATTESTATION My faculty preceptor for this patient encounter was physically present during the encounter and was fully available. All aspects of the patient interview, examination, medical decision making process, and medical care plan development were reviewed and approved by the faculty preceptor. The faculty preceptor is aware and concurs with the plan as stated in the body of this note and will attest to such by his/her cosignature. ATTENDING NOTE I, Gustavo Cantu, have both independently examined this patient as well as reviewed the documentation. I have discussed in detail with the resident the findings and plan of treatment as documented by the resident. I agree with their findings and treatment plan. I will continue to follow the patient and offer further guidance to the patients care as necessary during this hospital stay. TASNEEM WALSH DO Sep 25, 2018 14:38 GUSTAVO CANTU MD Sep 25, 2018 15:55
[2018-09-25] MEDS ORDERED: GLUCAGON FOR INJ 1 MG VIAL (J1610) SC PRN (14:45)
[2018-09-25] MEDS ORDERED: GLUCOSE 4 GM CHEW TABLET PO PRN (14:45)
[2018-09-25] MEDS ORDERED: DEXTROSE 50% 50 ML SYRINGE IV PRN (14:45)
[2018-09-25 15:25] LABS: FREE T4 0.88 NG/DL (0.76-1.46)
[2018-09-25 15:35] LABS: TOTAL T3 58.7 NG/DL (60.0-181.0)
[2018-09-25] MEDS: HEPARIN SOD (PORCINE) 5000 UNITS/ML VIAL SC SCH ×2 (15:48→20:41)
[2018-09-25 16:00] VITALS: BP 164/70
[2018-09-25] MEDS ORDERED: ACETAMINOPHEN TAB 650MG DOSE (2X325MG) PO PRN (17:45)
[2018-09-25 18:07] LABS: CK-MB VALUE MASS < 1.0 NG/ML (<3.6); CPK CREATINE PHOSPHOKINASE 24 U/L (26-192); MB/CK RELATIVE INDEX 4.17 (< OR =4); TROPONIN I < 0.02 NG/ML (< 0.10)
[2018-09-25] MEDS: HumaLOG INSULIN (NovoLOG) PER UNIT SC SCH (18:33)
--- NOTE | 2018-09-25 19:17 | REP ---
Left lower extremity Duplex Doppler venous ultrasound: Real time compression and duplex Doppler interrogation of the left lower extremity deep venous system is performed. The left common femoral, superficial femoral and popliteal veins are fully compressible with transducer pressure and demonstrate normal spontaneous and phasic flow, without evidence of deep venous thrombosis. Impression: No evidence of deep venous thrombosis of the left lower extremity femoral popliteal venous system. Electronically Signed by Dev Joya MD 09/25/2018 07:09 P
[2018-09-25] MEDS: FERROUS SULFATE 325MG TAB PO SCH (20:40)
[2018-09-25] MEDS: AMIODARONE 200 MG TAB (PACERONE) PO SCH (20:41)
[2018-09-25] MEDS: CARVedilol 12.5 MG TAB PO SCH (20:41)
[2018-09-25] MEDS ORDERED: HumaLOG INSULIN (NovoLOG) PER UNIT SC SCH (21:00)
[2018-09-25] MEDS ORDERED: SIMVASTATIN 20 MG TAB PO SCH (21:00)
[2018-09-25 22:00] VITALS: BP 136/63
[2018-09-25 23:17] LABS: CK-MB VALUE MASS < 1.0 NG/ML (<3.6); CPK CREATINE PHOSPHOKINASE 24 U/L (26-192); MB/CK RELATIVE INDEX 4.17 (< OR =4); TROPONIN I < 0.02 NG/ML (< 0.10)
[2018-09-26 06:00] VITALS: BP 134/63
[2018-09-26 06:01] LABS: HEMATOCRIT 29.5 % (36.0-47.0); HEMOGLOBIN 9.1 g/dl (12.0-15.5); MEAN CORPUSCULAR HEMOGLOBIN 28.4 pg (27.0-33.0); MEAN CORPUSCULAR HGB CONC 30.8 g/dl (32.0-36.5); MEAN CORPUSCULAR VOLUME 92.2 fl (80.0-96.0); PLATELET COUNT, AUTOMATED 239 10^3/uL (150-450); WHITE BLOOD COUNT 7.1 10^3/uL (4.0-10.0)
[2018-09-26 06:24] LABS: CREATININE FOR GFR 3.33 MG/DL (0.55-1.30)
[2018-09-26] MEDS: HumaLOG INSULIN (NovoLOG) PER UNIT SC SCH ×2 (07:30→12:09)
[2018-09-26] MEDS: HEPARIN SOD (PORCINE) 5000 UNITS/ML VIAL SC SCH (08:33)
[2018-09-26] MEDS: LEVOTHYROXINE 100 MCG (0.1MG) VIAL IV SCH (08:33)
[2018-09-26 08:35] VITALS: BP 116/60
[2018-09-26] MEDS: AMIODARONE 200 MG TAB (PACERONE) PO SCH (08:35)
[2018-09-26] MEDS: CARVedilol 12.5 MG TAB PO SCH (08:35)
[2018-09-26] MEDS: FERROUS SULFATE 325MG TAB PO SCH (08:35)
[2018-09-26] MEDS ORDERED: CALCITRIOL 0.25 MCG CAP (S0169) PO SCH (09:00)
[2018-09-26] MEDS ORDERED: ALLOPURINOL 300 MG TAB PO SCH (09:00)
[2018-09-26] MEDS ORDERED: ASPIRIN 81 MG ENTERIC TAB PO SCH (09:00)
[2018-09-26] MEDS ORDERED: POTASSIUM CHLORIDE 10 MEQ SR TABLET PO SCH (09:00)
[2018-09-26] MEDS ORDERED: OMEPRAZOLE 20 MG CAP PO SCH (09:00)
[2018-09-26] MEDS ORDERED: TORS20TA2 PO (10:27)
[2018-09-26] MEDS ORDERED: LEVO100T5 PO (10:27)
--- NOTE | 2018-09-26 11:36 | DS.PDOC ---
Discharge Summary General Date of Admission Sep 25, 2018 at 13:54 Date of Discharge 09/26/18 Discharge Summary PROCEDURES PERFORMED DURING STAY: None ADMITTING DIAGNOSES / DISCHARGE DIAGNOSES: 1. Generalized fatigue and weakness - possibly 2/2 hypothyroidism 2. Acute kidney injury on stage IV chronic kidney disease and secondary hyperparathyroidism 3. Heart failure with preserved ejection fraction -HFpEF- 4. History of coronary artery disease 5. Hypertension 6. Gout 7. Hyperlipidemia 8. Chronic dementia 9. History of past atrial arrhythmia 10 DM2 11. Chronic swelling left LE COMPLICATIONS/CHIEF COMPLAINT: Weakness Generalized. HISTORY OF PRESENT ILLNESS: Per HPI, 83-year-old female with a past medical history of COPD on chronic supplementation of 2 L nasal cannula oxygen at home, history of heart failure with preserved ejection fraction, history of gout, secondary hyperparathyroidism from stage IV chronic kidney disease, DM 2, DLP, GERD, CAD and diabetic neuropathy who presents to the emergency department with the complaint of generalized weakness and fatigue. The patient is not a great historian so her son who is at bedside provides much history. For the past few days the patient has just been very tired and states that she does not feel like herself. She denies any chest pain, shortness of breath, cough, fevers, nausea vomiting, diarrhea, constipation, headache or blurred vision, abdominal pain, pain with urination, night sweats or chills. She lives at home with her son and . There has been no recent travel. She does admit that she's had a cold for the past 3 days consisting of clear nasal discharge some sinus pressure and a cough secondary to postnasal drip. She has no other complaints. She has had numerous hospital admissions, most recently for CHF exacerbation in July 2018. HOSPITAL COURSE: TSH was found to be 29. T4 low normal and T3 was 58.7 Low. During the course of her stay she was supplemented with 75 mcg levothyroxine, cortisol levels were normal, she felt better on day of d/c and stated that she wanted to go home. She completed home safety eval. u/s LEFT LE was negative for DVT in hospital. She was on 2 L NC O2 which is her home O2, on day of d.c. She remained afebrile without a white count, infectious etiology was not suspected. She did demonstrate asx sinus bradycardia in ED but remained NSR for her stay, she should have ECHO outpt to further evaluate for any structural defects/abnormalities. Risks and benefits of Levothyroxine were discussed with patient and son; patient has been advised to continue with Levothyroxine as an outpatient and take medications in the morning, 1 hour before any other medications. Will have outpatient follow up with Dr. Chloe Mejias. DISCHARGE MEDICATIONS: Please see below. ALLERGIES: Please see below. PHYSICAL EXAMINATION ON DISCHARGE: VITAL SIGNS: Please see below. General Exam: Alert, Cooperative, No Acute Distress Eye Exam: Conjunctiva & lids normal Chest Exam: Normal air movement, Diminished; No Rales, Rhonchi, Wheezing Heart Exam: Normal S1, Normal S2, Murmurs (systolic likely ) Abdomen Exam: Normal bowel sounds, Soft; No Tenderness, Hepatospenomegaly Extremity Exam: Positive: Edema (+2 left lower extremity, chronic), small area medial left foot shows Charcot foot deformity, without break in skin, no pus/blood exudation No: Cyanosis, Tenderness Neuro Exam: Normal Speech Psych Exam: Mental status NL; Memory Intact, Oriented x 3 LABORATORY DATA: Please see below. IMAGING: LEFT LE u/s 09.25.18 Impression: No evidence of deep venous thrombosis of the left lower extremity femoral popliteal venous system. cxr 09.25.18 IMPRESSION: 1. Chronic interstitial change. 2. Right lower lobe scarring. 3. Cardiomegaly. PROGNOSIS: stable ACTIVITY: As tolerated DIET: as tolerated DISCHARGE PLAN: Follow up with pcp within 5-7 days of dc Remain compliant with treatment plan and medications Return to the ER if you experience any problems DISPOSITION: Home CONDITION: - Stable DISCHARGE INSTRUCTIONS: 1. home, follow up with pcp within 5-7 days of dc, pt being d/c with Levothyroxine 100 mcg daily, discussed this with patients son as well at bed side, she should have TSH and T4 drawn again in about 6 wks DISCHARGE CONDITION: Stable TIME SPENT ON DISCHARGE: Greater than 30 minutes. Vital Signs/I&Os Vital Signs Date Time Temp Pulse Resp B/P (MAP) Pulse Ox O2 Delivery O2 Flow Rate FiO2 09/26/18 09:00 2.0 09/26/18 08:35 66 116/60 09/26/18 06:00 97.4 18 100 09/25/18 15:29 Room Air I&O- Last 24 Hours up to 6 AM 09/26/18 06:00 Intake Total 270 ml Output Total 450 ml Balance -180 ml Laboratory Data Labs 24H Laboratory Tests 2 09/25/18 17:26: Bedside Glucose (Misc Panel) 127H 09/25/18 17:31: Total Creatine Kinase 24L, Creatine Kinase MB < 1.0, Creatine Kinase MB Relative Index 4.17H, Troponin I < 0.02 09/25/18 20:21: Bedside Glucose (Misc Panel) 136H 09/25/18 22:44: Total Creatine Kinase 24L, Creatine Kinase MB < 1.0, Creatine Kinase MB Relative Index 4.17H, Troponin I < 0.02 09/26/18 05:20: Nucleated Red Blood Cells % (auto) 0.0, Anion Gap 7L, Glomerular Filtration Rate 14.0L, Blood Urea Nitrogen 47H, Creatinine 3.33H, Sodium Level 139, Potassium Level 4.0, Chloride Level 101, Carbon Dioxide Level 31, Calcium Level 9.0 CBC/BMP Laboratory Tests 09/26/18 05:20 Red Blood Count 3.20 L, Mean Corpuscular Volume 92.2, Mean Corpuscular Hemoglobin 28.4, Mean Corpuscular Hemoglobin Concent 30.8 L, Red Cell Distribution Width 15.5 H, Calcium Level 9.0 FSBS Laboratory Tests Test 09/25/18 17:26 09/25/18 20:21 Range/Units Bedside Glucose (Misc Panel) 127 136 83-110 MG/DL Discharge Medications Scheduled Allopurinol (Zyloprim) 300 Mg Tab, 150 MG PO DAILY, (Reported) Amiodarone HCl (Amiodarone HCl) 200 Mg Tab, 200 MG PO BID, (Reported) Aspirin (Aspirin EC) 81 Mg Tab, 81 MG PO DAILY, (Reported) Calcitriol (Calcitriol) 0.25 Mcg Cap, 0.25 MCG PO DAILY, (Reported) Carvedilol (Carvedilol) 12.5 Mg Tablet, 12.5 MG PO BID, (Reported) Cyanocobalamin (Vitamin B-12) (Vitamin B-12) 1,000 Mcg Tab, 1,000 MCG PO DAILY, (Reported) Ergocalciferol (Vitamin D2) (Drisdol) 50,000 Unit Cap, 50,000 UNIT PO 1XWK, (Reported) TAKES ON FRIDAYS Ferrous Sulfate (Ferrous Sulfate) 325 Mg Tablet.dr, 325 MG PO BID, (Reported) Glipizide (Glipizide Xl) 10 Mg Tab, 10 MG PO BID, (Reported) Levothyroxine Sodium (Levothyroxine Sodium) 100 Mcg Tablet, 1 TAB PO DAILY To be taken every morning at 6AM Linagliptin (Tradjenta) 5 Mg Tab, 5 MG PO DAILY, (Reported) Magnesium Oxide (Magnesium Oxide) 400 Mg Tablet, 400 MG PO 3XW, (Reported) MONDAY,MONDAY,MONDAY Omeprazole (Omeprazole) 20 Mg Tab, 20 MG PO DAILY, (Reported) Potassium Chloride (K-Tab ER) 10 Meq Tablet.er, 20 MEQ PO DAILY, (Reported) PT IS TAKING KCL 20MEQ DAILY- WILL VERIFY WITH FAMILY. PT NOT 100% SURE OF DOSE Simvastatin (Simvastatin) 20 Mg Tab, 20 MG PO QHS, (Reported) Torsemide (Torsemide) 20 Mg Tablet, 40 MG PO BID Hold next 2 doses - resume 6/13 PM Allergies Coded Allergies: bee venom protein (honey bee) (Verified Allergy, Severe, 07/18/18) Penicillins (Verified Allergy, Intermediate, 07/18/18) GME ATTESTATION GME ATTESTATION My faculty preceptor for this patient encounter was physically present during the encounter and was fully available. All aspects of the patient interview, examination, medical decision making process, and medical care plan development were reviewed and approved by the faculty preceptor. The faculty preceptor is aware and concurs with the plan as stated in the body of this note and will attest to such by his/her cosignature. ATTENDING NOTE I, Gustavo Cantu, have both independently examined this patient as well as reviewed the documentation. I have discussed in detail with the resident the findings and plan of treatment as documented by the resident. I agree with their findings and treatment plan. I will continue to follow the patient and offer further guidance to the patients care as necessary during this hospital stay. TASNEEM WALSH DO Sep 26, 2018 11:36 GUSTAVO CANTU MD Sep 26, 2018 14:10
[2018-09-26 14:39] LABS: THYROID PEROXIDASE ANTIBODY < 28.0 U/ML (<60.0)
--- NOTE | 2018-09-26 16:06 | ECGEPIP ---
[facility] - ED Test Date: 2018-09-25 Pat Name: MERI BONNER Department: Room: - Gender: Female Forensic Technician: PMO : 1935 Requested By: TESSY ADAMES Order Number: [id number] Reading MD: Jayashree Cardoza Measurements Intervals [place] Rate: 59 P: [place]: -1 QRS: QRSD: 90 T: 62 QT: 499 QTc: 498 Interpretive Statements SUPRAVENTRICULAR BRADYCARDIA MARKED LEFT AXIS DEVIATION SEPTAL MYOCARDIAL INFARCTION, OF INDETERMINATE AGE Electronically Signed on 09-26-2018 16:06:14 EDT by Jayashree Cardoza
--- NOTE | 2018-09-26 17:47 | ECHO ---
DATE OF PROCEDURE: 09/26/2018 REFERRING PHYSICIAN: Rebecca Rizo MD INDICATION: Abnormal ECG. HEIGHT: 67 inches WEIGHT: 57 kg 2D MEASUREMENTS: Ventricular septum: 0.95 cm Posterior wall: 1.00 cm Left ventricle diastole: 4.6 cm Left atrium: 3.6 cm Aortic root: 2.9 cm Aortic annulus: 1.8 cm Inferior vena cava: 1.6 cm DOPPLER MEASUREMENTS: Aortic valve velocity: 107 cm/s LVOT velocity: 59.4 cm/s Very mild mitral regurgitation. Mitral E velocity: 100 cm/s Mitral A velocity: 65.4 cm/s Mitral deceleration time: 215 ms Very mild tricuspid regurgitation. Estimated right ventricle systolic pressure: 47 mmHg assuming a right atrial pressure of 5 mmHg. Very mild pulmonic regurgitation. MITRAL ANNULAR TISSUE DOPPLER: E prime septal: 4.1 cm/s E prime lateral: 6.8 cm/s DESCRIPTION: Rhythm was sinus. Image quality was fair. This was a 2D, M-mode, color flow Doppler and pulse wave Doppler examination that included mitral annular tissue Doppler. CONCLUSIONS: 1. Normal left ventricle internal dimensions and wall thickness. Normal regional left ventricle (LV) wall motion and wall thickening. Normal LV systolic function. Left ventricular ejection fraction (LVEF) 65% by visual estimate. LV diastolic function probably normal for age. Normal left atrial size. 2. Mild mitral annular calcification. Very mild mitral regurgitation. 3. Mild aortic valve sclerosis of a three-cuspid aortic valve. No aortic stenosis or regurgitation. 4. Suggestive of moderate elevation of estimated right ventricle systolic pressure. 5. No pericardial effusion.
== END 2018-09-26 12:29 | disposition home or self-care (01) ==
LOC: M ED 09:36 → M ED INP 13:54 → M MSPAV 15:33
PROVIDERS: ADMIT Internal Medicine; ATTEND Internal Medicine
DX: R53.1 Weakness (principal); E03.9 Hypothyroidism, unspecified; N17.9 Acute kidney failure, unspecified; N18.4 Chronic kidney disease, stage 4 (severe); E21.1 Secondary hyperparathyroidism, not elsewhere classified; I50.9 Heart failure, unspecified; I25.10 Atherosclerotic heart disease of native coronary artery without angina pectoris; M10.9 Gout, unspecified; I12.9 Hypertensive chronic kidney disease with stage 1 through stage 4 chronic kidney disease, or unspecified chronic kidney disease; R22.42 Localized swelling, mass and lump, left lower limb; E78.49 Other hyperlipidemia; E11.40 Type 2 diabetes mellitus with diabetic neuropathy, unspecified; F03.90 Unspecified dementia, unspecified severity, without behavioral disturbance, psychotic disturbance, mood disturbance, and anxiety; K21.9 Gastro-esophageal reflux disease without esophagitis; I51.7 Cardiomegaly; Z79.82 Long term (current) use of aspirin; Z79.899 Other long term (current) drug therapy; Z88.0 Allergy status to penicillin; Z91.030 Bee allergy status; Z87.891 Personal history of nicotine dependence; Z99.81 Dependence on supplemental oxygen
CPT/HCPCS: 36415; 71046; 80048; 80076; 82533; 82550; 82553; 83735; 83880; 84439; 84443; 84480; 84484; 85025; 85027; 86376; 93005; 93041; 93306; 93971; 94760; 96372; 96374; 96376; 97161; 99285; G0378

== ENCOUNTER → 2018-10-11 | Outpatient (REF) | payer MEDICARE, OTHER ==
[~2018-10-11] MED LIST changes: +K-TA10TA PO; +LEVO100T5 PO
[2018-10-11 17:37] LABS: FREE T4 1.51 NG/DL (0.76-1.46); THYROID STIMULATING HORMONE 14.4 uIU/ML (0.358-3.740)
== END ==
LOC: M LAB REF 16:47
PROVIDERS: ATTEND Internal Medicine Nephrology
DX: E03.9 Hypothyroidism, unspecified (principal)

== ENCOUNTER 2018-11-28 03:06 | Inpatient (IN) | payer MEDICARE, OTHER ==
[~2018-11-28] VITALS: Ht 170.2 cm; Wt 59.7 kg
[2018-11-28] MEDS ORDERED: NS 500 ML IV ONE (04:00)
[2018-11-28] MEDS ORDERED: METOCLOPRAMIDE INJ 10MG/2ML VIAL (J2765) IV ONE (04:00)
[2018-11-28 04:07] LABS: BASO # 0.1 10^3/uL (0.0-0.2); BASO % 0.8 % (0.0-1.0); EOS # 0.1 10^3/uL (0.0-0.50); EOS % 0.8 % (0.0-3.0); HEMOGLOBIN 11.9 g/dl (12.0-15.5); LYMPH # 1.5 10^3/uL (1.5-4.5); LYMPH % 15.3 % (24.0-44.0); MEAN CORPUSCULAR HEMOGLOBIN 29.1 pg (27.0-33.0); MEAN CORPUSCULAR HGB CONC 32.2 g/dl (32.0-36.5); MEAN CORPUSCULAR VOLUME 90.5 fl (80.0-96.0); MONO # 0.6 10^3/uL (0.0-0.8); MONO % 5.7 % (0.0-5.0); NEUTROPHILS # 7.6 10^3/uL (1.8-7.7); NEUTROPHILS % 76.9 % (36.0-66.0); PLATELET COUNT, AUTOMATED 276 10^3/uL (150-450); RED BLOOD COUNT 4.09 10^6/uL (4.00-5.40); WHITE BLOOD COUNT 9.8 10^3/uL (4.0-10.0)
[2018-11-28] MEDS ORDERED: POTA20TA6 PO (04:22)
[2018-11-28] MEDS ORDERED: SYNT100T PO (04:22)
[2018-11-28] MEDS ORDERED: TORS20TA2 PO (04:22)
[2018-11-28] MEDS ORDERED: ASPI81CH33 PO (04:22)
[2018-11-28 04:32] LABS: ALBUMIN 3.2 GM/DL (3.2-5.2); BILIRUBIN,DIRECT 0.5 MG/DL (0.0-0.2); BILIRUBIN,TOTAL 0.8 MG/DL (0.2-1.0); CREATININE FOR GFR 3.49 MG/DL (0.55-1.30); GLOMERULAR FILTRATION RATE 13.3 (>32); MB/CK RELATIVE INDEX 1.96 (< OR =4); POTASSIUM SERUM 3.9 MEQ/L (3.5-5.1); TOTAL PROTEIN 6.8 GM/DL (6.4-8.2); TROPONIN I 0.03 NG/ML (< 0.10)
[2018-11-28] MEDS ORDERED: DEXTROSE 50% 50 ML SYRINGE IV STA (04:42)
[2018-11-28] MEDS ORDERED: DEXTROSE 50% 50 ML SYRINGE As Ordered ONE (04:43)
[2018-11-28] MEDS ORDERED: DEXTROSE 50% 50 ML SYRINGE IV PRN (05:00)
--- NOTE | 2018-11-28 05:10 | HPEPDOC ---
[facility] Medical History & Physical Date of Admission Nov 28, 2018 Date of Service: Nov 28, 2018 Primary Care Physician: Andrew Mejias Attending Physician: EL MERAZ MD History and Physical Time of service 5:15 AM CHIEF COMPLAINT: Nausea and vomiting HISTORY OF PRESENT ILLNESS: Ms. Ruiz is an 83-year-old female who presents with complaints of nausea and innumerable episodes non-bloody vomiting since her 2 weeks ago. She denies having abdominal pain, denies having diarrhea, denies having chest pain, and denies having fevers. She is complaining of feeling very cold. According to her son she has been spending a lot of time lying down on the cou ch, and has not been eating much. Per discussion with the ED attending she was found to be hypoglycemic and used D50, in addition to IV fluids and Zofran; the EKG showed bradycardia but this is a similar to previous EKGs. The patient is preparing for dialysis and has an AV fistula. 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 Hypothyroidism SOCIAL HISTORY: Quit smoking about 2 weeks ago FAMILY HISTORY: Coronary artery disease ALLERGIES: Please see below. HOME MEDICATIONS: Please see below. PHYSICAL EXAMINATION: VITAL SIGNS: Temperature 97.8, pulse 47, respiratory rate 16, blood pressure 144/64, pulse ox symmetry 100% on 2 L by nasal cannula GENERAL APPEARANCE: Slim built, well-developed, doesn't appear toxic or septic HEENT: Normocephalic, atraumatic, mucous members are dry CARDIOVASCULAR: Bradycardic, extremities are cool, but appear well-perfused, there is +1 pitting edema at the left lower extremity LUNGS: Clear to auscultation bilaterally on 2 L ABDOMEN: There are bowel sounds, the abdomen is soft, and tender with palpation MUSCULOSKELETAL: Range of motion is intact 4 extremities / history of a left upper extremity has a palpable thrill NEUROLOGICAL: Cranial nerves II-12 are grossly intact PSYCHIATRIC: He is alert and oriented and able to understand and follow all commands, she does appear sad LABORATORY DATA: CBC is remarkable for hemoglobin of 11.9 with MCV of 90. Chemistry is remarkable for of chloride of 95, BUN of 60, creatinine 3.49, GFR 13.3, fasting glucose of 47, bilirubin of 0.8, direct bilirubin of 0.5, AST 137, and ALT of 140. IMAGING: The chest x-ray, which was personally visualized, shows prominent pulmonary vasculature and cardiomegaly but no acute process the final read is pending Abdominal ultrasound was done, but the read is pending MICROBIOLOGY: Please see below. ASSESSMENT: . is an 83-year-old female with past medical history of type 2 diabetes with neuropathy, stage IV/5. CKD with secondary hyperparathyroidism, chronic CAD, dyslipidemia, oxygen dependent COPD, iron deficiency anemia, chronic diastolic congestive heart failure, atrial fibrillation, hypothyroidism and history of bradycardia who will be admitted for evaluation of nausea and vomiting. PLAN: 1. N/V Cause to be determined the differential includes gastro-intestinal process such as cholecystitis versus Uremia Plan: admit to PCU / NPO w/o IVF to avoid fluid overload/ Zofran PRN / f/u US of the liver + gallbladder & UA 2. Hypoglycemia 2/2 emesis // DM2 A1C 8.5% in July I suspect this is much lower now, since the patient has lost weight Plan: f/u accuchecks / Hypoglycemia protocol / hold anti-glycemics / f/u A1C 3. Transaminitis LFTs have been elevated since September 2018 Hep panel in July neg Plan: trend LFTs & f/u US of the liver 4. Azotemia/ CKD 4/5 BUN is 60, which is above the previous value of 47 in September. Creatinine is 3.49, which is close to the previous value of 3.33 and September Plan:Follow-up I's and O's and daily weights / f/u BMP / f/u w Nephro to determine if this time to start dialysis 5. Chronic diastolic congestive heart failure/chronic hypertension. Plan: Continued with Lasix/control blood pressure 6. Chronic CAD/Dyslipidemia Plan continue home meds 7. COPD w chronic O2 Dependent Respiratory Failure Stable Plan: c/w supplemental O2 & home meds 8. Iron Deficiency Anemia Iron panel July 2018 reviewed Noncandidate for darbepoetin yet Plan: f/u CBC daily . Continue with iron 9. Hypothyroidism Plan follow-up TSH. Continue levothyroxine 10 Gout Plan: c/w home meds 11. Low BMI. BMI is 19. Albumin is 3.2 Plan: Dietitian consult for calorie count once nausea and vomiting have resolved DVT px w SCDs Disposition pending clinical course Laboratory Data Labs 24H Laboratory Tests 2 11/28/18 03:48: Immature Granulocyte % (Auto) 0.5, White Blood Count 9.8, Red Blood Count 4.09, Hemoglobin 11.9L, Hematocrit 37.0, Mean Corpuscular Volume 90.5, Mean C orpuscular Hemoglobin 29.1, Mean Corpuscular Hemoglobin Concent 32.2, Red Cell Distribution Width 15.9H, Platelet Count 276, Neutrophils (%) (Auto) 76.9H, Lymphocytes (%) (Auto) 15.3L, Monocytes (%) (Auto) 5.7H, Eosinophils (%) (Auto) 0.8, Basophils (%) (Auto) 0.8, Neutrophils # (Auto) 7.6, Lymphocytes # (Auto) 1.5, Monocytes # (Auto) 0.6, Eosinophils # (Auto) 0.1, Basophils # (Auto) 0.1, Nucleated Red Blood Cells % (auto) 0.0, Activated Partial Thromboplast Time 31.0, Anion Gap 11, Glomerular Filtration Rate 13.3L, Calcium Level 9.0, Aspartate Amino Transf (AST/SGOT) 137H, Alanine Aminotransferase (ALT/SGPT) 140H, Alkaline Phosphatase 80, Total Bilirubin 0.8, Direct Bilirubin 0.5H, Total Creatine Kinase 51, Creatine Kinase MB 1.0, Creatine Kinase MB Relative Index 1.96, Troponin I 0.03, Total Protein 6.8, Albumin 3.2, Albumin/Globulin Ratio 0.89L, Lipase 44L CBC/BMP Laboratory Tests 11/28/18 03:48 Red Blood Count 4.09, Mean Corpuscular Volume 90.5, Mean Corpuscular Hemoglobin 29.1, Mean Corpuscular Hemoglobin Concent 32.2, Red Cell Distribution Width 15.9 H, Neutrophils (%) (Auto) 76.9 H, Lymphocytes (%) (Auto) 15.3 L, Monocytes (%) (Auto) 5.7 H, Eosinophils (%) (Auto) 0.8, Basophils (%) (Auto) 0.8, Neutrophils # (Auto) 7.6, Lymphocytes # (Auto) 1.5, Monocytes # (Auto) 0.6, Eosinophils # (Auto) 0.1, Basophils # (Auto) 0.1 Home Medications Scheduled Allopurinol (Zyloprim) 300 Mg Tab, 150 MG PO DAILY Amiodarone HCl (Amiodarone HCl) 200 Mg Tab, 200 MG PO BID Aspirin (Aspirin) 81 Mg Tab.chew, 81 MG PO DAILY Calcitriol (Calcitriol) 0.25 Mcg Cap, 0.25 MCG PO DAILY Carvedilol (Carvedilol) 12.5 Mg Tablet, 12.5 MG PO BID Cyanocobalamin (Vitamin B-12) (Vitamin B-12) 1,000 Mcg Tab, 1,000 MCG PO DAILY Ergocalciferol (Vitamin D2) (Drisdol) 50,000 Unit Cap, 50,000 UNIT PO 1XWK TAKES ON FRIDAYS Ferrous Sulfate (Ferrous Sulfate) 325 Mg Tablet.dr, 650 MG PO QHS Glipizide (Glipizide Xl) 10 Mg Tab, 10 MG PO BID Levothyroxine Sodium (Synthroid) 100 Mcg Tablet, 100 MCG PO DAILY Magnesium Oxide (Magnesium Oxide) 400 Mg Tablet, 400 MG PO 3XW MONDAY, MONDAY AND MONDAY MORNING Omeprazole (Omeprazole) 20 Mg Tab, 20 MG PO DAILY Potassium Chloride (Potassium Chloride) 20 Meq Tab.er.prt, 20 MEQ PO DAILY Simvastatin (Simvastatin) 20 Mg Tab, 20 MG PO QHS Torsemide (Torsemide) 20 Mg Tablet, 40 MG PO BID Allergies Coded Allergies: bee venom protein (honey bee) (Verified Allergy, Severe, 11/28/18) Penicillins (Verified Allergy, Intermediate, 11/28/18) A-FIB/CHADSVASC A-FIB History Current/History of A-Fib/PAF?: Yes Current PO Anticoag Therapy: Yes EL MERAZ MD Nov 28, 2018 05:10
[2018-11-28] MEDS: LEVOTHYROXINE 100MCG TABLET (0.1MG) PO SCH (06:00)
--- NOTE | 2018-11-28 06:46 | REPVR ---
EXAM: US Abdomen Limited, Right Upper Quadrant EXAM DATE/TIME: 11/28/2018 4:53 AM CLINICAL HISTORY: 83 years old, female; Abdominal pain; Acute; Additional info: Biliary eval TECHNIQUE: Imaging protocol: Real-time ultrasound of the abdomen with image documentation. Examination was focused on the right upper quadrant. COMPARISON: CT ABD PELVIS W/O CONTRAST 06/23/2018 7:38:16 PM RENAL US 05/28/2018 6:02 PM FINDINGS: Liver: The echogenicity of the liver is within normal limits. No liver lesion is identified from the images obtained. The contour of the liver is smooth. No hepatomegaly is noted. Gallbladder: The gallbladder is distended and contains biliary sludge. No gallstones, masses, sonographic Rosas's sign, gallbladder wall thickening, or pericholecystic fluid. Common bile duct: No dilation (5.6 mm in diameter). No stones are identified in the imaged portion of the common bile duct. Pancreas: The visualized portion of the pancreas is unremarkable. The tail of pancreas is obscured by gas in the stomach and bowel. Right kidney: The right kidney measures 9.3 cm in length. There is no renal cortical thinning. The renal cortical echogenicity is within normal limits. There is a 5 mm x 6 mm x 5 mm simple cyst in the lateral cortex of the midpole of the right kidney for which follow-up is not necessary. There is no hydronephrosis. No obvious stones are seen in the renal collecting system. Incidental note is made of a mildly to moderately dilated right extrarenal pelvis. Intraperitoneal space: There is a trace amount of free fluid in the right upper quadrant of the abdomen. IMPRESSION: Distended gallbladder containing biliary sludge. COMMENT: Consistent with the [employer]'s Incidental Findings Committee Report (J Am Gabe Radiol 2010): Unless the patient's specific circumstances suggest otherwise, any liver lesion 0.5 cm or less, any cystic kidney lesion less than 1.0 cm, and/or any adrenal lesion 1.0 cm or less not otherwise characterized in this report as possessing suspicious or indeterminate imaging features is/are highly likely to be benign and do not require follow-up imaging or biopsy. Electronically signed by: Julien Moreira On 11/28/2018 06:46:19 AM
[2018-11-28 07:20] LABS: THYROID STIMULATING HORMONE 12.2 uIU/ML (0.358-3.740)
--- NOTE | 2018-11-28 07:22 | ECGEPIP ---
[facility] - ED Test Date: 2018-11-28 Pat Name: MERI BONNER Department: Room: [place] [address] Gender: Female Hand Sizer: MAU : 1935 Requested By: BALJIT LEA Order Number: [id number] Reading MD: Jayashree Cardoza Measurements Intervals [place] Rate: 49 P: 246 OH: 213 QRS: -11 QRSD: 109 T: 74 QT: 519 QTc: 470 Interpretive Statements SINUS BRADYCARDIA WITH FIRST DEGREE AV BLOCK LOW QRS VOLTAGE IN EXTREMITY LEADS POSSIBLE ANTERIOR MYOCARDIAL INFARCTION, PROBABLY OLD DECREASED RATE 09/25/18 Electronically Signed on 11-28-2018 7:21:46 EDT by Jayashree Cardoza
--- NOTE | 2018-11-28 07:56 | REP ---
Portable chest x-ray: Single view. History: Chest pain. Comparison study: September 25, 2018. Findings: EKG monitoring electrodes are seen. The lungs are somewhat hyperinflated. The heart is enlarged unchanged. Pulmonary vasculature is not increased and cephalized. There is no evidence of pleural effusion. Interstitial markings are diffusely prominent consistent with interstitial fibrosis unchanged. Impression: Evidence of COPD with cardiomegaly and pulmonary vascular congestion. Mild diffuse interstitial fibrosis pattern. Electronically Signed by Danny Corral MD 11/28/2018 07:47 A
[2018-11-28 08:43] LABS: FREE T4 1.63 NG/DL (0.76-1.46)
[2018-11-28] MEDS ORDERED: CARVedilol 12.5 MG TAB PO SCH (09:00)
[2018-11-28] MEDS ORDERED: AMIODARONE 200 MG TAB (PACERONE) PO SCH (09:00)
[2018-11-28] MEDS: CYANOCOBALAMIN 500 MCG TAB PO SCH (10:21)
[2018-11-28] MEDS: OMEPRAZOLE 20 MG CAP PO SCH (10:21)
[2018-11-28] MEDS: ALLOPURINOL 300 MG TAB PO SCH (10:22)
[2018-11-28] MEDS: CALCITRIOL 0.25 MCG CAP (S0169) PO SCH ×2 (11:09→11:10)
[2018-11-28 12:41] LABS: MB/CK RELATIVE INDEX 2.27 (< OR =4); TROPONIN I 0.02 NG/ML (< 0.10)
--- NOTE | 2018-11-28 13:42 | REP ---
CT HEAD WITHOUT CONTRAST: REASON FOR EXAM: Facial droop, right asterixis. COMPARISON: CT head without contrast 06/23/2018. TECHNIQUE: Axial CT of the head was performed without contrast. FINDINGS: There is similar appearance of cerebral volume loss with prominence of the ventricles. There is no evidence of acute intracranial hemorrhage, midline shift or mass effect. The basal cisterns are intact. There is no extra-axial fluid collection. There are similar hypodensities within the periventricular and subcortical white matter, which are nonspecific but suggestive of microvascular ischemic disease. Note is made of dense intracranial vascular calcifications, similar to prior. The orbital contents are intact. The visualized paranasal sinuses and mastoid air cells are grossly aerated. IMPRESSION: 1. No acute intracranial abnormality. 2. Similar white matter disease. Electronically Signed by Royal Bruce MD 11/28/2018 06:18 P
[2018-11-28 13:43] VITALS: BP 146/73
[2018-11-28 15:43] LABS: APPEARANCE, URINE CLEAR (CLEAR); BACTERIA, URINE AUTO 1+ (NEGATIVE); BILIRUBIN, URINE AUTO NEGATIVE (NEGATIVE); BLOOD, URINE BLOOD 1+ (NEGATIVE); COLOR, URINE YELLOW (YELLOW); GLUCOSE, URINE (UA) AUTO NEGATIVE (NEGATIVE); KETONE, URINE AUTO NEGATIVE (NEGATIVE); LEUKOCYTE ESTERASE, URINE AUTO 3+ (NEGATIVE); MUCUS, URINE SMALL (NEGATIVE); NITRITE, URINE AUTO NEGATIVE (NEGATIVE); PROTEIN, URINE AUTO NEGATIVE (NEGATIVE); RBC, URINE AUTO 8 /HPF (0-3); SQUAMOUS EPITHELIAL CELL UR AU 12 /HPF (0-6); UROBILINOGEN, URINE AUTO 0.2 mg/dL (0.0-2.0); WBC, URINE AUTO 23 /HPF (0-3)
[2018-11-28 16:10] VITALS: BP 166/67
--- NOTE | 2018-11-28 17:16 | IPNPDOC ---
Date Seen The patient was seen on 11/28/18. Progress Note SUBJECTIVE: Patient is a 83-year-old female who presented to the emergency room with nausea and vomiting over the past 2 weeks with poor oral intake. Patient was seen and examined today in her interim room in the ED, lying comfortably in bed. She states she came in because she has not been feeling well. She has a hard time elaborating on what does not feel well, but does endorse recent nausea and decreased appetite with vomiting. Her son, Jesús was also present in the room and stated that his mother has not seemed interested in eating for the past couple months, but this has become much worse over the past 2 weeks. He also states that she has been very tired and fatigues, spending most of her time resting on the couch. She endorses some chills today but denies any fevers or night sweats. She denies abdominal pain, diarrhea, blood in the emesis, blood in stool, dysuria or urinary frequency, increased leg swelling, chest pain, shortness of breath, palpitations. Of note, her son mentions that the patient's did recently pass away about 2 weeks ago, and this is when her condition seemed to acutely deteriorate. OBJECTIVE: PHYSICAL EXAMINATION: VITAL SIGNS: Please see below. GENERAL: Alert female, appears her stated age, no acute distress, lying comfortably in bed HEENT: Normocephalic, atraumatic, PERRLA, EOMI with poor tracking at times seemingly due to lack of focus, somewhat dry mucous membranes CARDIOVASCULAR: Bradycardic rate, regular rhythm, normal S1 and S2. RESPIRATORY: Clear to auscultation bilaterally, on 2 L nasal cannula. ABDOMINAL: Tender in the right upper quadrant to palpation, otherwise nontender. Soft, nondistended, bowel sounds present, no masses or hepatosplenomegaly appreciated. EXTREMITIES: Cold to touch, pulses 2+ in the radial and posterior tibial arteries, 1+ pitting edema in the left lower extremity, no edema of the right lower extremity NEUROLOGICAL: Alert and oriented 3 to person, place and time. Essential tremor present in the right arm > left arm. Mild facial droop of the left eye and mouth compared to the right. Otherwise CN 2-12 grossly intact. Sensation intact, 2/4 DTRs equal bilaterally in upper and lower extremities, 4/5 muscle strength throughout, thought to be related to poor nutritional status. No other deficits noted. PSYCHOLOGICAL:. Normal mood and affect LABORATORY DATA, IMAGING STUDIES, MICROBIOLOGY: Please see below. ASSESSMENT AND PLAN: This is a 83-year-old female who presented to the emergency room with nausea and vomiting over the past 2 weeks with poor oral intake PROBLEMS: 1. Nausea/Vomitting with poor oral intake - NPO for now, hold IVF to avoid fluid overload considering CKD Liver ultrasound showed distended gallbladder with biliary sludge. We'll check liver Doppler for possible thrombosis. Lipase negative. Cardiac enzymes negative 2. Blood cultures pending. UA significant for 3+ leukocyte esterase, 23 urine WBC, 8 urine RBC, 1+ urine bacteria. Urine culture pending. 2. Hypoglycemia, History of diabetes mellitus type 2 Hold DM 2 medications for now. Insulin sliding scale while in the hospital. Continue to monitor, suspect her hypoglycemia is related to her poor oral intake. 3. Transaminitis She has had somewhat mildly elevated LFTs in the past, but on presentation today LFTs are more acutely elevated. Liver ultrasound did not reveal any hepatic findings, will check liver Doppler for possible thrombosis. 4. CKD stage IVV Patient was planning to start dialysis with AV fistula in the left arm. Hold IV fluids for now to avoid fluid overload, monitor I/O and daily weights, continue to monitor BUN and Cr Consulted Dr. Fortune for dialysis, appreciate his input and recommendations 5. Chronic diastolic congestive heart failure/chronic hypertension. Hold parameter on home carvedilol due to hypotension 6. Chronic CAD/Dyslipidemia Continue home simvastatin 7. COPD w chronic O2 Dependent Respiratory Failure Stable, continue with home oxygen supplementation. Medications 8. Chronic atrial fibrillation hold home amiodarone - hold parameter on home carvedilol due to current hypotension 9. Iron Deficiency Anemia. Continue home iron supplement and monitor CBC 10. Hypothyroidism Elevated TSH with elevated T4 level. Looking back at her previous labs, patient has had elevated TSH, which has seemed to be downtrending. Patient symptomatically appears more hypothyroid, may consider increasing her dose of levothyroxine. 11. Gout Continue home allopurinol 12. Poor nutrition with low BMI BMI is 19 Plan for nutrition consult once nausea and vomiting have resolved 13. DVT prophylaxis. Teds and SCDs DISPOSITION: Inpatient PCU pending clinical improvement I saw and evaluated the patient. I agree with the findings and plan of care as documented in the above note VS, I&O, 24H, Fishbone Vital Signs/I&O Vital Signs Date Time Temp Pulse Resp B/P (MAP) Pulse Ox O2 Delivery O2 Flow Rate FiO2 11/28/18 10:01 48 128/58 (81) 100 11/28/18 08:46 15 11/28/18 03:07 97.8 2.0 Laboratory Data 24H LABS Laboratory Tests 2 11/28/18 03:48: Immature Granulocyte % (Auto) 0.5, White Blood Count 9.8, Red Blood Count 4.09, Hemoglobin 11.9L, Hematocrit 37.0, Mean Corpuscular Volume 90.5, Mean Corpuscular Hemoglobin 29.1, Mean Corpuscular Hemoglobin Concent 32.2, Red Cell Distribution Width 15.9H, Platelet Count 276, Neutrophils (%) (Auto) 76.9H, Lymphocytes (%) (Auto) 15.3L, Monocytes (%) (Auto) 5.7H, Eosinophils (%) (Auto) 0.8, Basophils (%) (Auto) 0.8, Neutrophils # (Auto) 7.6, Lymphocytes # (Auto) 1.5, Monocytes # (Auto) 0.6, Eosinophils # (Auto) 0.1, Basophils # (Auto) 0.1, Nucleated Red Blood Cells % (auto) 0.0, Activated Partial Thromboplast Time 31.0, Anion Gap 11, Glomerular Filtration Rate 13.3L, Calcium Level 9.0, Aspartate Amino Transf (AST/SGOT) 137H, Alanine Aminotransferase (ALT/SGPT) 140H, Alkaline Phosphatase 80, Total Bilirubin 0.8, Direct Bilirubin 0.5H, Total Creatine Kinase 51, Creatine Kinase MB 1.0, Creatine Kinase MB Relative Index 1.96, Troponin I 0.03, Total Protein 6.8, Albumin 3.2, Albumin/Globulin Ratio 0.89L, Lipase 44L 11/28/18 05:28: Bedside Glucose (Misc Panel) 81L 11/28/18 06:18: Bedside Glucose (Misc Panel) 83 11/28/18 06:36: Thyroid Stimulating Hormone (TSH) 12.200H, Free Thyroxine 1.63H CBC/BMP Laboratory Tests 11/28/18 03:48 Red Blood Count 4.09, Mean Corpuscular Volume 90.5, Mean Corpuscular Hemoglobin 29.1, Mean Corpuscular Hemoglobin Concent 32.2, Red Cell Distribution Width 15.9 H, Neutrophils (%) (Auto) 76.9 H, Lymphocytes (%) (Auto) 15.3 L, Monocytes (%) (Auto) 5.7 H, Eosinophils (%) (Auto) 0.8, Basophils (%) (Auto) 0.8, Neutrophils # (Auto) 7.6, Lymphocytes # (Auto) 1.5, Monocytes # (Auto) 0.6, Eosinophils # (Auto) 0.1, Basophils # (Auto) 0.1 Microbiology Microbiology 11/28/18 Blood Culture, Received Pending 11/28/18 Blood Culture, Received Pending TRANG TIPTON PGY-1 Nov 28, 2018 11:01 JUAN F LANDRY MD Dec 01, 2018 16:12
[2018-11-28] MEDS ORDERED: D10W 1,000 ML IV SCH (19:45)
--- NOTE | 2018-11-28 19:59 | IPNPDOC ---
Text Note Date of Service The patient was seen on 11/28/18. NOTE Per d/w RN the patient's left foot has an old wound and the patient c/o of pain when the sock is removed; there is suspicion that she may have a Charcot foot. The patient has also been having swings in her accuchecks from 22 to >100 EXAM: Left foot very swollen w/o arch when compared to right foot. Right foot has a high arch #Suspected Charcot' Foot Plan: Podiatry Consult #Hypoglycemia Plan: add D10 @ 20ml/H / f/u accuchecks Q4H until stable VS,Fishbone, I+O VS, Fishbone, I+O Laboratory Tests 11/28/18 03:48 Red Blood Count 4.09, Mean Corpuscular Volume 90.5, Mean Corpuscular Hemoglobin 29.1, Mean Corpuscular Hemoglobin Concent 32.2, Red Cell Distribution Width 15.9 H, Neutrophils (%) (Auto) 76.9 H, Lymphocytes (%) (Auto) 15.3 L, Monocytes (%) (Auto) 5.7 H, Eosinophils (%) (Auto) 0.8, Basophils (%) (Auto) 0.8, Neutrophils # (Auto) 7.6, Lymphocytes # (Auto) 1.5, Monocytes # (Auto) 0.6, Eosinophils # (Auto) 0.1, Basophils # (Auto) 0.1 Vital Signs Date Time Temp Pulse Resp B/P (MAP) Pulse Ox O2 Delivery O2 Flow Rate FiO2 11/28/18 16:10 97.4 55 19 166/67 (100) 100 2.0 11/28/18 12:46 Nasal Cannula EL MERAZ MD Nov 28, 2018 19:59
[2018-11-28 20:00] VITALS: BP 129/74
--- NOTE | 2018-11-28 20:04 | REPVR ---
EXAM: MR Head Without Contrast EXAM DATE/TIME: 11/28/2018 6:56 PM CLINICAL HISTORY: 83 years old, female; Altered mental status/memory loss; Confusion or disorientation; Patient HX: Son states confusion; Additional info: Left sided facial droop, right asterixis TECHNIQUE: Imaging protocol: MR of the head without contrast. COMPARISON: MRI-Brain without Contrast 03/10/2018 12:24 PM FINDINGS: Brain: No convincing acute infarction identified on the diffusion weighted imaging. Please note, there are motion artifacts limiting evaluation of portions of the brain, for example occipital poles. The brain demonstrates marked, advanced for age volume loss; in particular, severe temporal lobe volume loss with ex vacuo enlargement of the temporal horns of the lateral ventricles as well as widening of the sylvian fissure. No evidence of brain parenchymal edema or intracranial mass effect. The T2-weighted imaging demonstrates patchy foci of increased signal intensity in the deep and subcortical white matter most likely representing chronic small vessel ischemic change. Ventricles: The ventricles appear enlarged in keeping with volume loss. Bones/joints: Unremarkable. Soft tissues: Unremarkable. Sinuses: Normal as visualized. No acute sinusitis. Mastoid air cells: Trace patchy right mastoid effusion. Orbits: Unremarkable. Middle cerebral arteries: Prominent flow void for the left MCA bifurcation raising question of an approximate 4 mm aneurysm. IMPRESSION: 1. The images are motion degraded. 2. No obvious acute infarction identified. 3. 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 Electronically signed by: Stacy Mejia On 11/28/2018 20:04:24 PM
--- NOTE | 2018-11-28 20:22 | REP ---
Visceral Doppler assessment right upper quadrant and liver. History: Right upper quadrant pain. Nausea and vomiting. Comparison sonography right upper quadrant November 28, 2018 showed sludge in the gallbladder. Comparison CT study June 23, 2018. Findings: There is a trace of free fluid in the right upper quadrant. Bowel gas obscures the proximal superior mesenteric vein and the splenic vein near the tail of the pancreas. No sonographic vascular abnormalities are observed. Splenic vein, proximal SMV and portal venous flow direction and velocities are normal. Hepatic vein velocities are normal. Main portal vein is 9 mm in diameter. Portal vein flow velocity is 38.1 cm/s. Hepatic arterial peak systolic flow velocity is 68 cm/s. Impression: No abnormality. Electronically Signed by Danny Corral MD 11/28/2018 09:18 P
[2018-11-28] MEDS: FERROUS SULFATE 325MG TAB PO SCH (20:43)
[2018-11-28] MEDS: CARVedilol 12.5 MG TAB PO SCH (20:44)
[2018-11-28] MEDS: SIMVASTATIN 20 MG TAB PO SCH (20:45)
[2018-11-29] VITALS (8 sets, daily range): BP systolic 116–144; BP diastolic 38–92
[2018-11-29] MEDS: LEVOTHYROXINE 100MCG TABLET (0.1MG) PO SCH (05:43)
[2018-11-29 07:59] LABS: ALBUMIN 2.8 GM/DL (3.2-5.2); BILIRUBIN,TOTAL 0.7 MG/DL (0.2-1.0); CALCIUM LEVEL 8.6 MG/DL (8.8-10.2); CREATININE FOR GFR 3.54 MG/DL (0.55-1.30); MAGNESIUM LEVEL 2.3 MG/DL (1.8-2.4); POTASSIUM SERUM 3.7 MEQ/L (3.5-5.1); TOTAL PROTEIN 6.1 GM/DL (6.4-8.2)
[2018-11-29 08:12] LABS: HEMATOCRIT 34.6 % (36.0-47.0); HEMOGLOBIN 11.2 g/dl (12.0-15.5); MEAN CORPUSCULAR HEMOGLOBIN 29.9 pg (27.0-33.0); MEAN CORPUSCULAR HGB CONC 32.4 g/dl (32.0-36.5); MEAN CORPUSCULAR VOLUME 92.3 fl (80.0-96.0); PLATELET COUNT, AUTOMATED 272 10^3/uL (150-450); RED BLOOD COUNT 3.75 10^6/uL (4.00-5.40); WHITE BLOOD COUNT 10.1 10^3/uL (4.0-10.0)
[2018-11-29] MEDS: CARVedilol 12.5 MG TAB PO SCH ×2 (09:00→20:38)
[2018-11-29] MEDS: ALLOPURINOL 300 MG TAB PO SCH (09:42)
[2018-11-29] MEDS: OMEPRAZOLE 20 MG CAP PO SCH (09:42)
[2018-11-29] MEDS: CYANOCOBALAMIN 500 MCG TAB PO SCH (09:42)
[2018-11-29] MEDS: CALCITRIOL 0.25 MCG CAP (S0169) PO SCH (09:42)
--- NOTE | 2018-11-29 14:02 | IPNPDOC ---
Date Seen The patient was seen on 11/29/18. Progress Note SUBJECTIVE: Patient is a 83-year-old female who presented to the emergency room with nausea and vomiting over the past 2 weeks with poor oral intake. Was seen and examined in her room today, lying comfortably in her bed. She states she is feeling better this morning, but continues to have some mild persistent nausea. Otherwise, she states she feels less fatigued and her chills have improved greatly. She denies any fevers, night sweats, chest pain, palpitations, shortness of breath, cough, wheezing, vomiting, abdominal pain, diarrhea. OBJECTIVE: PHYSICAL EXAMINATION: VITAL SIGNS: Please see below. GENERAL: Alert female, appears her stated age, no acute distress, lyi ng comfortably in bed HEENT: Normocephalic, atraumatic, PERRLA, EOMI with poor tracking at times see mingly due to lack of focus, somewhat dry mucous membranes CARDIOVASCULAR: Bradycardic rate, regular rhythm, normal S1 and S2. RESPIRATORY: Clear to auscultation bilaterally, on 2 L nasal cannula. ABDOMINAL: Tender in the right upper quadrant to palpation, otherwise nontender. Soft, nondistended, bowel sounds present, no masses or hepatosplenomegaly appreciated. EXTREMITIES: Cold to touch, pulses 2+ in the radial and posterior tibial arteries, 1+ pitting edema in the left lower extremity, no edema of the right lower extremity NEUROLOGICAL: Alert and oriented 3 to person, place and time. Essential tremor present in the right arm > left arm. Mild facial droop of the left eye and mouth compared to the right. Otherwise CN 2-12 grossly intact. Sensation intact, 2/4 DTRs equal bilaterally in upper and lower extremities, 4/5 muscle strength throughout, thought to be related to poor nutritional status. No other deficits noted. PSYCHOLOGICAL:. Normal mood and affect LABORATORY DATA, IMAGING STUDIES, MICROBIOLOGY: Please see below. ASSESSMENT AND PLAN: This is a 83-year-old female who presented to the emergency room with nausea and vomiting over the past 2 weeks with poor oral i ntake PROBLEMS: 1. Nausea/Vomitting with poor oral intake Liver ultrasound showed distended gallbladder with biliary sludge. We'll check liver Doppler for possible thrombosis. Lipase negative. Cardiac enzymes negative 2. Blood cultures pending. UA significant for 3+ leukocyte esterase, 23 urine WBC, 8 urine RBC, 1+ urine bacteria. Urine culture pending. Advance to soft diet this morning. Will monitor to make sure her symptoms do not worsen. 2. Hypoglycemia, History of diabetes mellitus type 2 Hold DM 2 medications for now. Insulin sliding scale while in the hospital. Continue to monitor, suspect her hypoglycemia is related to her poor oral intake. 3. Charcot foot Recommendation had been given for podiatry consult by overnight team. However, the patient has been seen by podiatry in May 2018 and diagnosed with Charcot foot. She was evaluated at that time by Dr. Paiz . According to his note, she was not considered a good surgical candidate. In addition, on discussion with the patient today, she would not like to do any surgical procedures. She does follow with Dr. Moreno for podiatry as well. She denies any current pain in the foot. For these reasons, the consult was cancelled. Would reconsider this consult if the patient decides she would be interested in surgery. Otherwise, she can continue to follow up with podiatry as scheduled in the outpatient setting. 4. Transaminitis She has had somewhat mildly elevated LFTs in the past, but on presentation today LFTs are more acutely elevated. Liver ultrasound did not reveal any hepatic findings, liver Doppler study was also WNL Continue to monitor to make sure LFTs are downtrending. 5. CKD stage IVV Patient was planning to start dialysis with AV fistula in the left arm. Hold IV fluids for now to avoid fluid overload, monitor I/O and daily weights, continue to monitor BUN and Cr Consulted Dr. Fortune for dialysis, appreciate his input and recommendations 6 Chronic diastolic congestive heart failure/chronic hypertension. Hold parameter on home carvedilol due to hypotension 7. Chronic CAD/Dyslipidemia Continue home simvastatin 8. COPD w chronic O2 Dependent Respiratory Failure Stable, continue with home oxygen supplementation. Medications 9. Chronic atrial fibrillation hold home amiodarone -hold parameter on home carvedilol due to current hypotension 10. Iron Deficiency Anemia. Continue home iron supplement and monitor CBC 11. Hypothyroidism Elevated TSH with elevated T4 level. Looking back at her previous labs, patient has had elevated TSH, which has seemed to be downtrending. Patient symptomatically appears more hypothyroid, may consider increasing her dose of levothyroxine. 12. Gout Continue home allopurinol 13. Poor nutrition with low BMI BMI is 19 Plan for nutrition consult once nausea and vomiting have resolved DVT prophylaxis. Teds and SCDs DISPOSITION: Inpatient med/surg with tele pending clinical improvement, PT/OT clearance, PFS for home care I saw and evaluated the patient. I agree with the findings and plan of care as documented in the above note VS, I&O, 24H, Fishbone Vital Signs/I&O Vital Signs Date Time Temp Pulse Resp B/P (MAP) Pulse Ox O2 Delivery O2 Flow Rate FiO2 11/29/18 09:00 97.6 56 20 116/58 (77) 100 2.0 11/28/18 12:46 Nasal Cannula I&O- Last 24 Hours up to 6 AM 11/29/18 06:00 Intake Total 740 ml Output Total 685 ml Balance 55 ml Laboratory Data 24H LABS Laboratory Tests 2 11/28/18 11:58: Total Creatine Kinase 44, Creatine Kinase MB 1.0, Creatine Kinase MB Relative Index 2.27, Troponin I 0.02# 11/28/18 15:15: Urine Appearance CLEAR, Urine Color YELLOW, Urine pH 5.0, Urine Specific [place] 1.010, Urine Protein NEGATIVE, Urine Glucose (UA) NEGATIVE, Urine Ketones NEGATIVE, Urine Urobilinogen 0.2, Urine Bilirubin NEGATIVE, Urine Leukocyte Esterase 3+H, Urine Blood 1+H, Urine Nitrite NEGATIVE, Urine WBC (Auto) 23H, Urine RBC (Auto) 8H, Urine Hyaline Casts (Auto) 4, Urine Bacteria (Auto) 1+H, Urine Squamous Epithelial Cells 12, Urine Mucus (Auto) SMALL, Urine Sperm (Auto) 11/28/18 16:04: Bedside Glucose (Misc Panel) 22*L 11/28/18 16:42: Bedside Glucose (Misc Panel) 136H 11/28/18 19:13: Bedside Glucose (Misc Panel) 107 11/28/18 23:37: Bedside Glucose (Misc Panel) 102 11/29/18 03:20: Nucleated Red Blood Cells % (auto) 0.0, Anion Gap 10, Glomerular Filtration Rate 13.0L, Blood Urea Nitrogen 59H, Creatinine 3.54H, Sodium Level 137, Potassium Level 3.7, Chloride Level 97L, Carbon Dioxide Level 30, Calcium Level 8.6L, Aspartate Amino Transf (AST/SGOT) 124H, Alanine Aminotransferase (ALT/SGPT) 123H, Alkaline Phosphatase 71, Total Bilirubin 0.7, Total Protein 6.1L, Albumin 2.8L, Magnesium Level 2.3, Albumin/Globulin Ratio 0.85L 11/29/18 03:32: Bedside Glucose (Misc Panel) 104 11/29/18 09:47: Bedside Glucose (Misc Panel) 114H CBC/BMP Laboratory Tests 11/29/18 03:20 Red Blood Count 3.75 L, Mean Corpuscular Volume 92.3, Mean Corpuscular Hemoglobin 29.9, Mean Corpuscular Hemoglobin Concent 32.4, Red Cell Distribution Width 15.9 H, Calcium Level 8.6 L, Aspartate Amino Transf (AST/SGOT) 124 H, Alanine Aminotransferase (ALT/SGPT) 123 H, Alkaline Phosphatase 71, Total Bilirubin 0.7, Total Protein 6.1 L, Albumin 2.8 L Microbiology Microbiology 11/28/18 Blood Culture - Preliminary, Resulted No growth after 24 hours . All specim... 11/28/18 Blood Culture - Preliminary, Resulted No growth after 24 hours . All specim... 11/28/18 Urine Culture, Received Pending TRANG TIPTON PGY-1 Nov 29, 2018 10:52 JUAN F LANDRY MD Dec 01, 2018 16:13
--- NOTE | 2018-11-29 14:18 | REP ---
BILATERAL FOOT: Eight views. HISTORY: Foot wound. Concern for Charcot foot. Comparison left foot radiographs of May 31, 2018. FINDINGS: Four views of the left foot show diffuse soft tissue swelling of the midfoot and forefoot. There are advanced neuropathic arthropathy changes of the midfoot most prominently involving the first tarsometatarsal and medial intertarsal joints. There is fragmentation of the medial, middle and lateral cuneiforms and collapse of tarsal arch on the left. There is mild fragmentation. The changes are more pronounced than on the May 2018. No acute destructive or resorptive changes seen. No definite soft tissue gas is seen. On the right there is diffuse osteopenia. There is flexion deformity of the MTP joints of all five digits. No acute erosive changes or soft tissue gas seen on the right. IMPRESSION: Advanced neuropathic arthropathy left mid foot. Diffuse left foot swelling. Progressive arthropathy changes in the left mid foot. No acute bony destructive lesion is seen radiographically. On the right there is no acute erosive change or soft tissue gas. Electronically Signed by Danny Corral MD 11/29/2018 05:32 P
[2018-11-29 14:43] LABS: HEMOGLOBIN A1c 6.4 %
[2018-11-29] MEDS: HumaLOG INSULIN (NovoLOG) PER UNIT SC SCH ×2 (17:35→20:32)
--- NOTE | 2018-11-29 19:25 | CR ---
DATE OF CONSULTATION: 11/28/2018 CONSULTATION REPORT FOR: Luz Larry MD REASON FOR CONSULTATION: Acute renal failure superimposed on chronic kidney disease. HISTORY OF PRESENT ILLNESS: Mrs. Ruiz is an 83-year-old female with multiple chronic medical problems including a history of type 2 diabetes, hypertension, stage IV to stage V of chronic kidney disease, chronic obstructive pulmonary disease (COPD), anemia, chronic diastolic congestive heart failure, atrial fibrillation and hypothyroidism. She does have a left arm arteriovenous (AV) fistula. However, she has not been cleared to start dialysis. The patient was brought to the emergency room due to nausea, vomiting and poor oral intake for the last couple of weeks. Her son is present in the room and he states that the patient's two weeks ago and since then, her condition has deteriorated, though she was not eating much even prior to that. She has been declining to start dialysis. In the emergency room, ultrasound showed some sludge in the gallbladder but no evidence of acute cholecystitis. She was given 500 mL of IV fluid. Her blood urea nitrogen (BUN) was 60 and creatinine above 3. Nephrology consultation was requested and the patient is seen in her interim bed in the emergency room. PAST MEDICAL AND SURGICAL HISTORY: Significant for: 1. Longstanding type 2 diabetes. 2. Hypertension. 3. Coronary artery disease. 4. History of dyslipidemia. 5. History of chronic obstructive pulmonary disease (COPD), on 2 liters of oxygen. 6. History of stage V of chronic kidney disease. 7. History of secondary hyperparathyroidism. 8. Anemia of chronic kidney disease. 9. History of chronic diastolic congestive heart failure. 10. History of atrial fibrillation. 11. History of gout. 12. Hypothyroidism. PERSONAL AND SOCIAL HISTORY: The patient quit smoking awhile ago. There is no history of alcohol or drug use. She is living with her son and her just a couple of weeks ago. FAMILY HISTORY: Significant for coronary artery disease and negative for end-stage renal disease. ALLERGIES: She has allergy to PENICILLIN. MEDICATIONS: Her home medications include: - allopurinol 150 mg daily - amiodarone 200 mg twice a day - aspirin 81 mg daily - calcitriol 0.25 mcg daily - Carvedilol 12.5 mg twice a day - vitamin B12 1000 mcg daily - vitamin D 50,000 units once a week - ferrous sulfate 325 mg two tablets at bedtime - glipizide ER 10 mg twice a day - levothyroxine 100 mcg daily - magnesium oxide 400 mg three times a week - omeprazole 20 mg daily - potassium chloride 20 mEq daily - furosemide 20 mg two tablets twice a day - simvastatin 20 mg at bedtime REVIEW OF SYSTEMS: The patient denies any fever or chills. Her son reports that she has not been feeling well for at least a couple of months. Her nausea and loss of appetite worsened two weeks ago when her . Ears, nose and throat are unremarkable. Cardiovascular system is significant for atrial fibrillation and diastolic congestive heart failure. She has been on chronic home oxygen. Respiratory system is significant for chronic obstructive pulmonary disease (COPD). She denies any hemoptysis or pleuritic-type of chest pain. Gastrointestinal (GI) system is as per history of present illness. The patient denies any abdominal pain but does have nausea and vomiting. She vomited last time yesterday. There is no history of coffee-ground material or blood in her vomitus. Musculoskeletal system is significant for chronic degenerative arthritis. Endocrine system is significant for secondary hyperparathyroidism and hypothyroidism in addition to type 2 diabetes. Hematological system is significant for anemia. Psychosocial system is negative for depression or anxiety. However, she does feel depressed since her . PHYSICAL EXAMINATION: The patient is lying in the stretcher in the emergency room. She is not in any acute distress at the time of my visit. Temperature 97.7 degrees Fahrenheit, heart rate 54 per minute and respiratory rate 18 per minute. Blood pressure 120/56 mmHg and oxygen saturation 100% on 2-3 liters of oxygen. Head is atraumatic. Oral mucosa is somewhat dry but without any thrush or ulcers. Heart sounds are regular and there is no pericardial friction rub. Lungs with diminished breath sounds at the bases. Abdomen is soft but there is some tenderness in the periumbilical area and right upper quadrant. Bowel sounds are normal. Extremities have no cyanosis or clubbing. Neurologically, she is awake and able to answer simple questions. LABORATORY DATA: WBC count is 9.8, hemoglobin 11.9 and hematocrit 37.0. Platelets 276. Sodium 136, potassium 3.9, CO2 30, BUN 60 and creatinine 3.49. Fasting glucose was 47. AST 137, ALT 140, total bilirubin 0.8. Troponin is 0.03 and total protein 6.8 with albumin 3.2. Lipase level 44. A TSH level is 12.2 and free T4 1.63. Urinalysis showed 23 WBCs and 8 RBCs with 1+ bacteria and 1+ blood. There is no protein. Chest x-ray done in the emergency room showed evidence for COPD and cardiomegaly with some vascular congestion. Chronic interstitial fibrosis also noted. Abdominal ultrasound showed sludge in the gallbladder and no hydronephrosis. PROBLEMS: 1. Acute renal failure superimposed on chronic kidney disease. The patient has known history of advanced chronic kidney disease and does have a fistula in her arm. However, she has been declining to start dialysis. Even at this point, she is not very eager to even discuss dialysis. We will monitor for the next 24 hours. She has nausea and poor oral intake for several days but does not clinically look significantly dehydrated. She did receive some IV fluid already in the emergency room. Currently, she is not receiving any IV fluid due to risk of congestive heart failure as her chest x-ray did report cardiomegaly and some interstitial edema. 2. Nausea and vomiting, most likely related to gastritis if not gallbladder issue. I would suggest aggressive proton pump inhibitor (PPI) therapy for a few days and see if her condition improves. She does have multiple risk factors for gastritis including advanced renal failure and stressful situation at home with the of her . If her symptoms do not improve then we will discuss about the potential need for starting dialysis. 3. Diastolic congestive heart failure. She does have a history of diastolic congestive heart failure and was on torsemide and potassium supplement. I would suggest to hold off on diuretic for now. We will reevaluate her tomorrow for need for dialysis or diuretic. She is oxygenating well on 2-3 liters of oxygen. Thank you for involving me in the care of Mrs. Ruiz. I will follow her along with you.
[2018-11-29] MEDS: FERROUS SULFATE 325MG TAB PO SCH (20:37)
[2018-11-29] MEDS: SIMVASTATIN 20 MG TAB PO SCH (20:38)
--- NOTE | 2018-11-29 20:48 | IPN ---
DATE: 11/29/2018 Mrs. Ruiz is seen this morning on her bedside. She is lying in the bed flat and denies any complaints. Her nausea and vomiting have improved. She is asking for breakfast. She has no fever, chills, dyspnea or chest pain. She is receiving IV fluid due to hypoglycemia earlier. PHYSICAL EXAMINATION: Temperature 97.6 degrees Fahrenheit, heart rate 56 per minute and respiratory rate 20 per minute. Blood pressure 116/58 mmHg and oxygen saturation 100%. Head is atraumatic. Neck is supple and neck veins are flat. Heart sounds are regular. Lungs sound clear to auscultation. Abdomen is soft and nontender. Bowel sounds are normal. Extremities have no cyanosis or clubbing. She has deformity of her left foot which is chronic. Neurologically, she seems to be at her baseline mentation. LABORATORY DATA: Today's laboratories show WBC count 10.1, hemoglobin 11.2 and hematocrit 34.6. Sodium 137, potassium 3.7, CO2 30, BUN 59 and creatinine 3.54. Glucose 94 and calcium 8.6. AST is down to 124 and ALT 123. PROBLEMS: 1. Acute renal failure superimposed on chronic kidney disease. The patient has advanced chronic kidney disease even at baseline. She had slight worsening of kidney function due to dehydration as she had vomiting and poor oral intake for a few days. Currently, she is off diuretic and I would recommend to continue to hold her diuretic. At present, there is no emergent need for dialysis and her kidney function will be checked again tomorrow morning. 2. Nausea and vomiting. This is probably multifactorial. At present, her symptoms have improved and she is tolerating her diet. I do not feel that she has any significant uremia. 3. Anemia. Her anemia is mild and stable and does not need any urgent intervention.
[2018-11-30] MEDS: LEVOTHYROXINE 100MCG TABLET (0.1MG) PO SCH (05:55)
[2018-11-30 06:00] VITALS: BP 127/77
[2018-11-30] MEDS ORDERED: PREVNAR 13 VACCINE SYRINGE (CPT CODE:90670) IM SCH (06:00)
[2018-11-30 06:36] LABS: HEMOGLOBIN 10.7 g/dl (12.0-15.5); MEAN CORPUSCULAR HEMOGLOBIN 28.9 pg (27.0-33.0); MEAN CORPUSCULAR HGB CONC 32.4 g/dl (32.0-36.5); MEAN CORPUSCULAR VOLUME 89.2 fl (80.0-96.0); PLATELET COUNT, AUTOMATED 256 10^3/uL (150-450); WHITE BLOOD COUNT 10.5 10^3/uL (4.0-10.0)
[2018-11-30 06:51] LABS: CALCIUM LEVEL 9.2 MG/DL (8.8-10.2); CREATININE FOR GFR 3.51 MG/DL (0.55-1.30); GLOMERULAR FILTRATION RATE 13.2 (>32); MAGNESIUM LEVEL 2.2 MG/DL (1.8-2.4); POTASSIUM SERUM 3.9 MEQ/L (3.5-5.1)
[2018-11-30] MEDS: CYANOCOBALAMIN 500 MCG TAB PO SCH (08:20)
[2018-11-30] MEDS: OMEPRAZOLE 20 MG CAP PO SCH (08:20)
[2018-11-30] MEDS: HumaLOG INSULIN (NovoLOG) PER UNIT SC SCH ×4 (08:20→21:00)
[2018-11-30] MEDS: CALCITRIOL 0.25 MCG CAP (S0169) PO SCH (08:20)
[2018-11-30] MEDS: ALLOPURINOL 300 MG TAB PO SCH (08:20)
[2018-11-30] MEDS: CARVedilol 12.5 MG TAB PO SCH ×2 (08:22→21:00)
[2018-11-30 09:00] LABS: ALBUMIN 2.7 GM/DL (3.2-5.2); BILIRUBIN,DIRECT 0.3 MG/DL (0.0-0.2); BILIRUBIN,TOTAL 0.6 MG/DL (0.2-1.0); TOTAL PROTEIN 6.4 GM/DL (6.4-8.2)
[2018-11-30] MEDS ORDERED: MIRALAX *UNIT DOSE* 17GM PACKET PO PRN (09:00)
[2018-11-30 10:00] VITALS: BP 106/49
--- NOTE | 2018-11-30 10:11 | IPNPDOC ---
Date Seen The patient was seen on 11/30/18. Progress Note SUBJECTIVE: Patient is a 83-year-old female who presented to the emergency room with nausea and vomiting over the past 2 weeks with poor oral intake. Patient was seen and examined in her room today, sitting comfortably in a chair. She states her nausea has improved greatly and she is tolerating the diet. She states she is eating much better than she was at home. She denies any fevers, chills, night sweats, chest pain, palpitations, shortness of breath, cough, wheezing, vomiting, abdominal pain, diarrhea. OBJECTIVE: PHYSICAL EXAMINATION: VITAL SIGNS: Please see below. GENERAL: Alert female, appears her stated age, no acute distress, lying comfortably in bed HEENT: Normocephalic, atraumatic, PERRLA, EOMI with poor tracking at times seemingly due to lack of focus, somewhat dry mucous membranes CARDIOVASCULAR: Bradycardic rate, regular rhythm, normal S1 and S2. RESPIRATORY: Clear to auscultation bilaterally, on 2 L nasal cannula. ABDOMINAL: Nontender. Soft, nondistended, bowel sounds present, no masses or hepatosplenomegaly appreciated. EXTREMITIES: Cold to touch, pulses 2+ in the radial and posterior tibial arteries, 1+ pitting edema in the left lower extremity, no edema of the right lower extremity NEUROLOGICAL: Alert and oriented 3 to person, place and time. Essential tremor present in the right arm > left arm. Mild facial droop of the left eye and mouth compared to the right. Otherwise CN 2-12 grossly intact. Sensation intact, 2/4 DTRs equal bilaterally in upper and lower extremities, 4/5 muscle strength throughout, thought to be related to poor nutritional status. No other deficits noted. PSYCHOLOGICAL:. Normal mood and affect LABORATORY DATA, IMAGING STUDIES, MICROBIOLOGY: Please see below. ASSESSMENT AND PLAN: This is a 83-year-old female who presented to the emergency room with nausea and vomiting over the past 2 weeks with poor oral intake PROBLEMS: 1. Nausea/Vomitting with poor oral intake Liver ultrasound showed distended gallbladder with biliary sludge. We'll check liver Doppler for possible thrombosis. Lipase negative. Cardiac enzymes negative 2. Blood cultures pending. UA significant for 3+ leukocyte esterase, 23 urine WBC, 8 urine RBC, 1+ urine bacteria. Urine culture pending. Continue with soft diet which she is tolerating well. Dietary consult due to her failure to thrive and low BMI 2. Hypoglycemia, History of diabetes mellitus type 2 Hold DM 2 medications for now. Insulin sliding scale while in the hospital. Continue to monitor, suspect her hypoglycemia is related to her poor oral intake. Improved since she has been eating regularly in the hospital. 3. Charcot foot Recommendation had been given for podiatry consult by overnight team. However, the patient has been seen by podiatry in May 2018 and diagnosed with Charcot foot. She was evaluated at that time by Dr. Paiz . According to his note, she was not considered a good surgical candidate. In addition, on discussion with the patient today, she would not like to do any surgical procedures. She does follow with Dr. Moreno for podiatry as well. She denies any current pain in the foot. For these reasons, the consult was cancelled. Would reconsider this consult if the patient decides she would be interested in surgery. Otherwise, she can continue to follow up with podiatry as scheduled in the outpatient setting. 4. Transaminitis She has had somewhat mildly elevated LFTs in the past, but on presentation today LFTs are more acutely elevated. Liver ultrasound did not reveal any hepatic findings, liver Doppler study was also WNL Continue to monitor to make sure LFTs are downtrending. 5. CKD stage IVV Patient was planning to start dialysis with AV fistula in the left arm. However, she has apparently been refusing dialysis Hold IV fluids for now to avoid fluid overload, monitor I/O and daily weights, continue to monitor BUN and Cr Consulted Dr. Fortune for dialysis, appreciate his input and recommendations 6 Chronic diastolic congestive heart failure/chronic hypertension. Hold parameter on home carvedilol due to hypotension 7. Chronic CAD/Dyslipidemia Continue home simvastatin 8. COPD w chronic O2 Dependent Respiratory Failure Stable, continue with home oxygen supplementation. Medications 9. Chronic atrial fibrillation hold home amiodarone -hold parameter on home carvedilol due to current hypotension 10. Iron Deficiency Anemia. Continue home iron supplement and monitor CBC 11. Hypothyroidism Elevated TSH with elevated T4 level. Looking back at her previous labs, patient has had elevated TSH, which has seemed to be downtrending. Patient symptomatically appears more hypothyroid, may consider increasing her dose of levothyroxine. 12. Gout Continue home allopurinol 13. Poor nutrition with low BMI BMI is 19 Nutrition consult DVT prophylaxis. Teds and SCDs DISPOSITION: Inpatient med/surg with tele pending clinical improvement, PT/OT clearance, PFS for home care VS, I&O, 24H, Cristianbonsaloni Vital Signs/I&O Vital Signs Date Time Temp Pulse Resp B/P (MAP) Pulse Ox O2 Delivery O2 Flow Rate FiO2 11/30/18 08:22 60 102/59 11/30/18 06:00 97.6 17 99 2.0 11/28/18 12:46 Nasal Cannula I&O- Last 24 Hours up to 6 AM 11/30/18 06:00 Intake Total 1440 ml Output Total 550 ml Balance 890 ml Laboratory Data 24H LABS Laboratory Tests 2 11/29/18 15:16: Bedside Glucose (Misc Panel) 228H 11/29/18 17:12: Bedside Glucose (Misc Panel) 273H 11/30/18 06:04: Nucleated Red Blood Cells % (auto) 0.0, Anion Gap 8, Glomerular Filtration Rate 13.2L, Calcium Level 9.2, Magnesium Level 2.2, Aspartate Amino Transf (AST/SGOT) 79H, Alanine Aminotransferase (ALT/SGPT) 108H, Alkaline Phosphatase 109, Total Bilirubin 0.6, Direct Bilirubin 0.3H, Total Protein 6.4, Albumin 2.7L, Albumin /Globulin Ratio 0.73L CBC/BMP Laboratory Tests 11/30/18 06:04 Red Blood Count 3.70 L, Mean Corpuscular Volume 89.2, Mean Corpuscular Hemoglobin 28.9, Mean Corpuscular Hemoglobin Concent 32.4, Red Cell Distribution Width 15.9 H Microbiology Microbiology 11/28/18 Blood Culture - Preliminary, Resulted No Growth after 48 hours. All Specime... 11/28/18 Blood Culture - Preliminary, Resulted No Growth after 48 hours. All Specime... 11/28/18 Urine Culture - Final, Complete Enterococcus Faecalis TRANG TIPTON PGY-1 Nov 30, 2018 10:11
[2018-11-30] MEDS: SENOKOT S TAB PO SCH ×2 (12:42→21:29)
[2018-11-30 14:00] VITALS: BP 113/55
[2018-11-30 18:00] VITALS: BP 110/60
[2018-11-30] MEDS: FERROUS SULFATE 325MG TAB PO SCH (21:30)
[2018-11-30] MEDS: SIMVASTATIN 20 MG TAB PO SCH (21:30)
[2018-11-30 22:00] VITALS: BP 114/55
--- NOTE | 2018-11-30 22:25 | IPN ---
DATE: 11/30/2018 Mrs. Ruiz is seen this morning on her bedside. She is walking with the help of physical therapist. She denies any nausea or vomiting. She has no dyspnea or chest pain and remains on 2 liters oxygen. She reports eating good supper and as usual her breakfast this morning with toast and coffee. PHYSICAL EXAMINATION Temperature 96.9 degrees Fahrenheit, heart rate 60 per minute and respiratory rate 16 per minute. Blood pressure 106/49 mmHg and oxygen saturation 100% on 2 liters oxygen. Head is atraumatic. Neck is supple and without jugular venous distention (JVD) sitting upright. Lungs: Have diminished breath sounds at bases but no wheezing. Heart: Sounds are without a pericardial friction rub. Abdomen: Soft and nontender. Bowel sounds are normal. Extremities: Without any cyanosis or clubbing. She has a left arm AV fistula, which is patent. Neurologically she is at her baseline mentation. LABS: Today's labs show WBC count 10.5, hemoglobin 10.7 and hematocrit 33.0. Platelets 256. Sodium 133, potassium 3.9, CO2 27, BUN 68 and creatinine 3.51. Glucose 151 and calcium 9.2. AST is now down to 79, ALT 108 and alkaline phosphatase 109. PROBLEMS: 1. Acute renal failure superimposed on chronic kidney disease. No significant change in kidney function. I have discussed with the patient and her son, Anam about her kidney situation. There is no emergent need for dialysis and the patient does not wish to start dialysis. We will continue to monitor closely and keep dialysis as a last resort for this elderly frail lady. 2. Hyponatremia. She has been off diuretics since admission. Hyponatremia could be related to slight volume overload. We will consider to resume her diuretic in next 24 hours. 3. Gout. She is currently asymptomatic and remains on allopurinol 150 mg daily. 4. Nausea and vomiting. Most likely she had gastritis and is feeling better now and continues with omeprazole. 5. Hypoxemia. She is at about her baseline with 2 liters of oxygen, oxygenating very well. MTDD
[2018-12-01 02:00] VITALS: BP 119/47
[2018-12-01] MEDS: LEVOTHYROXINE 100MCG TABLET (0.1MG) PO SCH (05:36)
[2018-12-01] MEDS: ONDANSETRON 4MG/2ML VIAL (J2405) IV PRN (05:45)
[2018-12-01 06:00] VITALS: BP 130/61
[2018-12-01 07:04] LABS: HEMOGLOBIN 10.2 g/dl (12.0-15.5); MEAN CORPUSCULAR HEMOGLOBIN 29.1 pg (27.0-33.0); MEAN CORPUSCULAR HGB CONC 32.9 g/dl (32.0-36.5); MEAN CORPUSCULAR VOLUME 88.3 fl (80.0-96.0); PLATELET COUNT, AUTOMATED 248 10^3/uL (150-450); RED BLOOD COUNT 3.51 10^6/uL (4.00-5.40); WHITE BLOOD COUNT 9.9 10^3/uL (4.0-10.0)
[2018-12-01] MEDS: HumaLOG INSULIN (NovoLOG) PER UNIT SC SCH ×4 (07:30→22:45)
[2018-12-01 07:32] LABS: ALBUMIN 2.7 GM/DL (3.2-5.2); BILIRUBIN,DIRECT 0.4 MG/DL (0.0-0.2); BILIRUBIN,TOTAL 0.6 MG/DL (0.2-1.0); CALCIUM LEVEL 9.1 MG/DL (8.8-10.2); CREATININE FOR GFR 3.32 MG/DL (0.55-1.30); MAGNESIUM LEVEL 2.1 MG/DL (1.8-2.4); POTASSIUM SERUM 3.9 MEQ/L (3.5-5.1); TOTAL PROTEIN 6.3 GM/DL (6.4-8.2)
[2018-12-01 10:00] VITALS: BP 126/62
[2018-12-01] MEDS: ALLOPURINOL 300 MG TAB PO SCH (10:29)
[2018-12-01] MEDS: CALCITRIOL 0.25 MCG CAP (S0169) PO SCH (10:30)
[2018-12-01] MEDS: SENOKOT S TAB PO SCH ×2 (10:30→22:48)
[2018-12-01] MEDS: CYANOCOBALAMIN 500 MCG TAB PO SCH (10:30)
[2018-12-01] MEDS: CARVedilol 12.5 MG TAB PO SCH ×2 (10:31→22:49)
[2018-12-01] MEDS: OMEPRAZOLE 20 MG CAP PO SCH (10:31)
[2018-12-01 14:00] VITALS: BP_SYST 117; BP_SYST 128; BP_DIAS 59; BP_DIAS 77
--- NOTE | 2018-12-01 14:38 | IPNPDOC ---
Date Seen The patient was seen on 12/01/18. Progress Note SUBJECTIVE: Patient is a 83-year-old female who presented to the emergency room with nausea and vomiting over the past 2 weeks with poor oral intake. Patient was seen and examined in her room today, lying comfortably in bed. She denies an nausea today and states she continues to eat better than she was. She does admit she does not eat much food. Discussed the supplement with ensure at dinner to help get her more calories. She denies any fevers, chills, night sweats, chest pain, palpitations, shortness of breath, cough, wheezing, vomiting, abdominal pain, diarrhea. OBJECTIVE: PHYSICAL EXAMINATION: VITAL SIGNS: Please see below. GENERAL: Alert female, appears her stated age, no acute distress, lying comfortably in bed HEENT: Normocephalic, atraumatic, PERRLA, EOMI with poor tracking at times seemingly due to lack of focus, somewhat dry mucous membranes CARDIOVASCULAR: Bradycardic rate, regular rhythm, normal S1 and S2. RESPIRATORY: Clear to auscultation bilaterally, on 2 L nasal cannula. ABDOMINAL: Nontender. Soft, nondistended, bowel sounds present, no masses or hepatosplenomegaly appreciated. EXTREMITIES: Cold to touch, pulses 2+ in the radial and posterior tibial arteries, 1+ pitting edema in the left lower extremity, no edema of the right lower extremity NEUROLOGICAL: Alert and oriented 3 to person, place and time. Essential tremor present in the right arm > left arm. Mild facial droop of the left eye and mouth compared to the right. Otherwise CN 2-12 grossly intact. Sensation intact, 2/4 DTRs equal bilaterally in upper and lower extremities, 4/5 muscle strength throughout, thought to be related to poor nutritional status. No other deficits noted. PSYCHOLOGICAL:. Normal mood and affect LABORATORY DATA, IMAGING STUDIES, MICROBIOLOGY: Please see below. ASSESSMENT AND PLAN: This is a 83-year-old female who presented to the emergency room with nausea and vomiting over the past 2 weeks with poor oral intake PROBLEMS: 1. Nausea/Vomitting with poor oral intake Liver ultrasound showed distended gallbladder with biliary sludge. Liver doppler negative for thrombosis. Lipase negative. Cardiac enzymes negative 2. Blood cultures x2 negative at 72 hours UA significant for 3+ leukocyte esterase, 23 urine WBC, 8 urine RBC, 1+ urine bacteria. Urine culture positive for E. faecalis. Pt continue to deny any urinary complaints, no treatment recommended for asymptomatic UTI Continue with soft diet which she is tolerating well. Dietary consult, recommended ensure clear with dinner to supplement calories 2. Hypoglycemia, History of diabetes mellitus type 2 Hold DM 2 medications for now. Insulin sliding scale while in the hospital. Continue to monitor, suspect her hypoglycemia is related to her poor oral intake. Improved since she has been eating regularly in the hospital. 3. Charcot foot Recommendation had been given for podiatry consult by overnight team. However, the patient has been seen by podiatry in May 2018 and diagnosed with Charcot foot. She was evaluated at that time by Dr. Paiz . According to his note, she was not considered a good surgical candidate. In addition, on discussion with the patient today, she would not like to do any surgical procedures. She does follow with Dr. Moreno for podiatry as well. She denies any current pain in the foot. For these reasons, the consult was cancelled. Would reconsider this consult if the patient decides she would be interested in surgery. Otherwise, she can continue to follow up with podiatry as scheduled in the outpatient setting. 4. Transaminitis She has had somewhat mildly elevated LFTs in the past, but on presentation today LFTs are more acutely elevated. Liver ultrasound did not reveal any hepatic findings, liver Doppler study was also WNL Continue to monitor to make sure LFTs continue to trend down 5. CKD stage IVV Patient was planning to start dialysis with AV fistula in the left arm. However, she has apparently been refusing dialysis Hold IV fluids for now to avoid fluid overload, monitor I/O and daily weights, continue to monitor BUN and Cr which have been stable. She does have some urine output. Consulted Dr. Fortune for dialysis, appreciate his input and recommendations 6 Chronic diastolic congestive heart failure/chronic hypertension. Hold parameter on home carvedilol due to hypotension 7. Chronic CAD/Dyslipidemia Continue home simvastatin 8. COPD w chronic O2 Dependent Respiratory Failure Stable, continue with home oxygen supplementation and home medications 9. Chronic atrial fibrillation, rate controlled hold home amiodarone -hold parameter on home carvedilol due to current hypotension 10. Iron Deficiency Anemia. Continue home iron supplement and monitor CBC 11. Hypothyroidism Elevated TSH with elevated T4 level. Looking back at her previous labs, patient has had elevated TSH, which has seemed to be downtrending. Patient symptomatically appears more hypothyroid, may consider increasing her dose of levothyroxine. 12. Gout Continue home allopurinol 13. Poor nutrition with low BMI BMI is 19 Nutrition consult, recommended ensure clear with dinner to supplement DVT prophylaxis. Teds and SCDs DISPOSITION: Inpatient med/surg with tele pending PT/OT clearance, PFS for home care VS, I&O, 24H, Fishbone Vital Signs/I&O Vital Signs Date Time Temp Pulse Resp B/P (MAP) Pulse Ox O2 Delivery O2 Flow Rate FiO2 12/01/18 10:31 67 126/62 12/01/18 10:00 96.9 18 90 2.0 11/28/18 12:46 Nasal Cannula I&O- Last 24 Hours up to 6 AM 12/01/18 06:00 Intake Total 1000 ml Balance 1000 ml Laboratory Data 24H LABS Laboratory Tests 2 11/30/18 20:27: Bedside Glucose (Misc Panel) 79L 12/01/18 06:34: Nucleated Red Blood Cells % (auto) 0.0 12/01/18 06:35: Anion Gap 9, Glomerular Filtration Rate 14.0L, Calcium Level 9.1, Magnesium Level 2.1, Aspartate Amino Transf (AST/SGOT) 67H, Alanine Aminotransferase (ALT/SGPT) 85H, Alkaline Phosphatase 83, Total Bilirubin 0.6, Direct Bilirubin 0.4H, Total Protein 6.3L, Albumin 2.7L, Albumin/Globulin Ratio 0.75L CBC/BMP Laboratory Tests 12/01/18 06:34 Red Blood Count 3.51 L, Mean Corpuscular Volume 88.3, Mean Corpuscular Hemoglobin 29.1, Mean Corpuscular Hemoglobin Concent 32.9, Red Cell Distribution Width 16.0 H 12/01/18 06:35 Microbiology Microbiology 11/28/18 Blood Culture - Preliminary, Resulted No Growth after 72 hours. All specime... 11/28/18 Blood Culture - Preliminary, Resulted No Growth after 72 hours. All specime... 11/28/18 Urine Culture - Final, Complete Enterococcus Faecalis TRANG TIPTON PGY-1 Dec 01, 2018 14:38
[2018-12-01 18:00] VITALS: BP 130/57
[2018-12-01 22:00] VITALS: BP 145/57
[2018-12-01] MEDS: FERROUS SULFATE 325MG TAB PO SCH (22:48)
[2018-12-01] MEDS: SIMVASTATIN 20 MG TAB PO SCH (22:49)
[2018-12-02 02:00] VITALS: BP 130/59
[2018-12-02] MEDS ORDERED: ACETAMINOPHEN 500 MG TAB PO ONE (04:45)
[2018-12-02] MEDS: LEVOTHYROXINE 100MCG TABLET (0.1MG) PO SCH (05:00)
[2018-12-02 06:00] VITALS: BP 102/34
[2018-12-02 06:30] LABS: HEMOGLOBIN 10.2 g/dl (12.0-15.5); MEAN CORPUSCULAR HGB CONC 32.9 g/dl (32.0-36.5); MEAN CORPUSCULAR VOLUME 88.1 fl (80.0-96.0); PLATELET COUNT, AUTOMATED 245 10^3/uL (150-450); RED BLOOD COUNT 3.52 10^6/uL (4.00-5.40); WHITE BLOOD COUNT 9.5 10^3/uL (4.0-10.0)
[2018-12-02 07:04] LABS: ALBUMIN 2.6 GM/DL (3.2-5.2); BILIRUBIN,DIRECT 0.4 MG/DL (0.0-0.2); BILIRUBIN,TOTAL 0.6 MG/DL (0.2-1.0); CALCIUM LEVEL 9.4 MG/DL (8.8-10.2); CREATININE FOR GFR 3.37 MG/DL (0.55-1.30); GLOMERULAR FILTRATION RATE 13.8 (>32); MAGNESIUM LEVEL 2.2 MG/DL (1.8-2.4); POTASSIUM SERUM 4.4 MEQ/L (3.5-5.1); TOTAL PROTEIN 6.2 GM/DL (6.4-8.2)
[2018-12-02] MEDS: HumaLOG INSULIN (NovoLOG) PER UNIT SC SCH ×4 (07:30→21:00)
[2018-12-02] MEDS: CARVedilol 12.5 MG TAB PO SCH ×2 (09:00→21:05)
[2018-12-02] MEDS: SENOKOT S TAB PO SCH ×2 (10:47→21:05)
[2018-12-02] MEDS: CALCITRIOL 0.25 MCG CAP (S0169) PO SCH (10:47)
[2018-12-02] MEDS: OMEPRAZOLE 20 MG CAP PO SCH (10:48)
[2018-12-02] MEDS: ALLOPURINOL 300 MG TAB PO SCH (10:48)
[2018-12-02] MEDS: CYANOCOBALAMIN 500 MCG TAB PO SCH (10:48)
--- NOTE | 2018-12-02 11:08 | IPN ---
DATE OF VISIT: 12/01/2018 Mrs. Ruiz is seen this morning on her bedside. She is resting in her bed comfortably. She reports that she did have her coffee and toast this morning and denies any nausea or vomiting. She has no dyspnea, chest pain, leg edema, fever or chills. She has been off diuretics since admission due to dehydration and acute renal failure. On physical examination, temperature 97.7 degrees Fahrenheit, heart rate 70 per minute and respiratory rate 18 per minute. Blood pressure 130/60 mmHg and oxygen saturation 92% on 2 liters oxygen. Head is atraumatic. Neck is supple and without jugular venous distention (JVD) or thyroid enlargement. Heart sounds are regular and lungs with diminished breath sounds and coarse basilar chronic crepitations. Abdomen soft and nontender and bowel sounds are normal. Extremities without any cyanosis or clubbing. Left arm AV fistula is patent. Today's labs show WBC count 9.9, hemoglobin 10.2, hematocrit 31.0. Sodium 134, potassium 3.9, CO2 28, BUN 73 and creatinine 3.32. Calcium 9.1 and glucose 69. PROBLEMS: 1. Acute renal failure superimposed on chronic kidney disease. The patient has advanced kidney disease at baseline. She does not wish to start dialysis. Kidney function has improved slightly and she is tolerating her diet well. She does not have any evidence of volume overload and remains off diuretic. 2. Hypoxemia. She has chronic lung disease with home oxygen and hypoxemia is at about baseline. Volume status remains well-compensated and I will continue to hold her diuretic. 3. Anemia. Her anemia is mild and stable. No changes are being made today. 4. Nausea and vomiting. Most likely related to gastritis and she remains on proton pump inhibitor (PPI) with improved symptoms. She does not wish to start dialysis and we will continue to monitor her closely. 5. Generalized weakness and deconditioning. She is still weak and will probably require physical therapy for another day or two. Once she gets cleared by physical therapy, then she can be discharged to home.
--- NOTE | 2018-12-02 13:39 | IPNPDOC ---
Date Seen The patient was seen on 12/02/18. Progress Note SUBJECTIVE: Patient tells me she continues to feel better every day she denies nausea vomiting weakness otherwise patient denies chest pain, shortness breath, fevers, chills. Her only complaint today is some pain at her left arm fistula site which is new for her OBJECTIVE PHYSICAL EXAMINATION: VITAL SIGNS: Please see below. GENERAL: Pleasant elderly female appears frail sitting up in bed awake alert oriented speaking in complete sentences no acute distress HEENT: Moist mucous membranes no elevation in CVP CARDIOVASCULAR: S1 S2 regular no additional heart sounds appreciated. RESPIRATORY: Clear to auscultation bilaterally. ABDOMINAL: Bowel sounds present abdomen soft and nontender EXTREMITIES: No clubbing cyanosis or edema NEUROLOGICAL: Spontaneously moves all 4 extremities cranial 2 through 12 grossly intact no gross focal deficits appreciated PSYCHOLOGICAL: Appropriate LABORATORY DATA, MICROBIOLOGY: Please see below. IMAGING STUDIES: Chest x-ray:Evidence of COPD with cardiomegaly and pulmonary vascular congestion. Mild diffuse interstitial fibrosis pattern. Abdominal ultrasound:Distended gallbladder containing biliary sludge. Head CT:1. No acute intracranial abnormality. 2. Similar white matter disease. MRI brain:1. The images are motion degraded. 2. No obvious acute infarction identified. 3. 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 Doppler ultrasound:No abnormality. Foot x-ray:Advanced neuropathic arthropathy left mid foot. Diffuse left foot swelling. Progressive arthropathy changes in the left mid foot. No acute bony destructive lesion is seen radiographically. On the right there is no acute erosive change or soft tissue gas. ASSESSMENT AND PLAN: This is a 83-year-old female who presented with weakness nausea and vomiting PROBLEMS: 1. Weakness nausea and vomiting: Patient was somewhat dehydrated upon her presentation it has been ongoing for 2 weeks my suspicion is it is due to amiodarone toxicity this is a relatively new medication and since its initiation she has developed abnormalities noted liver function test worsened abnormalities in her thyroid function and her symptoms have resolved with cessation of this medication. At this time she is currently awaiting PT clearance 2. Left arm pain: Located at the site of her fistula, I will check a duplex to ensure no thrombus however I do not palpate any abnormality in the region. 3. Asymptomatic bacteriuria: Culture positive symptoms negative clinically she has improved without any treatment. 4. Charcot foot: Follows with podiatry in the outpatient setting continue outpatient follow-up no acute intervention required. 5. Chronic kidney disease essentially endstage has not initiated hemodialysis yet no emergent need to at this time nephrology was greatly appreciated 6. Chronic diastolic congestive heart failure: Likely secondary to her renal disease and volume status is optimized at this time 7. Dyslipidemia: Continue simvastatin 8. COPD with chronic hypoxic respiratory failure: She is at her baseline respiratory status continue to monitor 9. Atrial fibrillation: Rate controlled with carvedilol we have held amiodarone she was actually. 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 Anemia: Likely R deficiency as well as end-stage renal disease adequate no intervention required at this time. 11. Hypothyroidism: Outpatient reevaluation of laboratory studies after amiodarone has been discontinued 12. Gout continue allopurinol 13. Protein calorie malnutrition: Nutrition consult we have added Ensure supplements with meals DVT prophylaxis: Teds and sequentials encouraging ambulation DISPOSITION: Pending PT. VS, I&O, 24H, Fishbone Vital Signs/I&O Vital Signs Date Time Temp Pulse Resp B/P (MAP) Pulse Ox O2 Delivery O2 Flow Rate FiO2 12/02/18 10:00 2.0 12/02/18 09:00 48 105/37 12/02/18 06:00 96.0 18 94 11/28/18 12:46 Nasal Cannula I&O- Last 24 Hours up to 6 AM 12/02/18 06:00 Intake Total 780 ml Balance 780 ml Laboratory Data 24H LABS Laboratory Tests 2 12/01/18 17:08: Bedside Glucose (Misc Panel) 120H 12/01/18 21:14: Bedside Glucose (Misc Panel) 147H 12/02/18 06:20: Nucleated Red Blood Cells % (auto) 0.0, Anion Gap 6L, Glomerular Filtration Rate 13.8L, Calcium Level 9.4, Magnesium Level 2.2, Aspartate Amino Transf (AST/SGOT) 58H, Alanine Aminotransferase (ALT/SGPT) 73, Alkaline Phosphatase 71, Total Bilirubin 0.6, Direct Bilirubin 0.4H, Total Protein 6.2L, Albumin 2.6L, Albumin/Globulin Ratio 0.72L 12/02/18 11:45: Bedside Glucose (Misc Panel) 168H CBC/BMP Laboratory Tests 12/02/18 06:20 Red Blood Count 3.52 L, Mean Corpuscular Volume 88.1, Mean Corpuscular Hemoglobin 29.0, Mean Corpuscular Hemoglobin Concent 32.9, Red Cell Distribution Width 16.0 H Microbiology Microbiology 11/28/18 Blood Culture - Preliminary, Resulted No Growth after 72 hours. All specime... 11/28/18 Blood Culture - Preliminary, Resulted No Growth after 72 hours. All specime... 11/28/18 Urine Culture - Final, Complete Enterococcus Faecalis JUAN F LANDRY MD Dec 02, 2018 13:39
[2018-12-02] MEDS: SIMVASTATIN 20 MG TAB PO SCH (21:05)
[2018-12-02] MEDS: FERROUS SULFATE 325MG TAB PO SCH (21:05)
[2018-12-02 22:00] VITALS: BP 159/65
[2018-12-03] MEDS: ACETAMINOPHEN TAB 650MG DOSE (2X325MG) PO PRN ×2 (00:41→06:41)
[2018-12-03 02:00] VITALS: BP 154/72
[2018-12-03 06:00] VITALS: BP 139/89
[2018-12-03 06:33] LABS: HEMATOCRIT 30.7 % (36.0-47.0); MEAN CORPUSCULAR HGB CONC 32.6 g/dl (32.0-36.5); PLATELET COUNT, AUTOMATED 275 10^3/uL (150-450); RED BLOOD COUNT 3.45 10^6/uL (4.00-5.40); WHITE BLOOD COUNT 8.4 10^3/uL (4.0-10.0)
[2018-12-03] MEDS: LEVOTHYROXINE 100MCG TABLET (0.1MG) PO SCH (06:40)
[2018-12-03 06:58] LABS: ALBUMIN 2.6 GM/DL (3.2-5.2); BILIRUBIN,DIRECT 0.3 MG/DL (0.0-0.2); BILIRUBIN,TOTAL 0.5 MG/DL (0.2-1.0); CALCIUM LEVEL 9.6 MG/DL (8.8-10.2); CREATININE FOR GFR 3.2 MG/DL (0.55-1.30); GLOMERULAR FILTRATION RATE 14.7 (>32); MAGNESIUM LEVEL 2.1 MG/DL (1.8-2.4); POTASSIUM SERUM 4.6 MEQ/L (3.5-5.1); TOTAL PROTEIN 6.3 GM/DL (6.4-8.2)
[2018-12-03] MEDS: HumaLOG INSULIN (NovoLOG) PER UNIT SC SCH ×4 (07:30→20:47)
[2018-12-03] MEDS: CYANOCOBALAMIN 500 MCG TAB PO SCH (08:59)
[2018-12-03] MEDS: SENOKOT S TAB PO SCH ×2 (08:59→20:44)
[2018-12-03] MEDS: CARVedilol 12.5 MG TAB PO SCH ×2 (09:00→20:43)
[2018-12-03] MEDS: CALCITRIOL 0.25 MCG CAP (S0169) PO SCH (09:00)
[2018-12-03] MEDS: ALLOPURINOL 300 MG TAB PO SCH (09:00)
[2018-12-03] MEDS: OMEPRAZOLE 20 MG CAP PO SCH (09:00)
[2018-12-03 10:00] VITALS: BP 120/41
--- NOTE | 2018-12-03 10:02 | REP ---
LEFT UPPER EXTREMITY DOPPLER VENOUS ULTRASOUND: 12/02/2018. Clinical history: Left upper extremity pain near site of AV fistula. Findings: No prior studies. The internal jugular, subclavian veins show color flow and normal Doppler wave form. Axillary and brachial veins also show color flow and are fully compressible. Doppler tracing normal in these vessels. There is a dialysis fistula between the left basilic vein and brachial artery proximal to the bifurcation. The fistula is patent. No abnormal fluid collection. Appears to have a wide patency without gross evidence for stenosis. Impression: 1. No abnormal fluid collection or mass in the upper arm. 2. No Doppler venous ultrasound evidence of DVT in the left upper extremity deep venous system. 3. Dialysis fistula is patent. Electronically Signed by Mauro Sims MD 12/03/2018 10:17 A
[2018-12-03] MEDS ORDERED: VANCOMYCIN HCL 500 MG in D5W MINI-BAG PLUS 100 ML IV ONE (13:15)
--- NOTE | 2018-12-03 13:44 | IPNPDOC ---
Date Seen The patient was seen on 12/03/18. Progress Note SUBJECTIVE: Patient is a 83-year-old female who presented to the emergency room with nausea and vomiting over the past 2 weeks with poor oral intake. Patient was seen and examined in her room today, lying comfortably in bed. . She states she did eat some breakfast today and denied any nausea with that. She states she does continue to have the ensure with her dinner. She denies any f debbi, chills, night sweats, chest pain, palpitations, shortness of breath, cough, wheezing, vomiting, abdominal pain, diarrhea. OBJECTIVE: PHYSICAL EXAMINATION: VITAL SIGNS: Please see below. GENERAL: Alert female, appears her stated age, no acute distress, lying comfortably in bed HEENT: Normocephalic, atraumatic, PERRLA, EOMI with poor tracking at times seemingly due to lack of focus, somewhat dry mucous membranes CARDIOVASCULAR: Bradycardic rate, regular rhythm, normal S1 and S2. RESPIRATORY: Clear to auscultation bilaterally, on 2 L nasal cannula. ABDOMINAL: Nontender. Soft, nondistended, bowel sounds present, no masses or hepatosplenomegaly appreciated. EXTREMITIES: Cold to touch, pulses 2+ in the radial and posterior tibial arteries, 1+ pitting edema in the left lower extremity, no edema of the right lower extremity NEUROLOGICAL: Alert and oriented 3 to person, place and time. Essential tremor present in the right arm > left arm. Mild facial droop of the left eye and mouth compared to the right. Otherwise CN 2-12 grossly intact. Sensation intact, 2/4 DTRs equal bilaterally in upper and lower extremities, 4/5 muscle strength throughout, thought to be related to poor nutritional status. No other deficits noted. PSYCHOLOGICAL:. Normal mood and affect LABORATORY DATA, IMAGING STUDIES, MICROBIOLOGY: Please see below. ASSESSMENT AND PLAN: This is a 83-year-old female who presented to the emergency room with nausea and vomiting over the past 2 weeks with poor oral intake PROBLEMS: 1. Nausea/Vomitting with poor oral intake, improved Liver ultrasound showed distended gallbladder with biliary sludge. Liver doppler negative for thrombosis. Lipase negative. Cardiac enzymes negative 2. Blood cultures x2 negative at 72 hours UA significant for 3+ leukocyte esterase, 23 urine WBC, 8 urine RBC, 1+ urine bacteria. Urine culture positive for E. faecalis. Pt continue to deny any urinary complaints, no treatment recommended for asymptomatic UTI Continue with soft diet which she is tolerating well. Dietary consult, recommended ensure clear with dinner to supplement calories 2. Hypoglycemia, improved, History of diabetes mellitus type 2 Hold home DM 2 medications. Insulin sliding scale while in the hospital. Continue to monitor, suspect her hypoglycemia is related to her poor oral intake. Improved since she has been eating regularly in the hospital. 3. UTI. On arrival, patient had a UA and urine culture which was positive for E.faecal is, however, the patient denied any urinary frequency, urinary urgency, and dysuria. Because of this, her urinalysis and culture findings were attributed to an asymptomatic UTI, and therefore not treated with antibiotics. Over the course of the patient's admission, she has continued to deny urinary frequency, urinary urgency, and dysuria, to myself and other physicians. However, it was revealed that she has admitted to these complaints to nursing staff. For that reason antibiotic coverage was started on 12/03 with ampicillin (day#1 of 3) for antibiotic coverage. 4. Left arm pain, resolved. Yesterday patient complained of pain over her left arm where her AV fistula is present. Left arm ultrasound did not reveal evidence of DVT. Pain has since resolved, continue to monitor for recurrent symptoms. 5. Charcot foot Recommendation had been given for podiatry consult by overnight team. However, the patient has been seen by podiatry in May 2018 and diagnosed with Charcot foot. She was evaluated at that time by Dr. Paiz . According to his note, she was not considered a good surgical candidate. In addition, on discussion with the patient today, she would not like to do any surgical procedures. She does follow with Dr. Moreno for podiatry as well. She denies any current pain in the foot. For these reasons, the consult was cancelled. Would reconsider this consult if the patient decides she would be interested in surgery. Otherwise, she can continue to follow up with podiatry as scheduled in the outpatient setting. 6. Transaminitis She has had somewhat mildly elevated LFTs in the past, but on presentation LFTs were more acutely elevated. Liver ultrasound did not reveal any hepatic findings, liver Doppler study was also WNL LFTs continue to trend down daily, will continue to monitor 7. CKD stage IVV Patient was planning to start dialysis with AV fistula in the left arm. However, she does not want to initiate dialysis at this time. Hold IV fluids for now to avoid fluid overload, monitor I/O and daily weights, continue to monitor BUN and Cr which have been stable. She does have some urine output. Consulted Dr. Fortune for dialysis, appreciate his input and recommendations. Recommendation to follow-up with her outpatient test manager to continue to discuss initiation of dialysis. 8. Chronic diastolic congestive heart failure/chronic hypertension. Continue home carvedilol. Patient does not appear fluid overloaded at this time, continue to hold home torsemide 9. Chronic CAD/Dyslipidemia Continue home simvastatin 10. 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 Chronic atrial fibrillation, rate controlled hold home amiodarone due to possible toxicity -Continue home carvedilol. Patient was not on any anticoagulation when admitted 12. Iron Deficiency Anemia. Continue home iron supplement and monitor CBC 13. Hypothyroidism Elevated TSH with elevated T4 level. Looking back at her previous labs, patient has had elevated TSH, which has seemed to be downtrending. Patient symptomatically appears more hypothyroid, reevaluation of her labs should be done in the outpatient setting. 14. Gout Continue home allopurinol 15. Poor nutrition with low BMI BMI is 19 Nutrition consult, recommended ensure clear with dinner to supplement 16. DVT prophylaxis. Teds and SCDs DISPOSITION: Inpatient med/surg with tele pending PT/OT clearance and completion of 24 hour urine testing, PFS for home care VS, I&O, 24H, Fishbone Vital Signs/I&O Vital Signs Date Time Temp Pulse Resp B/P (MAP) Pulse Ox O2 Delivery O2 Flow Rate FiO2 12/03/18 10:00 97.2 49 18 120/41 (67) 99 2.0 11/28/18 12:46 Nasal Cannula I&O- Last 24 Hours up to 6 AM 12/03/18 06:00 Intake Total 1630 ml Output Total 550 ml Balance 1080 ml Laboratory Data 24H LABS Laboratory Tests 2 12/02/18 17:12: Bedside Glucose (Misc Panel) 153H 12/02/18 20:37: Bedside Glucose (Misc Panel) 119H 12/03/18 06:05: Nucleated Red Blood Cells % (auto) 0.0, Anion Gap 7L, Glomerular Filtration Rate 14.7L, Calcium Level 9.6, Magnesium Level 2.1, Aspartate Amino Transf (AST/SGOT) 48H, Alanine Aminotransferase (ALT/SGPT) 63, Alkaline Phosphatase 68, Total Bilirubin 0.5, Direct Bilirubin 0.3H, Total Protein 6.3L, Albumin 2.6L, Albumin/Globulin Ratio 0.70L CBC/BMP Laboratory Tests 12/03/18 06:05 Red Blood Count 3.45 L, Mean Corpuscular Volume 89.0, Mean Corpuscular Hemoglobin 29.0, Mean Corpuscular Hemoglobin Concent 32.6, Red Cell Distribution Width 16.1 H Microbiology Microbiology 11/28/18 Blood Culture - Final, Complete NO GROWTH AFTER 5 DAYS 11/28/18 Blood Culture - Final, Complete NO GROWTH AFTER 5 DAYS 11/28/18 Urine Culture - Final, Complete Enterococcus Faecalis TRANG TIPTON PGY-1 Dec 03, 2018 13:44
[2018-12-03] MEDS ORDERED: AMPICILLIN SOD 500 MG in D5W 50 ML IV SCH (13:45)
[2018-12-03 14:00] VITALS: BP 114/52
[2018-12-03] MEDS: AMPICILLIN SOD 500 MG in D5W 50 ML IV SCH (17:47)
[2018-12-03 18:00] VITALS: BP 125/90
[2018-12-03] MEDS: FERROUS SULFATE 325MG TAB PO SCH (20:44)
[2018-12-03] MEDS: SIMVASTATIN 20 MG TAB PO SCH (20:44)
--- NOTE | 2018-12-03 21:14 | IPN ---
DATE: 12/02/2018 Mrs. Ruiz is seen this afternoon on her bedside. She is laying in the bed and son reports that she did eat about 40% of her lunch. She denies any nausea or vomiting. Her dyspnea is chronic and unchanged and she remains on 2 liters oxygen. Her diuretics remain on hold since admission due to acute renal failure. PHYSICAL EXAMINATION: Temperature 96.0 degrees Fahrenheit, heart rate 48 per minute and respiratory rate 18 per minute. Blood pressure 105/37 mmHg and oxygen saturation 94%. Head is atraumatic. Neck is supple and JVD is not abnormally elevated. Lungs have bilateral scattered rhonchi. Heart sounds are regular and there is no pericardial friction rub audible. Abdomen soft and nontender and bowel sounds are normal. Extremities have no cyanosis or clubbing. Left arm AV fistula is patent. Today's labs show WBC count 9.5, hemoglobin 10.2 and hematocrit 31.0. Platelets 245. Sodium 135, potassium 4.4, CO2 29, BUN 74 and creatinine 3.37. Glucose 85 and calcium 9.4. Total protein is 6.2 and albumin 2.7. PROBLEMS: 1. Acute renal failure superimposed on chronic kidney disease. The patient has stage V chronic kidney disease at baseline. She is very frail and elderly and most likely her renal function is worse than her calculated GFR. I am going to order a 24-hour urine collection to assess her creatinine clearance. At this point there is no emergent need for dialysis and I was hoping that after stopping her diuretic her kidney function would keep improving but it has leveled off and there is no significant change. The patient is not eager to start dialysis and we will have to do some convincing. Unfortunately she just lost her a couple of weeks ago and she is quite depressed about it. We will wait for 24-hour urine results and then decide our next step. 2. Congestive heart failure. At present her volume status remains well-compensated and I will continue to hold her diuretic. 3. Anemia. Anemia is also stable and does not need any urgent intervention. 4. COPD. This is chronic and stable at baseline. She remains on 2 liters oxygen. 5. Gout. She is currently asymptomatic on allopurinol 150 mg daily which will be continued. She is currently asymptomatic. 6. Secondary hyperparathyroidism. She has been chronically on calcitriol 0.25 mcg daily and remains on the same dose. 7. Generalized weakness and deconditioning. She has multiple comorbid conditions and very frail and advanced age. She is likely to require physical therapy for at least a couple more days. She has been able to walk with the help of a walker. ZAK
[2018-12-03 22:00] VITALS: BP 123/71
[2018-12-03 23:19] LABS: CREATININE, SERUM 3.3 MG/DL (0.6-1.0)
[2018-12-03 23:20] LABS: CREATININE CLEARANCE, URINE 6.5 ML/MIN (75-115)
[2018-12-04] MEDS: ONDANSETRON 4MG/2ML VIAL (J2405) IV PRN (00:03)
[2018-12-04 02:00] VITALS: BP 121/56
[2018-12-04 05:50] LABS: HEMATOCRIT 31.4 % (36.0-47.0); HEMOGLOBIN 10.3 g/dl (12.0-15.5); MEAN CORPUSCULAR HEMOGLOBIN 29.9 pg (27.0-33.0); MEAN CORPUSCULAR HGB CONC 32.8 g/dl (32.0-36.5); MEAN CORPUSCULAR VOLUME 91.3 fl (80.0-96.0); PLATELET COUNT, AUTOMATED 266 10^3/uL (150-450); RED BLOOD COUNT 3.44 10^6/uL (4.00-5.40); WHITE BLOOD COUNT 9.4 10^3/uL (4.0-10.0)
[2018-12-04] MEDS: LEVOTHYROXINE 100MCG TABLET (0.1MG) PO SCH (05:59)
[2018-12-04 06:00] VITALS: BP 132/84
[2018-12-04 06:23] LABS: ALBUMIN 2.7 GM/DL (3.2-5.2); BILIRUBIN,DIRECT 0.4 MG/DL (0.0-0.2); BILIRUBIN,TOTAL 0.5 MG/DL (0.2-1.0); CALCIUM LEVEL 9.5 MG/DL (8.8-10.2); CREATININE FOR GFR 3.39 MG/DL (0.55-1.30); GLOMERULAR FILTRATION RATE 13.7 (>32); MAGNESIUM LEVEL 2.1 MG/DL (1.8-2.4); POTASSIUM SERUM 5.3 MEQ/L (3.5-5.1); TOTAL PROTEIN 5.8 GM/DL (6.4-8.2)
--- NOTE | 2018-12-04 06:24 | IPN ---
DATE OF VISIT: 12/03/2018 Mrs. Ruiz is seen this morning on her bedside. She remains frail and weak. She did walk with the physical therapist a short distance but has not climbed stairs as yet. She does get tired easily. At present, 24-hour urine collection is in progress to assess her creatinine clearance. The patient denies any nausea or vomiting. She does get short of breath on exertion and has been on chronic oxygen. PHYSICAL EXAMINATION: Vital signs: Temperature 99.2 degrees Fahrenheit, heart rate 54 per minute and respiratory rate 16 per minute. Blood pressure 117/42 mmHg and oxygen saturation 97% on 2 liters oxygen. HEENT: Head is atraumatic. Neck: Neck is supple and without jugular venous distention (JVD) or thyroid enlargement. Heart: Sounds are regular. Lungs: Lungs with scattered rhonchi. Abdomen: Soft, nontender and bowel sounds are normal. Extremities: Without any cyanosis or clubbing. Left arm arteriovenous (AV) fistula is patent but not quite ready for use as yet. LABORATORY DATA: Today's labs show WBC count 8.4, hemoglobin 10.0 and hematocrit 30.7. Platelets 275. Her urine culture come back positive for Enterococcus faecalis. Her BUN is down to 76 and creatinine 3.2. Sodium 135 and potassium 4.6. PROBLEMS: 1. Acute renal failure superimposed on chronic kidney disease. Kidney function slightly improved compared with yesterday. She denies any overt uremic symptoms. However, it is very difficult to evaluate her as she is very frail and does not eat very well even on good days. A 24-hour urine collection is in progress to accurately measure her creatinine clearance. 2. Urinary tract infection (UTI). Her urine culture did come back positive for Enterococcus. SHE HAS ALLERGY TO PENICILLIN AND CANNOT TAKE AMPICILLIN OR PENICILLIN. SHE HAS ALLERGY TO SOME DRUGS AND IT IS RESISTANT TO LEVOFLOXACIN AND CIPROFLOXACIN. She can probably be treated with vancomycin and will give her one dose of 500 mg today and then see how she does. We will not give her any nephrotoxic medication in high-dose. 3. Generalized weakness and deconditioning. The patient is participating in physical therapy. She is still very frail and weak. 4. Congestive heart failure. Volume status remains well-compensated and diuretics are on hold. Will continue to monitor her closely.
[2018-12-04] MEDS ORDERED: TAMSULOSIN 0.4 MG CAP PO ONE (07:00)
[2018-12-04] MEDS: AMPICILLIN SOD 500 MG in D5W 50 ML IV SCH ×5 (08:14→23:08)
[2018-12-04] MEDS: HumaLOG INSULIN (NovoLOG) PER UNIT SC SCH ×4 (08:14→20:50)
[2018-12-04] MEDS: OMEPRAZOLE 20 MG CAP PO SCH (08:15)
[2018-12-04] MEDS: CYANOCOBALAMIN 500 MCG TAB PO SCH (08:15)
[2018-12-04] MEDS: SENOKOT S TAB PO SCH ×2 (08:16→20:54)
[2018-12-04] MEDS: ALLOPURINOL 300 MG TAB PO SCH (08:16)
[2018-12-04] MEDS: CALCITRIOL 0.25 MCG CAP (S0169) PO SCH (08:17)
[2018-12-04] MEDS: CARVedilol 12.5 MG TAB PO SCH ×2 (08:43→20:51)
[2018-12-04 10:00] VITALS: BP 129/51
[2018-12-04] MEDS: PHENAZOPYRIDINE 100 MG TAB PO SCH ×2 (10:37→12:52)
[2018-12-04] MEDS ORDERED: EMLA CREAM 5GM (LIDOCAINE/PRILOCAINE) TOP SCH (10:45)
--- NOTE | 2018-12-04 11:06 | CR.PDOC ---
General Date of Consultation: Dec 04, 2018 Consultation Vascular Surgery: Dr Rose. REASON FOR CONSULTATION: HD access HPI: 83year oldF admitted with CKD and need for HD. Nephrology requests vascular surgery consultation for HD access. Also, concerns regarding her LUE fistula not ready to use. Denies any fevers, chills, weakness, fatigue, Headache, Chest Pain, Shortness of breath, cough, palpitations, abdominal pain, N/V/D or changes in bowel or bladder habits. PAST MEDICAL HISTORY: COPD, is on chronic supplemental oxygen at 2 liters nasal cannula. History of congestive heart failure. Her supply crib attendant is Dr. Rios. Her most recent echocardiogram was from 04/2018, ejection fraction is 60 to 65%, impaired left ventricle (LV) diastolic function, dilated right-sided chambers, at least mild pulmonary hypertension, moderate mitral insufficiency suggested. History of gout. Secondary hyperparathyroidism stage IV chronic kidney disease. Type 2 diabetes, hyperlipidemia, gastroesophageal reflux disease (GERD), coronary artery disease, diabetic neuropathy. PAST SURGICAL HISTORY: AV fistula LUE bronchoscopy. SOCIAL HISTORY: She is an ex-smoker. Quit 20 years ago. No alcohol use. FAMILY HISTORY: Both parents of cardiac events. ROS: As noted in HPI, otherwise 11pt ROS of systems reviewed and unremarkable. PE: GEN: 83yoF, appears stated age. Thin appearing. Alert and oriented x 3. HEENT: Normocephalic, atraumatic. Sclera are nonicteric. Conjunctiva without injection. No facial asymmetry. Moist mucous membranes. CHEST: Regular rate and rhythm, +S1, +S2 LUNGS: Clear to auscultation bilaterally. No wheezes, rales, or rhonchi. Breathing appears symmetric and easy. ABD: Round, soft, non-tender, non-distended. +Bowel sounds throughout. SKIN: [place], dry, warm.No rashes. Ext: There is AV fistula noted LUE with thrill noted. NEURO: Alert and oriented x 3. No focal deficits appreciated. A&P: 1. CKD4. Nephrology following. HD access planned as per Dr Rose. 1. LUE AVF. Vital Signs/I&O Vital Signs Date Time Temp Pulse Resp B/P (MAP) Pulse Ox O2 Delivery O2 Flow Rate FiO2 12/04/18 10:00 98.2 78 20 129/51 (77) 95 2.0 11/28/18 12:46 Nasal Cannula I&O- Last 24 Hours up to 6 AM 12/04/18 06:00 Intake Total 378 ml Output Total 200 ml Balance 178 ml Laboratory Data Labs 24H Laboratory Tests 2 12/03/18 11:45: Bedside Glucose (Misc Panel) 142H 12/03/18 16:59: Bedside Glucose (Misc Panel) 168H 12/03/18 20:47: Bedside Glucose (Misc Panel) 95 12/03/18 22:31: Urine Total Volume 350, Urine Creatinine 88.0, Urine Creatinine 24 Hour 308.0L, Creatinine Clearance 6.5L 12/04/18 05:32: Nucleated Red Blood Cells % (auto) 0.0, Anion Gap 8, Glomerular Filtration Rate 13.7L, Calcium Level 9.5, Magnesium Level 2.1, Aspartate Amino Transf (AST/SGOT) 40H, Alanine Aminotransferase (ALT/SGPT) 58, Alkaline Phosphatase 71, Total Bilirubin 0.5, Direct Bilirubin 0.4H, Total Protein 5.8L, Albumin 2.7L, Albumin/Globulin Ratio 0.87L CBC/BMP Laboratory Tests 12/03/18 22:31 12/04/18 05:32 Red Blood Count 3.44 L, Mean Corpuscular Volume 91.3, Mean Corpuscular Hemoglobin 29.9, Mean Corpuscular Hemoglobin Concent 32.8, Red Cell Distribution Width 16.3 H Microbiology Microbiology 11/28/18 Blood Culture - Final, Complete NO GROWTH AFTER 5 DAYS 11/28/18 Blood Culture - Final, Complete NO GROWTH AFTER 5 DAYS 11/28/18 Urine Culture - Final, Complete Enterococcus Faecalis Allergies Coded Allergies: bee venom protein (honey bee) (Verified Allergy, Severe, 11/28/18) Penicillins (Verified Allergy, Intermediate, 11/28/18) Home Medications Scheduled Allopurinol (Zyloprim) 300 Mg Tab, 150 MG PO DAILY, (Reported) Amiodarone HCl (Amiodarone HCl) 200 Mg Tab, 200 MG PO BID, (Reported) Aspirin (Aspirin) 81 Mg Tab.chew, 81 MG PO DAILY, (Reported) Calcitriol (Calcitriol) 0.25 Mcg Cap, 0.25 MCG PO DAILY, (Reported) Carvedilol (Carvedilol) 12.5 Mg Tablet, 12.5 MG PO BID, (Reported) Cyanocobalamin (Vitamin B-12) (Vitamin B-12) 1,000 Mcg Tab, 1,000 MCG PO DAILY, (Reported) Ergocalciferol (Vitamin D2) (Drisdol) 50,000 Unit Cap, 50,000 UNIT PO 1XWK, (Reported) TAKES ON FRIDAYS Ferrous Sulfate (Ferrous Sulfate) 325 Mg Tablet.dr, 650 MG PO QHS, (Reported) Glipizide (Glipizide Xl) 10 Mg Tab, 10 MG PO BID, (Reported) Levothyroxine Sodium (Synthroid) 100 Mcg Tablet, 100 MCG PO DAILY, (Reported) Magnesium Oxide (Magnesium Oxide) 400 Mg Tablet, 400 MG PO 3XW, (Reported) MONDAY, MONDAY AND MONDAY MORNING Omeprazole (Omeprazole) 20 Mg Tab, 20 MG PO DAILY, (Reported) Potassium Chloride (Potassium Chloride) 20 Meq Tab.er.prt, 20 MEQ PO DAILY, (Reported) Simvastatin (Simvastatin) 20 Mg Tab, 20 MG PO QHS, (Reported) Torsemide (Torsemide) 20 Mg Tablet, 40 MG PO BID, (Reported) Attending Note Attending Note VASCULAR SURGICAL ATTENDING NOTE: Dr. Shanti Rose M.D. The patient was seen on 12/04/18 at 12:02. ASSESSMENT: Patient is an 83-year-old female who has previously undergone a left brachiocephalic autogenous arteriovenous fistula formation who now requires renal replacement therapy via hemodialysis. The left brachiocephalic arteriovenous fistula has a strong thrill through the outflow into the basilic vein but the cephalic vein appears to be small and/or occluded in the left upper arm and is not usable at this time for hemodialysis access. PLAN: Patient will undergo placement of a tunneled central venous catheter for hemodialysis access until the autogenous left brachiocephalic arteriovenous fistula undergoes revision and is stable for use for hemodialysis access. Chloe Lucero was the attending vascular surgeon for this patient encounter. The patient was seen, examined, interviewed and evaluated independently by Dr. Constance Rose M.D. was fully available during the consultation evaluation. All aspects of the patient interview, examination, medical decision making process, and medical care plan development were reviewed and approved by Dr. Constance Rose M.D. is aware and concurs with the plan as stated in the body of this note and will attest to such by his/her cosignature. Nirali Pierce Dec 04, 2018 10:53 Rao Rose MD Dec 04, 2018 23:21
--- NOTE | 2018-12-04 11:10 | IPNPDOC ---
Date Seen The patient was seen on 12/04/18. Progress Note SUBJECTIVE: Patient is a 83-year-old female who presented to the emergency room with nausea and vomiting over the past 2 weeks with poor oral intake. Patient was seen and examined in her room today, lying comfortably in bed. She states she did eat some breakfast today and denied any nausea with that. She states she did not eat much but states this is normal for her. She states she d oes have some pressure over her pelvic area but did have good urine output after she was given flomax this morning. She denies any fevers, chills, night sweats, chest pain, palpitations, shortness of breath, cough, wheezing, vomiting, abdominal pain, diarrhea. OBJECTIVE: PHYSICAL EXAMINATION: VITAL SIGNS: Please see below. GENERAL: Alert female, appears her stated age, no acute distress, lying comfortably in bed HEENT: Normocephalic, atraumatic, PERRLA, EOMI with poor tracking at times seemingly due to lack of focus, somewhat dry mucous membranes CARDIOVASCULAR: Bradycardic rate, regular rhythm, normal S1 and S2. RESPIRATORY: Clear to auscultation bilaterally, on 2 L nasal cannula. ABDOMINAL: Nontender. Soft, nondistended, bowel sounds present, no masses or hepatosplenomegaly appreciated. EXTREMITIES: Cold to touch, pulses 2+ in the radial and posterior tibial arteries, 1+ pitting edema in the left lower extremity, no edema of the right lower extremity NEUROLOGICAL: Alert and oriented 3 to person, place and time. Essential tremor present in the right arm > left arm. Mild facial droop of the left eye and mouth compared to the right. Otherwise CN 2-12 grossly intact. Sensation intact, 2/4 DTRs equal bilaterally in upper and lower extremities, 4/5 muscle strength throughout, thought to be related to poor nutritional status. No other deficits noted. PSYCHOLOGICAL:. Normal mood and affect LABORATORY DATA, IMAGING STUDIES, MICROBIOLOGY: Please see below. ASSESSMENT AND PLAN: This is a 83-year-old female who presented to the emergency room with nausea and vomiting over the past 2 weeks with poor oral intake PROBLEMS: 1. Nausea/Vomitting with poor oral intake, improved Liver ultrasound showed distended gallbladder with biliary sludge. Liver doppler negative for thrombosis. Lipase negative. Cardiac enzymes negative 2. Blood cultures x2 negative at 72 hours UA significant for 3+ leukocyte esterase, 23 urine WBC, 8 urine RBC, 1+ urine bacteria. Urine culture positive for E. faecalis. Pt continue to deny any urinary complaints, no treatment recommended for asymptomatic UTI Continue with soft diet which she is tolerating well. Dietary consult, recommended ensure clear with dinner to supplement calories Patient continues to work with PT/OT for strengthening and may benefit from rehabilitation, will discuss with the family today. 2. Hypoglycemia, improved, History of diabetes mellitus type 2 Hold home DM 2 medications. Insulin sliding scale while in the hospital. Continue to monitor, suspect her hypoglycemia is related to her poor oral intake. Improved since she has been eating regularly in the hospital. 3. UTI. On arrival, patient had a UA and urine culture which was positive for E.faecalis, however, the patient denied any urinary frequency, urinary urgency, and dysuria. Because of this, her urinalysis and culture findings were attributed to an asymptomatic UTI, and therefore not treated with antibiotics. Over the course of the patient's admission, she has continued to deny urinary frequency, urinary urgency, and dysuria, to myself and other physicians. However, it was revealed that she has admitted to these complaints to nursing staff. For that reason antibiotic coverage was started on 12/03 with ampicillin (day#2 of 3) for antibiotic coverage. 4. Left arm pain, resolved. Yesterday patient complained of pain over her left arm where her AV fistula is present. Left arm ultrasound did not reveal evidence of DVT. Pain has since resolved, continue to monitor for recurrent symptoms. 5. Charcot foot Recommendation had been given for podiatry consult by overnight team. However, the patient has been seen by podiatry in May 2018 and diagnosed with Charcot foot. She was evaluated at that time by Dr. Paiz . According to his note, she was not considered a good surgical candidate. In addition, on discussion with the patient today, she would not like to do any surgical procedures. She does follow with Dr. Moreno for podiatry as well. She denies any current pain in the foot. For these reasons, the consult was cancelled. Would reconsider this consult if the patient decides she would be interested in surgery. Otherwise, she can continue to follow up with podiatry as scheduled in the outpatient setting. 6. Transaminitis She has had somewhat mildly elevated LFTs in the past, but on presentation LFTs were more acutely elevated. Liver ultrasound did not reveal any hepatic findings, liver Doppler study was also WNL LFTs continue to trend down daily, will continue to monitor 7. CKD stage IVV Patient was planning to start dialysis with AV fistula in the left arm. However, she does not want to initiate dialysis at this time. Hold IV fluids for now to avoid fluid overload, monitor I/O and daily weights, continue to monitor BUN and Cr which have been stable. She does have some urine output. Consulted Dr. Fortune for dialysis, appreciate his input and recommendations. 24-hour urine collection found a creatinine clearance of 6.5, and the patient doesn't elevated potassium today. Dr. Fortune will discuss initiating dialysis today based on the creatinine clearance. 8. Chronic diastolic congestive heart failure/chronic hypertension. Continue home carvedilol. Patient does not appear fluid overloaded at this time, continue to hold home torsemide 9. Chronic CAD/Dyslipidemia Continue home simvastatin 10. 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 Chronic atrial fibrillation, rate controlled hold home amiodarone due to possible toxicity -Continue home carvedilol. Patient was not on any anticoagulation when admitted 12. Iron Deficiency Anemia. Continue home iron supplement and monitor CBC 13. Hypothyroidism Elevated TSH with elevated T4 level. Looking back at her previous labs, patient has had elevated TSH, which has seemed to be downtrending. Patient symptomatically appears more hypothyroid, reevaluation of her labs should be done in the outpatient setting. 14. Gout Continue home allopurinol 15. Poor nutrition with low BMI BMI is 19 Nutrition consult, recommended ensure clear with dinner to supplement 16. DVT prophylaxis. Teds and SCDs DISPOSITION: Inpatient med/surg with tele pending PT/OT clearance and completion of 24 hour urine testing, PFS for home care vs rehab placement Attending Note I saw and evaluated the patient. I agree with the finding and plan of care as documented in the resident's note. VS, I&O, 24H, Fishbone Vital Signs/I&O Vital Signs Date Time Temp Pulse Resp B/P (MAP) Pulse Ox O2 Delivery O2 Flow Rate FiO2 12/04/18 10:00 98.2 78 20 129/51 (77) 95 2.0 11/28/18 12:46 Nasal Cannula I&O- Last 24 Hours up to 6 AM 12/04/18 05:59 Intake Total 438 ml Output Total 250 ml Balance 188 ml Laboratory Data 24H LABS Laboratory Tests 2 12/03/18 11:45: Bedside Glucose (Misc Panel) 142H 12/03/18 16:59: Bedside Glucose (Misc Panel) 168H 12/03/18 20:47: Bedside Glucose (Misc Panel) 95 12/03/18 22:31: Urine Total Volume 350, Urine Creatinine 88.0, Urine Creatinine 24 Hour 308.0L, Creatinine Clearance 6.5L 12/04/18 05:32: Nucleated Red Blood Cells % (auto) 0.0, Anion Gap 8, Glomerular Filtration Rate 13.7L, Calcium Level 9.5, Magnesium Level 2.1, Aspartate Amino Transf (AST/SGOT) 40H, Alanine Aminotransferase (ALT/SGPT) 58, Alkaline Phosphatase 71, Total Bilirubin 0.5, Direct Bilirubin 0.4H, Total Protein 5.8L, Albumin 2.7L, Albumin/Globulin Ratio 0.87L CBC/BMP Laboratory Tests 12/03/18 22:31 12/04/18 05:32 Red Blood Count 3.44 L, Mean Corpuscular Volume 91.3, Mean Corpuscular Hemoglobin 29.9, Mean Corpuscular Hemoglobin Concent 32.8, Red Cell Distribution Width 16.3 H Microbiology Microbiology 11/28/18 Blood Culture - Final, Complete NO GROWTH AFTER 5 DAYS 11/28/18 Blood Culture - Final, Complete NO GROWTH AFTER 5 DAYS 11/28/18 Urine Culture - Final, Complete Enterococcus Faecalis TRANG TIPTON PGY-1 Dec 04, 2018 11:10 SIERRA LEVIN MD Dec 04, 2018 16:14
[2018-12-04] MEDS ORDERED: LIDOCAINE 1% SDV 5 ML VIAL SQ ONE (11:30)
[2018-12-04] MEDS ORDERED: HEPARIN 1,000 UNITS/ML 10ML VIAL (FOR RADIOLOGY& DIALYSIS ONLY) IV ONE (11:30)
[2018-12-04 14:00] VITALS: BP 128/57
--- NOTE | 2018-12-04 19:49 | IPN ---
DATE: 11/28/2018 Mrs. Ruiz is seen this morning on her bedside. She is feeling weak and laying in the bed. She has chronic dyspnea and remains on two liters of oxygen. She denies any nausea or vomiting. She had a 24-hour urine collection done yesterday because of her advanced renal failure and it showed a creatinine clearance of only 6.5 mL. Her blood urea nitrogen (BUN) is 80 and creatinine 3.39. Her estimated glomerular filtration rate (GFR) has been 13-14 mL but it is significantly overestimating due to very low muscle mass. PHYSICAL EXAMINATION: Temperature 98.2 degrees Fahrenheit, heart rate 70 per minute and respiratory rate 20 per minute. Blood pressure 129/50 mmHg and oxygen saturation 95% on two liters of oxygen. Head is atraumatic. She is pale but not in any acute distress studies. Neck is supple and without jugular venous distention (JVD) or thyroid enlargement. Heart sounds are regular and lungs with bilateral scattered rhonchi. Abdomen is soft and nontender. Bowel sounds are normal. Extremities without any cyanosis or clubbing. Left arm arteriovenous (AV) fistula is patent but not very mature as yet. Neurologically, she is awake and at her baseline mentation. LABORATORY DATA: Today's laboratories show sodium 132, potassium 5.3, CO2 26, BUN 80 and creatinine 3.39. Glucose 159 and calcium 9.5. Total protein 5.8 and albumin 2.7. WBC count is 9.4, hemoglobin 10.3 and hematocrit 31.4. Platelets 266. PROBLEMS: 1. Advanced renal failure with uremia. Her creatinine clearance is only 6.5 x 24-hour urine collection. She has been very weak and frail. I have discussed with the patient and her son about the need for dialysis and she is willing to proceed. We will try using her fistula if it works. I am also going to ask Dr. Rose to look at her fistula and give advice. We may need to have a temporary Perma-Cath placed until her fistula gets transpositioned. 2. Hyperkalemia. She has mild hyperkalemia related to advanced renal failure and no urgent intervention will be done other than dialysis which could be done either later this afternoon or tomorrow depending upon her dialysis access. 3. Hyponatremia. She has mild hyponatremia related to renal failure and congestive heart failure. She has been off diuretics since admission. I will not put her on diuretic at this point and we will try to dialyze her as soon as possible. 4. Anemia. Her anemia is stable and does not need any urgent intervention. 5. Urinary tract infection (UTI). She is being treated with antibiotic. Her urine culture did grow Enterococcus. Vancomycin was ordered yesterday but not given. The hospitalist service has started her on ampicillin 500 mg intravenously every eight hours. 6. Hypertension. Blood pressure is well-controlled and she will continue with current antihypertensive medications.
[2018-12-04] MEDS: SIMVASTATIN 20 MG TAB PO SCH (20:53)
[2018-12-04] MEDS: FERROUS SULFATE 325MG TAB PO SCH (20:54)
[2018-12-04 22:00] VITALS: BP 119/45
[2018-12-05 02:00] VITALS: BP_SYST 116; BP_SYST 123; BP_DIAS 57; BP_DIAS 62
[2018-12-05 06:00] VITALS: BP 139/73
[2018-12-05] MEDS ORDERED: HEPARIN 1,000 UNITS/ML 10ML VIAL (FOR RADIOLOGY& DIALYSIS ONLY) As Ordered ONE (06:20)
[2018-12-05] MEDS ORDERED: LIDOCAINE 2% MDV 20 ML VIAL As Ordered ONE (06:20)
[2018-12-05] MEDS ORDERED: BUPIVACAINE HCL 0.5% 10 ML VIAL As Ordered ONE (06:20)
[2018-12-05 06:23] LABS: HEMATOCRIT 27.8 % (36.0-47.0); HEMOGLOBIN 8.9 g/dl (12.0-15.5); MEAN CORPUSCULAR HEMOGLOBIN 29.7 pg (27.0-33.0); MEAN CORPUSCULAR VOLUME 92.7 fl (80.0-96.0); PLATELET COUNT, AUTOMATED 231 10^3/uL (150-450); WHITE BLOOD COUNT 6.8 10^3/uL (4.0-10.0)
[2018-12-05] MEDS: LEVOTHYROXINE 100MCG TABLET (0.1MG) PO SCH (06:26)
[2018-12-05 06:57] LABS: ALBUMIN 2.5 GM/DL (3.2-5.2); BILIRUBIN,DIRECT 0.3 MG/DL (0.0-0.2); BILIRUBIN,TOTAL 0.5 MG/DL (0.2-1.0); CALCIUM LEVEL 9.2 MG/DL (8.8-10.2); CREATININE FOR GFR 2.76 MG/DL (0.55-1.30); GLOMERULAR FILTRATION RATE 17.4 (>32); POTASSIUM SERUM 4.5 MEQ/L (3.5-5.1); TOTAL PROTEIN 5.8 GM/DL (6.4-8.2)
--- NOTE | 2018-12-05 07:55 | ROOPDOC ---
[facility] Report Of Operation Report of Operation DATE OF PROCEDURE: 12/05/2018 PREPROCEDURE DIAGNOSES: End-stage renal disease requiring access for renal replacement therapy, dysfunctional left autogenous brachiocephalic arteriovenous fistula. POSTPROCEDURE DIAGNOSES: End-stage renal disease requiring access for renal replacement therapy, dysfunctional left autogenous brachiocephalic arteriovenous fistula. PROCEDURE: Ultrasound guided right internal jugular vein cannulation. Fluoroscopic guided right internal jugular vein 19 cm tip to cuff tunneled central venous catheter insertion. ATTENDING SURGEON: DR. Shanti Rose M.D. REVENUE INTEGRITY ANALYST: Tatiana Hay INDICATION:Patient is an 83-year-old female who has renal failure who requires access for renal replacement therapy. Patient underwent creation of a left brachiocephalic arteriovenous fistula which is not ready for use for hemodialysis access at this time. Patient will undergo ultrasound and fluoroscopic guided placement of a right internal jugular vein tunneled central venous catheter. The procedure was described and explained to the patient in de tail including drawing of pictures demonstrating the procedure and anatomy. Risks, benefits and alternative treatment options were discussed with the patient. Alternative treatment options included but were not limited to no intervention. Benefits included but were not limited to access for hemodialysis until permanent access for renal replacement therapy is created. Risks included, but were not limited to infection, bleeding, pneumothorax, hemothorax, cannulation site deep venous thrombosis, possible need for open surgical intervention, allergic reaction or complication from prepping and draping materials, possible need for transfusion of blood products, anesthetic complications, cerebrovascular accident, myocardial infarction, pulmonary embolus, deep venous thrombosis, loss of limb, loss of life, poor satisfaction and poor outcome. Risks of not performing the procedure included but were not limited to inability to obtain renal replacement therapy via hemodialysis and . The patient's questions were answered. The patient voices understanding of these risks, benefits and alternative treatment options. The patient voices acceptance of the risks associated with the procedure and agrees to proceed with an ultrasound and fluoroscopic guided right internal jugular vein tunneled central venous catheter insertion. There were no promises or guarantees made to the patient regarding the outcome or results of the procedure. The patient was mildly confused and consent for the procedure was obtained from her son Jesús Ruiz at [phone]. ANESTHESIA: Local with 20 mL of 2% lidocaine mixed with 0.5% Marcaine. EBL: 15 ml. IVF: 100 ml. FLUORO TIME: 0.1 minutes. CONTRAST: None. COMPLICATIONS: None. DRAINS: None. SPECIMENS: None. IMPLANTS: Right internal jugular vein tunneled central venous catheter with use of a 19 cm tip to cuff [place] hemodialysis catheter. DESCRIPTION OF PROCEDURE: Patient was taken to the angiography suite, placed supine on the angiography room table and then prepped and draped in a standard surgical fashion. A timeout was conducted by myself and the team members in the room confirming the correct patient, procedure and laterality. Ultrasound guidance was used to cannulate the right internal jugular vein using a micropuncture needle after anesthetizing the overlying skin and subcutaneous tissue with 2% lidocaine mixed with 0.5% Marcaine. The cannulation of the right internal jugular vein was performed with real-time concurrent visualization of the entry of the micropuncture needle into the right internal jugular vein with a hardcopy image preserved. The ultrasound showed the right internal jugular ve in to be widely patent, easily compressible and free of thrombus. The micropuncture wire was advanced through the micropuncture needle which was upsized to a micropuncture sheath. An Amplatz wire was advanced through the micropuncture sheath which was then used to sequentially dilate the right internal jugular vein under fluoroscopic guidance. An introducer sheath was then placed over the Amplatz wire and the wire was removed. The catheter was tunneled through a puncture wound in the right chest after anesthetizing the overlying skin and subcutaneous tissue with 2% lidocaine mixed with 0.5% Marcaine and brought out through a puncture wound at the right internal jugular vein entry site. The catheter was then advanced through the introducer sheath which had been positioned under fluoroscopic guidance. The catheter was positioned under fluoroscopic guidance with the tip in the superior vena cava right atrial junction. Both ports of the catheter were aspirated, noted to aspirate easily and then flushed with heparinized saline. The catheter was secured to the right anterior chest wall using #2-0 Prolene suture after anesthetizing the overlying skin and subcutaneous tissue with 2% lidocaine mixed with 0.5% Marcaine. The puncture wound in the right neck was closed using #4-0 Monocryl in inverted interrupted fashion. Steri-Strips and dressings were applied. The patient tolerated the procedure well. All instrument, sponge and needle counts were correct at the end of the case. There were no complications. Dr. Rose was present for and directed the entire case. Patient was transferred to the recovery area and subsequently to the floor in stable condition. The tunneled central venous catheter is stable for use for hemodialysis access. RADIOLOGIC SUPERVISION AND INTERPRETATION: The initial ultrasound showed the right internal jugular vein to be easily compressible, widely patent and free of thrombus. Ultrasound was used to guide cannulation of the right internal jugular vein with real-time concurrent visualization of the entry of the needle into the right internal jugular vein with a hardcopy image preserved. Fluoroscopic guidance was then used to sequentially dilate the right internal jugular vein, place an introducer sheath and position the catheter with the tip in the superior vena cava/right atrial junction. Final fluoroscopic image showed the catheter to be in good position and good alignment with no pneumo- or hemothorax noted with the tip in the superior vena cava/right atrial junction. The tunneled central venous catheter is stable for use for hemodialysis access. Rao Rose MD Dec 05, 2018 07:55
[2018-12-05 08:30] VITALS: BP 110/42
[2018-12-05] MEDS: HumaLOG INSULIN (NovoLOG) PER UNIT SC SCH ×4 (08:42→21:00)
[2018-12-05] MEDS: AMPICILLIN SOD 500 MG in D5W 50 ML IV SCH ×2 (08:43→17:42)
[2018-12-05] MEDS: CARVedilol 12.5 MG TAB PO SCH ×2 (08:43→22:22)
[2018-12-05] MEDS: CYANOCOBALAMIN 500 MCG TAB PO SCH (08:44)
[2018-12-05] MEDS: ALLOPURINOL 300 MG TAB PO SCH (08:45)
[2018-12-05] MEDS: OMEPRAZOLE 20 MG CAP PO SCH (08:46)
[2018-12-05] MEDS: PHENAZOPYRIDINE 100 MG TAB PO SCH ×2 (08:46→12:35)
[2018-12-05] MEDS: CALCITRIOL 0.25 MCG CAP (S0169) PO SCH (08:46)
[2018-12-05] MEDS: SENOKOT S TAB PO SCH ×2 (08:46→22:21)
[2018-12-05 09:13] LABS: HEPATITIS B CORE ANTIBODY IGM NEGATIVE (NEGATIVE); HEPATITIS B SURFACE ANTIBODY NEGATIVE (POSITIVE); HEPATITIS B SURFACE ANTIGEN NEGATIVE (NEGATIVE)
[2018-12-05 10:00] VITALS: BP 117/41
[2018-12-05] MEDS ORDERED: HEPARIN 1,000 UNITS/ML 10ML VIAL (FOR RADIOLOGY& DIALYSIS ONLY) IV ONE (10:45)
[2018-12-05] MEDS ORDERED: HEPARIN 1,000 UNITS/ML 10ML VIAL (FOR RADIOLOGY& DIALYSIS ONLY) XX ONE (10:45)
[2018-12-05 11:11] LABS: PERCENT SATURATION 38.2 % (13.2-45.0); PHOSPHORUS LEVEL 3.4 MG/DL (2.5-4.9)
[2018-12-05] MEDS ORDERED: DARBEPOETIN 100 MCG/0.5 ML *DIALYSIS* SYRINGE (J0882) IV SCH ×2 (11:30→11:45)
[2018-12-05 16:51] LABS: PTH INTACT 14.3 PG/ML (18.5-88.0)
--- NOTE | 2018-12-05 17:24 | IPNPDOC ---
Date Seen The patient was seen on 12/05/18. Progress Note SUBJECTIVE: Patient is a 83-year-old female who presented to the emergency room with nausea and vomiting over the past 2 weeks with poor oral intake. Patient was seen and examined in her room today, lying comfortably in bed. She states she is feeling well with no new complaints. She continues to eat and I encouraged her to maintain good dietary intake. She states the pressure in her pelvic area is improved today. She denies any fevers, chills, night sweats, chest pain, palpitations, shortness of breath, cough, wheezing, vomiting, abdominal pain, diarrhea. OBJECTIVE: PHYSICAL EXAMINATION: VITAL SIGNS: Please see below. GENERAL: Alert female, appears her stated age, no acute distress, lying comfortably in bed HEENT: Normocephalic, atraumatic, PERRLA, EOMI with poor tracking at times seemingly due to lack of focus, somewhat dry mucous membranes CARDIOVASCULAR: Bradycardic rate, regular rhythm, normal S1 and S2. RESPIRATORY: Clear to auscultation bilaterally, on 2 L nasal cannula. ABDOMINAL: Nontender. Soft, nondistended, bowel sounds present, no masses or hepatosplenomegaly appreciated. EXTREMITIES: Cold to touch, pulses 2+ in the radial and posterior tibial arteries, 1+ pitting edema in the left lower extremity, no edema of the right lower extremity NEUROLOGICAL: Alert and oriented 3 to person, place and time. Essential tremor present in the right arm > left arm. Mild facial droop of the left eye and mouth compared to the right. Otherwise CN 2-12 grossly intact. Sensation intact, 2/4 DTRs equal bilaterally in upper and lower extremities, 4/5 muscle strength throughout, thought to be related to poor nutritional status. No other deficits noted. PSYCHOLOGICAL:. Normal mood and affect LABORATORY DATA, IMAGING STUDIES, MICROBIOLOGY: Please see below. ASSESSMENT AND PLAN: This is a 83-year-old female who presented to the emergency room with nausea and vomiting over the past 2 weeks with poor oral intake PROBLEMS: 1. Nausea/Vomitting with poor oral intake, improved Liver ultrasound showed distended gallbladder with biliary sludge. Liver doppler negative for thrombosis. Lipase negative. Cardiac enzymes negative 2. Blood cultures x2 negative at 72 hours UA significant for 3+ leukocyte esterase, 23 urine WBC, 8 urine RBC, 1+ urine bacteria. Urine culture positive for E. faecalis. Pt continue to deny any urinary complaints, no treatment recommended for asymptomatic UTI Continue with soft diet which she is tolerating well. Dietary consult, recommended ensure clear with dinner to supplement calories Patient continues to work with PT/OT for strengthening and may benefit from rehabilitation, plan to discuss this with family. 2. Hypoglycemia, improved, History of diabetes mellitus type 2 Hold home DM 2 medications. Insulin sliding scale while in the hospital. Continue to monitor, suspect her hypoglycemia is related to her poor oral intake. Improved since she has been eating regularly in the hospital. 3. UTI. On arrival, patient had a UA and urine culture which was positive for E.faecalis, however, the patient denied any urinary frequency, urinary urgency, and dysuria. Because of this, her urinalysis and culture findings were attributed to an asymptomatic UTI, and therefore not treated with antibiotics. Over the course of the patient's admission, she has continued to deny urinary frequency, urinary urgency, and dysuria, to myself and other physicians. However, it was revealed that she has admitted to these complaints to nursing staff. For that reason antibiotic coverage was started on 12/03 with ampicillin (day#3 of 3) for antibiotic coverage. 4. Left arm pain, resolved. Yesterday patient complained of pain over her left arm where her AV fistula is present. Left arm ultrasound did not reveal evidence of DVT. Pain has since resolved, continue to monitor for recurrent symptoms. 5. Charcot foot Recommendation had been given for podiatry consult by overnight team. However, the patient has been seen by podiatry in May 2018 and diagnosed with Charcot foot. She was evaluated at that time by Dr. Paiz . According to his note, she was not considered a good surgical candidate. In addition, on discussion with the patient today, she would not like to do any surgical procedures. She does follow with Dr. Moreno for podiatry as well. She denies any current pain in the foot. For these reasons, the consult was cancelled. Would reconsider this consult if the patient decides she would be interested in surgery. Otherwise, she can continue to follow up with podiatry as scheduled in the outpatient setting. 6. Transaminitis She has had somewhat mildly elevated LFTs in the past, but on presentation LFTs were more acutely elevated. Liver ultrasound did not reveal any hepatic findings, liver Doppler study was also WNL LFTs continue to trend down daily, will continue to monitor 7. CKD stage IVV Patient was planning to start dialysis and is s/p AV fistula in the left arm. However, she does not want to initiate dialysis at this time. Hold IV fluids for now to avoid fluid overload, monitor I/O and daily weights, continue to monitor BUN and Cr which have been stable. She does have some urine output. Consulted Dr. Fortune for dialysis, appreciate his input and recommendations. 24-hour urine collection found a creatinine clearance of 6.5. Dialysis intiated on 12/04. Consulted Dr. Rose for HD access since the AV fistula is not ready to use yet. 8. Chronic diastolic congestive heart failure/chronic hypertension. Continue home carvedilol. Patient does not appear fluid overloaded at this time, continue to hold home torsemide 9. Chronic CAD/Dyslipidemia Continue home simvastatin 10. 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 Chronic atrial fibrillation, rate controlled hold home amiodarone due to possible toxicity -Continue home carvedilol. Patient was not on any anticoagulation when admitted 12. Iron Deficiency Anemia. Continue home iron supplement and monitor CBC 13. Hypothyroidism Elevated TSH with elevated T4 level. Looking back at her previous labs, patient has had elevated TSH, which has seemed to be downtrending. Patient symptomatically appears more hypothyroid, reevaluation of her labs should be done in the outpatient setting. 14. Gout Continue home allopurinol 15. Poor nutrition with low BMI BMI is 19 Nutrition consult, recommended ensure clear with dinner to supplement 16. DVT prophylaxis. Teds and SCDs DISPOSITION: Inpatient med/surg with tele pending PT/OT clearance, PFS for home care vs rehab placement VS, I&O, 24H, Fishbone Vital Signs/I&O Vital Signs Date Time Temp Pulse Resp B/P (MAP) Pulse Ox O2 Delivery O2 Flow Rate FiO2 12/05/18 10:00 97.1 48 17 117/41 (66) 100 2.0 I&O- Last 24 Hours up to 6 AM 12/05/18 06:00 Intake Total 990 ml Output Total 125 ml Balance 865 ml Laboratory Data 24H LABS Laboratory Tests 2 12/04/18 17:34: Bedside Glucose (Misc Panel) 185H 12/04/18 20:29: Bedside Glucose (Misc Panel) 190H 12/05/18 06:04: Nucleated Red Blood Cells % (auto) 0.0, Anion Gap 8, Glomerular Filtration Rate 17.4L, Calcium Level 9.2, Phosphorus Level 3.4, Magnesium Level 2.0, Iron Level 58, Total Iron Binding Capacity 152L, Transferrin % Saturation 38.2, Ferritin 547H, Aspartate Amino Transf (AST/SGOT) 33, Alanine Aminotransferase (ALT/SGPT) 48, Alkaline Phosphatase 65, Total Bilirubin 0.5, Direct Bilirubin 0.3H, Total Protein 5.8L, Albumin 2.5L, Albumin/Globulin Ratio 0.76L, Parathyroid Hormone (Intact) 14.3L 12/05/18 10:58: Bedside Glucose (Misc Panel) 198H CBC/BMP Laboratory Tests 12/05/18 06:04 Red Blood Count 3.00 L, Mean Corpuscular Volume 92.7, Mean Corpuscular Hemoglobin 29.7, Mean Corpuscular Hemoglobin Concent 32.0, Red Cell Distribution Width 16.2 H Microbiology Microbiology 11/28/18 Blood Culture - Final, Complete NO GROWTH AFTER 5 DAYS 11/28/18 Blood Culture - Final, Complete NO GROWTH AFTER 5 DAYS 11/28/18 Urine Culture - Final, Complete Enterococcus Faecalis TRANG TIPTON PGY-1 Dec 05, 2018 17:24
[2018-12-05 18:00] VITALS: BP 124/48
[2018-12-05 22:00] VITALS: BP 127/51
[2018-12-05] MEDS: FERROUS SULFATE 325MG TAB PO SCH (22:21)
[2018-12-05] MEDS: SIMVASTATIN 20 MG TAB PO SCH (22:23)
[2018-12-06] MEDS: AMPICILLIN SOD 500 MG in D5W 50 ML IV SCH ×2 (00:34→08:29)
[2018-12-06] MEDS: LEVOTHYROXINE 100MCG TABLET (0.1MG) PO SCH (05:44)
[2018-12-06 06:00] VITALS: BP 132/56
[2018-12-06 06:28] LABS: HEMATOCRIT 29.5 % (36.0-47.0); HEMOGLOBIN 9.4 g/dl (12.0-15.5); MEAN CORPUSCULAR HEMOGLOBIN 29.7 pg (27.0-33.0); MEAN CORPUSCULAR HGB CONC 31.9 g/dl (32.0-36.5); MEAN CORPUSCULAR VOLUME 93.4 fl (80.0-96.0); PLATELET COUNT, AUTOMATED 239 10^3/uL (150-450); RED BLOOD COUNT 3.16 10^6/uL (4.00-5.40); WHITE BLOOD COUNT 7.1 10^3/uL (4.0-10.0)
[2018-12-06 07:02] LABS: ALBUMIN 2.4 GM/DL (3.2-5.2); BILIRUBIN,DIRECT 0.3 MG/DL (0.0-0.2); BILIRUBIN,TOTAL 0.5 MG/DL (0.2-1.0); CALCIUM LEVEL 8.6 MG/DL (8.8-10.2); CREATININE FOR GFR 1.79 MG/DL (0.55-1.30); GLOMERULAR FILTRATION RATE 28.7 (>32); MAGNESIUM LEVEL 1.9 MG/DL (1.8-2.4); POTASSIUM SERUM 4.2 MEQ/L (3.5-5.1); TOTAL PROTEIN 5.7 GM/DL (6.4-8.2)
[2018-12-06] MEDS: HumaLOG INSULIN (NovoLOG) PER UNIT SC SCH ×4 (08:29→21:00)
[2018-12-06] MEDS: CYANOCOBALAMIN 500 MCG TAB PO SCH (08:30)
[2018-12-06] MEDS: ALLOPURINOL 300 MG TAB PO SCH (08:30)
[2018-12-06] MEDS: SENOKOT S TAB PO SCH ×2 (08:30→21:16)
[2018-12-06] MEDS: CARVedilol 12.5 MG TAB PO SCH ×2 (08:31→21:17)
[2018-12-06] MEDS: CALCITRIOL 0.25 MCG CAP (S0169) PO SCH (08:31)
[2018-12-06] MEDS: OMEPRAZOLE 20 MG CAP PO SCH (08:31)
--- NOTE | 2018-12-06 13:03 | IPN ---
DATE: 12/05/2018 SUBJECTIVE: The patient was seen and examined at the bedside today morning. The patient also got the tunneled dialysis catheter placed today. She was dialyzed for the first time yesterday, only 100 mL of fluid was removed. She tolerated the hemodialysis procedure well. OBJECTIVE: VITAL SIGNS: Temperature is 97.1 degrees Fahrenheit, blood pressure 117/41, pulse is 48, respiratory rate of 17, saturating 100% on nasal cannula at 2 liters. Intake and output: Urine output recorded is only 25 mL, ultrafiltration with hemodialysis was 100 mL. Weight in the bed scale is 55.3 kg. PHYSICAL EXAMINATION: GENERAL: The patient is awake, alert, oriented times two, laying in bed in no apparent distress. HEAD AND NECK EXAM: Extraocular muscles intact. Pupils equally round and reactive to light. Mucous membranes are moist. Neck is supple. She has a right IJ tunneled hemodialysis catheter. CARDIOVASCULAR: S1, S2, regular rate. 1+ edema of the bilateral ankles. RESPIRATORY: Chest is clear to auscultation bilaterally. Bilateral equal air entry. No rales or rhonchi. ABDOMEN: Soft. Positive bowel sounds. Nontender. No organomegaly. MUSCULOSKELETAL: Patient has clubbing of the fingernails. There is no cyanosis and 1+ edema of the ankles was noted. WATCH DIAL MAKER: No focal deficit, apart from dementia patient follows commands and moves extremities. LABORATORY REVIEW: CBC showed WBC 6.8, hemoglobin 8.9, platelets are 231. BMP showed sodium 133, potassium 4.5, chloride 96, bicarbonate 29, BUN 53, creatinine is 2.7, iron is 58, TIBC 152, transferrin saturation is 38, ferritin is 547, albumin is 2.5. CURRENT INPATIENT MEDICATIONS: The patient's medications were all reviewed by me. I have started the patient on Aranesp 100 mcg IV with hemodialysis. No other change in the medications today as compared with yesterday. ASSESSMENT/PLAN: 1. End-stage renal disease. The patient is dialysis dependent. She was dialyzed for the first time yesterday for 2 hours. I will do another session of hemodialysis for 3 hours today. Ultrafiltration goal maximum will be 500 mL, patient does not have much fluid overload. 2. Anemia in end-stage renal disease. Iron levels are adequate. I am starting the patient on Aranesp 100 mcg IV with dialysis, first dose will be given today. 3. Urinary tract infection. The patient has Enterococcus UTI. She is currently getting IV ampicillin. 4. Hyperkalemia. Potassium has improved with first session of dialysis. The patient will be dialyzed with a 2K bath again.
[2018-12-06 14:00] VITALS: BP 128/57
[2018-12-06] MEDS: SIMVASTATIN 20 MG TAB PO SCH (21:16)
[2018-12-06 22:00] VITALS: BP 133/74
[2018-12-06] MEDS: ACETAMINOPHEN TAB 650MG DOSE (2X325MG) PO PRN (23:20)
[2018-12-07] MEDS: LEVOTHYROXINE 100MCG TABLET (0.1MG) PO SCH (05:37)
[2018-12-07 06:00] VITALS: BP 122/71
[2018-12-07 06:59] LABS: ALBUMIN 2.4 GM/DL (3.2-5.2); BILIRUBIN,DIRECT 0.3 MG/DL (0.0-0.2); BILIRUBIN,TOTAL 0.5 MG/DL (0.2-1.0); TOTAL PROTEIN 5.7 GM/DL (6.4-8.2)
[2018-12-07] MEDS: OMEPRAZOLE 20 MG CAP PO SCH (08:51)
[2018-12-07] MEDS: CYANOCOBALAMIN 500 MCG TAB PO SCH (08:51)
[2018-12-07] MEDS: ALLOPURINOL 300 MG TAB PO SCH (08:51)
[2018-12-07] MEDS: HumaLOG INSULIN (NovoLOG) PER UNIT SC SCH ×4 (08:51→21:00)
[2018-12-07] MEDS: CARVedilol 12.5 MG TAB PO SCH ×2 (08:51→20:51)
[2018-12-07] MEDS: SENOKOT S TAB PO SCH ×2 (08:51→20:51)
[2018-12-07] MEDS: ACETAMINOPHEN TAB 650MG DOSE (2X325MG) PO PRN (10:01)
[2018-12-07 10:20] LABS: CALCIUM LEVEL 8.8 MG/DL (8.8-10.2); CREATININE FOR GFR 2.18 MG/DL (0.55-1.30); GLOMERULAR FILTRATION RATE 22.8 (>32); POTASSIUM SERUM 4.5 MEQ/L (3.5-5.1)
[2018-12-07] MEDS ORDERED: HEPARIN 1,000 UNITS/ML 10ML VIAL (FOR RADIOLOGY& DIALYSIS ONLY) XX ONE (11:30)
[2018-12-07] MEDS ORDERED: HEPARIN 1,000 UNITS/ML 10ML VIAL (FOR RADIOLOGY& DIALYSIS ONLY) IV ONE (11:30)
--- NOTE | 2018-12-07 11:44 | IPN ---
DATE: 12/06/2018 SUBJECTIVE: The patient was seen and examined at the bedside today morning. She is afebrile, hemodynamically stable. She was dialyzed for the second time yesterday. She tolerated the hemodialysis procedure well. She reports that she is feeling better today as compared with yesterday. OBJECTIVE: Vital signs: Temperature is 98 degrees Fahrenheit, blood pressure 128/57, pulse is 63, respiratory of 16, saturating 94% on 2 liters via nasal cannula. Intake and output: Urine output recorded is 500 mL. Ultrafiltration with hemodialysis yesterday was 500 mL. Weight in the bed scale is 55.2. PHYSICAL EXAMINATION: GENERAL: The patient is awake, alert, oriented times two, lying in bed in no apparent distress. HEAD AND NECK: Extraocular muscles intact. Pupils equally round and reactive to light. Mucous membranes are moist. Neck is supple. Right internal jugular (IJ) tunneled hemodialysis catheter. CARDIOVASCULAR: S1, S2, regular rate. Trace edema of the bilateral lower extremities. RESPIRATORY: Chest is clear to auscultation bilaterally. Bilateral equal air entry. No rales or rhonchi. ABDOMEN: Soft. Positive bowel sounds. Nontender. No organomegaly. MUSCULOSKELETAL: Clubbing of the fingernails. No cyanosis. Trace edema of the ankles. CENTRAL NERVOUS SYSTEM:: No focal deficit. She has dementia. She is oriented times two. She moves all extremities. LABORATORY REVIEW: CBC showed WBC of 7.1, hemoglobin 9.4, platelets of 239. BMP showed sodium 138, potassium 4.2, chloride 100, bicarbonate 32, BUN 24, creatinine is 1.7. Albumin is 2.4. CURRENT INPATIENT MEDICATIONS: The patient's medications were all reviewed by me. Intravenous (IV) ampicillin has been stopped. Calcitriol has been stopped by myself. I stopped her iron tablet. Senokot dose has been changed to one tablet by mouth twice a day. No other change in the medications today as compared with yesterday. ASSESSMENT AND PLAN: 1. End-stage renal disease. The patient was dialyzed for the second time yesterday. Next hemodialysis session will be tomorrow. 2. Secondary hyperparathyroidism. The patient's parathyroid hormone (PTH) level is below the target. Calcitriol is being stopped. 3. Anemia and end-stage renal disease. The patient's iron levels are adequate. She was started on Aranesp 100 mcg with dialysis. No need of oral iron tablets. The patient is constipated. I am stopping the oral iron. I have also decreased the Senokot tablet dose to one tablet twice a day. 4. Urinary tract infection. The patient had enterococcus urinary tract infection (UTI). She was on IV ampicillin. IV antibiotic has been stopped.
--- NOTE | 2018-12-07 17:10 | IPN ---
DATE: 12/07/2018 SUBJECTIVE: The patient was seen and examined at the bedside today morning. She is afebrile, hemodynamically stable. Today is the patient's regular day of dialysis. She denies any active complaints. OBJECTIVE: VITAL SIGNS: Temperature is 96.8 degrees Fahrenheit, blood pressure 122/71, pulse is 61, respiratory of 18, saturating 96% on two liters via nasal cannula. INTAKE AND OUTPUT: Urine output recorded is 25 mL only. Weight in the bed scale is not available. PHYSICAL EXAMINATION: GENERAL: The patient is awake, alert and oriented times two, laying in bed, in no apparent distress. HEAD AND NECK: Extraocular muscles intact. Pupils equally round and reactive to light. Mucous membranes are moist. Neck is supple. She has a right internal jugular (IJ) tunneled hemodialysis catheter. CARDIOVASCULAR: S1, S2, regular rate, 1+ edema of the ankles. RESPIRATORY: Chest is clear to auscultation bilaterally. Bilateral equal air entry. No rales or rhonchi. ABDOMEN: Soft. Positive bowel sounds. Nontender. No organomegaly. MUSCULOSKELETAL: Clubbing of the fingernails was noted, 1+ edema of the ankles was noted. CENTRAL NERVOUS SYSTEM (POWER TRANSMISSION ENGINEER): No focal deficit. She has baseline dementia. She moves all extremities. LABORATORY REVIEW: CBC showed a WBC of 7.1, hemoglobin 9.4 and that is from yesterday. BMP today morning showed sodium 135, potassium 4.5, chloride 98, bicarbonate 32, BUN 26, creatinine is 2.1. CURRENT INPATIENT MEDICATIONS: The patient's medications were all reviewed by me. There is no change in the medications today as compared with yesterday. ASSESSMENT AND PLAN: 1. End-stage renal disease. The patient is dialysis dependent now. She will be dialyzed today again in the afternoon. Ultrafiltration goal will be around 500 mL as tolerated by her blood pressure. 2. Anemia and end-stage renal disease. Hemoglobin level is slowly improving. Continue current dose of Aranesp with hemodialysis. 3. Chronic gout secondary to chronic kidney disease. Continue current dose of allopurinol 150 mg by mouth daily. 4. Hypertension with end-stage renal disease and hypertensive heart disease. Continue current dose of Coreg 12.5 mg by mouth twice a day.
[2018-12-07] MEDS: SIMVASTATIN 20 MG TAB PO SCH (20:51)
[2018-12-07 22:00] VITALS: BP 128/58
[2018-12-08] MEDS: LEVOTHYROXINE 100MCG TABLET (0.1MG) PO SCH (05:35)
[2018-12-08 06:00] VITALS: BP 113/68
[2018-12-08] MEDS: HumaLOG INSULIN (NovoLOG) PER UNIT SC SCH ×4 (08:12→21:00)
[2018-12-08] MEDS: OMEPRAZOLE 20 MG CAP PO SCH (08:13)
[2018-12-08] MEDS: CYANOCOBALAMIN 500 MCG TAB PO SCH (08:13)
[2018-12-08] MEDS: SENOKOT S TAB PO SCH ×2 (08:13→20:59)
[2018-12-08] MEDS: ALLOPURINOL 300 MG TAB PO SCH (08:13)
[2018-12-08] MEDS: CARVedilol 12.5 MG TAB PO SCH ×2 (08:13→20:59)
[2018-12-08 14:00] VITALS: BP 116/53
[2018-12-08 18:00] VITALS: BP 122/58
[2018-12-08] MEDS: SIMVASTATIN 20 MG TAB PO SCH (20:58)
[2018-12-08 22:00] VITALS: BP 135/79
[2018-12-09] MEDS: LEVOTHYROXINE 100MCG TABLET (0.1MG) PO SCH (05:51)
[2018-12-09 06:00] VITALS: BP 130/82
[2018-12-09] MEDS: HumaLOG INSULIN (NovoLOG) PER UNIT SC SCH ×4 (07:30→20:53)
[2018-12-09] MEDS: CARVedilol 12.5 MG TAB PO SCH ×2 (09:00→21:00)
[2018-12-09] MEDS: CYANOCOBALAMIN 500 MCG TAB PO SCH (09:15)
[2018-12-09] MEDS: SENOKOT S TAB PO SCH ×2 (09:16→21:00)
[2018-12-09] MEDS: ALLOPURINOL 300 MG TAB PO SCH (09:16)
[2018-12-09] MEDS: OMEPRAZOLE 20 MG CAP PO SCH (09:16)
[2018-12-09] MEDS: SIMVASTATIN 20 MG TAB PO SCH (21:00)
[2018-12-10 06:00] VITALS: BP 148/59
[2018-12-10] MEDS: CARVedilol 12.5 MG TAB PO SCH ×2 (06:01→21:00)
[2018-12-10] MEDS: OMEPRAZOLE 20 MG CAP PO SCH (06:01)
[2018-12-10] MEDS: LEVOTHYROXINE 100MCG TABLET (0.1MG) PO SCH (06:01)
[2018-12-10] MEDS: SENOKOT S TAB PO SCH ×2 (06:01→21:00)
[2018-12-10] MEDS: CYANOCOBALAMIN 500 MCG TAB PO SCH (06:02)
[2018-12-10] MEDS: ALLOPURINOL 300 MG TAB PO SCH (06:02)
[2018-12-10] MEDS: HumaLOG INSULIN (NovoLOG) PER UNIT SC SCH ×4 (08:08→21:00)
--- NOTE | 2018-12-10 09:12 | IPN ---
DATE: 12/08/2018 SUBJECTIVE: The patient was seen and examined at the bedside today morning. She is afebrile, hemodynamically stable. She was dialyzed yesterday. She tolerated the hemodialysis procedure well. She denies any active complaints. She is actually sitting in the sofa today. OBJECTIVE: Vital Signs: Temperature is 97.3 degrees Fahrenheit, blood pressure 113/68, pulse is 59, respiratory rate of 19, saturating 94% on 2 liters via nasal cannula. Intake and Output: Urine output recorded as only 25 mL. Ultrafiltration with hemodialysis was 700 mL. Weight in the bed scale is 56.8 kg. PHYSICAL EXAMINATION: General: The patient is awake, alert, oriented times three, sitting up in the sofa, in no apparent distress. Head and Neck Exam: Extraocular muscles intact. Pupils equally round and reactive to light. Mucous membranes are moist. Neck is supple. Right IJ tunneled hemodialysis catheter. Cardiovascular: S1 and S2, regular rate. 1+ edema of the ankles. Respiratory: Chest is clear to auscultation bilaterally. Bilateral equal air entry. No rales or rhonchi. Abdomen: Soft. Positive bowel sounds. Nontender. No organomegaly. Musculoskeletal: Clubbing of the fingernails. 1+ edema of the ankles. Otherwise normal range of movement. 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 Power is 5/5 in extremities. She has baseline dementia. LAB REVIEW: CBC is from December 06 and BMP is from yesterday. No lab is available from today. CURRENT INPATIENT MEDICATIONS: The patient's medications were all reviewed by me. There is no change in the medications today as compared with yesterday. ASSESSMENT/PLAN: 1. End-stage renal disease. The patient was dialyzed yesterday, 700 mL of fluid was removed. Next hemodialysis will be done on Monday morning. 2. Anemia in end-stage renal disease. Continue current dose of Aranesp. Hemoglobin level is improving. 3. Hypertension with end-stage renal disease and hypertensive heart disease. Continue current dose of Coreg. Blood pressure level is optimal. 4. Disposition. The patient is alternate level of care (ALC) status. She will be seen only on dialysis days now.
[2018-12-10] MEDS ORDERED: PROMETHAZINE INJ 25 MG/ML VIAL (J2550) IV ONE (19:45)
[2018-12-10 19:50] LABS: HEMATOCRIT 34.8 % (36.0-47.0); MEAN CORPUSCULAR HEMOGLOBIN 30.2 pg (27.0-33.0); MEAN CORPUSCULAR HGB CONC 31.6 g/dl (32.0-36.5); MEAN CORPUSCULAR VOLUME 95.6 fl (80.0-96.0); PLATELET COUNT, AUTOMATED 303 10^3/uL (150-450); RED BLOOD COUNT 3.64 10^6/uL (4.00-5.40); WHITE BLOOD COUNT 12.2 10^3/uL (4.0-10.0)
[2018-12-10 19:58] VITALS: BP 105/46
[2018-12-10 20:14] LABS: ABG BASE EXCESS -5.4 (-2.0-2.0); ABG HCO3 19.7 MEQ/L (22.0-26.0); ABG O2 SATURATION 99.4 % (95.0-99.0); ABG PARTIAL PRESSURE CO2 36.7 mmHg (35.0-45.0); ABG PARTIAL PRESSURE O2 216.6 mmHg (75.0-100.0); ABG STANDARD HCO3 20.1 MEQ/L (22.0-26.0); ABG TOTAL CO2 20.8 MEQ/L (23.0-31.0); ABG pH (ARTERIAL) 7.347 UNITS (7.350-7.450)
[2018-12-10 20:26] LABS: ALBUMIN 2.4 GM/DL (3.2-5.2); BILIRUBIN,TOTAL 0.5 MG/DL (0.2-1.0); CALCIUM LEVEL 8.7 MG/DL (8.8-10.2); CREATININE FOR GFR 2.3 MG/DL (0.55-1.30); GLOMERULAR FILTRATION RATE 21.5 (>32); MAGNESIUM LEVEL 1.9 MG/DL (1.8-2.4); PHOSPHORUS LEVEL 4.3 MG/DL (2.5-4.9); POTASSIUM SERUM 5.2 MEQ/L (3.5-5.1); TOTAL PROTEIN 5.8 GM/DL (6.4-8.2); TROPONIN I 0.03 NG/ML (< 0.10)
[2018-12-10] MEDS ORDERED: NS 250 ML IV ONE (20:30)
[2018-12-10] MEDS ORDERED: NS 1,000 ML IV ONE (20:45)
--- NOTE | 2018-12-10 20:48 | IPNPDOC ---
Subjective Date Seen The patient was seen on 12/10/18. Subjective Chief Complaint/HPI At 1912 a rapid assessment was called for patient first complaining of nausea and vomiting. At 1913 a maxcart was called as the patient was noted to be unresponsive with no pulse. Compressions were started and non-rebreather was applied. Patient opened their eyes at 1914 but was slow to answer. At that time the patient did not have peripheral access so a 22 g was put in to her R-hand at 1919. Her initial vitals taken after "ROSC" were 106/42, HR 47, POC glucose 171. I put in order for an EKG, CXR, CBC, CMP, and troponins were ordered and she was transferred to the ICU. I spoke with one of her sons at that time to inform him what had happened and what we were doing. Because of her low DBP and her vomiting we gave her a 250 ml bolus of fluid and I order some promethazine since her QTC is prolonged at baseline and continued to be prolonged on repeat EKG. I also DC'd her 8 mg of zofran for same reason. After she was transferred to the ICU she received her promethazine and I spoke with her and her two sons about her code status. She did not seem to understand this was a shared decision as she kept telling me that I should do what I thought was best. Her sons who are her healthcare proxy's similarly were unaware of any specific wishes she may have had on whether she would want resuscitation and did not intimate either way the direction they wanted to go should a similar event occur so for the time being she will REMAIN FULL CODE. I informed them that while they did not need to decide tonight, in the next day or so it would be a good idea. They verbalized understanding. Objective Physical Examination General Exam: Positive: Alert, Cooperative Eye Exam: Positive: Conjunctiva & lids normal, EOMI; Negative: Sclera icteric ENT Exam: Positive: Mucous membr. moist/pink Neck Exam: Negative: JVD, Lymphadenopathy Chest Exam: Positive: Clear to auscultation, Normal air movement, Diminished (bilaterally); Negative: Rales, Rhonchi, Wheezing Heart Exam: Positive: Bradycardic Telemetry: Positive: Bradycardia Abdomen Exam: Positive: Normal bowel sounds, Soft; Negative: Tenderness Extremity Exam: Positive: Edema (1+ pitting edema in bilat LE), Normal pulses Skin Exam: Positive: Nl turgor and temperature Neuro Exam: Positive: Normal Speech Psych Exam: Positive: Anxiety Assessment /Plan Assessment EKG is different from admission but does not appear to be showing signs of new or worsening ischemia. Initial troponins negative. Will repeat at midnight. Initial labwork shows hyponatremia, mild hyperkalemia. We are giving more 1 Liter since her DBP is still low. Spoke with Dr. Fortune and reviewed what happened tonight and he does not feel there is an urgent need for dialysis at this time. Will continue to monitor patient for new or worsening symptoms. Currently do not have a reason for her emesis so will continue to seek symptom control. Plan/VTE VTE Prophylaxis Ordered?: Yes (SCDs ordered) VS, I&O, 24H, Fishbone Vital Signs/I&O Vital Signs Date Time Temp Pulse Resp B/P (MAP) Pulse Ox O2 Delivery O2 Flow Rate FiO2 12/10/18 09:00 2.0 12/10/18 06:01 65 148/59 12/10/18 06:00 96.8 18 97 I&O- Last 24 Hours up to 6 AM 12/10/18 06:00 Intake Total 1043 ml Output Total 225 ml Balance 818 ml Laboratory Data 24H LABS Laboratory Tests 2 12/10/18 06:29: Bedside Glucose (Misc Panel) 160H 12/10/18 11:35: Bedside Glucose (Misc Panel) 149H 12/10/18 19:30: Blood Gas Bicarbonate Standard 20.1L, Arterial Blood pH 7.347L, Arterial Blood Partial Pressure CO2 36.7, Arterial Blood Partial Pressure O2 216.6H, Arterial Blood Total CO2 20.8L, Arterial Blood HCO3 19.7L, Arterial Blood Base Excess - 5.4L, Arterial Blood Oxygen Saturation 99.4H 12/10/18 19:35: Nucleated Red Blood Cells % (auto) 0.0, Anion Gap 8, Glomerular Filtration Rate 21.5L, Blood Urea Nitrogen 27H, Creatinine 2.30H, Sodium Level 129L, Potassium Level 5.2H, Chloride Level 97L, Carbon Dioxide Level 24, Calcium Level 8.7L, Phosphorus Level 4.3, Aspartate Amino Transf (AST/SGOT) 129H, Alanine Aminotransferase (ALT/SGPT) 90H, Alkaline Phosphatase 77, Total Bilirubin 0.5, Total Protein 5.8L, Albumin 2.4L, Magnesium Level 1.9, Troponin I 0.03, Albumin/Globulin Ratio 0.71L CBC/BMP Laboratory Tests 12/10/18 19:35 Red Blood Count 3.64 L, Mean Corpuscular Volume 95.6, Mean Corpuscular Hemoglobin 30.2, Mean Corpuscular Hemoglobin Concent 31.6 L, Red Cell Distribution Width 17.6 H, Calcium Level 8.7 L, Phosphorus Level 4.3, Aspartate Amino Transf (AST/SGOT) 129 H, Alanine Aminotransferase (ALT/SGPT) 90 H, Alkaline Phosphatase 77, Total Bilirubin 0.5, Total Protein 5.8 L, Albumin 2.4 L WARREN ALBRIGHT DO Dec 10, 2018 20:48
[2018-12-10 21:00] VITALS: BP 116/54
[2018-12-10] MEDS: SIMVASTATIN 20 MG TAB PO SCH (21:00)
[2018-12-10 21:19] VITALS: BP 139/58
--- NOTE | 2018-12-10 21:31 | IPN ---
DATE: 12/10/2018 Mrs. Ruiz is seen this morning on her bedside. She is sitting in the chair at the time of my visit. She is still very weak and not able to walk much. She denies any nausea or vomiting. Her chronic dyspnea is unchanged and she remains on oxygen. She has been dialyzed on Monday, and Monday schedule and last dialysis was done on Monday. PHYSICAL EXAMINATION: Temperature 96.8 degrees Fahrenheit, heart rate 64 per minute and respiratory rate 18 per minute. Blood pressure 148/59 mmHg and oxygen saturation 97% on 2 liters oxygen. Head is atraumatic. Neck is supple and not with any JVD or thyroid enlargement. Heart sounds are regular and lungs with slightly diminished breath sounds at bases. Abdomen: Soft and nontender and bowel sounds are normal. Extremities have no cyanosis or clubbing. She has trace leg edema. Neurologically. she is awake, alert and at her baseline mentation. PROBLEMS: 1. End-stage renal disease. The patient has been dialysis dependent and she will be scheduled for her next dialysis tomorrow. She was last dialyzed on Monday. At present, there is no emergent need for dialysis today. 2. Congestive heart failure and volume status remains well-compensated and we will continue to manage with dialysis. There is no emergent need for dialysis today. 3. Hypertension. Blood pressure has been very well controlled and no changes are being made today. 4. Generalized weakness and deconditioning. She is slowly improving. She is currently on ALC status.
[2018-12-10 21:47] VITALS: BP 129/89
[2018-12-10 22:17] VITALS: BP 137/63
[2018-12-11] VITALS (10 sets, daily range): BP systolic 122–163; BP diastolic 59–70
[2018-12-11 00:54] LABS: TROPONIN I 0.05 NG/ML (< 0.10)
[2018-12-11] MEDS ORDERED: PROMETHAZINE INJ 25 MG/ML VIAL (J2550) IV PRN (03:30)
[2018-12-11 05:14] LABS: HEMATOCRIT 31.3 % (36.0-47.0); HEMOGLOBIN 9.9 g/dl (12.0-15.5); MEAN CORPUSCULAR HEMOGLOBIN 30.7 pg (27.0-33.0); MEAN CORPUSCULAR HGB CONC 31.6 g/dl (32.0-36.5); MEAN CORPUSCULAR VOLUME 97.2 fl (80.0-96.0); PLATELET COUNT, AUTOMATED 240 10^3/uL (150-450); RED BLOOD COUNT 3.22 10^6/uL (4.00-5.40); WHITE BLOOD COUNT 10.3 10^3/uL (4.0-10.0)
[2018-12-11] MEDS: LEVOTHYROXINE 100MCG TABLET (0.1MG) PO SCH (05:21)
[2018-12-11 05:36] LABS: ALBUMIN 1.9 GM/DL (3.2-5.2); CALCIUM LEVEL 8.1 MG/DL (8.8-10.2); CREATININE FOR GFR 2.11 MG/DL (0.55-1.30); GLOMERULAR FILTRATION RATE 23.7 (>32); PHOSPHORUS LEVEL 3.8 MG/DL (2.5-4.9); POTASSIUM SERUM 5.6 MEQ/L (3.5-5.1); TROPONIN I 0.02 NG/ML (< 0.10)
--- NOTE | 2018-12-11 06:42 | ECGEPIP ---
[facility] Test Date: 2018-12-10 Pat Name: MERI BONNER Department: Room: [place] [address] Gender: Female Internet Sales Consultant: LUIZA : 1935 Requested By: WARREN ALBRIGHT Order Number: [id number] Reading MD: Ida Grewal Measurements Intervals [place] Rate: 41 P: -14 [place]: 243 QRS: 266 QRSD: 120 T: 85 QT: 522 QTc: 434 Interpretive Statements SINUS BRADYCARDIA WITH FIRST DEGREE AV BLOCK WITH FREQUENT SUPRAVENTRICULAR PREMATURE COMPLEXES IN A BIGEMINAL PATTERN INFERIOR MYOCARDIAL INFARCTION, PROBABLY OLD ANTEROLATERAL MYOCARDIAL INFARCTION, OF INDETERMINATE AGE Electronically Signed on 12-11-2018 6:42:45 EDT by Ida Grewal
--- NOTE | 2018-12-11 07:20 | REP ---
PORTABLE CHEST: AP portable view of the chest is performed and compared to prior study of 11/28/2018. Once again there is cardiomegaly with a prominent vasculature and increased interstitial markings. There are new bibasilar infiltrates and possible effusions bilaterally. A right central venous catheter is seen with the tip in the superior vena cava. There is no pneumothorax. Electronically Signed by Dev Joya MD 12/11/2018 11:56 P
[2018-12-11] MEDS: HumaLOG INSULIN (NovoLOG) PER UNIT SC SCH ×5 (07:58→21:00)
[2018-12-11] MEDS: CARVedilol 12.5 MG TAB PO SCH (08:18)
[2018-12-11] MEDS: SENOKOT S TAB PO SCH ×2 (08:19→21:05)
[2018-12-11] MEDS: ALLOPURINOL 300 MG TAB PO SCH (08:19)
[2018-12-11] MEDS: CYANOCOBALAMIN 500 MCG TAB PO SCH (08:19)
[2018-12-11] MEDS: OMEPRAZOLE 20 MG CAP PO SCH (08:19)
--- NOTE | 2018-12-11 08:34 | IPNPDOC ---
Subjective Date Seen The patient was seen on 12/11/18. Subjective Chief Complaint/HPI Patient is a 83 yo female who initially presented to the emergency room with nausea and vomiting over the past 2 weeks with poor oral intake. She started dialysis during this hospitalization due to ESRD. Pt was in ALC but was transferred to ICU after rapid assessment and maxcart. No pulse was felt at that time and chest compression was done; pt regained consciousness after about 1 minute. EKG done showed bradycardia with 1st degree heart block. Patient was examined at bedside with youngest son in room. She reported she does not recall what happened last night. Stating she has no complaint besides mild chest/chest wall pain in left infraclavicular area at where the electrode was at. It was noted that she had some nausea last night but there was no emesis. She denies any fevers, chills, night sweats, palpitations, dyspnea, cough, wheezing, vomiting, abdominal pain, diarrhea. Patient's son is unaware if there was any recent medication change, and is unable to tell if pt had a hx of bradycardia. Constitutional: Denies: Chills, Fever Pulmonary: Denies: Dyspnea, Cough, Pleuritic Chest Pain Cardiovascular: Reports: Chest Pain (chest wall pain in left infraclavicular area); Denies: Palpitations, Orthopnea, Lt Headedness Gastrointestinal: Denies: Nausea, Vomiting, Abdominal Pain Musculoskeletal: Reports: Other Symptoms (right hand tremor) Neurological: Denies: Change in speech Psych: Reports: Mood Normal Objective Physical Examination General Exam: Positive: Alert, Cooperative, No Acute Distress Eye Exam: Positive: Conjunctiva & lids normal ENT Exam: Positive: Mucous membr. moist/pink Neck Exam: Negative: JVD, Lymphadenopathy Chest Exam: Positive: Clear to auscultation, Normal air movement, Diminished Heart Exam: Positive: Bradycardic (mild) Telemetry: Positive: Bradycardia Abdomen Exam: Positive: Normal bowel sounds, Soft; Negative: Tenderness Extremity Exam: Positive: Other (radial pulse equal b/l. B/l feet deformities noted right worse than left) Skin Exam: Positive: Nl turgor and temperature Neuro Exam: Positive: Normal Speech Psych Exam: Positive: Mental status NL, Anxiety, Oriented x 3, Other (mildly slow reponse) Assessment /Plan Assessment 1. Syncope event 2/2 vasovagal vs less likely symptomatic bradycardia/event. - Pt complained of N/V Last night, a rapid assessment then a maxcart was called as the patient was noted to be unresponsive with no pulse. CPR and non- rebreather was applied. - Patient regained consciousness after 1 min; initial vitals after "ROSC" showed DBP 42 and HR 47. 250 ml bolus of fluid given. - Zofran d/c and promethazine started d/t QTC prolongation.Pt subsequently transferred to ICU. - EKG showed sinus bradycardia with 1st degree AV block with frequent supraventricular premature complex in bigeminal pattern. Coreg dose decreased to 6.25mg BID PO. Cont tele monitor. Fall precaution ordered. 2. Bradycardia with 1st degree heart block. No prior 1st degree heart block noted. Pt mildly bradycardic at time of examination; Coreg was decreased from 12.5 BID. to 6.25mg BID. It was noted that pt had episodes of tachycardia as well but HR mainly remains storm. Continue tele monitor. If symptomatic/further syncope event, consider consulting cardiology for further management. 3. Chest pain/chest wall pain. -Left infraclavicular chest pain/chest wall pain. Pt unable to describe quality of pain; non-tender to palpation. -Pt's trop 0.03, 0.05, 0.03, 0.02. Chest wall pain likely 2/2 compression from last night. -Minimally elevated trop likely reactive however questionable new anteroseptal TN/ischemia noted in repeat EKG thus will cont to f/u with trop tonight. -As pt has ESRD on dialysis, will not start aspirin at this time 3. Questionable aspiration PNA. CXR 12/11/18 showed new bibasilar infiltrates and possible effusions bilaterally. Aspiration precaution and bed side swallow study ordered. MRSA screen ordered. Start zosyn 2.25g Q8H. 4.Nausea/Vomiting with poor oral intake, improved -Reported episode of nausea yesterday without emesis. Pt denies N/V ths morning at time of examination. Liver ultrasound showed distended gallbladder with biliary sludge. Liver doppler negative for thrombosis. Lipase negative. Cardiac enzymes negative 2. Blood cultures x2 negative at 72 hours -COnt IV promethazine Continue with soft diet. Dietary consult recommended ensure clear with dinner 5. Charcot foot -b/l feet deformities noted right worse than left Pt had been evaluated by Dr. Paiz and was determined not a good surgical candidate. Discussion with pt was made after hospitalization and it was noted that she would not like to do any surgical procedures. Pt follows Dr. Moreno for podiatry as well. Would reconsider this consult if pt becomes interested in surgery; otherwise pt will follow out podiatry outpt 6. Transaminitis She has had somewhat mildly elevated LFTs in the past, but on presentation LFTs were more acutely elevated. Abd US showed distended gallbladder with billary sludge; as pt is asymptomatic/no abd pain, will cont to monitor LFT at this time; recommend following surgery/GI outpt. initially trending down; 12/10/18 elevated again. F/u with 12/11 liver profile. 7. CKD stage IVV Patient on dialysis through AV fistula in the left arm starting 12/04/18. Daily I/O and weights. Continue to f/u BMP. BMP showed hyponatremia and hyperkalemia; pt going to dialysis today. -Pt following nephrology team 8. Anemia in endstage renal disease. -H&H roughly stable. Hg 9.9 12/11/18. Pt on Darbypotein. -Cont to monitor CBC. 9. Chronic diastolic congestive heart failure Home med Coreg was decreased to 6.25mg BID d/t bradycardia and low DBP event. No signs of fluid overload; BP current roughly stable. Pt on hemodialysis 10. Chronic hypertension. Home med Coreg decreased to 6.25mg BID d/t bradycardia and low DBP event last night. BP current roughly stable. -Cont home med statin Pt will continue to be on hemodialysis 11. Chronic CAD/Dyslipidemia Continue home simvastatin 12. 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 13. Chronic atrial fibrillation, rate controlled hold home amiodarone due to possible toxicity -Titrate home coreg down to 6.25mg BID due to bradycardia event Patient was not on any anticoagulation when admitted 14. Hypothyroidism Upon presentation, pt had elevated TSH with elevated T4 level -TSH and free T4 ordered due to bradycardia event 15. Gout Continue home allopurinol 16. Poor nutrition with low BMI BMI is 19 Nutrition consult already done; cont ensure clear supplement with dinner 17. Hypoglycemia, resolved. History of diabetes mellitus type 2 Pt blood glucose stable. Continue current insulin regimen and hold home med. Continue to monitor. Pt's hypoglycemia likely 2/2 her poor oral intake. Improved since she has been eating regularly in the hospital. -Blood sugar roughly stable. 18. UTI, resolved Upon admission pt's urine culture pos for E.faecalis. Patient denied any urinary frequency, urinary urgency, and dysuria initially but admitted symptoms to nursing staff later on; start 12/03 with ampicillin completed day 06/17. Pt stated no urinary symptoms at time of examination today 19. DVT prophylaxis. Teds and SCDs 20. Code status. Discussion again made with patient and youngest son who is one of the health care proxy. At least time both patient and youngest son decided that patient will be full code. DISPOSITION: ICU; Last night rapid assessment and maxcart; s/p compression. Storm-tachy noted. Cont on tele. Plan/VTE VTE Prophylaxis Ordered?: Yes VS, I&O, 24H, Fishbone Vital Signs/I&O Vital Signs Date Time Temp Pulse Resp B/P (MAP) Pulse Ox O2 Delivery O2 Flow Rate FiO2 12/11/18 08:18 58 142/66 12/11/18 04:01 98.5 18 100 2.0 I&O- Last 24 Hours up to 6 AM 12/11/18 06:00 Intake Total 1645 ml Output Total 650 ml Balance 995 ml Laboratory Data 24H LABS Laboratory Tests 2 12/10/18 11:35: Bedside Glucose (Misc Panel) 149H 12/10/18 19:30: Blood Gas Bicarbonate Standard 20.1L, Arterial Blood pH 7.347L, Arterial Blood Partial Pressure CO2 36.7, Arterial Blood Partial Pressure O2 216.6H, Arterial Blood Total CO2 20.8L, Arterial Blood HCO3 19.7L, Arterial Blood Base Excess - 5.4L, Arterial Blood Oxygen Saturation 99.4H 12/10/18 19:35: Nucleated Red Blood Cells % (auto) 0.0, Anion Gap 8, Glomerular Filtration Rate 21.5L, Blood Urea Nitrogen 27H, Creatinine 2.30H, Sodium Level 129L, Potassium Level 5.2H, Chloride Level 97L, Carbon Dioxide Level 24, Calcium Level 8.7L, Phosphorus Level 4.3, Aspartate Amino Transf (AST/SGOT) 129H, Alanine Aminotransferase (ALT/SGPT) 90H, Alkaline Phosphatase 77, Total Bilirubin 0.5, Total Protein 5.8L, Albumin 2.4L, Magnesium Level 1.9, Troponin I 0.03, Albumin/Globulin Ratio 0.71L 12/11/18 00:07: Troponin I 0.05# 12/11/18 04:56: Nucleated Red Blood Cells % (auto) 0.0, Blood Urea Nitrogen 29H, Creatinine 2.11H, Sodium Level 129L, Potassium Level 5.6H, Chloride Level 98, Carbon Dioxide Level 22, Anion Gap 9, Glomerular Filtration Rate 23.7L, Calcium Level 8.1L, Phosphorus Level 3.8, Troponin I 0.02#, Albumin 1.9#L 12/11/18 07:43: Bedside Glucose (Misc Panel) 151H CBC/BMP Laboratory Tests 12/10/18 19:35 Red Blood Count 3.64 L, Mean Corpuscular Volume 95.6, Mean Corpuscular Hemoglobin 30.2, Mean Corpuscular Hemoglobin Concent 31.6 L, Red Cell Distribution Width 17.6 H, Calcium Level 8.7 L, Phosphorus Level 4.3, Aspartate Amino Transf (AST/SGOT) 129 H, Alanine Aminotransferase (ALT/SGPT) 90 H, Alkaline Phosphatase 77, Total Bilirubin 0.5, Total Protein 5.8 L, Albumin 2.4 L 12/11/18 04:56 Red Blood Count 3.22 L, Mean Corpuscular Volume 97.2 H, Mean Corpuscular Hemoglobin 30.7, Mean Corpuscular Hemoglobin Concent 31.6 L, Red Cell Distribution Width 17.7 H, Anion Gap 9 GME ATTESTATION GME ATTESTATION My faculty preceptor for this patient encounter was physically present during the encounter and was fully available. All aspects of the patient interview, examination, medical decision making process, and medical care plan development were reviewed and approved by the faculty preceptor. The faculty preceptor is aware and concurs with the plan as stated in the body of this note and will attest to such by his/her cosignature. ATTENDING NOTE I, Gustavo Leong, have independently examined this patient and performed my own physical exam, as well as reviewed the documentation and edited where necessary. I have discussed in detail with the resident / student the findings and plan of treatment as documented by the resident / student and edited their note. I agree with their findings and treatment plan and have edited their documentation. I will continue to follow the patient during this hospital stay. Discussed with both sons, health care proxies. Currently they do not want to purse any pacemaker placement. They have opted to make their mother DNR/DNI and not subject her to any more aggressive measures. Patient will be downgraded to medical surgical floor. MATTHIAS MCKENZIE DO Dec 11, 2018 08:34 GUSTAVO LEONG MD Dec 11, 2018 15:38
--- NOTE | 2018-12-11 11:32 | ECGEPIP ---
[facility] Test Date: 2018-12-11 Pat Name: MERI BONNER Department: Room: [place] [address] Gender: Female Guide Excursion: IRINA : 1935 Requested By: KULWINDER CANTU Order Number: [id number] Reading MD: Ida Grewal Measurements Intervals [place] Rate: 53 P: 1 [place]: 243 QRS: 148 QRSD: 94 T: 29 QT: 461 QTc: 435 Interpretive Statements SINUS BRADYCARDIA WITH SINUS ARRHYTHMIA WITH FIRST DEGREE AV BLOCK LOW QRS VOLTAGE IN EXTREMITY LEADS LEFT POSTERIOR FASCICULAR BLOCK PPOSSIBLY NEW ANTEROSEPTAL MYOCARDIAL INFARCTION, OF INDETERMINATE AGE MODERATE T-WAVE ABNORMALITY, CONSIDER ANTERIOR ISCHEMIA NOW WITH INFERIOR AND HIGH LATERAL QS WHICH ARE NEW IF WE ASSUME PRIOR ON 12/10/18 WAS A LIMB SWITCH HAS LOST R WAVES IN LATERAL PRECORDIAL LEADS SUGGEST FOLLOW UP Electronically Signed on 12-11-2018 11:31:35 EDT by Ida Grewal
[2018-12-11 13:03] LABS: TROPONIN I 0.03 NG/ML (< 0.10)
[2018-12-11 13:33] LABS: ALBUMIN 2.3 GM/DL (3.2-5.2); BILIRUBIN,DIRECT 0.1 MG/DL (0.0-0.2); BILIRUBIN,TOTAL 0.3 MG/DL (0.2-1.0); MAGNESIUM LEVEL 1.8 MG/DL (1.8-2.4); TOTAL PROTEIN 5.6 GM/DL (6.4-8.2)
[2018-12-11 14:51] LABS: FREE T4 1.38 NG/DL (0.76-1.46); THYROID STIMULATING HORMONE 10.1 uIU/ML (0.358-3.740)
[2018-12-11] MEDS: SIMVASTATIN 20 MG TAB PO SCH (21:05)
[2018-12-11] MEDS: CARVedilol 6.25 MG TAB PO SCH (21:10)
[2018-12-12] VITALS: BP 140/62
[2018-12-12 04:00] VITALS: BP 147/64
[2018-12-12] MEDS: LEVOTHYROXINE 100MCG TABLET (0.1MG) PO SCH (05:48)
[2018-12-12 06:27] LABS: HEMATOCRIT 30.1 % (36.0-47.0); HEMOGLOBIN 9.6 g/dl (12.0-15.5); MEAN CORPUSCULAR HEMOGLOBIN 29.8 pg (27.0-33.0); MEAN CORPUSCULAR HGB CONC 31.9 g/dl (32.0-36.5); MEAN CORPUSCULAR VOLUME 93.5 fl (80.0-96.0); PLATELET COUNT, AUTOMATED 239 10^3/uL (150-450); RED BLOOD COUNT 3.22 10^6/uL (4.00-5.40)
[2018-12-12 07:02] LABS: ALBUMIN 2.2 GM/DL (3.2-5.2); BILIRUBIN,TOTAL 0.6 MG/DL (0.2-1.0); CALCIUM LEVEL 8.2 MG/DL (8.8-10.2); CREATININE FOR GFR 1.52 MG/DL (0.55-1.30); GLOMERULAR FILTRATION RATE 34.6 (>32); POTASSIUM SERUM 4.2 MEQ/L (3.5-5.1); TOTAL PROTEIN 5.5 GM/DL (6.4-8.2)
[2018-12-12 07:48] VITALS: BP 150/68
[2018-12-12] MEDS: HumaLOG INSULIN (NovoLOG) PER UNIT SC SCH ×4 (08:38→20:21)
[2018-12-12] MEDS: CYANOCOBALAMIN 500 MCG TAB PO SCH (08:38)
[2018-12-12] MEDS: SENOKOT S TAB PO SCH ×2 (08:38→20:21)
[2018-12-12] MEDS: ALLOPURINOL 300 MG TAB PO SCH (08:39)
[2018-12-12] MEDS: CARVedilol 6.25 MG TAB PO SCH ×2 (08:39→20:20)
[2018-12-12] MEDS: OMEPRAZOLE 20 MG CAP PO SCH (08:39)
[2018-12-12] MEDS ORDERED: CARV6.25 PO (11:57)
--- NOTE | 2018-12-12 13:33 | IPNPDOC ---
Text Note Date of Service The patient was seen on 12/12/18. NOTE Subjective: Patient was seen sitting in her chair comfortably. Patient just eaten breakfast. Patient denies any complaints and there was no acute events overnight. Yesterday, with discussion with healthcare proxy who is the patient's son, patient was made DNR/DNI and no further workup or interventions were done for her first-degree heart block and bradycardia. Review of systems General: Patient denies fevers HEENT: Patient denies headaches Cardiovascular: Patient denies chest pain Respiratory: Patient denies shortness of breath, cough GI: Patient denies abdominal pain, nausea, vomiting, diarrhea : Patient denies pain or difficulty with urination Neurological: Patient denies numbness or tingling in extremities Extremities: Patient endorses swelling in the left lower extremity which is been chronic. Objective: Vitals: (see below) General: No acute distress, laying comfortably in bed. HEENT: Normocephalic, atraumatic, moist mucous membranes. Neck: No JVD or lymphadenopathy Cardiac: RRR, No murmurs Pulm: Clear to auscultation b/l. No wheezing, rhonchi Abd: NT/ND + BS Ext: 2+ pitting edema on the dorsal aspect of the left foot. There is 1+ pitting edema up to the level of mid wells of the left lower extremity. Labs (see below) Images: No new images have been performed. Assessment/Plan 1. Syncopal event secondary to vasovagal versus less likely symptomatic bra dycardia. Patient was vomiting 2 nights ago and had a syncopal event. Compressions were done for 1 minute however, the patient came to. Patient was transferred to the ICU for further monitoring however everything was normal and the patient was returned to [facility] status yesterday. 2. Bradycardia with first degree heart block. No further cardiology workup or intervention will be performed. We have decreased her Coreg from 12.5-6.25 mg twice a day. 3. Questionable aspiration pneumonia. Chest x-ray from 12/11/2018 showed new bibasilar infiltrates possible effusion bilaterally aspiration precautions and bedside swallow study were ordered MRSA screen ordered. Patient denied any symptoms and no antibiotics were ordered. 4. Nausea/vomiting with poor oral intake, improved. Reported episodes of nausea have resolved. Patient is able to eat and drink without difficulty. 5. Charcot foot. Patient will follow up outpatient. 6. Transaminitis. This is resolving. 7. CKD stage IV. Patient has been placed on dialysis and will continue with dialysis on a Monday schedule. 8. Anemia and end-stage renal disease. This is been stabilized. 9. Chronic diastolic congestive heart failure. Coronary rate was decreased to 6.25 mg twice a day due to bradycardia. No signs of fluid overload patient remains stable. 10. Chronic hypertension. Coronary was decreased to 6.25 mg twice a day. We will continue to monitor. 11. Chronic CAD/dyslipidemia. Continue home simvastatin. 12. COPD with chronic O2 dependent respiratory failure. She is currently on her baseline 2 L of oxygen. 13. Chronic atrial fibrillation, rate controlled. Patient was not on any anticoagulation while she when she was admitted. 14. Hypothyroidism. Patient's TSH was elevated and patient was started on levothyroxine 100 g. We'll recheck. 15. Gout. Continuing home help her out. 16. Hypoglycemia, resolved with a history of type 2 diabetes mellitus. We will continue to monitor. 17. UTI, resolved upon admission patient's urine cultures positive for Enterococcus faecalis. Patient completed 3 days of ampicillin and hasn't no urinary symptoms. DVT prophy: Teds and sequentials Dispo: Patient has been made ALC status pending discharge to [facility]. VS,Diego, I+O VS, Naye, I+O Laboratory Tests 12/12/18 06:03 Red Blood Count 3.22 L, Mean Corpuscular Volume 93.5, Mean Corpuscular Hemoglobin 29.8, Mean Corpuscular Hemoglobin Concent 31.9 L, Red Cell Distribution Width 18.5 H, Calcium Level 8.2 L, Aspartate Amino Transf (AST/SGOT) 37, Alanine Aminotransferase (ALT/SGPT) 42, Alkaline Phosphatase 55, Total Bilirubin 0.6 #, Total Protein 5.5 L, Albumin 2.2 L Vital Signs Date Time Temp Pulse Resp B/P (MAP) Pulse Ox O2 Delivery O2 Flow Rate FiO2 12/12/18 08:39 68 150/68 12/12/18 07:48 98.4 20 95 2.0 I&O- Last 24 Hours up to 6 AM 12/12/18 06:00 Intake Total 180 ml Output Total 590 ml Balance -410 ml GME ATTESTATION GME ATTESTATION My faculty preceptor for this patient encounter was physically present during the encounter and was fully available. All aspects of the patient interview, examination, medical decision making process, and medical care plan development were reviewed and approved by the faculty preceptor. The faculty preceptor is aware and concurs with the plan as stated in the body of this note and will attest to such by his/her cosignature. ATTENDING NOTE I, Gustavo Cantu, have independently examined this patient and performed my own physical exam, as well as reviewed the documentation and edited where necessary. I have discussed in detail with the resident / student the findings and plan of treatment as documented by the resident / student and edited their note. I agree with their findings and treatment plan and have edited their documentation. I will continue to follow the patient during this hospital stay. MADY FAUST DO Dec 12, 2018 13:33 GUSTAVO CANTU MD Dec 12, 2018 15:18
[2018-12-12] MEDS: ACETAMINOPHEN TAB 650MG DOSE (2X325MG) PO PRN (14:14)
--- NOTE | 2018-12-12 14:19 | IPN ---
DATE OF VISIT: 12/11/2018 Mrs. Ruiz is seen this morning on her bedside in the intensive care unit. She was on ALC level yesterday and was found to be unresponsive. She had two chest compressions and she responded and opened her eyes. Since then, she has been transferred to the intensive care unit for monitoring for possible arrhythmias. At the time of my visit, the patient is awake and at her baseline mentation. She denies any dyspnea, chest pain, nausea, vomiting, headache or dizziness. She has been weak and her weakness has not improved even with physical therapy. On physical examination, temperature 98.4 degrees Fahrenheit, heart rate 58 per minute and respiratory rate 18 per minute. Blood pressure 142/66 mmHg and oxygen saturation 96%. Head is atraumatic. Neck is supple and jugular venous distention (JVD) is not abnormally elevated. She has a right-sided internal jugular vein catheter in place for dialysis. Heart sounds are irregular in rhythm. There is no pericardial friction rub. Lungs sound clear to auscultation. Abdomen is soft and nontender and bowel sounds are normal. Extremities are without any cyanosis or clubbing. She has a deformity of her left foot with mild pinkish discoloration of her foot and lower leg. Neurologically, she is at her baseline mentation. Today's labs show a WBC count 10.3, hemoglobin 9.9 and hematocrit 31.3. Platelets 240. Sodium 129, potassium 5.6, CO2 22, BUN 29 and creatinine 2.11. Glucose 153 and calcium 8.1. Serum albumin is only 1.9. PROBLEMS: 1. End-stage renal disease. The patient was not dialyzed yesterday and we plan to dialyze her today. She will be dialyzed on her bedside early this afternoon or late morning. 2. Hyperkalemia related to end-stage renal disease. Will be corrected with dialysis. She will be dialyzed with 2.0 mEq potassium bath. 3. Hyponatremia, unchanged from yesterday. This will be also corrected with dialysis and no other intervention will be needed. 4. Anemia. The patient does have stable anemia and no urgent intervention is needed at present. 5. Left foot deformity and erythema. I have discussed with the hospitalist service and will defer to the hospitalist about consideration for antibiotic if there is a suspicion for infection.
--- NOTE | 2018-12-12 18:31 | IPN ---
DATE: 12/12/2018 Mrs. Ruiz is seen this morning on her bedside in intensive care unit. She is feeling better today and her son and brother are present on the bedside. The patient was dialyzed yesterday afternoon which she tolerated well. Her son reports that she slept through the dialysis and afterwards. This morning, she had a good breakfast. She denies any nausea, vomiting, chest pain, fever or chills. She has chronic hypoxemia and remains on two liters of oxygen which is at baseline. PHYSICAL EXAMINATION: Temperature 98.4 degrees Fahrenheit, heart rate 68 per minute and respiratory rate 20 per minute. Blood pressure 150/68 mmHg and oxygen saturation 95% on two liters of oxygen. Head is atraumatic. Neck is supple and jugular venous distention (JVD) is not abnormally elevated. Heart sounds are regular. Lungs sound clear to auscultation. Abdomen is soft and nontender and bowel sounds are normal. Extremities have no cyanosis or clubbing. Her left foot is deformed and chronically swollen. Neurologically, she is at her baseline mentation at present without a focal deficit. LABORATORY DATA: Today's laboratories show WBC count 11.0, hemoglobin 9.6 and hematocrit 30.1. Platelets 239. Sodium 138, potassium 4.2, CO2 32, BUN 15 and creatinine 1.52. Glucose 119 and calcium 8.2. PROBLEMS: 1. End-stage renal disease. The patient has started dialysis during this admission and she was dialyzed yesterday. Her next regular dialysis will be scheduled for as an outpatient as she is likely to be discharged to [facility] today. 2. Anemia. Anemia is stable and likely to improve. She received Aranesp during dialysis here in the hospital and last dose was given on 12/05/2018. As an outpatient, she will be managed in dialysis clinic. 3. Congestive heart failure. Volume status is very well-compensated and her congestive heart failure will be managed with dialysis. She does not need diuretic at present. 4. Chronic hypoxemia and chronic obstructive pulmonary disease (COPD). She is at about her baseline and remains on two liters of oxygen which is chronic. 5. Generalized weakness and deconditioning. The patient is elderly and frail with multiorgan problems. She is very weak and will require subacute rehabilitation. She is likely to be discharged to [facility] later today. She will come to outpatient dialysis clinic tomorrow for her first outpatient dialysis.
[2018-12-12 20:00] VITALS: BP 157/60
[2018-12-12] MEDS: SIMVASTATIN 20 MG TAB PO SCH (20:21)
[2018-12-13 04:17] VITALS: BP 150/65
[2018-12-13 05:29] LABS: HEMATOCRIT 29.3 % (36.0-47.0); HEMOGLOBIN 9.4 g/dl (12.0-15.5); MEAN CORPUSCULAR HEMOGLOBIN 30.8 pg (27.0-33.0); MEAN CORPUSCULAR HGB CONC 32.1 g/dl (32.0-36.5); MEAN CORPUSCULAR VOLUME 96.1 fl (80.0-96.0); PLATELET COUNT, AUTOMATED 208 10^3/uL (150-450); RED BLOOD COUNT 3.05 10^6/uL (4.00-5.40); WHITE BLOOD COUNT 9.4 10^3/uL (4.0-10.0)
[2018-12-13 06:04] LABS: ALBUMIN 2.2 GM/DL (3.2-5.2); BILIRUBIN,TOTAL 0.5 MG/DL (0.2-1.0); CALCIUM LEVEL 8.4 MG/DL (8.8-10.2); CREATININE FOR GFR 2.08 MG/DL (0.55-1.30); GLOMERULAR FILTRATION RATE 24.1 (>32); POTASSIUM SERUM 4.9 MEQ/L (3.5-5.1); TOTAL PROTEIN 5.5 GM/DL (6.4-8.2)
[2018-12-13] MEDS: LEVOTHYROXINE 100MCG TABLET (0.1MG) PO SCH (06:12)
[2018-12-13] MEDS: HumaLOG INSULIN (NovoLOG) PER UNIT SC SCH (07:38)
[2018-12-13 08:00] VITALS: BP 161/67
[2018-12-13 08:16] VITALS: BP 161/67
[2018-12-13] MEDS: CARVedilol 6.25 MG TAB PO SCH (08:16)
[2018-12-13] MEDS: OMEPRAZOLE 20 MG CAP PO SCH (08:16)
[2018-12-13] MEDS: CYANOCOBALAMIN 500 MCG TAB PO SCH (08:16)
[2018-12-13] MEDS: SENOKOT S TAB PO SCH (08:17)
[2018-12-13] MEDS: ALLOPURINOL 300 MG TAB PO SCH (08:19)
[2018-12-13] MEDS: ACETAMINOPHEN TAB 650MG DOSE (2X325MG) PO PRN (09:45)
--- NOTE | 2018-12-13 11:57 | DS.PDOC ---
Discharge Summary General Date of Admission Nov 28, 2018 at 04:52 Date of Discharge 12/13/18 Primary Care Physician: Andrew Mejias Attending Physician: GUSTAVO LEONG MD Specialist/Consultants Involve: LUCY FORTUNE MD @ Specialist/Consultants Involve Rao Rose Andrew R. Discharge Summary PROCEDURES PERFORMED DURING STAY: Tunneled central line placement ADMITTING/DISCHARGE DIAGNOSES: 1. Syncopal event secondary to vasovagal 2. Bradycardia with first-degree heart block 3. Nausea/vomiting with poor oral intake 4. Charcot foot 5. Transaminitis, resolved 6. Chronic kidney disease stage V 7. Anemia of end-stage renal disease 8. Chronic diastolic congestive heart failure 9. Chronic hypertension. 10. Chronic coronary artery disease/dyslipidemia. 11. COPD. 12. Possible history of paroxysmal atrial fibrillation/chronic bradycardia, not on anticoagulation when she was admitted into the hospital. 13. Hypothyroidism. 14. Gout. 15. Hypoglycemia, resolved. 16. Urinary tract infection, resolved COMPLICATIONS/CHIEF COMPLAINT: Nausea and vomiting HISTORY OF PRESENT ILLNESS/HOSPITAL COURSE: Patient was brought to the emergency room on 11/27/2018 episodes of nausea and vomiting that had been going on for 2 weeks. She denied having any abdominal pain or having any diarrhea. Patient's 2 weeks prior to her coming to the emergency room. Patient was also found to be hypoglycemic and was given D50 as well as IV fluids and Zofran. Patient had an EKG performed in the emergency room which showed sinus bradycardia which was similar to previous EKGs. Patient also had a AV fistula placed in her left arm and was preparing for hemodialysis however she had not started hemodialysis at the time of her hospitalization. While she was in the hospital, she continued to have episodes of nausea and vomiting that was slowly getting better. Patient also was diagnosed with a urinary tract infection with a culture positive for Enterococcus faecalis. Patient was given 1 dose of vancomycin and was then switched to ampicillin for a full course of 3 days to treat the urinary tract infection. After this, patient did not complain of any dysuria. During the patient's hospitalization, a 24-hour urine study was performed and did show the patient's creatinine clearance to be very low, 6.5 o kacy the 24-hour collection. Dr. Fortune discussed with her family that this was very low and that she would need to begin hemodialysis at that time. Dr. Rose of vascular surgery was consulted to place a permacath and he placed a tunneled permacath in the internal jugular vein on the right side during hospitalization. Patient began dialysis on a Monday, , Monday schedule. Patient slowly began to improve and was initially deemed ready for discharge and made ALC status on 12/05/2018. On the night of 12/10/2018, patient had a episode in which a max cart was called. Patient was found to have not have a pulse and CPR was started. About a minute into chest compressions, the patient opened her eyes and woke up. This causes to believe this was a vasovagal episode due to her nausea and vomiting versus symptomatic bradycardia. She was transferred to the ICU for further monitoring. The next morning, her lab tests were normal, her EKGs were unchanged and the patient was feeling much better. In discussions with the patient's sons who are her healthcare proxies, the patient was made DNR/DNI. There was also discussion if any workups or treatment would be done to address her bradycardia. Her sons did not want to proceed and the patient was made MedSurg status later on on 12/11/2018. Patient's carvedilol was decreased from 12.5 mg twice a day to 6.25 mg twice a day at this time. Patient tolerated this medication change well. Yesterday, 12/12/2017, the patient was deemed ready for discharge however, there was a hold up with family so the patient was again made ALC status. The next day, the family was in agreement for the patient to be discharged to [facility] for subacute rehabilitation. Patient will continue with outpatient dialysis on a Monday, , Monday schedule. DISCHARGE MEDICATIONS: Please see below. ALLERGIES: Please see below. PHYSICAL EXAMINATION ON DISCHARGE: Vitals: (see below) General: No acute distress, laying comfortably in bed. HEENT: Moist mucous membranes. Neck: No JVD or lymphadenopathy Cardiac: RRR, No murmurs Pulm: Faint crackles heard at the bases bilaterally. Other lung bhagat are clear to auscultation bilaterally. Abd: NT/ND + BS Ext: There is edema present on the dorsal aspect of the patient's left foot which is improved from the prior day. There is some edema in the ankle of the left foot. The right leg does not have any edema. LABORATORY DATA: Please see below. IMAGING: Chest x-ray performed on 11/28/2018 showed evidence of COPD with cardiomegaly and pulmonary vascular congestion. Mild diffuse interstitial fibrosis pattern. An ultrasound of the right upper quadrant of the abdomen performed on 11/28/2018 showed distended gallbladder containing biliary sludge. A CT of the head without contrast performed on 11/28/2018 showed no acute intracranial abnormality and similar white matter disease as prior studies. 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 A visceral Doppler ultrasound of the right upper quadrant liver performed on 11/28/2018 showed no abnormality. An x-ray of the foot performed on 11/29/2018 showed advanced neuropathic arthropathy left midfoot. Diffuse left foot swelling. Progressive arthropathy changes in the left mid foot. No acute bony distractive lesions seen radiographically. On the right there is no acute erosive or soft tissue gas. A left upper extremity Doppler venous ultrasound performed on 12/02/2018 showed no abnormal fluid collection or mass in the upper arm. No DVT in the left upper extremity deep venous system. Dialysis fistula is patent. A chest x-ray performed on 12/10/2018 shows cardiomegaly with prominent vasculature and increased interstitial markings. There are new bibasal infiltrates and possible effusion bilaterally. A right central venous catheter seen with the tip in the superior vena cava. There is no pneumothorax. PROGNOSIS: Fair ACTIVITY: As tolerated. DIET: Renal diet DISCHARGE PLAN/DISPOSITION: Discharge to [facility] for subacute rehabilitation DISCHARGE INSTRUCTIONS: 1. Continue with scheduled dialysis on Monday, , and Monday. 2. Follow-up with provider at [facility] for further care. 3. Follow-up with nephrology as instructed. 4. Return to the ER if you experience any problems DISCHARGE CONDITION: Stable. TIME SPENT ON DISCHARGE: 35 minutes. Vital Signs/I&Os Vital Signs Date Time Temp Pulse Resp B/P (MAP) Pulse Ox O2 Delivery O2 Flow Rate FiO2 12/13/18 08:16 161/67 12/13/18 08:00 98.7 61 16 94 2.0 I&O- Last 24 Hours up to 6 AM 12/13/18 06:00 Intake Total 300 ml Output Total 80 ml Balance 220 ml Laboratory Data Labs 24H Laboratory Tests 2 12/12/18 11:58: Bedside Glucose (Misc Panel) 156H 12/12/18 16:54: Bedside Glucose (Misc Panel) 170H 12/12/18 20:15: Bedside Glucose (Misc Panel) 143H 12/13/18 05:15: Nucleated Red Blood Cells % (auto) 0.0, Anion Gap 5L, Glomerular Filtration Rate 24.1L, Blood Urea Nitrogen 24#H, Creatinine 2.08H, Sodium Level 137, Potassium Level 4.9, Chloride Level 101, Carbon Dioxide Level 31, Calcium Level 8.4L, Aspartate Amino Transf (AST/SGOT) 25, Alanine Aminotransferase (ALT/SGPT) 33, Alkaline Phosphatase 56, Total Bilirubin 0.5, Total Protein 5.5L, Albumin 2.2L, Albumin/Globulin Ratio 0.67L CBC/BMP Laboratory Tests 12/13/18 05:15 Red Blood Count 3.05 L, Mean Corpuscular Volume 96.1 H, Mean Corpuscular Hemoglobin 30.8, Mean Corpuscular Hemoglobin Concent 32.1, Red Cell Distribution Width 18.3 H, Calcium Level 8.4 L, Aspartate Amino Transf (AST/SGOT) 25, Alanine Aminotransferase (ALT/SGPT) 33, Alkaline Phosphatase 56, Total Bilirubin 0.5, Total Protein 5.5 L, Albumin 2.2 L FSBS Laboratory Tests Test 12/12/18 11:58 12/12/18 16:54 12/12/18 20:15 Range/Units Bedside Glucose (Misc Panel) 156 170 143 83-110 MG/DL Microbiology Microbiology 12/11/18 MRSA Screen - Final, Complete Discharge Medications Scheduled Allopurinol (Zyloprim) 300 Mg Tab, 150 MG PO DAILY, (Reported) Amiodarone HCl (Amiodarone HCl) 200 Mg Tab, 200 MG PO BID, (Reported) Aspirin (Aspirin) 81 Mg Tab.chew, 81 MG PO DAILY, (Reported) Calcitriol (Calcitriol) 0.25 Mcg Cap, 0.25 MCG PO DAILY, (Reported) Carvedilol (Carvedilol) 6.25 Mg Tablet, 6.25 MG PO BID Cyanocobalamin (Vitamin B-12) (Vitamin B-12) 1,000 Mcg Tab, 1,000 MCG PO DAILY, (Reported) Ergocalciferol (Vitamin D2) (Drisdol) 50,000 Unit Cap, 50,000 UNIT PO 1XWK, (Reported) TAKES ON FRIDAYS Ferrous Sulfate (Ferrous Sulfate) 325 Mg Tablet.dr, 650 MG PO QHS, (Reported) Glipizide (Glipizide Xl) 10 Mg Tab, 10 MG PO BID, (Reported) Levothyroxine Sodium (Synthroid) 100 Mcg Tablet, 100 MCG PO DAILY, (Reported) Magnesium Oxide (Magnesium Oxide) 400 Mg Tablet, 400 MG PO 3XW, (Reported) MONDAY, MONDAY AND MONDAY MORNING Omeprazole (Omeprazole) 20 Mg Tab, 20 MG PO DAILY, (Reported) Potassium Chloride (Potassium Chloride) 20 Meq Tab.er.prt, 20 MEQ PO DAILY, (Reported) Simvastatin (Simvastatin) 20 Mg Tab, 20 MG PO QHS, (Reported) Torsemide (Torsemide) 20 Mg Tablet, 40 MG PO BID, (Reported) Allergies Coded Allergies: bee venom protein (honey bee) (Verified Allergy, Severe, 11/28/18) Penicillins (Verified Allergy, Intermediate, 11/28/18) GME ATTESTATION GME ATTESTATION My faculty preceptor for this patient encounter was physically present during the encounter and was fully available. All aspects of the patient interview, examination, medical decision making process, and medical care plan development were reviewed and approved by the faculty preceptor. The faculty preceptor is aware and concurs with the plan as stated in the body of this note and will attest to such by his/her cosignature. ATTENDING NOTE I, Gustavo Leong, have independently examined this patient and performed my own physical exam, as well as reviewed the documentation and edited where necessary. I have discussed in detail with the resident / student the findings and plan of treatment as documented by the resident / student and edited their note. I agree with their findings and treatment plan and have edited their documentation. I w ill continue to follow the patient during this hospital stay. Time spent on discharge: 35 minutes MADY FAUST DO Dec 13, 2018 11:57 GUSTAVO LEONG MD Dec 13, 2018 13:26
--- NOTE | 2018-12-13 20:17 | IPN ---
DATE: 12/13/2097 Mrs. Ruiz is seen this morning on her bedside in intensive care unit. There was a plan for discharge yesterday. However, she could not be discharged and is likely to be discharged today to the shelter. She remains somewhat confused but denies any acute distress. She has no dyspnea, chest pain, nausea or vomiting. PHYSICAL EXAMINATION: Temperature 98.7 degrees Fahrenheit, heart rate 60 per minute and respiratory rate 16 per minute. Blood pressure 160/67 mmHg and oxygen saturation 94% on two liters of oxygen. Head is atraumatic. Neck is supple and jugular venous distention (JVD) is not elevated sitting upright. She has a dialysis catheter in right internal jugular vein. Lungs have bilateral scattered rhonchi. Heart sounds are regular. Abdomen is soft and nontender and bowel sounds are normal. Extremities have no cyanosis or clubbing. Left ankle and foot is swollen. She does have deformity of her left foot which is unchanged. LABORATORY DATA: Today's laboratories show WBC count 9.4, hemoglobin 9.4 and hematocrit 29.3. Sodium 137, potassium 4.9, CO2 30, BUN 24 and creatinine 2.08. PROBLEMS: 1. End-stage renal disease. The patient was dialyzed on Monday and is due for dialysis today. If she gets discharged in a timely fashion then she can go to outpatient dialysis clinic and start her first treatment over there today. 2. Congestive heart failure. Volume status is reasonably well-compensated and she is at about her baseline hypoxemia requiring two liters of oxygen. 3. Anemia. Anemia is stable at present and likely to improve with ongoing treatment during hemodialysis. She will receive intravenous iron and Mircera as outpatient. 4. Generalized weakness and disposition. The patient remains very weak and frail. She is going to have subacute rehabilitation in shelter.
== END 2018-12-13 10:35 | DRG 674 ==
LOC: M ED 03:06 → M ED INP 04:52 → M ICU 13:06 → M MSPAV 11-29 17:17 → M ICU 12-10 19:44
PROVIDERS: ADMIT Internal Medicine; ATTEND Internal Medicine
PROC: 02HV33Z Insertion of Infusion Device into Superior Vena Cava, Percutaneous Approach (ICD-10-PCS; 2018-12-05)
PROC: 0JH63XZ Insertion of Tunneled Vascular Access Device into Chest Subcutaneous Tissue and Fascia, Percutaneous Approach (ICD-10-PCS; principal; 2018-12-05 06:30)
DX: N17.9 Acute kidney failure, unspecified (principal); I50.32 Chronic diastolic (congestive) heart failure; J96.10 Chronic respiratory failure, unspecified whether with hypoxia or hypercapnia; E87.0 Hyperosmolality and hypernatremia; E87.1 Hypo-osmolality and hyponatremia; I13.2 Hypertensive heart and chronic kidney disease with heart failure and with stage 5 chronic kidney disease, or end stage renal disease; E46 Unspecified protein-calorie malnutrition; Z68.1 Body mass index [BMI] 19.9 or less, adult; N39.0 Urinary tract infection, site not specified; R11.2 Nausea with vomiting, unspecified; N18.5 Chronic kidney disease, stage 5; N25.81 Secondary hyperparathyroidism of renal origin; Z79.82 Long term (current) use of aspirin; Z79.899 Other long term (current) drug therapy; Z88.0 Allergy status to penicillin; Z91.038 Other insect allergy status; M10.30 Gout due to renal impairment, unspecified site; R55 Syncope and collapse; I25.10 Atherosclerotic heart disease of native coronary artery without angina pectoris; J44.9 Chronic obstructive pulmonary disease, unspecified; I48.0 Paroxysmal atrial fibrillation; E03.9 Hypothyroidism, unspecified; E78.5 Hyperlipidemia, unspecified; E11.618 Type 2 diabetes mellitus with other diabetic arthropathy; E11.649 Type 2 diabetes mellitus with hypoglycemia without coma

== ENCOUNTER → 2018-12-19 | Outpatient (REF) ==
[~2018-12-19] MED LIST changes: +ASPI81CH33 PO; +CARV6.25 PO; +POTA20TA6 PO; +SYNT100T PO
--- NOTE | 2018-12-19 13:17 | REP ---
Clinical: Pain and swelling. Technique: AP, lateral, bilateral oblique views of the left ankle. Comparison: 11/29/2018 Findings: Osteopenia and degenerative changes along with significant soft tissue swelling throughout the ankle noted. No obvious acute ankle fracture is appreciated. The ankle mortise is intact. Visualized portions of the foot demonstrate chronic advanced neuropathic arthropathy extending through the tarsometatarsal joints. Impression: 1. Osteopenia and soft tissue swelling at the ankle without obvious acute ankle fracture. 2. Advanced neuropathic arthropathy involving the visualized midfoot unchanged compared to 11/29/2018. Electronically Signed by Carlos Tejada MD 12/19/2018 01:09 P
== END ==
LOC: SKLAB7 11:31
PROVIDERS: ATTEND Internal Medicine
DX: M25.572 Pain in left ankle and joints of left foot (principal); R22.42 Localized swelling, mass and lump, left lower limb

== ENCOUNTER → 2018-12-19 | Outpatient (CLI) | payer MEDICARE, OTHER ==
--- NOTE | 2018-12-19 13:11 | REP ---
Clinical: Left lower extremity pain and swelling . Technique: Joya scale and color Doppler evaluation using linear high frequency transducer. Findings: Ultrasound examination of the left lower extremity deep venous structures from the common femoral vein to the popliteal vein demonstrates normal compressibility flow and wave patterns in response to respiration and augmentation. There is no evidence for deep venous thrombosis. Impression: No evidence for deep venous thrombosis. Electronically Signed by Carlos Tejada MD 12/19/2018 01:02 P
--- NOTE | 2018-12-19 13:43 | REP ---
LEFT FOOT: Four views. HISTORY: Pain and swelling. Injury in a fall. Comparison left foot radiographs are from November 29, 2018. FINDINGS: There is diffuse osteopenia. Severe neuropathic arthropathy is seen in the midfoot involving the tarsometatarsal and intertarsal articulations as seen on November 29, 2018. There is prominent soft tissue swelling at the medial aspect of the midfoot and diffuse soft tissue swelling is seen over the dorsum of the forefoot. No acute fracture is seen. No soft tissue gas is noted. IMPRESSION: Advanced neuropathic arthropathy left mid foot. Diffuse swelling. No acute fracture seen. Electronically Signed by Danny Corral MD 12/19/2018 01:44 P
== END ==
LOC: M RAD 12:19
PROVIDERS: ATTEND Nurse Practitioner Family
DX: M79.605 Pain in left leg (principal); R22.42 Localized swelling, mass and lump, left lower limb

== ENCOUNTER → 2018-12-21 | Outpatient (REF) | payer MEDICARE, OTHER ==
[~2018-12-21] MED LIST changes: +OMEP-358 PO; -OMEP20TA PO; -SIMV20TA2 PO; +SIMV20TA22 PO
[2018-12-21 11:22] LABS: APPEARANCE, URINE MANUAL TURBID (CLEAR); COLOR, URINE MANUAL YELLOW (YELLOW); SPECIFIC GRAVITY,URINE MANUAL 1.015 (1.002-1.035)
[2018-12-21 11:23] LABS: BILIRUBIN, URINE MANUAL NEGATIVE (NEGATIVE); BLOOD URINE MANUAL POSITIVE (NEGATIVE); GLUCOSE, URINE (UA) MANUAL NEGATIVE (NEGATIVE); KETONE, URINE MANUAL NEGATIVE (NEGATIVE); LEUKOCYTE ESTERASE, URINE MAN POSITIVE (NEGATIVE); NITRITE, URINE MANUAL NEGATIVE (NEGATIVE); PROTEIN, URINE MANUAL 3+ mg/dL (NEGATIVE); UROBILINOGEN, URINE MANUAL NORMAL (NORMAL); WBC, URINE TNTC /hpf (0-3)
[2018-12-21 11:24] LABS: BACTERIA, URINE MOD AMOUNT; HYALINE CAST, URINE NONE SEEN /lpf (0-1); SQUAMOUS EPITHELIAL CELL URINE NONE SEEN /hpf (SMALL AMT)
== END ==
LOC: SKLAB7 10:30
PROVIDERS: ATTEND Internal Medicine
DX: R33.9 Retention of urine, unspecified (principal)